=== PATIENT | male | born 1955 | race African-American/Black ===

== ENCOUNTER 2018-07-26 10:58 | Inpatient (IN) | payer OTHER ==
--- NOTE | 2018-07-26 11:06 | PDOC ---
Attending Attestation - Resident Resident Name: Ramila Arevalo - HPI HPI: 07/26/18 11:31 The patient is a 63 year old male, with unknown significant past medical history , poor medicine follow-up, who presents to the emergency department [facility] for inability to get out of bed and stand as per family at 7:30AM this morning. As per EMS, the patient has left sided extremity weakness, left facial droop, and slurred speech. The patient states he woke up with his symptoms and onset time is not exactly known. The patient's family reports seeing him well before bed last night. The patient denies chest pain, shortness of breath, headache and dizziness. The patient denies fever, chills, nausea, vomit, diarrhea and constipation. The patient denies dysuria, frequency, urgency and hematuria. Allergies: NKDA - Physicial Exam PE: 07/26/18 12:10 GENERAL: Awake, alert, and fully oriented, in no acute distress HEAD: No signs of trauma EYES: PERRLA, EOMI, sclera anicteric, conjunctiva clear ENT: Auricles normal inspection, hearing grossly normal, nares patent, oropharynx clear without exudates. Moist mucosa NECK: Normal ROM, supple, no lymphadenopathy, JVD, or masses LUNGS: Breath sounds equal, clear to auscultation bilaterally. No wheezes, and no crackles HEART: Regular rate and rhythm, normal S1 and S2, no murmurs, rubs or gallops ABDOMEN: Soft, nontender, normoactive bowel sounds. No guarding, no rebound. No masses EXTREMITIES: Normal range of motion, no edema. No clubbing or cyanosis. No cords, erythema, or tenderness NEUROLOGICAL: (+) 3/5 MS in left hand. Able to raise left LE against gravity with drift. oriented x 3. Cranial nerves II through XII grossly intact. Normal speech, gait unassessed. SKIN: Warm, Dry, normal turgor, no rashes or lesions noted. - Medical Decision Making 07/26/18 11:33 Documentation prepared by Carol Cuevas, acting as medical anthropologist for Betty Maharaj MD 07/26/18 11:30 Dr. Ignacio, neurology, was paged at this time requesting a call back for doctor to doctor. 07/26/18 13:31 EXAM#: TYPE/EXAM: RESULT: [id number] CT/HEAD CT (STROKE) Rule out stroke CT scan of the brain without intravenous contrast. No prior is available for comparison. There is mild volume loss. The ventricles and basal cisterns appear unremarkable. Mild periventricular chronic microvascular ischemic disease changes are present. There is a lacunar infarct in the medial aspect of the right basal ganglia, of indeterminate age, possibly chronic. Otherwise, no mass lesion, gross acute infarct or intracranial hemorrhage are identified. There is no shift of the midline structures. Visualized paranasal sinuses and mastoid air cells are well aerated. The calvarium is intact IMPRESSION: Mild volume loss and chronic microvascular ischemic disease changes. Right basal ganglia lacunar infarct, of indeterminate age, possibly chronic. Otherwise , no gross acute infarct or intracranial hemorrhage are identified. Correlate clinically for further evaluation and follow-up. Reported By: Daylin Flores MD 07/26/18 1120 EXAM#: TYPE/EXAM: RESULT: [id number] RAD/CHEST X-RAY PORTABLE* Stroke. Single portable chest x-ray. Uncoiled thoracic aorta. Cardiomegaly. The lungs are well aerated. There is no evidence of pneumonia, CHF, pleural effusion, or pneumothorax. The visualized osseous structures appear intact. Impression. No evidence of active pulmonary disease. Cardiomegaly. Reported By: Jesus Tello MD 07/26/18 1140 EXAM#: TYPE/EXAM: RESULT: CT/BRAIN CTA (STROKE) [id number] CT/NECK CTA Left side weakness. Rule out stroke CT angiogram of the head and neck. IMPRESSION: There is no evidence of hemodynamically significant stenosis at the common carotid bifurcation, bilaterally. Slightly dominant left vertebral artery relative to the right without gross evidence of focal stenosis. Small calcified plaque in the left cavernous carotid artery. There is suggestion of moderate focal stenosis at the bifurcation of the right M1 segment on the MIP axial and images which is not definitely appreciated on the axial images. Clinical correlation is recommended to determine further evaluation and follow-up. Case discussed with Dr. Ramila Arevalo, caring health professional at approximately 12:45 pm. Reported By: Daylin Flores MD 07/26/18 1308 EXAM#: TYPE/EXAM: RESULT: [id number] CT/BRAIN CTA (STROKE) [id number] CT/NECK CTA Left side weakness. Rule out stroke CT angiogram of the head and neck. IMPRESSION: There is no evidence of hemodynamically significant stenosis at the common carotid bifurcation, bilaterally. Slightly dominant left vertebral artery relative to the right without gross evidence of focal stenosis. Small calcified plaque in the left cavernous carotid artery. There is suggestion of moderate focal stenosis at the bifurcation of the right M1 segment on the MIP axial and images which is not definitely appreciated on the axial images. Clinical correlation is recommended to determine further evaluation and follow-up. Case discussed with Dr. Ramila Arevalo, caring health professional at approximately 12:45 pm. Reported By: Daylin Flores MD 07/26/18 1304 NIH Stroke Scale - Last Known Well Date/Time & Onset Date Last Known Well: 07/25/18 (unknown time, before bed last night.)
[2018-07-26] MEDS ORDERED: SODIUM CHLORIDE 1,000 ML IV SCH (11:15)
[2018-07-26] MEDS ORDERED: LABETALOL HCL 5 MG/1 ML (100MG/20 ML VIAL) IVPUSH ONE (11:26)
[2018-07-26] MEDS ORDERED: hydrALAZINE HCL 20 MG/ML VIAL ONE ×3 (11:28→19:51)
[2018-07-26] MEDS ORDERED: hydrALAZINE HCL 20 MG/ML VIAL IVPUSH ONE ×3 (11:28→19:49)
--- NOTE | 2018-07-26 11:39 | PDOC ---
History of Present Illness - General Chief Complaint: CVA/TIA Stated Complaint: STROKE Time Seen by Provider: 07/26/18 11:05 History Source: Patient, EMS, Family Exam Limitations: No Limitations - History of Present Illness Initial Comments: 07/26/18 11:41 [id number] with unknown PMH as he has been estranged from the medical system for many years, who p/w left arm and leg weakness and right facial droop and numbness. The patient's last known well time was last night before he went to bed (patient states was feeling well at that time). He awakened this morning, attempted to stand from his bed, and fell. His son picked him up and put him back on the bed. The patient subsequently fell again upon trying to stand. The patient and family note that he now has LUE and LLE weakness, unable to walk, and he has right facial droop and is slurring speech slightly. Never happened to him before. He denies taking any medications today, denies any pain, symptoms persist. Past History - Past Medical History Allergies/Adverse Reactions: Allergies Allergy/AdvReac Type Severity Reaction Status Date / Time No Known Allergies Allergy Verified 07/26/18 11:07 COPD: No CHF: No HTN: Yes (untreated, does not see a doctor.) - Suicide/Smoking/Psychosocial Hx Smoking History: Unknown if ever smoked Have you smoked in the past 12 months: No Hx Alcohol Use: No Drug/Substance Use Hx: No *Physical Exam - Vital Signs Last Vital Signs Temp Pulse Resp BP Pulse Ox 97 F L 74 16 227/125 H 100 07/26/18 10:58 07/26/18 10:58 07/26/18 10:58 07/26/18 10:58 07/26/18 10:58 NIH Stroke Scale - Last Known Well Date/Time & Onset Date Last Known Well: 07/26/18 Time Last Known Well: 07:30 - Initial Evaluation Level of consciousness: Alert Ask patient the month and their age: Answers both correctly Ask patient to open & close eyes; make fist and let go: Obeys both correctly Best gaze (horizontal eye movement): Normal Visual field testing: No visual field loss Facial paresis (Show teeth/raise eyebrows/close eyes tight): Minor paralysis ( flattened nasolabial fold, asymmetry on smiling) Motor Function: Left Arm: Some effort against gravity Motor Function: Right Arm: Normal (extends arm 90 (or 45) degrees for 10 seconds without drift Motor Function: Left Leg: Drift Motor Function: Right Leg: Normal (extends leg 30 degrees for 5 seconds without drift) Limb Ataxia: No ataxia Sensory(Use pinprick test arms,legs,trunk,face/side to side): Mild to moderate decrease in sensation Best language (Describe picture, name items, read sentences): No Aphasia Dysarthria (read several words): Mild to moderate slurring of words Extinction and Inattention: No abnormality - Total Score NIH Stroke Scale Score: 6 tPA Exclusion checklist 3-4.5h - Time Elapsed Date last known well: 07/25/18 Time last known well: 23:00 Elaspsed time: 1 Day(s) and 10 Hour(s) and 33 Minutes - Thrombolytic Therapy Candidate Is patient eligible for thrombolytic therapy: No - Exclusion Criteria 3-4.5 hr SBP greater than 185 or DBP greater than 110mmHg despite tx: Yes Recent IC/spinal surgery,head trauma or stroke<3mos.: No Hx IC hemorrhage, IC neoplasm, AV malformation or aneurysm: No Active internal bleeding: No Blding diathesis(low plt ct, inc PTT,INR>1.7 or use of NOAC): No Symptoms suggest subarachnoid hemorrhage: No CT demonstrates multilobar infarct(>1/3 cerebral hemiphere): No Arterial puncture at noncompressible site in previous 7 days: No Blood glucose concentration less than 50mg/dL (2.7mmol/L): No - Relative Exclusion Criteria 3-4.5 hr Life expectancy <1 yr or severe co-morbid illness: No : No Patient/family refused: No Rapid improvement: No Stroke severity too mild: No Recent acute KS (w/in previous 3 months): No Seizure at onset with postictal residual neuro impairments: No Major surgery or serious trauma w/in previous 14 days: No Recent GI or hemorrhage (w/in previous 21 days): No - Add'l Relative Exclusion 3-4.5 hr Age > 80: No Hx of both diabetes AND prior ischemic stroke: No Taking an oral anticoagulant regardless of INR: No NIHSS >25: No - Ineligibility reason(s) Reasons No tPA given: Outside of window - delayed arrival Moderate Sedation - Procedure Monitoring Vital Signs: Procedure Monitoring Vital Signs Temperature 97 F L 07/26/18 10:58 Pulse Rate 74 07/26/18 10:58 Respiratory Rate 16 07/26/18 10:58 Blood Pressure 227/125 H 07/26/18 10:58 O2 Sat by Pulse Oximetry (%) 100 07/26/18 10:58 Heart Score/ECG Review #1 07/26/18 11:17 NSR, rate 80, normal axis and intervals, meets LVH criteria, TWI in I, aVL, and lateral chest leads, no prior EKG available for comparison Critical Care Time/MDM Note Total Critical Care Time: 45 Critical Care Statement: The care of this patient involved high complexity decision making to prevent further life threatening deterioration of the patient 's condition and/or to evaluate & treat vital organ system(s) failure or risk of failure. - Medical Decision Making Note: Patient presents with LUE and LLE weakness, right facial droop and numbness, slurred speech. Last known well time was last night. However Cash Cohn was initially called because patient/family reported feeling well/normal at 8 am initially. Initial Vital Signs Temp Pulse Resp BP Pulse Ox 97 F L 74 16 227/125 H 100 07/26/18 10:58 07/26/18 10:58 07/26/18 10:58 07/26/18 10:58 07/26/18 10:58 Exam: As noted in Physical Exam section. DDX IBNLT: CVA/TIA, hypertensive emergency, carotid dissection or other dissection, hypoglycemia, limb ischemia (e.g. thromboembolism or dissection), etc. W/U ordered: Stroke w/u including labs below, head CT, head/neck CTA, EKG, CXR, auto [employer] manager [place] ordered: IV, O2, Monitor, IVF, hydralazine (we have been informed that there is no labetolol or esmolol available IV) NIH is 6 and patient is not a tPA candidate d/t delayed arrival. EKG: Reviewed; results as noted in ECG Review section. CT/HEAD CT (STROKE) Rule out stroke CT scan of the brain without intravenous contrast. No prior is available for comparison. There is mild volume loss. The ventricles and basal cisterns appear unremarkable. Mild periventricular chronic microvascular ischemic disease changes are present. There is a lacunar infarct in the medial aspect of the right basal ganglia, of indeterminate age, possibly chronic. Otherwise, no mass lesion, gross acute infarct or intracranial hemorrhage are identified. There is no shift of the midline structures. Visualized paranasal sinuses and mastoid air cells are well aerated. The calvarium is intact IMPRESSION: Mild volume loss and chronic microvascular ischemic disease changes. Right basal ganglia lacunar infarct, of indeterminate age, possibly chronic. Otherwise, no gross acute infarct or intracranial hemorrhage are identified. Correlate clinically for further evaluation and follow-up. RAD/CHEST X-RAY PORTABLE* Stroke. Single portable chest x-ray. Uncoiled thoracic aorta. Cardiomegaly. The lungs are well aerated. There is no evidence of pneumonia, CHF, pleural effusion, or pneumothorax. The visualized osseous structures appear intact. Impression. No evidence of active pulmonary disease. Cardiomegaly. Laboratory Tests 07/26/18 07/26/18 07/26/18 11:39 11:39 11:39 WBC 6.7 RBC 4.67 Hgb 13.6 Hct 40.0 MCV 85.6 MCH 29.1 MCHC 34.0 RDW 14.3 Plt Count 224 MPV 7.8 Absolute Neuts (auto) 5.0 Neutrophils % 75.1 Lymphocytes % 19.2 Monocytes % 4.5 Eosinophils % 0.9 Basophils % 0.3 Nucleated RBC % 0 PT with INR 12.20 INR 1.03 PTT (Actin FS) Sodium 143 Potassium 3.2 L Chloride 109 H Carbon Dioxide 27 Anion Gap 6 L BUN 23 H Creatinine 2.2 H Creat Clearance w eGFR 30.48 Random Glucose 148 H Calcium 8.4 L Total Bilirubin 0.3 AST 18 ALT 18 Alkaline Phosphatase 68 Creatine Kinase 265 Creatine Kinase Index 1.2 CK-MB (CK-2) 3.3 Troponin I 0.11 H Total Protein 7.0 Albumin 3.7 Triglycerides 139 Cholesterol 250 H Total LDL Cholesterol 171 H HDL Cholesterol 40 Urine Color Urine Appearance Urine pH Ur Specific [place] Urine Protein Urine Glucose (UA) Urine Ketones Urine Blood Urine Nitrite Urine Bilirubin Urine Urobilinogen Ur Leukocyte Esterase 07/26/18 07/26/18 07/26/18 11:39 11:39 12:33 WBC RBC Hgb Hct MCV MCH MCHC RDW Plt Count MPV Absolute Neuts (auto) Neutrophils % Lymphocytes % Monocytes % Eosinophils % Basophils % Nucleated RBC % PT with INR INR PTT (Actin FS) 29.3 Sodium Potassium Chloride Carbon Dioxide Anion Gap BUN Creatinine Creat Clearance w eGFR Random Glucose Calcium Total Bilirubin AST ALT Alkaline Phosphatase Creatine Kinase 264 Creatine Kinase Index 1.4 CK-MB (CK-2) 3.8 H Troponin I Total Protein Albumin Triglycerides Cholesterol Total LDL Cholesterol HDL Cholesterol Urine Color Straw Urine Appearance Clear Urine pH 7.0 Ur Specific [place] 1.018 Urine Protein Negative Urine Glucose (UA) 1+ H Urine Ketones Negative Urine Blood Negative Urine Nitrite Negative Urine Bilirubin Negative Urine Urobilinogen Negative Ur Leukocyte Esterase Negative Vital Signs Temperature 98 F 07/26/18 12:13 Pulse Rate 88 07/26/18 12:13 Respiratory Rate 22 H 07/26/18 12:13 Blood Pressure 216/116 H 07/26/18 12:13 O2 Sat by Pulse Oximetry (%) 99 07/26/18 12:13 CT/BRAIN CTA (STROKE) [id number] CT/NECK CTA Left side weakness. Rule out stroke CT angiogram of the head and neck. A post intravenous contrast CT angiogram of the head and neck was performed. MIP, MPR and 3 D volume rendering reconstruction images were obtained. [address] axis scan of the brain was performed. 100 cc of Omnipaque 350 was intravenously injected Cervical course of both common carotid arteries appear unremarkable. The common carotid bifurcation appears unremarkable, bilaterally. Left vertebral artery is slightly dominant relative to the right. There is no gross focal stenosis in both vertebral arteries. Intracranially, the vertebrobasilar junction, basilar artery and tip appear unremarkable. A right and left posterior communicating artery is present with suggestion of origin of both posterior cerebral arteries. Both superior cerebellar arteries appear grossly unremarkable. There are small calcified plaques in the left cavernous carotid artery. Intracranial bifurcation of the left internal carotid artery as well as the anterior and middle cerebral artery appear unremarkable. Intracranially bifurcation of the right internal carotid artery and the right anterior cerebral artery appear unremarkable. There is suggestion of focal moderate stenosis at the junction of the right M1 and M2 segment on the MIP axial and coronal images that is not definitely appreciated on the source axial images. No gross aneurysm, major artery cutoff or vascular malformation is seen within the intracranial arterial circulation. There is normal enhancement of the intracranial venous sinuses. Evaluation of the neck soft tissue appears unremarkable without gross evidence of abnormal enhancement, discrete mass or enlarged lymph nodes. Both orbits appear unremarkable. Intracranially, no gross abnormal intraparenchymal enhancement is identified. In included portion of the thoracic inlet, there is mild pleural thickening in the right lung apex , posteriorly. Normal enhancement of the aortic arch and included portion of the main pulmonary artery. IMPRESSION: There is no evidence of hemodynamically significant stenosis at the common carotid bifurcation, bilaterally. Slightly dominant left vertebral artery relative to the right without gross evidence of focal stenosis. Small calcified plaque in the left cavernous carotid artery. There is suggestion of moderate focal stenosis at the bifurcation of the right M1 segment on the MIP axial and images which is not definitely appreciated on the axial images. Clinical correlation is recommended to determine further evaluation and follow-up. Case discussed with Dr. Ramila Dangelo, caring health professional at approximately 12:45 pm. 07/26/18 12:17 I placed order for NTG drip as patient's BP remains 216 systolic. 07/26/18 12:26 Goal is to decrease MAP by 32 from arrival vitals (190s/100s). 07/26/18 13:00 Pt's BP is 180/114, symptoms unchanged, repeat NIHSS is 6. 07/26/18 13:24 Patient's BP at this time is 167/94; decreasing from 10 to 5 mcg/min NTG drip. The Pt is unsafe for discharge at this time. They require further hospital observation, workup, and treatment. I spoke with Dr. Newell; patient going to ICU, ICU resident team to evaluate in ED. Microblog sent to [facility] for admission. Blank Decision to Admit order is placed per ED protocol. I have spoken with the admitting team, in agreement Pt to be admitted. Decision to Admit order corrected with admitting team covering attendings name. *DC/Admit/Observation/Transfer Diagnosis at time of Disposition: Troponin I above reference range, FERNANDO (acute kidney injury), Hypokalemia Cerebrovascular accident (CVA) Qualifiers: CVA mechanism: unspecified Qualified Code(s): I63.9 - Cerebral infarction, unspecified - Discharge Dispostion Condition at time of disposition: Guarded Decision to Admit order: Yes - Referrals - Patient Instructions - Post Discharge Activity
[2018-07-26 11:58] LABS: BASO % 0.3 % (0-2.0); EOS % 0.9 % (0-4.5); HEMOGLOBIN 13.6 GM/dL (11.7-16.9); LYMPH % 19.2 % (8-40); MCH 29.1 pg (25.7-33.7); MEAN CELL VOLUME 85.6 fl (80-96); MEAN PLT VOLUME 7.8 fl (7.5-11.1); MONO % 4.5 % (3.8-10.2); NEUT % 75.1 % (42.8-82.8); PLATELET COUNT 224 K/MM3 (134-434); RBC 4.67 M/mm3 (4.00-5.60); RDW 14.3 % (11.9-15.9); WHITE BLOOD COUNT 6.7 K/mm3 (4.0-10.0)
[2018-07-26] MEDS ORDERED: NITROGLYCERIN 25MG/D5W 250ML 25 MG/250 ML ML IVPB SCH (12:15)
[2018-07-26] MEDS ORDERED: NITROGLYCERIN 25MG/D5W 250ML 25 MG/250 ML ML IVPB ONE (12:17)
[2018-07-26 12:26] LABS: ALBUMIN 3.7 g/dl (3.4-5.0); ALK PHOS 68 U/L (45-117); ANION GAP 6 MMOL/L (8-16); BILIRUBIN,TOTAL 0.3 mg/dL (0.2-1); BLOOD UREA NITROGEN 23 mg/dL (7-18); CALCIUM 8.4 mg/dL (8.5-10.1); CHLORIDE 109 mmol/L (98-107); CHOLESTEROL 250 mg/dL (50-200); CO2 27 mmol/L (21-32); CREATININE 2.2 mg/dL (0.55-1.3); GLUCOSE,RANDOM 148 mg/dL (74-106); HDL CHOLESTEROL 40 mg/dL (40-60); POTASSIUM 3.2 mmol/L (3.5-5.1); SGOT/AST 18 U/L (15-37); SGPT/ALT 18 U/L (13-61); SODIUM 143 mmol/L (136-145); TRIGLYCERIDES 139 mg/dL (0-150)
[2018-07-26 12:57] LABS: INR 1.03 (0.83-1.09); PROTHROMBIN TIME (PATIENT) 12.2 SEC (9.7-13.0)
[2018-07-26 13:14] LABS: URINE APPEARANCE CLEAR; URINE BILIRUBIN NEGATIVE (<2.0 mg/dL); URINE COLOR STRAW; URINE GLUCOSE (UA) 1+ (NEGATIVE); URINE KETONE NEGATIVE (NEGATIVE); URINE LEUK ESTERASE NEGATIVE (NEGATIVE); URINE NITRITE NEGATIVE (NEGATIVE); URINE PROTEIN NEGATIVE (NEGATIVE); URINE UROBILINOGEN NEGATIVE mg/dL (0.2-1.0)
--- NOTE | 2018-07-26 14:38 | EKG ---
Test Reason : Blood Pressure : / mmHG Vent. Rate : 080 BPM Atrial Rate : 080 BPM P-R Int : 186 ms QRS Dur : 094 ms QT Int : 390 ms P-R-T Axes : 050 -01 140 degrees QTc Int : 449 ms NORMAL SINUS RHYTHM VOLTAGE CRITERIA FOR LEFT VENTRICULAR HYPERTROPHY T WAVE ABNORMALITY, CONSIDER LATERAL ISCHEMIA ABNORMAL ECG NO PREVIOUS ECGS AVAILABLE Confirmed by WALLY BUSH MD ([id number]) on 07/26/2018 2:38:08 PM Referred By: Confirmed By:WALLY BUSH MD
--- NOTE | 2018-07-26 15:03 | PN ---
Teaching Attending Note Name of Resident: Carrington Leal ATTENDING PHYSICIAN STATEMENT I saw and evaluated the patient. I reviewed the resident's note and discussed the case with the resident. I agree with the resident's findings and plan as documented. SUBJECTIVE: 63 M, unknown PMH. Last seen normal last night (about 14 hours prior to initial assessment). Woke up this AM and was unable to stand on his own. Presents to the ER with left arm and leg weakness and facial droop and numbness. Initial BP: 230/130 CTA: There is no evidence of hemodynamically significant stenosis at the common carotid bifurcation,bilaterally. Slightly dominant left vertebral artery relative to the right without gross evidence of focal stenosis. Small calcified plaque in the left cavernous carotid artery. There is suggestion of moderate focal stenosis at the bifurcation of the right M1 segment on the MIP axial and images which is not definitely appreciated on the axial images. Intake & Output 07/23/18 07/24/18 07/25/18 07/26/18 23:59 23:59 23:59 23:59 Weight 250 lb Last Vital Signs Temp Pulse Resp BP Pulse Ox 98 F 88 22 H 216/116 H 99 07/26/18 12:13 07/26/18 12:13 07/26/18 12:13 07/26/18 12:13 07/26/18 12:13 Active Medications Sodium Chloride (Normal Saline -) 1,000 mls @ 42 mls/hr IV ASDIR YOLANDE Last Admin: 07/26/18 12:12 Dose: 42 mls/hr Nitroglycerin/Dextrose (Nitroglycerin 25mg/D5w 250ml) 25 mg in 250 mls @ 6 mls/ hr IVPB TITR YOLANDE Last Titration: 07/26/18 14:04 Dose: 0 mcg/min, 0 mls/hr Constitutional: Yes: Dense hemiparesis on the left, NAD Eyes: Yes: Conjunctiva Clear, EOM Intact HENT: Yes:(+) facial droop Neck: Yes: Supple, Trachea Midline Cardiovascular: Yes: Regular Rate and Rhythm Respiratory: Yes: Cough, Diminished, Rhonchi. No: Accessory Muscle Use, Rales, SOB, SOB on Exertion, Stridor, Tachypnea, Wheezes ...Inspection: Yes: WNL ...Clubbing: No Gastrointestinal: Yes: Normal Bowel Sounds, Soft Renal/: Yes: WNL Musculoskeletal: Yes: WNL Extremities: Yes: WNL Edema: No Peripheral Pulses WNL: Yes Integumentary: Yes: WNL Neurological: Yes: Confusion, dense left hemiparesis Laboratory Tests 07/26/18 07/26/18 07/26/18 11:39 11:39 11:39 WBC 6.7 RBC 4.67 Hgb 13.6 Hct 40.0 MCV 85.6 MCH 29.1 MCHC 34.0 RDW 14.3 Plt Count 224 MPV 7.8 Absolute Neuts (auto) 5.0 Neutrophils % 75.1 Lymphocytes % 19.2 Monocytes % 4.5 Eosinophils % 0.9 Basophils % 0.3 Nucleated RBC % 0 PT with INR 12.20 INR 1.03 PTT (Actin FS) Sodium 143 Potassium 3.2 L Chloride 109 H Carbon Dioxide 27 Anion Gap 6 L BUN 23 H Creatinine 2.2 H Creat Clearance w eGFR 30.48 Random Glucose 148 H Calcium 8.4 L Total Bilirubin 0.3 AST 18 ALT 18 Alkaline Phosphatase 68 Creatine Kinase 265 Creatine Kinase Index 1.2 CK-MB (CK-2) 3.3 Troponin I 0.11 H Total Protein 7.0 Albumin 3.7 Triglycerides 139 Cholesterol 250 H Total LDL Cholesterol 171 H HDL Cholesterol 40 Urine Color Urine Appearance Urine pH Ur Specific [place] Urine Protein Urine Glucose (UA) Urine Ketones Urine Blood Urine Nitrite Urine Bilirubin Urine Urobilinogen Ur Leukocyte Esterase 07/26/18 07/26/18 07/26/18 11:39 11:39 12:33 WBC RBC Hgb Hct MCV MCH MCHC RDW Plt Count MPV Absolute Neuts (auto) Neutrophils % Lymphocytes % Monocytes % Eosinophils % Basophils % Nucleated RBC % PT with INR INR PTT (Actin FS) 29.3 Sodium Potassium Chloride Carbon Dioxide Anion Gap BUN Creatinine Creat Clearance w eGFR Random Glucose Calcium Total Bilirubin AST ALT Alkaline Phosphatase Creatine Kinase 264 Creatine Kinase Index 1.4 CK-MB (CK-2) 3.8 H Troponin I Total Protein Albumin Triglycerides Cholesterol Total LDL Cholesterol HDL Cholesterol Urine Color Straw Urine Appearance Clear Urine pH 7.0 Ur Specific [place] 1.018 Urine Protein Negative Urine Glucose (UA) 1+ H Urine Ketones Negative Urine Blood Negative Urine Nitrite Negative Urine Bilirubin Negative Urine Urobilinogen Negative Ur Leukocyte Esterase Negative Vital Signs Temperature 98 F 07/26/18 12:13 Pulse Rate 88 01/17/19 12:13 Respiratory Rate 22 H 07/26/18 12:13 Blood Pressure 216/116 H 07/26/18 12:13 O2 Sat by Pulse Oximetry (%) 99 07/26/18 12:13 IMP: Acute CVA with last known well last night, well beyond the time frame for lytic therapy No obvious pathology reported that would be amenable to interventional therapies PLAN: Allow for permissive HTN: Maintain Bp <220/120 for first 24 hours. At present no clear indication for acute lowering Follow Neuro exam Strict I & O Maintain Normothermia Glycemic control (140 to 180) DC NTG drip as last BP 168/92 ECHO Statin Neuro evaluation ICU monitoring Dr Newell Critical care time spent in reviewing chart, evaluating patient and formulating plan - 36 minutes.
--- NOTE | 2018-07-26 15:26 | CONSULT ---
Consultation: REQUESTING PROVIDER: CONSULT REQUEST: We have been asked to medically evaluate this patient for ICU. HISTORY OF PRESENT ILLNESS: 63 yo M with unknown pmhx (has not seen MD in 15+yrs) presents s/p fall x2 this morning. He states that he was getting up to use the bathroom and legs gave out and fell to floor. He denies any head trauma or LOC. EMS was called and was subsequently brought in to ER. In ER he was found to have left sided weakness and left sided facial droop. He is accompanied by his daughter. He or his family unsure when his last well was. His daughter says he did not have symptoms last night prior to going to bed. He has not had similar episodes in past. He is not on any medication at home. Upon arrival patient was found to have BP was 227/125 and he was started on Nitro drip. The patient denies chest pain, shortness of breath, headache and dizziness. The patient denies fever, chills, nausea, vomit, diarrhea and constipation. The patient denies dysuria, frequency, urgency and hematuria. ER COURSE: * CT of head showed mild volume loss and chronic microvascular ischemic disease changes. Right basal ganglia lacunar infarct, of indeterminate age, possibly chronic. * EKG shows NSR with voltage criteria for LVH and T wave abnormalities in lateral leads. * CT angiogram of the head and neck shows no evidence of hemodynamically significant stenosis at the common carotid bifurcation,bilaterally.Slightly dominant left vertebral artery relative to the right without gross evidence of focal stenosis.Small calcified plaque in the left cavernous carotid artery. PMHx: Unkown PSHx: none Social: Denies smoking, no etoh, no illicit drug use. 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 REVIEW OF SYSTEMS: CONSTITUTIONAL: Absent: fever, chills, diaphoresis, generalized weakness, malaise, loss of appetite, weight change HEENT: Absent: rhinorrhea, nasal congestion, throat pain, throat swelling, difficulty swallowing, mouth swelling, ear pain, eye pain, visual changes CARDIOVASCULAR: Absent: chest pain, syncope, palpitations, irregular heart rate, lightheadedness , peripheral edema RESPIRATORY: Absent: cough, shortness of breath, dyspnea with exertion, orthopnea, wheezing, stridor, hemoptysis GASTROINTESTINAL: Absent: abdominal pain, abdominal distension, nausea, vomiting, diarrhea, constipation, melena, hematochezia GENITOURINARY: Absent: dysuria, frequency, urgency, hesitancy, hematuria, flank pain, genital pain MUSCULOSKELETAL: Absent: myalgia, arthralgia, joint swelling, back pain, neck pain SKIN: Absent: rash, itching, pallor HEMATOLOGIC/IMMUNOLOGIC: Absent: easy bleeding, easy bruising, lymphadenopathy, frequent infections ENDOCRINE: Absent: unexplained weight gain, unexplained weight loss, heat intolerance, cold intolerance NEUROLOGIC: focal weakness or paresthesias,unsteady gait, Absent: headache, , dizziness, seizure, mental status changes, bladder or bowel incontinence PSYCHIATRIC: Absent: anxiety, depression, suicidal or homicidal ideation, hallucinations. PHYSICAL EXAMINATION Vital Signs - 24 hr 07/26/18 07/26/18 10:58 12:13 Temperature 97 F L 98 F Pulse Rate 74 Pulse Rate [ 88 Left] Respiratory 16 22 H Rate Blood Pressure 227/125 H Blood Pressure 216/116 H [Right Arm] O2 Sat by Pulse 100 99 Oximetry (%) GENERAL: awake and lethargic but arousable. HEAD:NCAT EYES: PERRLA, EOMI, sclera anicteric, conjunctiva clear. No lid lag. EARS, NOSE, THROAT:Dry mucous membranes. NECK:Supple without lymphadenopathy, JVD, or masses. LUNGS:CTAB. No wheezes, and no crackles. No accessory muscle use. HEART: RRR, normal S1 and S2 without murmur, rub or gallop. ABDOMEN: Soft, NTND, NABS, no guarding, no rebound, no masses. UPPER EXTREMITIES: 2+ pulses, warm, well-perfused. No cyanosis. No clubbing. Cap refill <2 seconds. No peripheral edema. LOWER EXTREMITIES: 2+ pulses, warm, well-perfused. No calf tenderness. No peripheral edema. NEUROLOGICAL: left sided facial droop. Tongue deviation to left. Left UE and LE 0/5 strength. Decreased sensation on left side. RUE and RLE 5/5 strength. Slightly slurred speech. PSYCHIATRIC: lethargic. SKIN: 5x5cm ulceration of left leg with purulent drainage. Laboratory Results - last 24 hr 07/26/18 07/26/18 07/26/18 11:39 11:39 11:39 WBC 6.7 RBC 4.67 Hgb 13.6 Hct 40.0 MCV 85.6 MCH 29.1 MCHC 34.0 RDW 14.3 Plt Count 224 MPV 7.8 Absolute Neuts (auto) 5.0 Neutrophils % 75.1 Lymphocytes % 19.2 Monocytes % 4.5 Eosinophils % 0.9 Basophils % 0.3 Nucleated RBC % 0 PT with INR 12.20 INR 1.03 PTT (Actin FS) Sodium 143 Potassium 3.2 L Chloride 109 H Carbon Dioxide 27 Anion Gap 6 L BUN 23 H Creatinine 2.2 H Creat Clearance w eGFR 30.48 Random Glucose 148 H Calcium 8.4 L Total Bilirubin 0.3 AST 18 ALT 18 Alkaline Phosphatase 68 Creatine Kinase 265 Creatine Kinase Index 1.2 CK-MB (CK-2) 3.3 Troponin I 0.11 H Total Protein 7.0 Albumin 3.7 Triglycerides 139 Cholesterol 250 H Total LDL Cholesterol 171 H HDL Cholesterol 40 Urine Color Urine Appearance Urine pH Ur Specific [place] Urine Protein Urine Glucose (UA) Urine Ketones Urine Blood Urine Nitrite Urine Bilirubin Urine Urobilinogen Ur Leukocyte Esterase 07/26/18 07/26/18 07/26/18 11:39 11:39 12:33 WBC RBC Hgb Hct MCV MCH MCHC RDW Plt Count MPV Absolute Neuts (auto) Neutrophils % Lymphocytes % Monocytes % Eosinophils % Basophils % Nucleated RBC % PT with INR INR PTT (Actin FS) 29.3 Sodium Potassium Chloride Carbon Dioxide Anion Gap BUN Creatinine Creat Clearance w eGFR Random Glucose Calcium Total Bilirubin AST ALT Alkaline Phosphatase Creatine Kinase 264 Creatine Kinase Index 1.4 CK-MB (CK-2) 3.8 H Troponin I Total Protein Albumin Triglycerides Cholesterol Total LDL Cholesterol HDL Cholesterol Urine Color Straw Urine Appearance Clear Urine pH 7.0 Ur Specific [place] 1.018 Urine Protein Negative Urine Glucose (UA) 1+ H Urine Ketones Negative Urine Blood Negative Urine Nitrite Negative Urine Bilirubin Negative Urine Urobilinogen Negative Ur Leukocyte Esterase Negative Active Medications Generic Name Dose Route Start Last Admin Trade Name Freq PRN Reason Stop Dose Admin Sodium Chloride 1,000 mls @ 42 mls/hr 07/26/18 11:15 07/26/18 12:12 Normal Saline - IV 42 mls/hr ASDIR YOLANDE Administration Nitroglycerin/Dextrose 25 mg in 250 mls @ 6 mls/hr 07/26/18 12:15 07/26/18 13 :38 Nitroglycerin 25mg/D5w 250ml IVPB 5 mcg/min TITR YOLANDE 3 mls/hr Titration 10 MCG/MIN ASSESSMENT/PLAN: 63 yo M with unknown pmhx (has not seen MD in 15+yrs) presents s/p fall x2 admitted to ICU for possible CVA. #NEURO: * Possible CVA * Avoid hydralazine as this will increase IC pressure. * Neuro checks Q1H * repeat CT in AM * Neuro consult pending. #CV: * Permissive HTN for 24hrs. 220/120 * Will consider reducing BP after 24hr period. * Consider Labetolol * trend trops * ECHO pending. * Strict I/O's * will need Statin once cleared by speech and swallow. #PULM * No active issues * SUpplemental O2 PRN * maintain SpO2 >90% #RENAL: * FERNANDO * Will obtain FeNa and Kidney US(r/o obstruction) * Unsure of baseline Cr. * Will continue to monitor. * repeat BMP in AM #FEN: * No fluid for now * No abnormalities. will monitor and replete PRN. * NPO for now. Dispo: We will continue to follow the patient in ICU. Thank you for this consultative opportunity. Visit type - Emergency Visit Emergency Visit: Yes ED Registration Date: 07/26/18 Care time: The patient presented to the Emergency Department on the above date and was hospitalized for further evaluation of their emergent condition. - New Patient This patient is new to me today: Yes Date on this admission: 07/27/18 - Critical Care Critical Care patient: Yes Total Critical Care Time (in minutes): 42 Critical Care Statement: The care of this patient involved high complexity decision making to prevent further life threatening deterioration of the patient 's condition and/or to evaluate & treat vital organ system(s) failure or risk of failure.
--- NOTE | 2018-07-26 16:48 | HP ---
CHIEF COMPLAINT: Fall, facial droop, weakness HISTORY OF PRESENT ILLNESS: 63yo M with nondiagnosed PmHx (not seen PCP in 15+ yrs due to insurance) presents to the ED s/p fall while getting out of bed this morning. Pt's last known normal was when he went to bed last night. He denies any head trauma or LOC and describes that his leg gave out and he fell to the floor. Pt was brought to the ER by his son and daughter. Pt found to have L-sided flaccidity and L sided facial droop at rest. Pt denies any similar symptoms prior to this time. Pt denies any fever/chills, n/v/d/c, SOB, CP/discomfort, palpitations, dysuria, polyuria, and hematuria. In ED pt's BP initially 227/125, Code Cohn was initiated, and pt had CT noncontrast performed. Recent Travel: Denies PAST MEDICAL HISTORY: Unavailable PAST SURGICAL HISTORY: None Social History: Smoking: None Alcohol: None Drugs: None Family History: Noncontributory Allergies No Known Allergies Allergy (Verified 07/26/18 11:07) HOME MEDICATIONS: REVIEW OF SYSTEMS As per HPI PHYSICAL EXAMINATION Vital Signs - 24 hr 07/26/18 07/26/18 07/26/18 10:58 12:13 15:34 Temperature 97 F L 98 F Pulse Rate 74 Pulse Rate [ 88 82 Left] Respiratory 16 22 H 20 Rate Blood Pressure 227/125 H Blood Pressure 216/116 H 178/91 H [Right Arm] O2 Sat by Pulse 100 99 100 Oximetry (%) GENERAL: Awake, alert, and fully oriented, in no acute distress. HEENT: NC/AT, EOMI, no nystagmus, XENA, sclera anicteric, L-sided deviation of tongue, fasiculations noted on tongue, no posterior oropharynx exudates or erythema NECK: No JVD, no carotid bruits, no C-spine TTP LUNGS: CTA bilaterally. No wheezes, and no crackles. No accessory muscle use. HEART: RRR, normal S1 and S2 without murmur ABDOMEN: Soft, NT/ND, normoactive bowel sounds, no guarding. EXTREMITIES: 2+ distal pulses, No peripheral edema. See SKIN exam NEUROLOGICAL: L sided facial droop and softening of nasolabial fold, sparing of upper facial region, EOMI, XENA, no nystagmus L-sided tongue and uvula deviation Dysarthric Word-finding abilities, command following, and language skills intact Strength 0/5 in L arm and L leg; Strength 5/5 in R arm and R leg Sensation of light touch diminished in L arm and leg (Arm > leg ) Inability to test cerebellar signs in L extremities, however intact in R (no dysmetria or dysdiadocokinesia PSYCHIATRIC: Cooperative. Good eye contact. Appropriate mood and affect. SKIN: Warm, dry, muscle atrophy R compared to L, chronic skin breakdown/lesion seen on RLL with area of ~4x4cm ulceration R knee without any serous/sanguinous/ purulent drainage, slight maceration noted. Laboratory Results - last 24 hr 07/26/18 07/26/18 07/26/18 11:39 11:39 11:39 WBC 6.7 RBC 4.67 Hgb 13.6 Hct 40.0 MCV 85.6 MCH 29.1 MCHC 34.0 RDW 14.3 Plt Count 224 MPV 7.8 Absolute Neuts (auto) 5.0 Neutrophils % 75.1 Lymphocytes % 19.2 Monocytes % 4.5 Eosinophils % 0.9 Basophils % 0.3 Nucleated RBC % 0 PT with INR 12.20 INR 1.03 PTT (Actin FS) Sodium 143 Potassium 3.2 L Chloride 109 H Carbon Dioxide 27 Anion Gap 6 L BUN 23 H Creatinine 2.2 H Creat Clearance w eGFR 30.48 Random Glucose 148 H Calcium 8.4 L Total Bilirubin 0.3 AST 18 ALT 18 Alkaline Phosphatase 68 Creatine Kinase 265 Creatine Kinase Index 1.2 CK-MB (CK-2) 3.3 Troponin I 0.11 H Total Protein 7.0 Albumin 3.7 Triglycerides 139 Cholesterol 250 H Total LDL Cholesterol 171 H HDL Cholesterol 40 Urine Color Urine Appearance Urine pH Ur Specific [place] Urine Protein Urine Glucose (UA) Urine Ketones Urine Blood Urine Nitrite Urine Bilirubin Urine Urobilinogen Ur Leukocyte Esterase Blood Type Antibody Screen 07/26/18 07/26/18 07/26/18 11:39 11:39 11:39 WBC RBC Hgb Hct MCV MCH MCHC RDW Plt Count MPV Absolute Neuts (auto) Neutrophils % Lymphocytes % Monocytes % Eosinophils % Basophils % Nucleated RBC % PT with INR INR PTT (Actin FS) 29.3 Sodium Potassium Chloride Carbon Dioxide Anion Gap BUN Creatinine Creat Clearance w eGFR Random Glucose Calcium Total Bilirubin AST ALT Alkaline Phosphatase Creatine Kinase 264 Creatine Kinase Index 1.4 CK-MB (CK-2) 3.8 H Troponin I Total Protein Albumin Triglycerides Cholesterol Total LDL Cholesterol HDL Cholesterol Urine Color Urine Appearance Urine pH Ur Specific [place] Urine Protein Urine Glucose (UA) Urine Ketones Urine Blood Urine Nitrite Urine Bilirubin Urine Urobilinogen Ur Leukocyte Esterase Blood Type O POSITIVE Antibody Screen Negative 07/26/18 12:33 WBC RBC Hgb Hct MCV MCH MCHC RDW Plt Count MPV Absolute Neuts (auto) Neutrophils % Lymphocytes % Monocytes % Eosinophils % Basophils % Nucleated RBC % PT with INR INR PTT (Actin FS) Sodium Potassium Chloride Carbon Dioxide Anion Gap BUN Creatinine Creat Clearance w eGFR Random Glucose Calcium Total Bilirubin AST ALT Alkaline Phosphatase Creatine Kinase Creatine Kinase Index CK-MB (CK-2) Troponin I Total Protein Albumin Triglycerides Cholesterol Total LDL Cholesterol HDL Cholesterol Urine Color Straw Urine Appearance Clear Urine pH 7.0 Ur Specific [place] 1.018 Urine Protein Negative Urine Glucose (UA) 1+ H Urine Ketones Negative Urine Blood Negative Urine Nitrite Negative Urine Bilirubin Negative Urine Urobilinogen Negative Ur Leukocyte Esterase Negative Blood Type Antibody Screen ASSESSMENT/PLAN: Acute CVA vs. HTN emergency ? FERNANDO vs. CKD Skin ulceration HLD Elevated troponin Proteinuria --NIHSS 12 at this time --Pt originally outside of thrombolytic window. No notable thrombus and still outside of thrombectomy window --Discontinue nitro gtt; allow for permissive HTN in 24hrs (cutoff 220/110) --If need to decrease BP to goal can use Hydralazine 10mg IVP q4h PRN ( labetalol on backorder at this time) --Albia decrease around 15% from BP goal --Neurology on board --Seizure precautions --Fall precautions --Neurochecks q2h --BGM q4h --Speech and swallow evaluation ordered --Lipid panel already performed; will need statin when cleared by S&S --CTA Head and Neck reviewed --Notable small plaque in L cavernous carotid artery --Notable moderate stenosis @ M1 segment --Tight glycemic control with goal between 140-180 --BGM q4h --Echocardiogram ordered --Continue to trend troponin; likely 2/2 to elevated BP --Renal US --Replete potassium --Junie and UCr evaluated for FeNa --ID consulted; will cover with Vancomycin and Meropenem for ulcerative area due to likely infection --Wound care consult FEN: Fluids: Avoid excessive amount due to vasogenic edema Electrolyte abnormalities: Hypok as above Nutrition: NPO; S&S evaluation PPX: DVT - SCDs Dispo: ICU for higher level of care and neuro checks Case discussed with Dr. Reeves and ICU team Shan Cho, DO - IM PGY-2 Visit type - Emergency Visit Emergency Visit: Yes ED Registration Date: 07/26/18 Care time: The patient presented to the Emergency Department on the above date and was hospitalized for further evaluation of their emergent condition. - New Patient This patient is new to me today: Yes Date on this admission: 07/26/18 - Critical Care Critical Care patient: Yes Total Critical Care Time (in minutes): 40 Critical Care Statement: The care of this patient involved high complexity decision making to prevent further life threatening deterioration of the patient 's condition and/or to evaluate & treat vital organ system(s) failure or risk of failure.
--- NOTE | 2018-07-26 17:48 | HP ---
CHIEF COMPLAINT: PCP: HISTORY OF PRESENT ILLNESS: 63 yo M with unknown pmhx (has not seen MD in 15+yrs) presents s/p fall x2 this morning. He states that he was getting up to use the bathroom and legs gave out and fell to floor. He denies any head trauma or LOC. EMS was called and was subsequently brought in to ER. In ER he was found to have left sided weakness and left sided facial droop. He is accompanied by his daughter. He or his family unsure when his last well was. His daughter says he did not have symptoms last night prior to going to bed. He has not had similar episodes in past. He is not on any medication at home. Upon arrival patient was found to have BP was 227/125 and he was started on Nitro drip. The patient denies chest pain, shortness of breath, headache and dizziness. The patient denies fever, chills, nausea, vomit, diarrhea and constipation. The patient denies dysuria, frequency, urgency and hematuria. ER course was notable for: CT of head showed mild volume loss and chronic microvascular ischemic disease changes. Right basal ganglia lacunar infarct, of indeterminate age, possibly chronic. EKG shows NSR with voltage criteria for LVH and T wave abnormalities in lateral leads. CT angiogram of the head and neck shows no evidence of hemodynamically significant stenosis at the common carotid bifurcation,bilaterally.Slightly dominant left vertebral artery relative to the right without gross evidence of focal stenosis.Small calcified plaque in the left cavernous carotid artery. Recent Travel: PAST MEDICAL HISTORY: Unknown PAST SURGICAL HISTORY: Social History: Smoking: Alcohol: Drugs: Family History: Allergies No Known Allergies Allergy (Verified 07/26/18 11:07) HOME MEDICATIONS: NONE REVIEW OF SYSTEMS All other ROS are negative except in HPI PHYSICAL EXAMINATION Vital Signs - 24 hr 07/26/18 07/26/18 07/26/18 10:58 12:13 15:34 Temperature 97 F L 98 F Pulse Rate 74 Pulse Rate [ 88 82 Left] Respiratory 16 22 H 20 Rate Blood Pressure 227/125 H Blood Pressure 216/116 H 178/91 H [Right Arm] O2 Sat by Pulse 100 99 100 Oximetry (%) GENERAL: Awake, alert, and fully oriented, in no acute distress. HEAD: Normal with no signs of trauma. EYES: Pupils equal, round and reactive to light, extraocular movements intact, sclera anicteric, conjunctiva clear. No lid lag. EARS, NOSE, THROAT: Ears normal, nares patent, oropharynx clear without exudates. Moist mucous membranes. NECK: Normal range of motion, supple without lymphadenopathy, JVD, or masses. LUNGS: Breath sounds equal, clear to auscultation bilaterally. No wheezes, and no crackles. No accessory muscle use. HEART: Regular rate and rhythm, normal S1 and S2 without murmur, rub or gallop. ABDOMEN: Soft, nontender, not distended, normoactive bowel sounds, no guarding, no rebound, no masses. No hepatomegaly or splenomegaly. MUSCULOSKELETAL: Normal range of motion at all joints. No bony deformities or tenderness. No CVA tenderness. UPPER EXTREMITIES: 2+ pulses, warm, well-perfused. No cyanosis. No clubbing. No peripheral edema. LOWER EXTREMITIES: 2+ pulses, warm, well-perfused. No calf tenderness. No peripheral edema. NEUROLOGICAL: AA0X3 , Left hemiparesis with right facial droop. PSYCHIATRIC: Cooperative. Good eye contact. Appropriate mood and affect. SKIN: Warm, dry, normal turgor, no rashes or lesions noted, normal capillary refill. Laboratory Results - last 24 hr 07/26/18 07/26/18 07/26/18 11:39 11:39 11:39 WBC 6.7 RBC 4.67 Hgb 13.6 Hct 40.0 MCV 85.6 MCH 29.1 MCHC 34.0 RDW 14.3 Plt Count 224 MPV 7.8 Absolute Neuts (auto) 5.0 Neutrophils % 75.1 Lymphocytes % 19.2 Monocytes % 4.5 Eosinophils % 0.9 Basophils % 0.3 Nucleated RBC % 0 PT with INR 12.20 INR 1.03 PTT (Actin FS) Sodium 143 Potassium 3.2 L Chloride 109 H Carbon Dioxide 27 Anion Gap 6 L BUN 23 H Creatinine 2.2 H Creat Clearance w eGFR 30.48 Random Glucose 148 H Calcium 8.4 L Total Bilirubin 0.3 AST 18 ALT 18 Alkaline Phosphatase 68 Creatine Kinase 265 Creatine Kinase Index 1.2 CK-MB (CK-2) 3.3 Troponin I 0.11 H Total Protein 7.0 Albumin 3.7 Triglycerides 139 Cholesterol 250 H Total LDL Cholesterol 171 H HDL Cholesterol 40 Urine Color Urine Appearance Urine pH Ur Specific [place] Urine Protein Urine Glucose (UA) Urine Ketones Urine Blood Urine Nitrite Urine Bilirubin Urine Urobilinogen Ur Leukocyte Esterase Blood Type Antibody Screen 07/26/18 07/26/18 07/26/18 11:39 11:39 11:39 WBC RBC Hgb Hct MCV MCH MCHC RDW Plt Count MPV Absolute Neuts (auto) Neutrophils % Lymphocytes % Monocytes % Eosinophils % Basophils % Nucleated RBC % PT with INR INR PTT (Actin FS) 29.3 Sodium Potassium Chloride Carbon Dioxide Anion Gap BUN Creatinine Creat Clearance w eGFR Random Glucose Calcium Total Bilirubin AST ALT Alkaline Phosphatase Creatine Kinase 264 Creatine Kinase Index 1.4 CK-MB (CK-2) 3.8 H Troponin I Total Protein Albumin Triglycerides Cholesterol Total LDL Cholesterol HDL Cholesterol Urine Color Urine Appearance Urine pH Ur Specific [place] Urine Protein Urine Glucose (UA) Urine Ketones Urine Blood Urine Nitrite Urine Bilirubin Urine Urobilinogen Ur Leukocyte Esterase Blood Type O POSITIVE Antibody Screen Negative 07/26/18 07/26/18 07/26/18 12:33 16:35 16:35 WBC RBC Hgb Hct MCV MCH MCHC RDW Plt Count MPV Absolute Neuts (auto) Neutrophils % Lymphocytes % Monocytes % Eosinophils % Basophils % Nucleated RBC % PT with INR INR PTT (Actin FS) Sodium Potassium Chloride Carbon Dioxide Anion Gap BUN Creatinine Creat Clearance w eGFR Random Glucose Calcium Total Bilirubin AST ALT Alkaline Phosphatase Creatine Kinase Creatine Kinase Index CK-MB (CK-2) Troponin I TNP 0.12 H Total Protein Albumin Triglycerides Cholesterol Total LDL Cholesterol HDL Cholesterol Urine Color Straw Urine Appearance Clear Urine pH 7.0 Ur Specific [place] 1.018 Urine Protein Negative Urine Glucose (UA) 1+ H Urine Ketones Negative Urine Blood Negative Urine Nitrite Negative Urine Bilirubin Negative Urine Urobilinogen Negative Ur Leukocyte Esterase Negative Blood Type Antibody Screen ASSESSMENT/PLAN: # Acute CVA with last known well last night, well beyond the time frame for lytic therapy # HTN Emergency with Multi- organ failure ( CVA, FERNANDO, Troponinemia) s/p Nitro drip >> improved BP > So, discontinued. Allow for permissive HTN: Maintain Bp <220/120 for first 24 hours. At present no clear indication for acute lowering Follow Neuro exam Strict I & O Maintain Normothermia Glycemic control (140 to 180) ECHO Statin , ASA after repeat CT head in 24-48 hrs. Neuro evaluation ICU monitoring Plan d/w the patient and the resident . Visit type - Emergency Visit Emergency Visit: Yes ED Registration Date: 07/26/18 Care time: The patient presented to the Emergency Department on the above date and was hospitalized for further evaluation of their emergent condition. - New Patient This patient is new to me today: Yes Date on this admission: 07/26/18 - Critical Care Critical Care patient: Yes Total Critical Care Time (in minutes): 35 Critical Care Statement: The care of this patient involved high complexity decision making to prevent further life threatening deterioration of the patient 's condition and/or to evaluate & treat vital organ system(s) failure or risk of failure.
[2018-07-26] MEDS ORDERED: KCL 10 MEQ IVPB 10 MEQ/100 ML INFUS.BAG IVPB ONE (18:31)
[2018-07-26] MEDS: KCL 10 MEQ IVPB 10 MEQ/100 ML INFUS.BAG IVPB SCH ×3 (18:44→22:32)
[2018-07-26] MEDS ORDERED: KCL 10 MEQ IVPB 20 MEQ/200 ML INFUS.BAG IVPB ONE (19:23)
[2018-07-26] MEDS ORDERED: LABETALOL HCL 5 MG/1 ML (100MG/20 ML VIAL) IVPUSH PRN (19:52)
[2018-07-26] MEDS ORDERED: hydrALAZINE HCL 20 MG/ML VIAL IVPUSH PRN (20:15)
[2018-07-26] MEDS ORDERED: VANCOMYCIN 1 GM in D5W (PRE-DOCKED) 1,000 MG/250 ML IVPB ONE (20:33)
[2018-07-26] MEDS ORDERED: MEROPENEM 1 GM in DEXTROSE 5%-WATER 100 ML IVPB ONE (20:33)
[2018-07-26] MEDS: MUPIROCIN 2% TOPICAL OINTMENT FOR DECOLONIZATION NS SCH (21:57)
[2018-07-26] MEDS ORDERED: CHLORHEXIDINE GLUCONATE 4% CLEANSER FOR DECOLONIZATION TP SCH (22:00)
[2018-07-26] MEDS ORDERED: DEXTROSE 5%-NORMAL SALINE 1,000 ML IV SCH (22:15)
[2018-07-26] MEDS ORDERED: guaiFENesin 200 MG/10 ML 10 ML UNIT-DOSE CUPS ONE (22:51)
[2018-07-27] MEDS ORDERED: ACETAMINOPHEN 1000 MG/100 ML VIAL (NON FORMULARY) IVPB ONE (03:25)
[2018-07-27 06:00] LABS: HEMATOCRIT 38.3 % (35.4-49); HEMOGLOBIN 13.2 GM/dL (11.7-16.9); MCH 29.4 pg (25.7-33.7); MCHC 34.6 g/dl (32.0-35.9); MEAN CELL VOLUME 85.1 fl (80-96); MEAN PLT VOLUME 8.1 fl (7.5-11.1); PLATELET COUNT 220 K/MM3 (134-434); RDW 14.6 % (11.9-15.9); WHITE BLOOD COUNT 8.8 K/mm3 (4.0-10.0)
[2018-07-27 06:27] LABS: ALBUMIN 3.5 g/dl (3.4-5.0); ALK PHOS 63 U/L (45-117); ANION GAP 8 MMOL/L (8-16); BILIRUBIN,TOTAL 0.4 mg/dL (0.2-1); BLOOD UREA NITROGEN 17 mg/dL (7-18); CALCIUM 8.3 mg/dL (8.5-10.1); CHLORIDE 113 mmol/L (98-107); CO2 24 mmol/L (21-32); CREATININE 1.5 mg/dL (0.55-1.3); GLUCOSE,RANDOM 103 mg/dL (74-106); MAGNESIUM 1.9 mg/dL (1.8-2.4); PHOSPHOROUS 2.8 mg/dL (2.5-4.9); POTASSIUM 3.1 mmol/L (3.5-5.1); SGOT/AST 23 U/L (15-37); SGPT/ALT 19 U/L (13-61); SODIUM 144 mmol/L (136-145); TOT PROT 6.6 g/dl (6.4-8.2)
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
[2018-07-27] MEDS: KCL 10 MEQ IVPB 10 MEQ/100 ML INFUS.BAG IVPB SCH ×3 (09:37→11:54)
--- NOTE | 2018-07-27 09:43 | CON.NEURO ---
Consult - History of Present Illness History of Present Illness: 63 yo M with unknown pmhx (has not seen MD in 15+yrs) presents s/p fall x2 on . He states that he was getting up to use the bathroom and legs gave out and fell. Noted ot haveleft hemiparesis in ER--called for stroke code over phone, no TPA given outside window and uncontrolled hypertension. He has not had similar episodes in past. He is not on any medication at home. Upon arrival patient was found to have BP was 227/125 and he was started on Nitro drip. The patient denies chest pain, shortness of breath, headache and dizziness. The patient denies fever, chills, nausea, vomit, diarrhea and constipation. The patient denies dysuria, frequency, urgency and hematuria. THIs AM, left sided weakness face and arm >>leg. NIH 9/ labs : LDL 171, FERNANDO, UA (-) CT of head showed mild volume loss and chronic microvascular ischemic disease changes. Right basal ganglia lacunar infarct, of indeterminate age, possibly chronic. EKG shows NSR with voltage criteria for LVH and T wave abnormalities in lateral leads. CT angiogram of the head and neck shows no evidence of hemodynamically significant stenosis at the common carotid bifurcation,bilaterally.Slightly dominant left vertebral artery relative to the right without gross evidence of focal stenosis. Small calcified plaque in the left cavernous carotid artery. ? R HI /M2 focal stenosis. - Past Medical History Cardio/Vascular: Yes: HTN - Alcohol/Substance Use Hx Alcohol Use: No - Smoking History Smoking history: Unknown if ever smoked Have you smoked in the past 12 months: No Home Medications - Allergies Allergies/Adverse Reactions: Allergies Allergy/AdvReac Type Severity Reaction Status Date / Time No Known Allergies Allergy Verified 07/26/18 11:07 Physical Exam-Neuro Vital Signs: Vital Signs Temperature 98.5 F 07/27/18 06:00 Pulse Rate 130 H 07/27/18 08:00 Respiratory Rate 20 07/27/18 08:00 Blood Pressure 182/109 H 07/27/18 08:00 O2 Sat by Pulse Oximetry (%) 99 07/26/18 21:22 Labs: CBC, BMP 07/27/18 05:30 07/27/18 05:30 INR, PTT INR 1.03 (0.83-1.09) 07/26/18 11:39 NIH Stroke Scale - Last Known Well Date/Time & Onset Date Last Known Well: 07/26/18 Time Last Known Well: 07:30 - Initial Evaluation Level of consciousness: Alert Ask patient the month and their age: Answers both correctly Ask patient to open & close eyes; make fist and let go: Obeys both correctly Best gaze (horizontal eye movement): Normal Visual field testing: No visual field loss Facial paresis (Show teeth/raise eyebrows/close eyes tight): Partial paralysis ( total or near paralysis of lower face) Motor Function: Left Arm: No movement Motor Function: Right Arm: Normal (extends arm 90 (or 45) degrees for 10 seconds without drift Motor Function: Left Leg: Some effort against gravity Motor Function: Right Leg: Normal (extends leg 30 degrees for 5 seconds without drift) Limb Ataxia: No ataxia Sensory(Use pinprick test arms,legs,trunk,face/side to side): Normal Best language (Describe picture, name items, read sentences): No Aphasia Dysarthria (read several words): Mild to moderate slurring of words Extinction and Inattention: No abnormality - Total Score NIH Stroke Scale Score: 9 Imaging - Results Cat Scan: Report Reviewed, Image Reviewed MRI: Report Reviewed Problem List - Problems (1) Hypertensive encephalopathy Code(s): I67.4 - HYPERTENSIVE ENCEPHALOPATHY (2) FERNANDO (acute kidney injury) Code(s): N17.9 - ACUTE KIDNEY FAILURE, UNSPECIFIED (3) Cerebrovascular accident (CVA) Code(s): I63.9 - CEREBRAL INFARCTION, UNSPECIFIED Qualifiers: CVA mechanism: unspecified Qualified Code(s): I63.9 - Cerebral infarction, unspecified Assessment/Plan 63 yo M with unknown pmhx (has not seen MD in 15+yrs) presents s/p fall x2 on . He states that he was getting up to use the bathroom and legs gave out and fell. Noted ot haveleft hemiparesis in ER--called for stroke code over phone, no TPA given outside window and uncontrolled hypertension. He has not had similar episodes in past. He is not on any medication at home. Upon arrival patient was found to have BP was 227/125 and he was started on Nitro drip. The patient denies chest pain, shortness of breath, headache and dizziness. The patient denies fever, chills, nausea, vomit, diarrhea and constipation. The patient denies dysuria, frequency, urgency and hematuria. labs : LDL 171, FERNANDO, UA (-) CT of head showed mild volume loss and chronic microvascular ischemic disease changes. Right basal ganglia lacunar infarct, of indeterminate age, possibly chronic. EKG shows NSR with voltage criteria for LVH and T wave abnormalities in lateral leads. CT angiogram of the head and neck shows no evidence of hemodynamically significant stenosis at the common carotid bifurcation,bilaterally.Slightly dominant left vertebral artery relative to the right without gross evidence of focal stenosis.Small calcified plaque in the left cavernous carotid artery. ? R HI /M2 focal stenosis. AP : left hemiparesis from presumptive R MCA stroke in setting of uncontrolled hypertension /hyperlipidemia 1) MRI MRA, DOPPLER, ECHO, HOLTER 2) ASA, STATIN , reduction in BP 25% of baseline within 24 hours (SPB 160-200) may be ok in this scenario, IV BP RX drip 3) REHAB DR AZEVEDO
[2018-07-27] MEDS ORDERED: ASPIRIN 325 MG TABLET PO SCH (10:00)
[2018-07-27] MEDS ORDERED: PT OWN MED DRAWER 7, Y5N ONE (10:32)
[2018-07-27] MEDS: MUPIROCIN 2% TOPICAL OINTMENT FOR DECOLONIZATION NS SCH (10:36)
[2018-07-27] MEDS ORDERED: ATORVASTATIN CA 80 MG TABLET (FP) PO ONE (11:18)
[2018-07-27] MEDS ORDERED: LOSARTAN POTASSIUM 50 MG TABLET (FP) PO SCH (11:30)
--- NOTE | 2018-07-27 12:12 | CONSULT ---
Admitting History and Physical - Primary Care Physician PCP: Kedar Andrew - Admission History of Present Illness: Per EMR: 63 yo M with unknown pmhx (has not seen MD in 15+yrs) presents s/p fall x2 this morning. He states that he was getting up to use the bathroom and legs gave out and fell to floor. He denies any head trauma or LOC. EMS was called and was subsequently brought in to ER. In ER he was found to have left sided weakness and left sided facial droop. He is accompanied by his daughter. He or his family unsure when his last well was. His daughter says he did not have symptoms last night prior to going to bed. He has not had similar episodes in past. He is not on any medication at home. Upon arrival patient was found to have BP was 227/125 and he was started on Nitro drip. The patient denies chest pain, shortness of breath, headache and dizziness. The patient denies fever, chills, nausea, vomit, diarrhea and constipation. The patient denies dysuria, frequency, urgency and hematuria. ER course was notable for: CT of head showed mild volume loss and chronic microvascular ischemic disease changes. Right basal ganglia lacunar infarct, of indeterminate age, possibly chronic. EKG shows NSR with voltage criteria for LVH and T wave abnormalities in lateral leads. CT angiogram of the head and neck shows no evidence of hemodynamically significant stenosis at the common carotid bifurcation,bilaterally.Slightly dominant left vertebral artery relative to the right without gross evidence of focal stenosis.Small calcified plaque in the left cavernous carotid artery. Pending MRI. . History Source: Patient, Family Member, Medical Record Limitations to Obtaining History: No Limitations - Past Medical History Cardiovascular: Yes: HTN - Smoking History Smoking history: Unknown if ever smoked Have you smoked in the past 12 months: No - Alcohol/Substance Use Hx Alcohol Use: No History - Admission Reason For Visit: ACUTE KIDNEY INJURY,HYPERTENSIVE,CVA,HYPOKALEMIA - Diagnostics X-ray: Report Reviewed CT Scan: Report Reviewed MRI: Pending - General Mental Status: Alert and Oriented, Awake and Alert, Able to Follow Commands, Flat Affect Attention: Intact Ability to Follow Directions: Excellent Head/Neck Control: WFL - Hearing Hearing: Normal Speech Evaluation - Communication Primary Language: GIBRALTAR[place] Communication: Yes: Within Normal Limits Oral Expression Ability: Yes: No Impairment - Speech Production Able to Make Needs Known: Yes: WNL Intelligibility: Yes: WNL - Speech Characteristics Voice Loudness: Normal Voice Pitch: Yes: Normal Voice Phonatory-based Quality: Yes: Normal Speech Pattern: Normal Speech Clarity: < 100% Nasal Resonance: Normal Articulation: Yes: Precise Rate of Speech: Intact - Language/Auditory Comprehension Follows: Yes: 2 Stage Simple Commands - Language/Verbal Expression Aphasia: Yes: Anomia (rare) Able to Respond to Simple Queries: Yes: WNL Able to Communicate Wants and Needs: Yes: WNL Functional Communication Status: Yes: WNL - Swallow Evaluation/Bedside Assessment Current Nutritional Intake: NPO Oral Secretions: Yes: WFL Dentition: Yes: Adequate Facial Symmetry at Rest: Symmetrical Facial Symmetry on Retraction: Facial Droop Left Facial Movement: Controlled Against Resistance Opening: Normal Against Resistance Closing: Normal Pucker Lips: Normal Smile: Normal Lingual Movement: Deviates Left Lingual Speed of Movement: Normal Lingual Movement Characteristics: Normal Velopharyngeal Movement: Normal Laryngeal Elevation: Impaired Laryngeal Movement: Reduced Excursion, Labored,delay initiation Bolus Size: WFL Labial Seal: WFL Chewing: WFL Oral Prep Time: WFL A-P Transit: WFL Pocketing: None Timing of Swallow: Delayed Coughing/Throat Clear: Yes Change in Voice: No Other Findings/Remarks: Forceful responsive cough/choking after continuous drinking of thin water from a straw following masticating/swallowing small piece of a cracker. Recommendations - Speech Evaluation, Impression/Plan Impression: 63 yo admitted with left sided weakness, wound, elevated BP. Pt is left hand dominant. Initially 3 oz water (-). However,. afterwards there was forceful responsive cough/choking after continuous drinking of thin water from a straw following masticating/swallowing small piece of a cracker. \o x 3. Good attention to the left. Occasional dysfluent/stuttering speech which pt reports as baseline. Rare anomia. - Disposition Discharge to: Rehabilitation Center, To be Determined - Dysphagia Impressions/Plan Dysphagia Impressions: Mild Impairment, Risk of Aspiration *Silent aspiration: cannot be R/O at bedside Dysphagia Treatment Plan: Small Bites, Trial Feedings, Safe Rate, 1/2 tsp. at a time, Elevate HOB during feed, Other (supervision meal time.) Recommendations: Modified Barium Swallow (if cough, congestion, fever) - Recommendations Diet Consistency: Regular (Soft, cohesive easy to chew. No rice, peas,corn, crunchy foods) Medication Administration: Whole with water (whole in applesauce following by sips of water) Liquids: Thin Liquids (single careful sips, no straws)
--- NOTE | 2018-07-27 12:54 | PN ---
Teaching Attending Note Name of Resident: Carrie Beal ATTENDING PHYSICIAN STATEMENT I saw and evaluated the patient. I reviewed the resident's note and discussed the case with the resident. I agree with the resident's findings and plan as documented. SUBJECTIVE: Patient seen and examined in the ICU. Awake and alert. Reports some improvement in strength of LLE but no change in LUE. Motor on the right intact. No CP or SOB. Mild BONNER. No BOV or dizziness. Intake & Output 07/24/18 07/25/18 07/26/18 07/27/18 23:59 23:59 23:59 23:59 Intake Total 1000 686 Output Total 675 400 Balance 325 286 Weight 224 lb 13.944 oz Last Vital Signs Temp Pulse Resp BP Pulse Ox 98.4 F 128 H 24 H 193/110 H 99 07/27/18 10:00 07/27/18 12:00 07/27/18 12:00 07/27/18 12:00 07/27/18 09:00 Active Medications Aspirin (Asa -) 325 mg PO DAILY [facility] Last Admin: 07/27/18 10:35 Dose: 325 mg Chlorhexidine Gluconate (Hibiclens For Decolonization -) 1 applic TP HS [facility] Last Admin: 07/26/18 21:57 Dose: 1 applic Dextrose/Sodium Chloride (D5-Ns -) 1,000 mls @ 42 mls/hr IV ASDIR [facility] Last Admin: 07/26/18 22:24 Dose: 42 mls/hr Losartan Potassium (Cozaar -) 50 mg PO DAILY [facility] Last Admin: 07/27/18 12:09 Dose: 50 mg Mupirocin (Bactroban Ointment (For Decolonization) -) 1 applic NS BID [facility] Stop: 07/31/18 21:59 Last Admin: 07/27/18 10:36 Dose: 1 applic Potassium Chloride (K-Dur -) 40 meq PO BID [facility] Constitutional: Yes: Awake and alert, NAD Eyes: Yes: Conjunctiva Clear, EOM Intact HENT: Yes:(+) facial droop Neck: Yes: Supple, Trachea Midline Cardiovascular: Yes: Regular Rate and Rhythm Respiratory: Yes: Cough, Diminished, Rhonchi. No: Accessory Muscle Use, Rales, SOB, SOB on Exertion, Stridor, Tachypnea, Wheezes ...Inspection: Yes: WNL ...Clubbing: No Gastrointestinal: Yes: Normal Bowel Sounds, Soft Renal/: Yes: WNL Musculoskeletal: Yes: WNL Extremities: Yes: WNL Edema: No Peripheral Pulses WNL: Yes Integumentary: Yes: WNL Neurological: Yes: Awake and alert, 0/5 LUE, 1/5 LLE Laboratory Results - last 24 hr 07/26/18 07/26/18 07/26/18 11:39 12:33 16:35 WBC RBC Hgb Hct MCV MCH MCHC RDW Plt Count MPV Sodium Potassium Chloride Carbon Dioxide Anion Gap BUN Creatinine Creat Clearance w eGFR Random Glucose Hemoglobin A1c % Calcium Phosphorus Magnesium Total Bilirubin AST ALT Alkaline Phosphatase Troponin I TNP Total Protein Albumin Urine Color Straw Urine Appearance Clear Urine pH 7.0 Ur Specific [place] 1.018 Urine Protein Negative Urine Glucose (UA) 1+ H Urine Ketones Negative Urine Blood Negative Urine Nitrite Negative Urine Bilirubin Negative Urine Urobilinogen Negative Ur Leukocyte Esterase Negative Ur Random Sodium Urine Creatinine Blood Type O POSITIVE Antibody Screen Negative 07/26/18 07/27/18 07/27/18 16:35 02:40 02:40 WBC RBC Hgb Hct MCV MCH MCHC RDW Plt Count MPV Sodium Potassium Chloride Carbon Dioxide Anion Gap BUN Creatinine Creat Clearance w eGFR Random Glucose Hemoglobin A1c % Calcium Phosphorus Magnesium Total Bilirubin AST ALT Alkaline Phosphatase Troponin I 0.12 H Total Protein Albumin Urine Color Urine Appearance Urine pH Ur Specific [place] Urine Protein Urine Glucose (UA) Urine Ketones Urine Blood Urine Nitrite Urine Bilirubin Urine Urobilinogen Ur Leukocyte Esterase Ur Random Sodium 69 Urine Creatinine 70.4 H Blood Type Antibody Screen 07/27/18 07/27/18 07/27/18 05:30 05:30 05:30 WBC 8.8 RBC 4.50 Hgb 13.2 Hct 38.3 MCV 85.1 MCH 29.4 MCHC 34.6 RDW 14.6 Plt Count 220 MPV 8.1 Sodium 144 Potassium 3.1 L Chloride 113 H Carbon Dioxide 24 Anion Gap 8 BUN 17 Creatinine 1.5 H Creat Clearance w eGFR 47.42 Random Glucose 103 Hemoglobin A1c % 6.1 Calcium 8.3 L Phosphorus 2.8 Magnesium 1.9 Total Bilirubin 0.4 AST 23 ALT 19 Alkaline Phosphatase 63 Troponin I Total Protein 6.6 Albumin 3.5 Urine Color Urine Appearance Urine pH Ur Specific [place] Urine Protein Urine Glucose (UA) Urine Ketones Urine Blood Urine Nitrite Urine Bilirubin Urine Urobilinogen Ur Leukocyte Esterase Ur Random Sodium Urine Creatinine Blood Type Antibody Screen IMP: Acute CVA with last known well last night, well beyond the time frame for lytic therapy No obvious pathology reported that would be amenable to interventional therapies PLAN: BP Goal: over the next several days: reasonable to do a 10% reduction per day to goal 130-140/90 Follow Neuro exam Strict I & O Maintain Normothermia Glycemic control (140 to 180) Follow ECHO High dose Statin ASA Neuro evaluation Stroke unit monitoring PT Dr Newell Critical care time spent in reviewing chart, evaluating patient and formulating plan - 36 minutes.
[2018-07-27] MEDS ORDERED: POTASSIUM CHLORIDE TABS 10 MEQ TABLET.ER (FP) PO SCH (13:00)
--- NOTE | 2018-07-27 15:08 | ECHO ---
Version: 1 Name: ANALILIA MONAE Exam: Adult Echocardiogram Study Date: 07/27/2018, 1:58 PM Age: 63 Years MMode/2D Measurements & Calculations IVSd: 1.75 cm LVIDs: 3.2 cm LVIDd: 4.9 cm LVPWd: 2.08 cm LVOT diam: 2.04 cm Ao root diam: 3.3 cm LA dimension: 2.9 cm Doppler Measurements & Calculations MV E max jacoby: 80.5 cm/sec Med E/e': 17.6 MV A max jacoby: 111.1 cm/sec Med Peak E' Jacoby: 4.6 cm/sec MV E/A: 0.72 Ao max P.0 mmHg Ao V2 max: 187.1 cm/sec Procedure The study was technically difficult with many images being suboptimal in quality. Left Ventricle There is severe concentric left ventricular hypertrophy. Ejection Fraction = 50-55%. The transmitral spectral Doppler flow pattern is suggestive of impaired LV relaxation. Right Ventricle The right ventricle is normal in size and function. Atria The left atrium is borderline dilated. Mitral Valve The mitral valve leaflets appear normal. There is no evidence of stenosis, fluttering, or prolapse. There is no mitral valve stenosis. There is trace mitral regurgitation. Tricuspid Valve The tricuspid valve is not well visualized, but is grossly normal. There is mild tricuspid regurgita tion. Aortic Valve The aortic valve opens well. No hemodynamically significant valvular aortic stenosis. Pulmonic Valve The pulmonic valve is not well seen, but is grossly normal. There is no pulmonic valvular stenosis. Great Vessels The aortic root is normal size. Pericardium/Pleura Trivial pericardial effusion not hemodynamically significant. Summary Statements The study was technically difficult with many images being suboptimal in quality. There is severe concentric left ventricular hypertrophy. Ejection Fraction = 50-55%. The transmitral spectral Doppler flow pattern is suggestive of impaired LV relaxation. There is mild tricuspid regurgitation. MD Sharif *Erum 07/27/2018, 3:08 PM Ordering Physician: AUDRA FERNANDEZ Performed By: Dayanara William
--- NOTE | 2018-07-27 15:10 | CON.ID ---
Consult Consult Specialty:: infectious diseases Referred by:: Reason for Consultation:: non healing wound of the rt leg - History of Present Illness Chief Complaint: weakness lethargy History of Present Illness: 63yo M with nondiagnosed PmHx (not seen PCP in 15+ yrs due to insurance) presents to the ED s/p fall while getting out of bed this morning. Pt's last known normal was when he went to bed last night. He denies any head trauma or LOC and describes that his leg gave out and he fell to the floor. Pt was found to have L-sided flaccidity and L sided facial droop at rest. Pt denies any similar symptoms prior to this time. patient txed to icu for observation i was called to evaluate the chronic wound the patient has on his rt leg patient currently feels better - History Source History Provided By: Patient, Medical Record Limitations to Obtaining History: Poor Historian - Past Medical History Cardio/Vascular: Yes: HTN - Alcohol/Substance Use Hx Alcohol Use: No - Smoking History Smoking history: Unknown if ever smoked Have you smoked in the past 12 months: No Home Medications - Allergies Allergies/Adverse Reactions: Allergies Allergy/AdvReac Type Severity Reaction Status Date / Time No Known Allergies Allergy Verified 07/26/18 11:07 - Home Medications Home Medications: Ambulatory Orders NK [No Known Home Medication] 07/27/18 Review of Systems - Review of Systems Constitutional: reports: No Symptoms Eyes: reports: No Symptoms HENT: reports: No Symptoms Neck: reports: No Symptoms Cardiovascular: reports: No Symptoms Respiratory: reports: No Symptoms Gastrointestinal: reports: No Symptoms Genitourinary: reports: No Symptoms Musculoskeletal: reports: No Symptoms Integumentary: reports: Wound, Other Neurological: reports: Dizziness, Other (left dsided weakness) Endocrine: reports: No Symptoms Hematology/Lymphatic: reports: No Symptoms Psychiatric: reports: No Symptoms Physical Exam Vital Signs: Vital Signs Temperature 98.4 F 07/27/18 10:00 Pulse Rate 128 H 07/27/18 12:00 Respiratory Rate 24 H 07/27/18 12:00 Blood Pressure 193/110 H 07/27/18 12:00 O2 Sat by Pulse Oximetry (%) 99 07/27/18 09:00 Constitutional: Yes: Well Nourished, No Distress, Calm Cardiovascular: Yes: Regular Rate and Rhythm Respiratory: Yes: Regular, CTA Bilaterally Gastrointestinal: Yes: Normal Bowel Sounds, Soft Musculoskeletal: Yes: WNL, Other Extremities: Yes: Other Wound/Incision: Yes: Other (foul smelling open wound on the rt knee which he says is chronic) Neurological: Yes: Alert, Oriented Psychiatric: Yes: Alert, Oriented Labs: CBC, BMP 07/27/18 05:30 07/27/18 05:30 Imaging - Results Chest X-ray: Report Reviewed, Image Reviewed X-ray: Report Reviewed, Image Reviewed Cat Scan: Report Reviewed, Image Reviewed MRI: Report Reviewed, Image Reviewed Assessment/Plan Acute CVA infected wound dishevelled plan will start abx wound care await for cx reports rest as per icu close monitoring cc 40 min
--- NOTE | 2018-07-27 15:43 | PN ---
Progress Note (short form) - Note Progress Note: SUBJECTIVE Patient seen and examined at the bedside. Patient coming from ED with left- sided weakness and slurred speech. Patient with no acute complaints but is unhappy to be in the hospital. HOD#1. OBJECTIVE Vital Signs Temperature 98.4 F 07/27/18 10:00 Pulse Rate 128 H 07/27/18 12:00 Respiratory Rate 24 H 07/27/18 12:00 Blood Pressure 193/110 H 07/27/18 12:00 O2 Sat by Pulse Oximetry (%) 99 07/27/18 09:00 General: Awake, alert, no acute distress Head: No signs of trauma Eyes: EOMI, sclera anicteric ENT: Moist mucus membranes Neck: Normal ROM; supple Lungs: Lungs clear, Normal breath sounds Cardio: Regular rhythm, S1 and S2 present Abdomen: Soft, nondistended, nontender Extremities: Distal pulses present SKIN: 10cm marjolin ulcer present in RLE inferolateral to knee, foul-smelling Neurologic: normal RLE and RUE, weakness on LLE but patient is able to resist gravity, not able to move LUE, slurred speech, tongue deviates to the left ASSESSMENT 63yo M with unknown PMH (has not seen a primary care physician in 15+ years due to insurance reasons) presenting with left sided-weakness and facial weakness and slurred speech. Last known normal was 07/25 at around 2300 per ED documentation. Not a tpa candidate due to presenting outside of the therapeutic window and hypertension (227/125). PLAN Patient able to be transferred to stroke monitoring unit. NEURO CVA -NIHSS 12 -Permissive HTN <220/120 for first 24 hours -Losartan 50mg for Hypertension -Glycemic control (140-180) -Repeat Head CT -Neuro following -Neuro checks CARDIO Hypertension -Losartan 50mg for Hypertension Presumed HLD -Atorvastatin 80mg ECHO ID RLE wound -ID following -Currently on Vanomycin and Meropenem -Antibiotics per ID -Wound care -Follow wound culture RENAL Acute kidney injury (no prior value) BUN/Cr today is 17/1.5 FEN Monitor electrolytes -Replete as needed -K=3.1, repleted with 40meq KCl PPX DVT: SCDs GI: Famotidine 20mg IV
[2018-07-27] MEDS ORDERED: amLODIPine BESYLATE 5 MG TABLET (FP) PO ONE (15:50)
--- NOTE | 2018-07-27 16:05 | PN ---
Physical Exam: SUBJECTIVE: Patient seen and examined OBJECTIVE: Vital Signs Period Temp Pulse Resp BP Sys/Hayes Pulse Ox Last 24 Hr 98 F-99.6 F 80-130 18-24 157-211/91-110 98-99 GENERAL: The patient is awake, alert, and fully oriented, in no acute distress. HEAD: Normal with no signs of trauma. EYES: PERRL, extraocular movements intact, sclera anicteric, conjunctiva clear. No ptosis. ENT: Ears normal NECK: Trachea midline, full range of motion, supple. LUNGS: Breath sounds equal, clear to auscultation bilaterally, no wheezes, no crackles, no accessory muscle use. HEART: Regular rate and rhythm, S1, S2 ABDOMEN: Soft, nontender, nondistended, normoactive bowel sounds, no guarding, no rebound, no hepatosplenomegaly, no masses. EXTREMITIES: 2+ pulses, warm, well-perfused, no edema. NEUROLOGICAL: he can move the l leg against gravity, L upper not much move PSYCH: Normal mood, normal affect. SKIN: Warm, dry, normal turgor, no rashes or lesions noted Laboratory Results - last 24 hr 07/26/18 07/26/18 07/27/18 16:35 16:35 02:40 WBC RBC Hgb Hct MCV MCH MCHC RDW Plt Count MPV Sodium Potassium Chloride Carbon Dioxide Anion Gap BUN Creatinine Creat Clearance w eGFR Random Glucose Hemoglobin A1c % Calcium Phosphorus Magnesium Total Bilirubin AST ALT Alkaline Phosphatase Troponin I TNP 0.12 H Total Protein Albumin Ur Random Sodium 69 Urine Creatinine 07/27/18 07/27/18 07/27/18 02:40 05:30 05:30 WBC 8.8 RBC 4.50 Hgb 13.2 Hct 38.3 MCV 85.1 MCH 29.4 MCHC 34.6 RDW 14.6 Plt Count 220 MPV 8.1 Sodium 144 Potassium 3.1 L Chloride 113 H Carbon Dioxide 24 Anion Gap 8 BUN 17 Creatinine 1.5 H Creat Clearance w eGFR 47.42 Random Glucose 103 Hemoglobin A1c % Calcium 8.3 L Phosphorus 2.8 Magnesium 1.9 Total Bilirubin 0.4 AST 23 ALT 19 Alkaline Phosphatase 63 Troponin I Total Protein 6.6 Albumin 3.5 Ur Random Sodium Urine Creatinine 70.4 H 07/27/18 05:30 WBC RBC Hgb Hct MCV MCH MCHC RDW Plt Count MPV Sodium Potassium Chloride Carbon Dioxide Anion Gap BUN Creatinine Creat Clearance w eGFR Random Glucose Hemoglobin A1c % 6.1 Calcium Phosphorus Magnesium Total Bilirubin AST ALT Alkaline Phosphatase Troponin I Total Protein Albumin Ur Random Sodium Urine Creatinine Active Medications Generic Name Dose Route Start Last Admin Trade Name Jorge PRN Reason Stop Dose Admin Aspirin 325 mg 07/27/18 10:00 07/27/18 10:35 Asa - PO 325 mg DAILY YOLANDE Administration Chlorhexidine Gluconate 1 applic 07/26/18 22:00 07/26/18 21:57 Hibiclens For Decolonization - TP 1 applic HS YOLANDE Administration Dextrose/Sodium Chloride 1,000 mls @ 42 mls/hr 07/26/18 22:15 07/26/18 22:24 D5-Ns - IV 42 mls/hr ASDIR YOLANDE Administration Losartan Potassium 50 mg 07/27/18 11:30 07/27/18 12:09 Cozaar - PO 50 mg DAILY YOLANDE Administration Mupirocin 1 applic 07/26/18 22:00 07/27/18 10:36 Bactroban Ointment (For Decolonization) - NS 07/31/18 21:59 1 applic BID YOLANDE Administration Pantoprazole Sodium 20 mg 07/28/18 10:00 Protonix - PO DAILY YOLANDE Potassium Chloride 40 meq 07/27/18 13:00 07/27/18 14:20 K-Dur - PO 40 meq BID YOLANDE Administration ASSESSMENT/PLAN: 63yo M with n o medical evaluation in the past 15 years P/W falls in the morning of admission was found to have L sided weakness was found to have Acute ischemic stroke on the MRI. on admission the bp was 227/125 which was treated initially with IV medication which has been held at this time for permissive HTN after the stroke NEURO CVA: HAD BEEN out of the TPA window on admission -NIHSS 12 -Permissive HTN <220/120 for first 24 hours -Losartan 50mg for Hypertension, will hold at this time will permissive HTN -Glycemic control (140-180) -Neuro is following -Neuro checks CARDIO Hypertension: will hold off antihypertensive medication at this time. HLD:Atorvastatin 80mg ECHO was done and has severe concentric left ventricular hyperthrophy mild TR. No afib on monitor ID RLE wound -ID following -Currently on Vanomycin and Meropenem -Antibiotics per ID -Wound care -Follow wound culture RENAL renal fialure: renal US with no significant abnormality at thsi time BUN/Cr today is 17/1.5 FEN Monitor electrolytes -Replete as needed -K=3.1, repleted with 40meq KCl PPX DVT: SCDs GI: Famotidine 20mg IV Visit type - Emergency Visit Emergency Visit: No - New Patient This patient is new to me today: No - Critical Care Critical Care patient: No - Discharge Referral Referred to [facility] No
[2018-07-27] MEDS ORDERED: LABETALOL HCL 5 MG/1 ML (100MG/20 ML VIAL) IVPUSH ONE ×2 (17:34→20:47)
[2018-07-27] MEDS ORDERED: NIFEdipine E.R. 30 MG TABLET (FP) PO SCH (17:43)
[2018-07-27] MEDS: POTASSIUM CHLORIDE TABS 20 MEQ TABLET.ER (FP) PO SCH (21:51)
[2018-07-27] MEDS: DEXTROSE 5%-NORMAL SALINE 1,000 ML IV SCH (21:51)
[2018-07-27] MEDS: AMPICILLIN NA/SULBACTAM NA 3 GM in SODIUM CHLORIDE 100 ML IVPB SCH (21:51)
[2018-07-27] MEDS ORDERED: CHLORHEXIDINE GLUCONATE 4% CLEANSER FOR DECOLONIZATION TP SCH (22:00)
[2018-07-27] MEDS ORDERED: MUPIROCIN 2% TOPICAL OINTMENT FOR DECOLONIZATION NS SCH (22:00)
[2018-07-28] MEDS: AMPICILLIN NA/SULBACTAM NA 3 GM in SODIUM CHLORIDE 100 ML IVPB SCH ×3 (02:17→18:36)
[2018-07-28 08:05] LABS: BASO % 0.5 % (0-2.0); EOS % 1.9 % (0-4.5); HEMATOCRIT 38.7 % (35.4-49); LYMPH % 29.3 % (8-40); MCH 29.3 pg (25.7-33.7); MCHC 33.7 g/dl (32.0-35.9); MEAN CELL VOLUME 86.9 fl (80-96); MEAN PLT VOLUME 8.8 fl (7.5-11.1); MONO % 6.8 % (3.8-10.2); NEUT % 61.5 % (42.8-82.8); PLATELET COUNT 177 K/MM3 (134-434); RBC 4.45 M/mm3 (4.00-5.60); WHITE BLOOD COUNT 7.6 K/mm3 (4.0-10.0)
[2018-07-28 08:32] LABS: ALBUMIN 3.3 g/dl (3.4-5.0); ALK PHOS 58 U/L (45-117); ANION GAP 9 MMOL/L (8-16); BILIRUBIN,TOTAL 0.8 mg/dL (0.2-1); BLOOD UREA NITROGEN 13 mg/dL (7-18); CALCIUM 8.4 mg/dL (8.5-10.1); CHLORIDE 113 mmol/L (98-107); CO2 23 mmol/L (21-32); CREATININE 1.5 mg/dL (0.55-1.3); GLUCOSE,RANDOM 98 mg/dL (74-106); MAGNESIUM 2.2 mg/dL (1.8-2.4); PHOSPHOROUS 2.8 mg/dL (2.5-4.9); POTASSIUM 3.5 mmol/L (3.5-5.1); SGOT/AST 32 U/L (15-37); SGPT/ALT 18 U/L (13-61); SODIUM 144 mmol/L (136-145); TOT PROT 6.4 g/dl (6.4-8.2)
--- NOTE | 2018-07-28 09:52 | HOSP ---
Subjective - Review of Symptoms Events since last encounter: pt has no fever and has no new c/o no distress no fever or chills General: No: Chills, Night Sweats, Fatigue, Malaise, Appetite, Other HEENT: No: Head Aches, Visual Changes, Eye Pain, Ear Pain, Dysphasia, Sinus Congestion, Post Nasal Drip, Sore Throat, Other Pulmonary: No: Dyspnea, Cough, Pleuritic Chest Pain, Other Cardiovascular: No: Chest Pain, Palpitations, Orthopnea, Paroxysmal Noc. Dyspnea , Edema, Light Headedness, Other Gastrointestinal: No: Nausea, NOSYM, Vomiting, Abdominal Pain, Diarrhea, Constipation, Melena, Hematochezia, Other Musculoskeletal: No: No Symptoms, Back Pain, Crepitus, Decreased ROM, Extremity Pain, Joint Pain, Joint Swelling, Muscle Pain, Muscle Cramps, Muscle Weakness, Other Neurological: Yes: Other (left sided weakness ) Other Systems: has ulcer in left leg below knee Physical Examination Vital Signs: Vital Signs Temperature 98.2 F 07/28/18 06:00 Pulse Rate 89 07/28/18 06:00 Respiratory Rate 18 07/28/18 06:00 Blood Pressure 176/97 H 07/28/18 06:00 O2 Sat by Pulse Oximetry (%) 97 07/27/18 21:00 Constitutional: Yes: Well Nourished Eyes: Yes: WNL HENT: Yes: Other (left sided facial weakness) Neck: Yes: WNL Cardiovascular: Yes: WNL Respiratory: Yes: WNL Gastrointestinal: Yes: WNL, Normal Bowel Sounds Musculoskeletal: Yes: WNL Edema: No Neurological: Yes: Alert, Oriented (He has left sided hemipresis) Labs: CBC, BMP 07/28/18 06:00 07/28/18 06:00 Hospitalist Encounter Assessment: Acute cvs with left sided weakness control bp aspiring rehab swallow eval Htn higher inc losartan to 100 and nefidipine to 60 leg wound and ulcer seen by id and continue abx and wound care Current Medications Aspirin (Asa -) 325 mg PO DAILY [facility] Dextrose/Sodium Chloride (D5-Ns -) 1,000 mls @ 42 mls/hr IV ASDIR YOLANDE Last Admin: 07/27/18 21:51 Dose: 42 mls/hr Ampicillin Sodium/Sulbactam (Sodium 3 gm/ Sodium Chloride) 100 mls @ 200 mls/ hr IVPB Q8H-IV YOLANDE Last Admin: 07/28/18 02:17 Dose: 200 mls/hr Losartan Potassium (Cozaar -) 50 mg PO DAILY [facility] Nifedipine (Procardia Xl -) 30 mg PO DAILY [facility] Last Admin: 07/27/18 18:35 Dose: 30 mg Pantoprazole Sodium (Protonix -) 20 mg PO DAILY [facility] Potassium Chloride (K-Dur -) 40 meq PO BID [facility] Last Admin: 07/27/18 21:51 Dose: 40 meq
[2018-07-28] MEDS ORDERED: NIFEdipine E.R. 30 MG TABLET (FP) PO SCH ×2 (09:53→10:00)
[2018-07-28] MEDS ORDERED: PANTOPRAZOLE 20 MG TABLET (FP) PO SCH (10:00)
[2018-07-28] MEDS ORDERED: LOSARTAN POTASSIUM 50 MG TABLET (FP) PO SCH (10:00)
[2018-07-28] MEDS: ASPIRIN 325 MG TABLET PO SCH (10:32)
[2018-07-28] MEDS: POTASSIUM CHLORIDE TABS 20 MEQ TABLET.ER (FP) PO SCH ×2 (10:32→21:53)
[2018-07-28] MEDS: LOSARTAN POTASSIUM 50 MG TABLET (FP) PO SCH (10:32)
[2018-07-28] MEDS: PANTOPRAZOLE 20 MG TABLET (FP) PO SCH (10:32)
--- NOTE | 2018-07-28 11:56 | PN ---
Progress Note, Physician History of Present Illness: Pt seen and examined, events noted. Pt states he feels well. Denies fever/chills , SOB, CP. Has Lt sided weakness. - Current Medication List Current Medications: Active Medications Aspirin (Asa -) 325 mg PO DAILY [facility] Last Admin: 07/28/18 10:32 Dose: 325 mg Dextrose/Sodium Chloride (D5-Ns -) 1,000 mls @ 42 mls/hr IV ASDIR [facility] Last Admin: 07/27/18 21:51 Dose: 42 mls/hr Ampicillin Sodium/Sulbactam (Sodium 3 gm/ Sodium Chloride) 100 mls @ 200 mls/ hr IVPB Q8H-IV [facility] Last Admin: 07/28/18 10:35 Dose: 200 mls/hr Losartan Potassium (Cozaar -) 100 mg PO DAILY [facility] Last Admin: 07/28/18 10:32 Dose: 100 mg Nifedipine (Procardia Xl -) 60 mg PO DAILY [facility] Last Admin: 07/28/18 10:31 Dose: 60 mg Pantoprazole Sodium (Protonix -) 20 mg PO DAILY [facility] Last Admin: 07/28/18 10:32 Dose: 20 mg Potassium Chloride (K-Dur -) 40 meq PO BID [facility] Last Admin: 07/28/18 10:32 Dose: 40 meq - Objective Vital Signs: Vital Signs Temperature 98.2 F 07/28/18 10:39 Pulse Rate 92 H 07/28/18 10:39 Respiratory Rate 20 07/28/18 10:39 Blood Pressure 162/107 H 07/28/18 10:39 O2 Sat by Pulse Oximetry (%) 97 07/28/18 10:00 Constitutional: Yes: No Distress, Calm Cardiovascular: Yes: Regular Rate and Rhythm Respiratory: Yes: Regular Gastrointestinal: Yes: Normal Bowel Sounds, Soft Genitourinary: Yes: WNL Wound/Incision: Yes: Other (RLE ulcer with mild purulent discharge, no malodor) Neurological: Yes: Alert, Weakness (Lt hemiparesis) Labs: CBC, BMP 07/28/18 06:00 07/28/18 06:00 INR, PTT INR 1.03 (0.83-1.09) 07/26/18 11:39 Microbiology 07/26/18 20:38 Leg - Right Lower Gram Stain - Final - ....Imaging Chest X-ray: Report Reviewed X-ray: Report Reviewed Problem List - Problems (1) FERNANDO (acute kidney injury) Code(s): N17.9 - ACUTE KIDNEY FAILURE, UNSPECIFIED (2) Cerebrovascular accident (CVA) Code(s): I63.9 - CEREBRAL INFARCTION, UNSPECIFIED Qualifiers: CVA mechanism: unspecified Qualified Code(s): I63.9 - Cerebral infarction, unspecified (3) Hypertensive encephalopathy Code(s): I67.4 - HYPERTENSIVE ENCEPHALOPATHY Assessment/Plan RLE infected ulcer Acute CVA HTN -- continue Unasyn for now -- follow up wound culture results -- continue wound care Pt currently afebrile, without leukocytosis
--- NOTE | 2018-07-28 14:28 | PN ---
Progress Note, Physician Chief Complaint: left hemiparesis History of Present Illness: 63 year old who hadn't been to a doctor in many years and without prior history of neurologic complaints came in with acute left hemiparesis. He is now awake, alert and with complete plegia on the left arm. I discussed with him and his family the results of his MRI/MRA and impact of his uncontrolled HTN on his vascular system. - Current Medication List Current Medications: Active Medications Aspirin (Asa -) 325 mg PO DAILY [facility] Last Admin: 07/28/18 10:32 Dose: 325 mg Dextrose/Sodium Chloride (D5-Ns -) 1,000 mls @ 42 mls/hr IV ASDIR [facility] Last Admin: 07/27/18 21:51 Dose: 42 mls/hr Ampicillin Sodium/Sulbactam (Sodium 3 gm/ Sodium Chloride) 100 mls @ 200 mls/ hr IVPB Q8H-IV [facility] Last Admin: 07/28/18 10:35 Dose: 200 mls/hr Losartan Potassium (Cozaar -) 100 mg PO DAILY [facility] Last Admin: 07/28/18 10:32 Dose: 100 mg Nifedipine (Procardia Xl -) 60 mg PO DAILY [facility] Last Admin: 07/28/18 10:31 Dose: 60 mg Pantoprazole Sodium (Protonix -) 20 mg PO DAILY [facility] Last Admin: 07/28/18 10:32 Dose: 20 mg Potassium Chloride (K-Dur -) 40 meq PO BID [facility] Last Admin: 07/28/18 10:32 Dose: 40 meq - Objective Vital Signs: Vital Signs Temperature 98.2 F 07/28/18 10:39 Pulse Rate 92 H 07/28/18 10:39 Respiratory Rate 20 07/28/18 10:39 Blood Pressure 162/107 H 07/28/18 10:39 O2 Sat by Pulse Oximetry (%) 97 07/28/18 10:00 Neurological: Yes: Alert, Oriented, Cran Nerves II-XII Intact (except VII (L) central), Facial Droop (Left), Weakness ...Motor Strength: LUE, LLE (he is plegic on left arm, some effort anti gravity left leg) Labs: CBC, BMP 07/28/18 06:00 07/28/18 06:00 INR, PTT INR 1.03 (0.83-1.09) 07/26/18 11:39 - ....Imaging MRI: Report Reviewed, Image Reviewed (discussed with family. He has old lacune in the right BG and acute subcortical infarction in the right. MRA shows 50% stenosis R M1 segment.) Problem List - Problems (1) FERNANDO (acute kidney injury) Code(s): N17.9 - ACUTE KIDNEY FAILURE, UNSPECIFIED (2) Cerebrovascular accident (CVA) Code(s): I63.9 - CEREBRAL INFARCTION, UNSPECIFIED Qualifiers: CVA mechanism: unspecified Qualified Code(s): I63.9 - Cerebral infarction, unspecified (3) Hypertensive encephalopathy Code(s): I67.4 - HYPERTENSIVE ENCEPHALOPATHY (4) Hypokalemia Code(s): E87.6 - HYPOKALEMIA (5) Troponin I above reference range Code(s): R74.8 - ABNORMAL LEVELS OF OTHER SERUM ENZYMES Assessment/Plan R MCA branch infarction, with evidence of atherosclerotic disease R M1 segment. Continue acute stroke workup. Aspirin/Statin. Permissive HTN, though will over the next few months will eventually need to get the BP under better control , and address his numerous medical problems. Cardiac evaluation. We will f/u with him as outpatient, though will need rehab first. Will f/u while in house.
[2018-07-28] MEDS ORDERED: PT OWN MED DRAWER 7, Y5N ONE (16:24)
[2018-07-28] MEDS: DEXTROSE 5%-NORMAL SALINE 1,000 ML IV SCH (21:51)
[2018-07-29] MEDS ORDERED: PT OWN MED DRAWER 7, Y5N ONE ×2 (01:41→09:22)
[2018-07-29] MEDS: DEXTROSE 5%-NORMAL SALINE 1,000 ML IV SCH ×2 (01:42→22:06)
[2018-07-29] MEDS: AMPICILLIN NA/SULBACTAM NA 3 GM in SODIUM CHLORIDE 100 ML IVPB SCH ×3 (01:42→18:00)
[2018-07-29] MEDS: LOSARTAN POTASSIUM 50 MG TABLET (FP) PO SCH (09:30)
[2018-07-29] MEDS: ASPIRIN 325 MG TABLET PO SCH (09:30)
[2018-07-29] MEDS: PANTOPRAZOLE 20 MG TABLET (FP) PO SCH (09:30)
[2018-07-29] MEDS: POTASSIUM CHLORIDE TABS 20 MEQ TABLET.ER (FP) PO SCH ×2 (09:31→22:24)
[2018-07-29] MEDS ORDERED: NIFEdipine E.R. 30 MG TABLET (FP) PO SCH (10:00)
--- NOTE | 2018-07-29 11:26 | PN ---
Physical Exam: SUBJECTIVE: Patient seen and examined He has no change in his mental status no distress no fever or chills seen by vascular pa OBJECTIVE: Vital Signs Period Temp Pulse Resp BP Sys/Hayes Pulse Ox Last 24 Hr 97.7 F-98.6 F 78-90 18-22 159-180/98-112 98-98 GENERAL: The patient is awake, alert, and fully oriented, in no acute distress. HEAD: Normal with no signs of trauma. EYES: PERRL, extraocular movements intact, sclera anicteric, conjunctiva clear. No ptosis. ENT: Ears normal, nares patent, oropharynx clear without exudates, moist mucous membranes. NECK: Trachea midline, full range of motion, supple. LUNGS: Breath sounds equal, clear to auscultation bilaterally, no wheezes, no crackles, no accessory muscle use. HEART: Regular rate and rhythm, S1, S2 without murmur, rub or gallop. ABDOMEN: Soft, nontender, nondistended, normoactive bowel sounds, no guarding, no rebound, no hepatosplenomegaly, no masses. EXTREMITIES: 2+ pulses, warm, well-perfused, no edema. wound on his left leg NEUROLOGICAL:left sided dense paralysis PSYCH: Normal mood, normal affect. SKIN: Warm, dry, normal turgor, no rashes or lesions noted Laboratory Results - last 24 hr 07/28/18 06:00 Plt Count 177 MPV 8.8 Active Medications Generic Name Dose Route Start Last Admin Trade Name Freq PRN Reason Stop Dose Admin Aspirin 325 mg 07/28/18 10:00 07/29/18 09:30 Asa - PO 325 mg DAILY YOLANDE Administration Atorvastatin Calcium 80 mg 07/29/18 22:00 Lipitor - PO HS YOLANDE Dextrose/Sodium Chloride 1,000 mls @ 42 mls/hr 07/27/18 19:51 07/29/18 01:42 D5-Ns - IV 42 mls/hr ASDIR YOLANDE Administration Ampicillin Sodium/Sulbactam 100 mls @ 200 mls/hr 07/27/18 21:00 07/29/18 09: 31 Sodium 3 gm/ Sodium Chloride IVPB 200 mls/hr Q8H-IV YOLANDE Administration Losartan Potassium 100 mg 07/28/18 10:00 07/29/18 09:30 Cozaar - PO 100 mg DAILY YOLANDE Administration Nifedipine 90 mg 07/29/18 10:00 07/29/18 09:30 Procardia Xl - PO 90 mg DAILY YOLANDE Administration Pantoprazole Sodium 20 mg 07/28/18 10:00 07/29/18 09:30 Protonix - PO 20 mg DAILY YOLANDE Administration Potassium Chloride 40 meq 07/27/18 22:00 07/29/18 09:31 K-Dur - PO 40 meq BID YOLANDE Administration ASSESSMENT/PLAN: Acute cvs with left sided weakness control bp add lipitor 80 daily aspiring rehab swallow eval Htn higher inc losartan to 100 and chagne nefidipine to 90 today and his pressure is coming down slowly leg wound and ulcer seen by id and continue abx and wound care High creatinine it is down to 1.5 from 2.2 he is on iv fluids d5 and will continue for now repeat labs am
--- NOTE | 2018-07-29 11:55 | PN ---
Progress Note, Physician History of Present Illness: Pt states he feels well. Denies RLE pain, remains afebrile. Tolerating antibiotics. - Current Medication List Current Medications: Active Medications Aspirin (Asa -) 325 mg PO DAILY [facility] Last Admin: 07/29/18 09:30 Dose: 325 mg Atorvastatin Calcium (Lipitor -) 80 mg PO HS [facility] Dextrose/Sodium Chloride (D5-Ns -) 1,000 mls @ 42 mls/hr IV ASDIR [facility] Last Admin: 07/29/18 01:42 Dose: 42 mls/hr Ampicillin Sodium/Sulbactam (Sodium 3 gm/ Sodium Chloride) 100 mls @ 200 mls/ hr IVPB Q8H-IV [facility] Last Admin: 07/29/18 09:31 Dose: 200 mls/hr Losartan Potassium (Cozaar -) 100 mg PO DAILY [facility] Last Admin: 07/29/18 09:30 Dose: 100 mg Nifedipine (Procardia Xl -) 90 mg PO DAILY [facility] Last Admin: 07/29/18 09:30 Dose: 90 mg Pantoprazole Sodium (Protonix -) 20 mg PO DAILY [facility] Last Admin: 07/29/18 09:30 Dose: 20 mg Potassium Chloride (K-Dur -) 40 meq PO BID [facility] Last Admin: 07/29/18 09:31 Dose: 40 meq - Objective Vital Signs: Vital Signs Temperature 97.8 F 07/29/18 10:50 Pulse Rate 90 07/29/18 10:50 Respiratory Rate 18 07/29/18 10:52 Blood Pressure 159/98 07/29/18 10:50 O2 Sat by Pulse Oximetry (%) 98 07/29/18 10:52 Constitutional: Yes: No Distress, Calm Cardiovascular: Yes: Regular Rate and Rhythm Respiratory: Yes: Regular Gastrointestinal: Yes: Normal Bowel Sounds, Soft Wound/Incision: Yes: Other (mild semipurulent drainage, chronic RLE ulcer) Neurological: Yes: Weakness (Lt side) Labs: CBC, BMP 07/28/18 06:00 07/28/18 06:00 INR, PTT INR 1.03 (0.83-1.09) 07/26/18 11:39 Microbiology 07/26/18 20:38 Leg - Right Lower Gram Stain - Final 07/26/18 20:38 Leg - Right Lower Wound Culture - Preliminary Non Lactose Fermenting Gnb Beta Hem Streptococcus Group C Non Lactose Fermenting Gnb#2 Problem List - Problems (1) FERNANDO (acute kidney injury) Code(s): N17.9 - ACUTE KIDNEY FAILURE, UNSPECIFIED (2) Cerebrovascular accident (CVA) Code(s): I63.9 - CEREBRAL INFARCTION, UNSPECIFIED Qualifiers: CVA mechanism: unspecified Qualified Code(s): I63.9 - Cerebral infarction, unspecified (3) Hypertensive encephalopathy Code(s): I67.4 - HYPERTENSIVE ENCEPHALOPATHY Assessment/Plan RLE infected ulcer Acute CVA HTN -- continue Unasyn for now -- awaiting final wound culture results -- continue wound care
--- NOTE | 2018-07-29 14:49 | PN ---
Progress Note, Physician Chief Complaint: left hemiparesis History of Present Illness: 63 year old who hadn't been to a doctor in many years and without prior history of neurologic complaints came in with acute left hemiparesis. He is now awake, alert and with complete plegia on the left arm. I discussed with him and his family the results of his MRI/MRA and impact of his uncontrolled HTN on his vascular system. - Current Medication List Current Medications: Active Medications Aspirin (Asa -) 325 mg PO DAILY [facility] Last Admin: 07/29/18 09:30 Dose: 325 mg Atorvastatin Calcium (Lipitor -) 80 mg PO HS [facility] Dextrose/Sodium Chloride (D5-Ns -) 1,000 mls @ 42 mls/hr IV ASDIR [facility] Last Admin: 07/29/18 01:42 Dose: 42 mls/hr Ampicillin Sodium/Sulbactam (Sodium 3 gm/ Sodium Chloride) 100 mls @ 200 mls/ hr IVPB Q8H-IV [facility] Last Admin: 07/29/18 09:31 Dose: 200 mls/hr Losartan Potassium (Cozaar -) 100 mg PO DAILY [facility] Last Admin: 07/29/18 09:30 Dose: 100 mg Nifedipine (Procardia Xl -) 90 mg PO DAILY [facility] Last Admin: 07/29/18 09:30 Dose: 90 mg Pantoprazole Sodium (Protonix -) 20 mg PO DAILY [facility] Last Admin: 07/29/18 09:30 Dose: 20 mg Potassium Chloride (K-Dur -) 40 meq PO BID [facility] Last Admin: 07/29/18 09:31 Dose: 40 meq - Objective Vital Signs: Vital Signs Temperature 97.8 F 07/29/18 10:50 Pulse Rate 90 07/29/18 10:50 Respiratory Rate 18 07/29/18 10:52 Blood Pressure 159/98 07/29/18 10:50 O2 Sat by Pulse Oximetry (%) 98 07/29/18 10:52 Neurological: Yes: Alert, Oriented, Cran Nerves II-XII Intact (except for left facial droop), Facial Droop (left), Weakness (left) ...Motor Strength: LUE (plegia, 0/5), LLE (4/5) Labs: CBC, BMP 07/28/18 06:00 07/28/18 06:00 INR, PTT INR 1.03 (0.83-1.09) 07/26/18 11:39 Problem List - Problems (1) FERNANDO (acute kidney injury) Code(s): N17.9 - ACUTE KIDNEY FAILURE, UNSPECIFIED (2) Cerebrovascular accident (CVA) Code(s): I63.9 - CEREBRAL INFARCTION, UNSPECIFIED Qualifiers: CVA mechanism: unspecified Qualified Code(s): I63.9 - Cerebral infarction, unspecified (3) Hypertensive encephalopathy Code(s): I67.4 - HYPERTENSIVE ENCEPHALOPATHY (4) Hypokalemia Code(s): E87.6 - HYPOKALEMIA (5) Troponin I above reference range Code(s): R74.8 - ABNORMAL LEVELS OF OTHER SERUM ENZYMES Assessment/Plan R MCA branch infarction, with evidence of atherosclerotic disease R M1 segment. Continue acute stroke workup. Aspirin/Statin. Permissive HTN, though will over the next few months will eventually need to get the BP under better control , and address his numerous medical problems. Cardiac evaluation. We will f/u with him as outpatient, though will need rehab first. Will f/u while in house.
[2018-07-29] MEDS: ATORVASTATIN CA 80 MG TABLET (FP) PO SCH (22:24)
[2018-07-30] MEDS ORDERED: PT OWN MED DRAWER 7, Y5N ONE ×3 (00:58→09:51)
[2018-07-30] MEDS: AMPICILLIN NA/SULBACTAM NA 3 GM in SODIUM CHLORIDE 100 ML IVPB SCH ×2 (01:26→10:02)
[2018-07-30] MEDS ORDERED: LABETALOL HCL 5 MG/1 ML (100MG/20 ML VIAL) IVPUSH ONE (04:01)
--- NOTE | 2018-07-30 07:33 | PN ---
Progress Note, Physician History of Present Illness: 24H events: -pt remains stable and without acute events/changes -wound culture finalized this morning: + pseudomonas, + citrobacter and + strep C. - Current Medication List Current Medications: Active Medications Aspirin (Asa -) 325 mg PO DAILY [facility] Last Admin: 07/29/18 09:30 Dose: 325 mg Atorvastatin Calcium (Lipitor -) 80 mg PO HS [facility] Last Admin: 07/29/18 22:24 Dose: 80 mg Ampicillin Sodium/Sulbactam (Sodium 3 gm/ Sodium Chloride) 100 mls @ 200 mls/ hr IVPB Q8H-IV [facility] Last Admin: 07/30/18 01:26 Dose: 200 mls/hr Losartan Potassium (Cozaar -) 100 mg PO DAILY [facility] Last Admin: 07/29/18 09:30 Dose: 100 mg Nifedipine (Procardia Xl -) 90 mg PO DAILY [facility] Pantoprazole Sodium (Protonix -) 20 mg PO DAILY [facility] Last Admin: 07/29/18 09:30 Dose: 20 mg Potassium Chloride (K-Dur -) 40 meq PO BID [facility] Last Admin: 07/29/18 22:24 Dose: 40 meq - Objective Vital Signs: Vital Signs Temperature 97.9 F 07/30/18 05:00 Pulse Rate 83 07/30/18 05:00 Respiratory Rate 20 07/30/18 05:00 Blood Pressure 160/113 H 07/30/18 05:00 O2 Sat by Pulse Oximetry (%) 97 07/29/18 20:59 Constitutional: Yes: Well Nourished, No Distress, Calm Eyes: Yes: Conjunctiva Clear HENT: Yes: Atraumatic, Normocephalic Neck: Yes: Supple Cardiovascular: Yes: Regular Rate and Rhythm Respiratory: Yes: Regular, CTA Bilaterally Gastrointestinal: Yes: Normal Bowel Sounds, Soft ...Rectal Exam: Yes: Deferred Genitourinary: Yes: WNL Musculoskeletal: Yes: Muscle Weakness Extremities: Yes: Other (LUE hemiplegia) Edema: Yes Edema: RLE: 1+ Peripheral Pulses WNL: No Peripheral Pulses: Left Radial: 2+, Right Radial: 2+ Integumentary: Yes: Venous Stasis Changes (RLE wound) Wound/Incision: Yes: Dressing Dry and Intact Neurological: Yes: Alert, Oriented, Unsteady Gait, Weakness, Other (LUE weakness ) ...Motor Strength: LUE (hemiplegia) Psychiatric: Yes: Alert, Oriented Labs: CBC, BMP 07/28/18 06:00 INR, PTT INR 1.03 (0.83-1.09) 07/26/18 11:39 Problem List - Problems (1) HTN (hypertension) Assessment/Plan: cardiac diet procardia XL 90mg daily losartan 100mg daily permissive HTN as per neuro SBP ranges from 160-190s, start low dose metoprolol 25mg BID echocardiogram ordered repeat cardiac enzymes in AM Code(s): I10 - ESSENTIAL (PRIMARY) HYPERTENSION (2) FERNANDO (acute kidney injury) Assessment/Plan: renal function improving (? baseline) replete electrolytes as needed. Code(s): N17.9 - ACUTE KIDNEY FAILURE, UNSPECIFIED (3) Cerebrovascular accident (CVA) Assessment/Plan: neuro recommendations appreciated Code(s): I63.9 - CEREBRAL INFARCTION, UNSPECIFIED Qualifiers: CVA mechanism: unspecified Qualified Code(s): I63.9 - Cerebral infarction, unspecified (4) Hyperlipidemia Assessment/Plan: TCHOL 250mg/dl, LDL 171mg/dl ASA 81mg daily lipitor 80mg qhs pt with trop leak--cardiology consulted Code(s): E78.5 - HYPERLIPIDEMIA, UNSPECIFIED (5) Elevated hemoglobin A1c Assessment/Plan: A1c 6.1%. dietary counselling done. pt may need oral anti-glycemic med upon discharge, due to significant risk factors Code(s): R73.09 - OTHER ABNORMAL GLUCOSE (6) Wound of right lower extremity Assessment/Plan: Wound cx: + citrobacter/Strep c and Pseudomonas As per ID change unasyn to Zosyn trend fever and WBC curve as per surgery, pt will have debridement on monday afternoon. Code(s): S81.801A - UNSPECIFIED OPEN WOUND, RIGHT LOWER LEG, INITIAL ENCOUNTER Impression/Plan Impression/Plan: PPX: GI: PPI, bowel regimen DVT: SCDs while in bed DISPO: Full code. discharge to rehab when medically cleared Visit type - Emergency Visit Emergency Visit: Yes ED Registration Date: 07/26/18 Care time: The patient presented to the Emergency Department on the above date and was hospitalized for further evaluation of their emergent condition. - New Patient This patient is new to me today: Yes Date on this admission: 07/30/18 - Critical Care Critical Care patient: No - Discharge Referral Referred to [facility] No
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
[2018-07-30] MEDS ORDERED: DOCUSATE SODIUM 100 MG CAPSULE (FP) PO PRN (07:38)
[2018-07-30] MEDS ORDERED: SENNOSIDES 8.6MG TABLET (FP) PO PRN (07:38)
[2018-07-30 07:45] LABS: ANION GAP 7 MMOL/L (8-16); BLOOD UREA NITROGEN 24 mg/dL (7-18); CALCIUM 8.5 mg/dL (8.5-10.1); CHLORIDE 114 mmol/L (98-107); CO2 25 mmol/L (21-32); CREATININE 1.6 mg/dL (0.55-1.3); GLUCOSE,RANDOM 95 mg/dL (74-106); SODIUM 146 mmol/L (136-145)
[2018-07-30] MEDS: LOSARTAN POTASSIUM 50 MG TABLET (FP) PO SCH (10:02)
[2018-07-30] MEDS: POTASSIUM CHLORIDE TABS 20 MEQ TABLET.ER (FP) PO SCH ×2 (10:02→21:10)
[2018-07-30] MEDS: ASPIRIN 325 MG TABLET PO SCH (10:02)
[2018-07-30] MEDS: NIFEdipine E.R. 90 MG TABLET (FP) PO SCH (10:02)
[2018-07-30] MEDS: PANTOPRAZOLE 20 MG TABLET (FP) PO SCH (10:02)
[2018-07-30] MEDS: METOPROLOL TARTRATE 25 MG TABLET (FP) PO SCH ×2 (11:40→21:10)
--- NOTE | 2018-07-30 12:00 | PN ---
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 CXR (-) Doing well with regular soft solid food. Pt being fed by daughter as left dominant UE is paralyzed, with no movement. Counseled pt and family to encourage pt to improve use of right UE to increase independence, feeding himself, more [place] in ADL. Family and pt encouraged advice and agreed. Suggest Her rehab.
--- NOTE | 2018-07-30 13:35 | PN ---
Progress Note, Physician Chief Complaint: left hemiparesis History of Present Illness: 63 year old who hadn't been to a doctor in many years and without prior history of neurologic complaints came in with acute left hemiparesis. He is now awake, alert and with complete plegia on the left arm. He reports that he started PT this morning and was instructed on working his arm and leg independently as well. I have discussed with him and his family the results of his MRI/MRA and impact of his uncontrolled HTN on his vascular system. - Current Medication List Current Medications: Active Medications Aspirin (Asa -) 325 mg PO DAILY [facility] Last Admin: 07/30/18 10:02 Dose: 325 mg Atorvastatin Calcium (Lipitor -) 80 mg PO HS [facility] Last Admin: 07/29/18 22:24 Dose: 80 mg Docusate Sodium (Colace -) 100 mg PO BID PRN PRN Reason: CONSTIPATION Ampicillin Sodium/Sulbactam (Sodium 3 gm/ Sodium Chloride) 100 mls @ 200 mls/ hr IVPB Q8H-IV [facility] Last Admin: 07/30/18 10:02 Dose: 200 mls/hr Losartan Potassium (Cozaar -) 100 mg PO DAILY [facility] Last Admin: 07/30/18 10:02 Dose: 100 mg Metoprolol Tartrate (Lopressor -) 25 mg PO BID [facility] Last Admin: 07/30/18 11:40 Dose: 25 mg Nifedipine (Procardia Xl -) 90 mg PO DAILY [facility] Last Admin: 07/30/18 10:02 Dose: 90 mg Pantoprazole Sodium (Protonix -) 20 mg PO DAILY [facility] Last Admin: 07/30/18 10:02 Dose: 20 mg Potassium Chloride (K-Dur -) 40 meq PO BID [facility] Last Admin: 07/30/18 10:02 Dose: 40 meq Senna (Senna -) 2 tab PO HS PRN PRN Reason: CONSTIPATION - Objective Vital Signs: Vital Signs Temperature 97.8 F 07/30/18 09:00 Pulse Rate 82 07/30/18 09:00 Respiratory Rate 18 07/30/18 10:00 Blood Pressure 166/106 H 07/30/18 11:20 O2 Sat by Pulse Oximetry (%) 97 07/30/18 10:00 Labs: CBC, BMP 07/28/18 06:00 07/30/18 06:30 INR, PTT INR 1.03 (0.83-1.09) 07/26/18 11:39 Problem List - Problems (1) FERNANDO (acute kidney injury) Code(s): N17.9 - ACUTE KIDNEY FAILURE, UNSPECIFIED (2) Cerebrovascular accident (CVA) Code(s): I63.9 - CEREBRAL INFARCTION, UNSPECIFIED Qualifiers: CVA mechanism: unspecified Qualified Code(s): I63.9 - Cerebral infarction, unspecified (3) Hypertensive encephalopathy Code(s): I67.4 - HYPERTENSIVE ENCEPHALOPATHY (4) Hypokalemia Code(s): E87.6 - HYPOKALEMIA (5) Troponin I above reference range Code(s): R74.8 - ABNORMAL LEVELS OF OTHER SERUM ENZYMES Assessment/Plan R MCA branch infarction, with evidence of atherosclerotic disease R M1 segment. Continue acute stroke workup. Aspirin/Statin. Permissive HTN, though will over the next few months will eventually need to get the BP under better control , and address his numerous medical problems. Cardiac evaluation. We will f/u with him as outpatient, though will need rehab first. Will f/u while in house.
--- NOTE | 2018-07-30 14:40 | PN ---
Progress Note, Physician History of Present Illness: stable no complaints all cx reports noted - Current Medication List Current Medications: Active Medications Aspirin (Asa -) 325 mg PO DAILY [facility] Last Admin: 07/30/18 10:02 Dose: 325 mg Atorvastatin Calcium (Lipitor -) 80 mg PO HS [facility] Last Admin: 07/29/18 22:24 Dose: 80 mg Docusate Sodium (Colace -) 100 mg PO BID PRN PRN Reason: CONSTIPATION Ampicillin Sodium/Sulbactam (Sodium 3 gm/ Sodium Chloride) 100 mls @ 200 mls/ hr IVPB Q8H-IV [facility] Last Admin: 07/30/18 10:02 Dose: 200 mls/hr Losartan Potassium (Cozaar -) 100 mg PO DAILY [facility] Last Admin: 07/30/18 10:02 Dose: 100 mg Metoprolol Tartrate (Lopressor -) 25 mg PO BID [facility] Last Admin: 07/30/18 11:40 Dose: 25 mg Nifedipine (Procardia Xl -) 90 mg PO DAILY [facility] Last Admin: 07/30/18 10:02 Dose: 90 mg Pantoprazole Sodium (Protonix -) 20 mg PO DAILY [facility] Last Admin: 07/30/18 10:02 Dose: 20 mg Potassium Chloride (K-Dur -) 40 meq PO BID [facility] Last Admin: 07/30/18 10:02 Dose: 40 meq Senna (Senna -) 2 tab PO HS PRN PRN Reason: CONSTIPATION - Objective Vital Signs: Vital Signs Temperature 97.3 F L 07/30/18 13:48 Pulse Rate 78 07/30/18 13:48 Respiratory Rate 18 07/30/18 13:48 Blood Pressure 163/98 07/30/18 13:48 O2 Sat by Pulse Oximetry (%) 97 07/30/18 10:00 Constitutional: Yes: No Distress, Calm Cardiovascular: Yes: S1, S2 Respiratory: Yes: Regular, CTA Bilaterally Gastrointestinal: Yes: Normal Bowel Sounds, Soft Musculoskeletal: Yes: Other Extremities: Yes: Other Wound/Incision: Yes: Other (Other (mild semipurulent drainage, chronic RLE ulcer )) Neurological: Yes: Alert, Oriented Psychiatric: Yes: Alert, Oriented Labs: CBC, BMP 07/28/18 06:00 07/30/18 06:30 INR, PTT INR 1.03 (0.83-1.09) 07/26/18 11:39 Assessment/Plan Problem List - Problems (1) FERNANDO (acute kidney injury) Code(s): N17.9 - ACUTE KIDNEY FAILURE, UNSPECIFIED (2) Cerebrovascular accident (CVA) Code(s): I63.9 - CEREBRAL INFARCTION, UNSPECIFIED Qualifiers: CVA mechanism: unspecified Qualified Code(s): I63.9 - Cerebral infarction, unspecified (3) Hypertensive encephalopathy Code(s): I67.4 - HYPERTENSIVE ENCEPHALOPATHY Assessment/Plan RLE infected ulcer Acute CVA HTN plan will change abx to zosyn cx report noted final plan awaited rest as per the team
[2018-07-30] MEDS ORDERED: PIPERACILLIN/TAZOBACTAM 3.375 GM VIAL IVPB ONE (15:53)
[2018-07-30] MEDS ORDERED: DEXTROSE 5%-WATER - 50 ML IVPB ONE (15:54)
[2018-07-30] MEDS: PIPERACILLIN/TAZOB 3.375 GM 3.375 GM in DEXTROSE 5%-WATER - 50 ML IVPB SCH ×2 (16:53→17:04)
--- NOTE | 2018-07-30 18:21 | CON.CARD ---
Consult Consult Specialty:: Cardiology Referred by:: Hospitalist Reason for Consultation:: Cardiac evaluation - History of Present Illness Chief Complaint: Stroke History of Present Illness: Patient is a 63 year old male with underlying history of HTN, hypercholesterolemia who presented with left sided weakness and fell because his legs gave out. TPA was not given as it was outside the window period. He was found to have severe elevation of BP with 227/125. Currently, his BP is still elevated at 160's systolic. He denies chest pain, SOB or palpitations. He denies paroxysmal nocturnal dyspnea or orthopnea. He denies fever or chills. He denies nausea, vomiting, diarrhea or abdominal pain. He denies headache or lightheadedness. He is able to move the left lower extremity, but not able to move left upper extremity. Brain MRI and MRA was noted with acute/subacute right periventricular white matter and posterior aspect of basal ganglia infarct. Echocardiography revealed low normal LVEF of 50-55%. 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 Cardio/Vascular: Yes: HTN, Hyperlipdemia - Past Surgical History Past Surgical History: Yes: None - Alcohol/Substance Use Hx Alcohol Use: No - Smoking History Smoking history: Unknown if ever smoked Have you smoked in the past 12 months: No If you are a former smoker, when did you quit?: Denies smoking Home Medications - Allergies Allergies/Adverse Reactions: Allergies Allergy/AdvReac Type Severity Reaction Status Date / Time No Known Allergies Allergy Verified 07/26/18 11:07 - Home Medications Home Medications: Ambulatory Orders NK [No Known Home Medication] 07/27/18 Review of Systems - Review of Systems Constitutional: denies: Chills, Fever Cardiovascular: denies: Chest Pain, Palpitations, Shortness of Breath Respiratory: denies: Cough, Hemoptysis, Orthopnea, PND, SOB, SOB on Exertion Gastrointestinal: denies: Abdominal Pain, Constipation, Diarrhea, Melena, Nausea , Rectal Bleeding, Vomiting Musculoskeletal: denies: Back Pain, Joint Pain Neurological: reports: Weakness. denies: Dizziness, Headache, Seizure, Syncope Vital Signs: Vital Signs Temperature 98.2 F 07/30/18 17:00 Pulse Rate 74 07/30/18 17:00 Respiratory Rate 18 07/30/18 17:00 Blood Pressure 168/104 H 07/30/18 17:00 O2 Sat by Pulse Oximetry (%) 97 07/30/18 10:00 HENT: Yes: Atraumatic Neck: Yes: Supple Respiratory: Yes: CTA Bilaterally Gastrointestinal: Yes: Normal Bowel Sounds, Soft. No: Tenderness Cardiovascular: Yes: Regular Rate and Rhythm JVD: No PMI: Non-Displaced Heart Sounds: Yes: S1, S2. No: Gallop Murmur: Yes: Systolic Murmur, Grade 1 Edema: No - Other Data Labs, Other Data: CBC, BMP 07/28/18 06:00 07/30/18 06:30 INR, PTT INR 1.03 (0.83-1.09) 07/26/18 11:39 Laboratory Results - last 24 hr CBCD WBC 7.6 K/mm3 (4.0-10.0) 07/28/18 06:00 RBC 4.45 M/mm3 (4.00-5.60) 07/28/18 06:00 Hgb 13.0 GM/dL (11.7-16.9) 07/28/18 06:00 Hct 38.7 % (35.4-49) 07/28/18 06:00 MCV 86.9 fl (80-96) 07/28/18 06:00 MCHC 33.7 g/dl (32.0-35.9) 07/28/18 06:00 RDW 15.0 % (11.9-15.9) 07/28/18 06:00 Plt Count 177 K/MM3 (134-434) 07/28/18 06:00 MPV 8.8 fl (7.5-11.1) 07/28/18 06:00 CMP Sodium 146 mmol/L (136-145) H 07/30/18 06:30 Potassium 4.0 mmol/L (3.5-5.1) 07/30/18 06:30 Chloride 114 mmol/L (98-107) H 07/30/18 06:30 Carbon Dioxide 25 mmol/L (21-32) 07/30/18 06:30 Anion Gap 7 MMOL/L (8-16) L 07/30/18 06:30 BUN 24 mg/dL (7-18) H 07/30/18 06:30 Creatinine 1.6 mg/dL (0.55-1.3) H 07/30/18 06:30 Creat Clearance w eGFR 44.02 (>60) 07/30/18 06:30 Random Glucose 95 mg/dL (74-106) 07/30/18 06:30 Calcium 8.5 mg/dL (8.5-10.1) 07/30/18 06:30 Total Bilirubin 0.8 mg/dL (0.2-1) 07/28/18 06:00 AST 32 U/L (15-37) 07/28/18 06:00 ALT 18 U/L (13-61) 07/28/18 06:00 Alkaline Phosphatase 58 U/L (45-117) 07/28/18 06:00 Total Protein 6.4 g/dl (6.4-8.2) 07/28/18 06:00 Albumin 3.3 g/dl (3.4-5.0) L 07/28/18 06:00 CARDIAC ENZYMES Creatine Kinase 265 IU/L (26-308) 07/26/18 11:39 Troponin I 0.12 ng/ml (0.00-0.05) H 07/26/18 16:35 NSR with T abnormality in lateral leads, consider lateral ischemia Echo: Report Reviewed Imaging - Results Chest X-ray: Report Reviewed Cat Scan: Report Reviewed MRI: Report Reviewed EKG: Report Reviewed Problem List - Problems (1) Demand ischemia Code(s): I24.8 - OTHER FORMS OF ACUTE ISCHEMIC HEART DISEASE (2) FERNANDO (acute kidney injury) Code(s): N17.9 - ACUTE KIDNEY FAILURE, UNSPECIFIED (3) Cerebrovascular accident (CVA) Code(s): I63.9 - CEREBRAL INFARCTION, UNSPECIFIED Qualifiers: CVA mechanism: unspecified Qualified Code(s): I63.9 - Cerebral infarction, unspecified (4) Elevated hemoglobin A1c Code(s): R73.09 - OTHER ABNORMAL GLUCOSE (5) HTN (hypertension) Code(s): I10 - ESSENTIAL (PRIMARY) HYPERTENSION (6) Hyperlipidemia Code(s): E78.5 - HYPERLIPIDEMIA, UNSPECIFIED (7) Hypertensive encephalopathy Code(s): I67.4 - HYPERTENSIVE ENCEPHALOPATHY (8) Troponin I above reference range Code(s): R74.8 - ABNORMAL LEVELS OF OTHER SERUM ENZYMES Assessment/Plan 1. CVA with left sided residual deficit 2. HTN - labile 3. Hypercholesterolemia 4. CKD 5. Elevated troponin - likely demand ischemia 6. RLE ulcer wound PLAN: 1. Continue Procardia XL and Losartan 2. Increase Lopressor to 50 mg BID 3. Continue Lipitor 4. ASA 5. Neuro follow up 6. PT and eventual rehab 7. Antibiotic as per ID service for RLE ulcer 8. Wound care. Await possible debridement Further plans are to follow Shawn Kelly MD
[2018-07-30] MEDS: ATORVASTATIN CA 80 MG TABLET (FP) PO SCH (21:09)
[2018-07-31] MEDS ORDERED: PIPERACILLIN/TAZOBACTAM 3.375 GM VIAL IVPB ONE ×3 (01:06→19:05)
[2018-07-31] MEDS ORDERED: DEXTROSE 5%-WATER - 50 ML IVPB ONE ×3 (01:06→19:05)
[2018-07-31] MEDS: PIPERACILLIN/TAZOB 3.375 GM 3.375 GM in DEXTROSE 5%-WATER - 50 ML IVPB SCH ×3 (01:15→19:20)
[2018-07-31 07:15] LABS: HEMATOCRIT 39.6 % (35.4-49); HEMOGLOBIN 13.2 GM/dL (11.7-16.9); MCH 29.1 pg (25.7-33.7); MCHC 33.3 g/dl (32.0-35.9); MEAN CELL VOLUME 87.2 fl (80-96); MEAN PLT VOLUME 8.4 fl (7.5-11.1); PLATELET COUNT 206 K/MM3 (134-434); RBC 4.54 M/mm3 (4.00-5.60); RDW 14.7 % (11.9-15.9); WHITE BLOOD COUNT 5.8 K/mm3 (4.0-10.0)
[2018-07-31 07:35] LABS: BLOOD UREA NITROGEN 27 mg/dL (7-18); GLUCOSE,RANDOM 84 mg/dL (74-106)
[2018-07-31 07:36] LABS: ALBUMIN 3.1 g/dl (3.4-5.0); ALK PHOS 59 U/L (45-117); ANION GAP 9 MMOL/L (8-16); BILIRUBIN,TOTAL 0.4 mg/dL (0.2-1); CALCIUM 8.2 mg/dL (8.5-10.1); CHLORIDE 112 mmol/L (98-107); CO2 24 mmol/L (21-32); CREATININE 1.7 mg/dL (0.55-1.3); POTASSIUM 4.2 mmol/L (3.5-5.1); SGOT/AST 22 U/L (15-37); SGPT/ALT 19 U/L (13-61); SODIUM 144 mmol/L (136-145); TOT PROT 6.2 g/dl (6.4-8.2)
[2018-07-31] MEDS: POTASSIUM CHLORIDE TABS 20 MEQ TABLET.ER (FP) PO SCH ×2 (10:35→21:53)
[2018-07-31] MEDS: ASPIRIN 325 MG TABLET PO SCH (10:35)
[2018-07-31] MEDS: PANTOPRAZOLE 20 MG TABLET (FP) PO SCH (10:35)
--- NOTE | 2018-07-31 10:35 | PN ---
Progress Note, Physician Chief Complaint: Events noted No significant changes Still hypertensive History of Present Illness: Patient was seen and examined. Awake and alert. Chart was reviewed. Denies chest pain, SOB or palpitations BP 160/105 Still cannot move left upper extremity - Current Medication List Current Medications: Active Medications Aspirin (Asa -) 325 mg PO DAILY [facility] Last Admin: 07/30/18 10:02 Dose: 325 mg Atorvastatin Calcium (Lipitor -) 80 mg PO HS [facility] Last Admin: 07/30/18 21:09 Dose: 80 mg Docusate Sodium (Colace -) 100 mg PO BID PRN PRN Reason: CONSTIPATION Piperacillin Sod/Tazobactam (Sod 3.375 gm/ Dextrose) 50 mls @ 100 mls/hr IVPB Q8H-IV [facility]; Protocol Last Admin: 07/31/18 01:15 Dose: 100 mls/hr Losartan Potassium (Cozaar -) 100 mg PO DAILY [facility] Last Admin: 07/30/18 10:02 Dose: 100 mg Metoprolol Tartrate (Lopressor -) 25 mg PO BID [facility] Last Admin: 07/30/18 21:10 Dose: 25 mg Nifedipine (Procardia Xl -) 90 mg PO DAILY [facility] Last Admin: 07/30/18 10:02 Dose: 90 mg Pantoprazole Sodium (Protonix -) 20 mg PO DAILY [facility] Last Admin: 07/30/18 10:02 Dose: 20 mg Potassium Chloride (K-Dur -) 40 meq PO BID [facility] Last Admin: 07/30/18 21:10 Dose: 40 meq Senna (Senna -) 2 tab PO HS PRN PRN Reason: CONSTIPATION - Objective Vital Signs: Vital Signs Temperature 97.9 F 07/31/18 06:03 Pulse Rate 70 07/31/18 06:03 Respiratory Rate 16 07/31/18 06:03 Blood Pressure 157/96 07/31/18 06:03 O2 Sat by Pulse Oximetry (%) 97 07/30/18 10:00 Eyes: Yes: PERRL HENT: Yes: Atraumatic Neck: Yes: Supple Cardiovascular: Yes: Regular Rate and Rhythm, S1, S2 Respiratory: Yes: CTA Bilaterally Gastrointestinal: Yes: Normal Bowel Sounds, Soft. No: Tenderness Edema: No Additional Findings/Remarks: - Review of Systems Constitutional: denies: Chills, Fever Cardiovascular: denies: Chest Pain, Palpitations, Shortness of Breath Respiratory: denies: Cough, Hemoptysis, Orthopnea, PND, SOB, SOB on Exertion Gastrointestinal: denies: Abdominal Pain, Constipation, Diarrhea, Melena, Nausea , Rectal Bleeding, Vomiting Musculoskeletal: denies: Back Pain, Joint Pain Neurological: reports: Weakness. denies: Dizziness, Headache, Seizure, Syncope Labs: CBC, BMP 07/31/18 05:30 07/31/18 05:30 Problem List - Problems (1) Demand ischemia Code(s): I24.8 - OTHER FORMS OF ACUTE ISCHEMIC HEART DISEASE (2) FERNANDO (acute kidney injury) Code(s): N17.9 - ACUTE KIDNEY FAILURE, UNSPECIFIED (3) Cerebrovascular accident (CVA) Code(s): I63.9 - CEREBRAL INFARCTION, UNSPECIFIED Qualifiers: CVA mechanism: unspecified Qualified Code(s): I63.9 - Cerebral infarction, unspecified (4) Elevated hemoglobin A1c Code(s): R73.09 - OTHER ABNORMAL GLUCOSE (5) HTN (hypertension) Code(s): I10 - ESSENTIAL (PRIMARY) HYPERTENSION (6) Hyperlipidemia Code(s): E78.5 - HYPERLIPIDEMIA, UNSPECIFIED (7) Hypertensive encephalopathy Code(s): I67.4 - HYPERTENSIVE ENCEPHALOPATHY (8) Troponin I above reference range Code(s): R74.8 - ABNORMAL LEVELS OF OTHER SERUM ENZYMES Assessment/Plan 1. CVA with left sided residual deficit 2. HTN - labile 3. Hypercholesterolemia 4. CKD 5. Elevated troponin - likely demand ischemia 6. RLE ulcer wound PLAN: 1. Continue Procardia XL and Losartan 2. Continue Lopressor 50 mg BID but may uptitrate as needed 3. Continue Lipitor 4. ASA 5. Neuro follow up 6. PT and eventual rehab 7. Antibiotic as per ID service for RLE ulcer 8. Wound care. Await possible debridement Further plans are to follow Shawn Kelly MD
[2018-07-31] MEDS: LOSARTAN POTASSIUM 50 MG TABLET (FP) PO SCH (10:37)
[2018-07-31] MEDS: METOPROLOL TARTRATE 25 MG TABLET (FP) PO SCH ×2 (10:37→21:53)
[2018-07-31] MEDS: NIFEdipine E.R. 90 MG TABLET (FP) PO SCH (10:37)
--- NOTE | 2018-07-31 10:40 | SPA.PREOP ---
- PRE-OP NOTE Dx: Right LE ulcer Planned Procedure: Debridement of right LE ulcer Surgeon: Avery Last Vital Signs Temp Pulse Resp BP Pulse Ox 97.9 F 70 16 157/96 97 07/31/18 06:03 07/31/18 06:03 07/31/18 06:03 07/31/18 06:03 07/30/18 10:00 Lab Results WBC 5.8 K/mm3 (4.0-10.0) 07/31/18 05:30 RBC 4.54 M/mm3 (4.00-5.60) 07/31/18 05:30 Hgb 13.2 GM/dL (11.7-16.9) 07/31/18 05:30 Hct 39.6 % (35.4-49) 07/31/18 05:30 MCV 87.2 fl (80-96) 07/31/18 05:30 MCHC 33.3 g/dl (32.0-35.9) 07/31/18 05:30 RDW 14.7 % (11.9-15.9) 07/31/18 05:30 Plt Count 206 K/MM3 (134-434) 07/31/18 05:30 Sodium 144 mmol/L (136-145) 07/31/18 05:30 Potassium 4.2 mmol/L (3.5-5.1) 07/31/18 05:30 Chloride 112 mmol/L (98-107) H 07/31/18 05:30 Carbon Dioxide 24 mmol/L (21-32) 07/31/18 05:30 Anion Gap 9 MMOL/L (8-16) 07/31/18 05:30 BUN 27 mg/dL (7-18) H 07/31/18 05:30 Creatinine 1.7 mg/dL (0.55-1.3) H 07/31/18 05:30 Random Glucose 84 mg/dL (74-106) 07/31/18 05:30 Calcium 8.2 mg/dL (8.5-10.1) L 07/31/18 05:30 Blood Type O POSITIVE 07/26/18 11:39 Antibody Screen Negative 07/26/18 11:39 INR 1.03 (0.83-1.09) 07/26/18 11:39 - IMAGING X-ray: Image Reviewed Problem List - Problems (1) Wound of right lower extremity Assessment/Plan: 63 yo male with acute on chronic right LE ulcer/wound. 1. Make NPO after midnight except po meds 2. GI/DVT PPX 3. Medical optimization / clearance 4. Consent to be obtained by surgeon after risks, benefits and alternatives discussed with patient and or Health Care Proxy. Evaluation and plan discussed wtih Dr Varela Code(s): S81.801A - UNSPECIFIED OPEN WOUND, RIGHT LOWER LEG, INITIAL ENCOUNTER
--- NOTE | 2018-07-31 11:49 | PN ---
Progress Note, Physician Chief Complaint: left hemiparesis History of Present Illness: 63 year old who hadn't been to a doctor in many years and without prior history of neurologic complaints came in with acute left hemiparesis. He is now awake, alert and with complete plegia on the left arm. He reports that he started PT and was instructed on working his arm and leg independently as well. I have discussed with him and his family the results of his MRI/MRA and impact of his uncontrolled HTN on his vascular system. This AM, 07/31, he noted that he has some sensory changes in his left lip, like he went to the dentist and received novocaine. He thinks that it started this AM, but exact time of onset is unclear. Otherwise he is unchanged with total plegia in his left arm and some improvement in his left leg from presentation. I see that he is scheduled for debridement of his foot ulcer tomorrow. - Current Medication List Current Medications: Active Medications Aspirin (Asa -) 325 mg PO DAILY [facility] Last Admin: 07/31/18 10:35 Dose: 325 mg Atorvastatin Calcium (Lipitor -) 80 mg PO HS [facility] Last Admin: 07/30/18 21:09 Dose: 80 mg Docusate Sodium (Colace -) 100 mg PO BID PRN PRN Reason: CONSTIPATION Piperacillin Sod/Tazobactam (Sod 3.375 gm/ Dextrose) 50 mls @ 100 mls/hr IVPB Q8H-IV [facility]; Protocol Last Admin: 07/31/18 10:30 Dose: 100 mls/hr Losartan Potassium (Cozaar -) 100 mg PO DAILY [facility] Last Admin: 07/31/18 10:37 Dose: 100 mg Metoprolol Tartrate (Lopressor -) 25 mg PO BID [facility] Last Admin: 07/31/18 10:37 Dose: 25 mg Nifedipine (Procardia Xl -) 90 mg PO DAILY [facility] Last Admin: 07/31/18 10:37 Dose: 90 mg Pantoprazole Sodium (Protonix -) 20 mg PO DAILY [facility] Last Admin: 07/31/18 10:35 Dose: 20 mg Potassium Chloride (K-Dur -) 40 meq PO BID [facility] Last Admin: 07/31/18 10:35 Dose: 40 meq Senna (Senna -) 2 tab PO HS PRN PRN Reason: CONSTIPATION - Objective Vital Signs: Vital Signs Temperature 97.9 F 07/31/18 06:03 Pulse Rate 70 07/31/18 06:03 Respiratory Rate 16 07/31/18 06:03 Blood Pressure 157/96 07/31/18 06:03 O2 Sat by Pulse Oximetry (%) 97 07/30/18 10:00 Neurological: Yes: Other (on exam he has slightly reduced sensation in his left V1 and V2 facial distribution. If right is 100 than left is 85 subjectively. Left arm is totally plegic. Left leg 4/5.) Labs: CBC, BMP 07/31/18 05:30 07/31/18 05:30 INR, PTT INR 1.03 (0.83-1.09) 07/26/18 11:39 Problem List - Problems (1) FERNANDO (acute kidney injury) Code(s): N17.9 - ACUTE KIDNEY FAILURE, UNSPECIFIED (2) Cerebrovascular accident (CVA) Code(s): I63.9 - CEREBRAL INFARCTION, UNSPECIFIED Qualifiers: CVA mechanism: unspecified Qualified Code(s): I63.9 - Cerebral infarction, unspecified (3) Hypertensive encephalopathy Code(s): I67.4 - HYPERTENSIVE ENCEPHALOPATHY (4) Hypokalemia Code(s): E87.6 - HYPOKALEMIA (5) Troponin I above reference range Code(s): R74.8 - ABNORMAL LEVELS OF OTHER SERUM ENZYMES Assessment/Plan R MCA branch infarction, with evidence of atherosclerotic disease R M1 segment. New symptoms reported this AM, which while subtle, may be significant. I'll order stat MRI brain to r/o acute stroke, particularly in light of his scheduled debridement in the AM. Continue acute stroke workup. Aspirin/Statin. Permissive HTN, though will over the next few months will eventually need to get the BP under better control , and address his numerous medical problems. Cardiac evaluation. We will f/u with him as outpatient, though will need rehab first. Will f/u while in house.
--- NOTE | 2018-07-31 13:10 | PN ---
Progress Note, Physician History of Present Illness: stable no complaints plan is for surgery - Current Medication List Current Medications: Active Medications Aspirin (Asa -) 325 mg PO DAILY [facility] Last Admin: 07/31/18 10:35 Dose: 325 mg Atorvastatin Calcium (Lipitor -) 80 mg PO HS [facility] Last Admin: 07/30/18 21:09 Dose: 80 mg Docusate Sodium (Colace -) 100 mg PO BID PRN PRN Reason: CONSTIPATION Piperacillin Sod/Tazobactam (Sod 3.375 gm/ Dextrose) 50 mls @ 100 mls/hr IVPB Q8H-IV [facility]; Protocol Last Admin: 07/31/18 10:30 Dose: 100 mls/hr Losartan Potassium (Cozaar -) 100 mg PO DAILY [facility] Last Admin: 07/31/18 10:37 Dose: 100 mg Metoprolol Tartrate (Lopressor -) 25 mg PO BID [facility] Last Admin: 07/31/18 10:37 Dose: 25 mg Nifedipine (Procardia Xl -) 90 mg PO DAILY [facility] Last Admin: 07/31/18 10:37 Dose: 90 mg Pantoprazole Sodium (Protonix -) 20 mg PO DAILY [facility] Last Admin: 07/31/18 10:35 Dose: 20 mg Potassium Chloride (K-Dur -) 40 meq PO BID [facility] Last Admin: 07/31/18 10:35 Dose: 40 meq Senna (Senna -) 2 tab PO HS PRN PRN Reason: CONSTIPATION - Objective Vital Signs: Vital Signs Temperature 98 F 07/31/18 10:00 Pulse Rate 80 07/31/18 10:00 Respiratory Rate 18 07/31/18 10:00 Blood Pressure 163/105 H 07/31/18 10:00 O2 Sat by Pulse Oximetry (%) 97 07/31/18 09:00 Constitutional: Yes: No Distress, Calm Cardiovascular: Yes: Regular Rate and Rhythm Respiratory: Yes: Regular, CTA Bilaterally Musculoskeletal: Yes: Other Extremities: Yes: Other Neurological: Yes: Alert, Oriented Psychiatric: Yes: Alert, Oriented Labs: CBC, BMP 07/31/18 05:30 07/31/18 05:30 INR, PTT INR 1.03 (0.83-1.09) 07/26/18 11:39 Assessment/Plan Problem List - Problems (1) FERNANDO (acute kidney injury) Code(s): N17.9 - ACUTE KIDNEY FAILURE, UNSPECIFIED (2) Cerebrovascular accident (CVA) Code(s): I63.9 - CEREBRAL INFARCTION, UNSPECIFIED Qualifiers: CVA mechanism: unspecified Qualified Code(s): I63.9 - Cerebral infarction, unspecified (3) Hypertensive encephalopathy Code(s): I67.4 - HYPERTENSIVE ENCEPHALOPATHY Assessment/Plan RLE infected ulcer Acute CVA HTN plan ct abx cx report noted final plan awaited for or probably tomorrow rest as per the team
--- NOTE | 2018-07-31 15:09 | ECHO ---
Name: ANALILIA MONAE Exam:Adult Echocardiogram Study Date: 07/31/2018 09:41 AM Age: 63 yrs Reason For Study: HTN UNCONTROLLED Height: 68 in Weight: 224 lb BSA: 2.1 m2 MMode/2D Measurements & Calculations IVSd: 1.4 cm Ao root diam: 3.6 cm LVIDd: 4.7 cm LA dimension: 3.3 cm LVIDs: 3.5 cm LVPWd: 1.4 cm EDV(Teich): 100.7 ml ESV(Teich): 49.5 ml Doppler Measurements & Calculations MV E max jacoby: 46.9 cm/sec Ao V2 max: 168.7 cm/sec MV A max jacoby: 72.1 cm/sec Ao max P.4 mmHg MV E/A: 0.65 MV dec time: 0.18 sec LV V1 max P.7 mmHg TR max jacoby: 103.4 cm/sec LV V1 max: 108.6 cm/sec TR max P.3 mmHg Med Peak E' Jacoby: 1.5 cm/sec Med E/e': 30.5 Procedure The study was technically difficult with many images being suboptimal in quality. Left Ventricle There is moderate concentric left ventricular hypertrophy. Left ventricular systolic function is norm al. Ejection Fraction = 60. Right Ventricle The right ventricle is normal in size and function. Atria Normal left and right atrial size and function. Mitral Valve There is mild mitral annular calcification. There is mild mitral regurgitation. Tricuspid Valve The tricuspid valve is normal. There is mild tricuspid regurgitation. Aortic Valve The aortic valve is normal in structure and function. Pulmonic Valve The pulmonic valve is not well visualized. Great Vessels The aortic root is normal size. Normal aortic arch, descending and ascending aorta. Pericardium/Pleura There is no pericardial effusion. Interpretation Summary The study was technically difficult with many images being suboptimal in quality. Left ventricular systolic function is normal. Ejection Fraction = 60. There is moderate concentric left ventricular hypertrophy. The right ventricle is normal in size and function. Normal left and right atrial size and function. There is mild mitral annular calcification. There is mild mitral regurgitation. The tricuspid valve is normal. There is mild tricuspid regurgitation. The aortic valve is normal in structure and function. The pulmonic valve is not well visualized. The aortic root is normal size. There is no pericardial effusion. Peng Archuleta 07/31/2018 03:08 PM
--- NOTE | 2018-07-31 18:15 | PN ---
Physical Exam: SUBJECTIVE: Patient seen and examined at the bedside. In no acute distress. left arm flaccid. for brain mri per neuro. OBJECTIVE: Vital Signs Period Temp Pulse Resp BP Sys/Hayes Pulse Ox Last 24 Hr 97.7 F-98.0 F 70-80 16-18 142-163/73-105 97 GENERAL: The patient is awake, alert, and fully oriented, in no acute distress. HEAD: Normal with no signs of trauma. EYES: PERRL, extraocular movements intact, sclera anicteric, conjunctiva clear. No ptosis. ENT: Ears normal, nares patent, oropharynx clear without exudates, moist mucous membranes. NECK: Trachea midline, full range of motion, supple. LUNGS: Breath sounds equal, clear to auscultation bilaterally, no wheezes HEART: Regular rate and rhythm ABDOMEN: Soft, nontender, nondistended, normoactive bowel sounds EXTREMITIES: RLE ulcer NEUROLOGICAL: Normal speech, gait not observed. PSYCH: Normal mood, normal affect. Laboratory Results - last 24 hr 07/31/18 07/31/18 05:30 05:30 WBC 5.8 RBC 4.54 Hgb 13.2 Hct 39.6 MCV 87.2 MCH 29.1 MCHC 33.3 RDW 14.7 Plt Count 206 MPV 8.4 Sodium 144 Potassium 4.2 Chloride 112 H Carbon Dioxide 24 Anion Gap 9 BUN 27 H Creatinine 1.7 H Creat Clearance w eGFR 41.04 Random Glucose 84 Calcium 8.2 L Total Bilirubin 0.4 AST 22 ALT 19 Alkaline Phosphatase 59 Troponin I 0.46 H Total Protein 6.2 L Albumin 3.1 L Active Medications Generic Name Dose Route Start Last Admin Trade Name Freq PRN Reason Stop Dose Admin Aspirin 325 mg 07/28/18 10:00 07/31/18 10:35 Asa - PO 325 mg DAILY [facility] Administration Atorvastatin Calcium 80 mg 07/29/18 22:00 07/30/18 21:09 Lipitor - PO 80 mg HS [facility] Administration Docusate Sodium 100 mg 07/30/18 07:38 Colace - PO BID PRN CONSTIPATION Piperacillin Sod/Tazobactam 50 mls @ 100 mls/hr 07/30/18 15:15 07/31/18 10:30 Sod 3.375 gm/ Dextrose IVPB 100 mls/hr Q8H-IV [facility] Administration Protocol Losartan Potassium 100 mg 07/28/18 10:00 07/31/18 10:37 Cozaar - PO 100 mg DAILY [facility] Administration Metoprolol Tartrate 25 mg 07/30/18 11:45 07/31/18 10:37 Lopressor - PO 25 mg BID [facility] Administration Nifedipine 90 mg 07/30/18 10:00 07/31/18 10:37 Procardia Xl - PO 90 mg DAILY [facility] Administration Pantoprazole Sodium 20 mg 07/28/18 10:00 07/31/18 10:35 Protonix - PO 20 mg DAILY [facility] Administration Potassium Chloride 40 meq 07/27/18 22:00 07/31/18 10:35 K-Dur - PO 40 meq BID [facility] Administration Senna 2 tab 07/30/18 07:38 Senna - PO HS PRN CONSTIPATION ASSESSMENT/PLAN: Patient is a 63 year old male with no reported past medical history. Patient presents to the ED s/p fall while getting out of bed. Pt was brought to the ER and found to have L-sided flaccidity and L sided facial droop. Neuro: CVA. left sided weakness neuro following For brain MRI today On Lipitor 80mg for elevated lipid panel asa 81mg daily Hypertension. controlled On Procardia xl 90mg, losartan 100mg, metoprol 25mg bid echo ordered and completed cardiac enzymes peaked at 0.45. cardiology following Renal FERNANDO Renal function still compromised. Now 1.7, unknown baseline hydrate and if worsening, consider renal consult. Endocrine Hmga1c 6.1. borderline Monitor bgms. Vascular Right lower ext wound Wound cx: + citrobacter/Strep c and Pseudomonas On Zosyn trend fever and WBC curve as per surgery, pt will have debridement on monday afternoon. fen tolerating po monitor electrolytes scds full code. will need rehab Visit type - Emergency Visit Emergency Visit: Yes ED Registration Date: 07/26/18 Care time: The patient presented to the Emergency Department on the above date and was hospitalized for further evaluation of their emergent condition. - New Patient This patient is new to me today: Yes Date on this admission: 07/31/18 - Critical Care Critical Care patient: No - Discharge Referral Referred to [facility] Med P.C.: No
--- NOTE | 2018-07-31 19:30 | PN ---
Progress Note (short form) - Note Progress Note: I looked at brain MRI images and don't see substantial differences in acute infarction. Will need to check radiology reading, but should be OK for surgery in Am if no acute stroke. Problem List - Problems (1) FERNANDO (acute kidney injury) Code(s): N17.9 - ACUTE KIDNEY FAILURE, UNSPECIFIED (2) Cerebrovascular accident (CVA) Code(s): I63.9 - CEREBRAL INFARCTION, UNSPECIFIED Qualifiers: CVA mechanism: unspecified Qualified Code(s): I63.9 - Cerebral infarction, unspecified (3) Hypertensive encephalopathy Code(s): I67.4 - HYPERTENSIVE ENCEPHALOPATHY (4) Hypokalemia Code(s): E87.6 - HYPOKALEMIA (5) Troponin I above reference range Code(s): R74.8 - ABNORMAL LEVELS OF OTHER SERUM ENZYMES
[2018-07-31] MEDS: ATORVASTATIN CA 80 MG TABLET (FP) PO SCH (21:53)
[2018-08-01] MEDS ORDERED: DEXTROSE 5%-WATER - 50 ML IVPB ONE ×3 (01:39→17:00)
[2018-08-01] MEDS ORDERED: PIPERACILLIN/TAZOBACTAM 3.375 GM VIAL IVPB ONE ×3 (01:39→17:00)
[2018-08-01] MEDS: SODIUM CHLORIDE 1,000 ML IV SCH ×3 (01:50→16:53)
[2018-08-01] MEDS: PIPERACILLIN/TAZOB 3.375 GM 3.375 GM in DEXTROSE 5%-WATER - 50 ML IVPB SCH ×3 (01:51→17:09)
[2018-08-01 07:24] LABS: BASO % 0.6 % (0-2.0); EOS % 4.2 % (0-4.5); HEMATOCRIT 39.8 % (35.4-49); HEMOGLOBIN 13.3 GM/dL (11.7-16.9); LYMPH % 23.2 % (8-40); MCH 29.1 pg (25.7-33.7); MCHC 33.3 g/dl (32.0-35.9); MEAN CELL VOLUME 87.3 fl (80-96); MEAN PLT VOLUME 8.3 fl (7.5-11.1); MONO % 6.4 % (3.8-10.2); NEUT % 65.6 % (42.8-82.8); PLATELET COUNT 206 K/MM3 (134-434); RBC 4.57 M/mm3 (4.00-5.60); RDW 14.7 % (11.9-15.9); WHITE BLOOD COUNT 5.9 K/mm3 (4.0-10.0)
[2018-08-01 07:36] LABS: INR 1.05 (0.83-1.09); PROTHROMBIN TIME (PATIENT) 12.4 SEC (9.7-13.0)
--- NOTE | 2018-08-01 08:09 | PN ---
Progress Note, Physician - Current Medication List Current Medications: Active Medications Aspirin (Asa -) 325 mg PO DAILY [facility] Last Admin: 07/31/18 10:35 Dose: 325 mg Atorvastatin Calcium (Lipitor -) 80 mg PO HS [facility] Last Admin: 07/31/18 21:53 Dose: 80 mg Docusate Sodium (Colace -) 100 mg PO BID PRN PRN Reason: CONSTIPATION Piperacillin Sod/Tazobactam (Sod 3.375 gm/ Dextrose) 50 mls @ 100 mls/hr IVPB Q8H-IV [facility]; Protocol Last Admin: 08/01/18 01:51 Dose: 100 mls/hr Sodium Chloride (Normal Saline -) 1,000 mls @ 100 mls/hr IV [facility] Last Admin: 08/01/18 01:50 Dose: 100 mls/hr Losartan Potassium (Cozaar -) 100 mg PO DAILY [facility] Last Admin: 07/31/18 10:37 Dose: 100 mg Metoprolol Tartrate (Lopressor -) 25 mg PO BID [facility] Last Admin: 07/31/18 21:53 Dose: 25 mg Nifedipine (Procardia Xl -) 90 mg PO DAILY [facility] Last Admin: 07/31/18 10:37 Dose: 90 mg Pantoprazole Sodium (Protonix -) 20 mg PO DAILY [facility] Last Admin: 07/31/18 10:35 Dose: 20 mg Potassium Chloride (K-Dur -) 40 meq PO BID [facility] Last Admin: 07/31/18 21:53 Dose: 40 meq Senna (Senna -) 2 tab PO HS PRN PRN Reason: CONSTIPATION Pt. without further deterioration in neurologic status- remains with sensory deficit to touch , left cent facial deficit, LUE-1/5 LLE 2/5, left upgoing toe. MRI last night-slight interval increase in acute /subacute infarct in RT PV area and post aspect of RT BG. -There appears to be no new ischemic event- he has consolidation of right lenticulostriate region territory infarct. Cont. ASA/current management. - Objective Vital Signs: Vital Signs Temperature 97.9 F 08/01/18 06:27 Pulse Rate 79 08/01/18 06:27 Respiratory Rate 18 08/01/18 06:27 Blood Pressure 147/100 08/01/18 06:27 O2 Sat by Pulse Oximetry (%) 96 07/31/18 21:00 Labs: CBC, BMP 08/01/18 07:00 07/31/18 05:30 INR, PTT INR 1.05 (0.83-1.09) 08/01/18 07:00
[2018-08-01] MEDS: POTASSIUM CHLORIDE TABS 20 MEQ TABLET.ER (FP) PO SCH ×2 (09:02→21:10)
[2018-08-01] MEDS: LOSARTAN POTASSIUM 50 MG TABLET (FP) PO SCH (09:02)
[2018-08-01] MEDS: PANTOPRAZOLE 20 MG TABLET (FP) PO SCH (09:02)
[2018-08-01] MEDS: METOPROLOL TARTRATE 25 MG TABLET (FP) PO SCH (09:02)
[2018-08-01] MEDS: NIFEdipine E.R. 90 MG TABLET (FP) PO SCH (09:02)
[2018-08-01] MEDS: ASPIRIN 325 MG TABLET PO SCH (09:02)
--- NOTE | 2018-08-01 11:19 | PN ---
Progress Note, Physician History of Present Illness: stable no issues patient going for or today - Current Medication List Current Medications: Active Medications Aspirin (Asa -) 325 mg PO DAILY [facility] Last Admin: 08/01/18 09:02 Dose: 325 mg Atorvastatin Calcium (Lipitor -) 80 mg PO HS [facility] Last Admin: 07/31/18 21:53 Dose: 80 mg Docusate Sodium (Colace -) 100 mg PO BID PRN PRN Reason: CONSTIPATION Piperacillin Sod/Tazobactam (Sod 3.375 gm/ Dextrose) 50 mls @ 100 mls/hr IVPB Q8H-IV [facility]; Protocol Last Admin: 08/01/18 09:03 Dose: 100 mls/hr Sodium Chloride (Normal Saline -) 1,000 mls @ 100 mls/hr IV ASDIR [facility] Last Admin: 08/01/18 01:50 Dose: 100 mls/hr Losartan Potassium (Cozaar -) 100 mg PO DAILY [facility] Last Admin: 08/01/18 09:02 Dose: 100 mg Metoprolol Tartrate (Lopressor -) 25 mg PO BID [facility] Last Admin: 08/01/18 09:02 Dose: 25 mg Nifedipine (Procardia Xl -) 90 mg PO DAILY [facility] Last Admin: 08/01/18 09:02 Dose: 90 mg Pantoprazole Sodium (Protonix -) 20 mg PO DAILY [facility] Last Admin: 08/01/18 09:02 Dose: 20 mg Potassium Chloride (K-Dur -) 40 meq PO BID [facility] Last Admin: 08/01/18 09:02 Dose: 40 meq Senna (Senna -) 2 tab PO HS PRN PRN Reason: CONSTIPATION - Objective Vital Signs: Vital Signs Temperature 97.8 F 08/01/18 10:00 Pulse Rate 75 08/01/18 10:00 Respiratory Rate 18 08/01/18 10:00 Blood Pressure 163/98 08/01/18 10:00 O2 Sat by Pulse Oximetry (%) 96 08/01/18 09:00 Constitutional: Yes: No Distress, Calm Cardiovascular: Yes: Regular Rate and Rhythm Respiratory: Yes: Regular, CTA Bilaterally Gastrointestinal: Yes: Normal Bowel Sounds, Soft Musculoskeletal: Yes: WNL Extremities: Yes: Other Neurological: Yes: Alert, Oriented Psychiatric: Yes: Alert, Oriented Labs: CBC, BMP 08/01/18 07:00 07/31/18 05:30 INR, PTT INR 1.05 (0.83-1.09) 08/01/18 07:00 Assessment/Plan Problem List - Problems (1) FERNANDO (acute kidney injury) Code(s): N17.9 - ACUTE KIDNEY FAILURE, UNSPECIFIED (2) Cerebrovascular accident (CVA) Code(s): I63.9 - CEREBRAL INFARCTION, UNSPECIFIED Qualifiers: CVA mechanism: unspecified Qualified Code(s): I63.9 - Cerebral infarction, unspecified (3) Hypertensive encephalopathy Code(s): I67.4 - HYPERTENSIVE ENCEPHALOPATHY Assessment/Plan RLE infected ulcer Acute CVA HTN plan ct abx cx report noted repeat cx with bone biopsy rest as per the team
--- NOTE | 2018-08-01 12:45 | PN ---
Progress Note, Physician History of Present Illness: Continued LUE hemiplegia, no PAF on monitor. - Current Medication List Current Medications: Active Medications Aspirin (Asa -) 325 mg PO DAILY [facility] Last Admin: 08/01/18 09:02 Dose: 325 mg Atorvastatin Calcium (Lipitor -) 80 mg PO HS [facility] Last Admin: 07/31/18 21:53 Dose: 80 mg Docusate Sodium (Colace -) 100 mg PO BID PRN PRN Reason: CONSTIPATION Piperacillin Sod/Tazobactam (Sod 3.375 gm/ Dextrose) 50 mls @ 100 mls/hr IVPB Q8H-IV YOLANDE; Protocol Last Admin: 08/01/18 09:03 Dose: 100 mls/hr Sodium Chloride (Normal Saline -) 1,000 mls @ 100 mls/hr IV ASDIR [facility] Last Admin: 08/01/18 01:50 Dose: 100 mls/hr Losartan Potassium (Cozaar -) 100 mg PO DAILY [facility] Last Admin: 08/01/18 09:02 Dose: 100 mg Metoprolol Tartrate (Lopressor -) 25 mg PO BID [facility] Last Admin: 08/01/18 09:02 Dose: 25 mg Nifedipine (Procardia Xl -) 90 mg PO DAILY [facility] Last Admin: 08/01/18 09:02 Dose: 90 mg Pantoprazole Sodium (Protonix -) 20 mg PO DAILY [facility] Last Admin: 08/01/18 09:02 Dose: 20 mg Potassium Chloride (K-Dur -) 40 meq PO BID [facility] Last Admin: 08/01/18 09:02 Dose: 40 meq Senna (Senna -) 2 tab PO HS PRN PRN Reason: CONSTIPATION - Objective Vital Signs: Vital Signs Temperature 97.8 F 08/01/18 10:00 Pulse Rate 75 08/01/18 10:00 Respiratory Rate 18 08/01/18 10:00 Blood Pressure 163/98 08/01/18 10:00 O2 Sat by Pulse Oximetry (%) 96 08/01/18 09:00 Constitutional: Yes: No Distress, Calm Neck: Yes: Supple Cardiovascular: Yes: Regular Rate and Rhythm Respiratory: Yes: Regular, CTA Bilaterally Gastrointestinal: Yes: Normal Bowel Sounds, Soft Edema: No Neurological: Yes: Weakness ...Motor Strength: LUE Labs: CBC, BMP 08/01/18 07:00 07/31/18 05:30 INR, PTT INR 1.05 (0.83-1.09) 08/01/18 07:00 Problem List - Problems (1) Cerebrovascular accident (CVA) Code(s): I63.9 - CEREBRAL INFARCTION, UNSPECIFIED Qualifiers: CVA mechanism: unspecified Qualified Code(s): I63.9 - Cerebral infarction, unspecified (2) Demand ischemia Code(s): I24.8 - OTHER FORMS OF ACUTE ISCHEMIC HEART DISEASE (3) HTN (hypertension) Code(s): I10 - ESSENTIAL (PRIMARY) HYPERTENSION Qualifiers: Hypertension type: essential hypertension Qualified Code(s): I10 - Essential (primary) hypertension (4) Hyperlipidemia Code(s): E78.5 - HYPERLIPIDEMIA, UNSPECIFIED Qualifiers: Hyperlipidemia type: pure hypercholesterolemia Qualified Code(s): E78.00 - Pure hypercholesterolemia, unspecified; E78.0 - Pure hypercholesterolemia (5) Hypertensive encephalopathy Code(s): I67.4 - HYPERTENSIVE ENCEPHALOPATHY (6) Wound of right lower extremity Code(s): S81.801A - UNSPECIFIED OPEN WOUND, RIGHT LOWER LEG, INITIAL ENCOUNTER Qualifiers: Encounter type: subsequent encounter Qualified Code(s): S81.801D - Unspecified open wound, right lower leg, subsequent encounter (7) CKD (chronic kidney disease) Code(s): N18.9 - CHRONIC KIDNEY DISEASE, UNSPECIFIED Qualifiers: Chronic kidney disease stage: stage 2 (mild) Qualified Code(s): N18.2 - Chronic kidney disease, stage 2 (mild) Assessment/Plan 1. CVA with left sided residual deficit. R MCA branch infarction, with evidence of atherosclerotic disease R M1 segment 2. HTN - labile 3. Hypercholesterolemia 4. CKD 5. Elevated troponin - likely demand ischemia 6. RLE ulcer wound PLAN: 1. Continue Procardia XL 90 qd and Losartan 100 qd 2. Increase Lopressor 50 mg BID 3. Continue Lipitor 80 qhs, ASA 325 qd 5. Neuro input appreciated, trops plateaued 6. PT and eventual rehab 7. Antibiotic as per ID service for RLE ulcer 8. Wound care. Await possible debridement
[2018-08-01] MEDS ORDERED: MIDAZOLAM HCL 2 MG/2 ML SINGLE DOSE VIAL ONE (14:25)
[2018-08-01] MEDS ORDERED: LIDOCAINE HCL/PF 2% SDV 5ML VIAL ONE (14:28)
[2018-08-01] MEDS ORDERED: DEXAMETHASONE SOD PHOSPHATE 4 MG/1 ML VIAL ONE (14:28)
[2018-08-01] MEDS ORDERED: SUCCINYLCHOLINE CHLORIDE 200 MG/10 ML VIAL ONE (14:28)
[2018-08-01] MEDS ORDERED: PROPOFOL 20 ML ONE (14:28)
[2018-08-01] MEDS ORDERED: KETOROLAC TROMETHAMINE 30 MG/1 ML VIAL ONE (14:28)
[2018-08-01] MEDS ORDERED: LIDOCAINE HCL 1%, 10 MG/ML (20ML VIAL) ONE (15:22)
[2018-08-01] MEDS ORDERED: LIDOCAINE HCL 1%, 10 MG/ML (50 mL VIAL) IJ ONE (15:41)
--- NOTE | 2018-08-01 16:16 | OP ---
Operative Note - Note: Operative Date: 08/01/18 Pre-Operative Diagnosis: Right leg necrotic wound Operation: Right leg excisional debridement - skin, subcutaneous tissue, -- with bone biopsy. Findings: ONce wound was debrided the base went down to bone. Bone biopsy performed - bone sent for culture and path Post-Operative Diagnosis: Same as Pre-op Surgeon: Derek Varela Anesthesia: Fractional Estimated Blood Loss (mls): 50 Operative Report Dictated: Yes
[2018-08-01] MEDS ORDERED: SENNOSIDES 8.6MG TABLET (FP) PO PRN (16:37)
[2018-08-01] MEDS ORDERED: DOCUSATE SODIUM 100 MG CAPSULE (FP) PO PRN (16:37)
--- NOTE | 2018-08-01 21:04 | PN ---
Physical Exam: SUBJECTIVE: Patient seen and examined at the bedside. denies pain or shortness of breath. night uneventful OBJECTIVE: brain mri reviewed with patient Vital Signs Period Temp Pulse Resp BP Sys/Hayes Pulse Ox Last 24 Hr 97.4 F-98.3 F 68-83 14-18 131-168/87-109 96-99 GENERAL: The patient is awake, alert, and fully oriented, in no acute distress. HEAD: Normal with no signs of trauma. EYES: PERRL, extraocular movements intact, sclera anicteric, conjunctiva clear. No ptosis. ENT: Ears normal, nares patent, oropharynx clear without exudates, moist mucous membranes. NECK: Trachea midline, full range of motion, supple. LUNGS: Breath sounds equal, clear to auscultation bilaterally, no wheezes HEART: Regular rate and rhythm ABDOMEN: Soft, nontender, nondistended, normoactive bowel sounds EXTREMITIES: RLE ulcer, left upper arm 1/5, left leg 2/5 NEUROLOGICAL: Normal speech, gait not observed. PSYCH: Normal mood, normal affect. Laboratory Results - last 24 hr 07/31/18 07/31/18 08/01/18 20:35 20:47 01:05 WBC RBC Hgb Hct MCV MCH MCHC RDW Plt Count MPV Absolute Neuts (auto) Neutrophils % Lymphocytes % Monocytes % Eosinophils % Basophils % Nucleated RBC % PT with INR INR POC Glucometer 100 Troponin I 0.27 H 0.29 H 08/01/18 08/01/18 08/01/18 05:32 07:00 07:00 WBC 5.9 RBC 4.57 Hgb 13.3 Hct 39.8 MCV 87.3 MCH 29.1 MCHC 33.3 RDW 14.7 Plt Count 206 MPV 8.3 Absolute Neuts (auto) 3.9 Neutrophils % 65.6 Lymphocytes % 23.2 D Monocytes % 6.4 Eosinophils % 4.2 D Basophils % 0.6 Nucleated RBC % 0 PT with INR 12.40 INR 1.05 POC Glucometer 92 Troponin I 08/01/18 08/01/18 11:47 17:16 WBC RBC Hgb Hct MCV MCH MCHC RDW Plt Count MPV Absolute Neuts (auto) Neutrophils % Lymphocytes % Monocytes % Eosinophils % Basophils % Nucleated RBC % PT with INR INR POC Glucometer 96 85 Troponin I Active Medications Generic Name Dose Route Start Last Admin Trade Name Freq PRN Reason Stop Dose Admin Aspirin 325 mg 08/02/18 10:00 Asa - PO DAILY YOLAN[facility] Atorvastatin Calcium 80 mg 08/01/18 22:00 Lipitor - PO HS YOLANDE Docusate Sodium 100 mg 08/01/18 16:37 Colace - PO Q12H PRN CONSTIPATION Fentanyl 50 mcg 08/01/18 16:37 Sublimaze Injection - IVPUSH 08/02/18 03:00 [id number] PRN PAIN-PACU ORDER X 4 DOSES ONLY Sodium Chloride 1,000 mls @ 100 mls/hr 08/01/18 16:37 08/01/18 16:53 Normal Saline - IV 100 mls/hr ASDIR [facility]AN[facility] Administration Piperacillin Sod/Tazobactam 50 mls @ 100 mls/hr 08/01/18 18:00 08/01/18 17:09 Sod 3.375 gm/ Dextrose IVPB 100 mls/hr Q8H-IV YOLANDE Administration Protocol Losartan Potassium 100 mg 08/02/18 10:00 Cozaar - PO DAILY [facility] Metoprolol Tartrate 50 mg 08/01/18 22:00 Lopressor - PO BID YOLANDE Nifedipine 90 mg 08/02/18 10:00 Procardia Xl - PO DAILY [facility]AN[facility] Pantoprazole Sodium 20 mg 08/02/18 10:00 Protonix - PO DAILY [facility] Potassium Chloride 40 meq 08/01/18 22:00 K-Dur - PO BID YOLANDE Senna 2 tab 08/01/18 16:37 Senna - PO HS PRN CONSTIPATION ASSESSMENT/PLAN: Patient is a 63 year old male with no reported past medical history. Patient presents to the ED s/p fall while getting out of bed. Pt was brought to the ER and found to have L-sided flaccidity and L sided facial droop. Neuro: CVA. left sided weakness, predominantly his left arm which remains flaccid. Brain MRI shows slight interval increase in acute/subacute infarct, no new infarct seen. neuro following On Lipitor 80mg for elevated lipid panel asa 81mg daily Physical therapy Patient seen by speech and swallow and tolerating regular Hypertension. controlled On Procardia xl 90mg, losartan 100mg, metoprol 25mg bid echo ordered and completed cardiac enzymes peaked at 0.45. cardiology following Renal FERNANDO Renal function still compromised. Now 1.7, unknown baseline hydrate and if worsening, consider renal consult. repeat bmp in a.m. Endocrine Hmga1c 6.1. borderline Monitor bgms. Vascular Right lower ext wound Wound cx: + citrobacter/Strep c and Pseudomonas On Zosyn trend fever and WBC curve s/p debridement today. fen tolerating po monitor electrolytes scds full code. will need rehab Visit type - Emergency Visit Emergency Visit: Yes ED Registration Date: 07/26/18 Care time: The patient presented to the Emergency Department on the above date and was hospitalized for further evaluation of their emergent condition. - New Patient This patient is new to me today: No - Critical Care Critical Care patient: No - Discharge Referral Referred to [facility] Med P.C.: No
[2018-08-01] MEDS: METOPROLOL TARTRATE 50 MG TABLET (FP) PO SCH (21:09)
[2018-08-01] MEDS: ATORVASTATIN CA 80 MG TABLET (FP) PO SCH (21:10)
[2018-08-01] MEDS ORDERED: METOPROLOL TARTRATE 50 MG TABLET (FP) PO SCH (22:00)
[2018-08-02] MEDS ORDERED: DEXTROSE 5%-WATER - 50 ML IVPB ONE ×3 (01:01→15:57)
[2018-08-02] MEDS ORDERED: PIPERACILLIN/TAZOBACTAM 3.375 GM VIAL IVPB ONE ×3 (01:01→15:57)
[2018-08-02] MEDS: PIPERACILLIN/TAZOB 3.375 GM 3.375 GM in DEXTROSE 5%-WATER - 50 ML IVPB SCH ×3 (01:05→17:58)
--- NOTE | 2018-08-02 06:17 | OP ---
DATE OF OPERATION: 08/01/2018 PREOPERATIVE DIAGNOSIS: Right leg necrotic wound. POSTOPERATIVE DIAGNOSIS: Right leg necrotic wound. PROCEDURE: Excisional debridement, right leg skin and subcutaneous tissue with bone biopsy. SURGEON: Derek Del Cid MD ANESTHESIA: Fractional. BLOOD LOSS: 50 mL. INDICATIONS: The patient is a 63-year-old male who comes in with this right lower extremity wound, and he does not see any doctor for this wound, he does not change the dressing at home, he does not place anything on the wound, he has not seen anybody for months, and now comes in with this wound. Vascular surgery was consulted to evaluate wound and for debridement. Patient was consented for the procedure understanding all risks, benefits, and alternatives, and then, taken to the operating room. PROCEDURE IN DETAIL: Once in the operating room, he was laid on the operating table in the supine manner. The area of the right leg was prepped and draped in the sterile surgical manner. Then, 15 mL of lidocaine 1% was injected over the wound below the knee. We then went ahead and took a No. 15 blade and sharply debrided away the skin and subcutaneous tissue and sending all of the necrotic tissue to Pathology. Once we were able to get down to a clean base, we realized that the tibia hence the bone was right there. We then took a bone biopsy kit and went ahead and biopsied the bone. The bone was sent for both culture and pathology. The wound was well irrigated. Bovie electrocautery was used to control all hemostasis. Xeroform, 4x4s, Kerlix were placed. Patient tolerated the procedure with no complications. Patient transferred to PACU in stable condition. DEREK DEL CID DO [id number]
[2018-08-02 06:35] LABS: BASO % 0.6 % (0-2.0); EOS % 2.7 % (0-4.5); HEMATOCRIT 37.2 % (35.4-49); HEMOGLOBIN 12.4 GM/dL (11.7-16.9); LYMPH % 13.9 % (8-40); MCH 29.1 pg (25.7-33.7); MCHC 33.5 g/dl (32.0-35.9); MEAN CELL VOLUME 86.9 fl (80-96); MEAN PLT VOLUME 8.1 fl (7.5-11.1); MONO % 8.9 % (3.8-10.2); NEUT % 73.9 % (42.8-82.8); PLATELET COUNT 188 K/MM3 (134-434); RBC 4.28 M/mm3 (4.00-5.60); RDW 14.6 % (11.9-15.9); WHITE BLOOD COUNT 8.4 K/mm3 (4.0-10.0)
[2018-08-02 07:05] LABS: ALK PHOS 66 U/L (45-117); ANION GAP 7 MMOL/L (8-16); BILIRUBIN,TOTAL 0.6 mg/dL (0.2-1); BLOOD UREA NITROGEN 23 mg/dL (7-18); CALCIUM 7.6 mg/dL (8.5-10.1); CHLORIDE 113 mmol/L (98-107); CO2 25 mmol/L (21-32); CREATININE 1.5 mg/dL (0.55-1.3); GLUCOSE,RANDOM 88 mg/dL (74-106); POTASSIUM 3.8 mmol/L (3.5-5.1); SGOT/AST 42 U/L (15-37); SGPT/ALT 36 U/L (13-61); SODIUM 146 mmol/L (136-145); TOT PROT 6.1 g/dl (6.4-8.2)
--- NOTE | 2018-08-02 08:52 | PN ---
Progress Note (short form) - Note Progress Note: POD 1, s/p Right leg excisional debridement with bone biopsy Pt seen and examined this morning. States he is feeling well after surgery yesterday. Tolerating PO. +Voiding. Denies cp/sob, n/v/d. Vital Signs Temp 98.1 F 08/02/18 05:00 Pulse 79 08/02/18 05:00 Resp 18 08/02/18 05:00 BP 151/86 08/02/18 05:00 Pulse Ox 97 08/01/18 20:40 Intake & Output 08/01/18 08/01/18 08/02/18 11:59 23:59 11:59 Intake Total 890 3100 820 Output Total 1100 950 Balance 890 2000 -130 Intake: IV 600 2000 650 Normal Saline - 1,000 ml 600 1400 650 @ 100 mls/hr IV ASDIR YOLANDE Rx#:[id number] IVPB 50 100 50 Oral 240 1000 120 Output: Urine 1050 950 Void 1050 950 Estimated Blood Loss 50 Other: Voiding Method Urinal Urinal Bowel Movement No No # Bowel Movements 1 CBC, BMP 08/02/18 05:30 08/02/18 05:30 Gen: awake, alert, nad Resp: unlabored on RA RLE: Dressing removed, wound bed clean based with scant bleeding, no purulent drainage, no erythema, no ttp. No foul odor. A/P: 63 y/o M w/ unknown PMHx (has not seen a doctor in >10 years), admitted with left sided weakness concerning for TIA/CVA. Vascular consulted for RLE ulcer, now POD 1, s/p Right leg excisional debridement with bone biopsy. -Daily wound care with Santyl, cover with damp to dry dressings, 4x4 and kerlix -F/U bone cultures -Continue IV abx per ID -Remainder of care per primary team d/w attending Dr Varela
--- NOTE | 2018-08-02 09:40 | PN ---
Physical Exam: SUBJECTIVE: Patient seen and examined at the bedside. feels ok, no pain. frustrated over not being able to use his dominant left arm. OBJECTIVE: Vital Signs Period Temp Pulse Resp BP Sys/Hayes Pulse Ox Last 24 Hr 97.6 F-98.3 F 68-79 14-18 151-168/86-109 96-99 GENERAL: The patient is awake, alert, and fully oriented, in no acute distress. HEAD: Normal with no signs of trauma. EYES: PERRL, extraocular movements intact, sclera anicteric, conjunctiva clear. No ptosis. ENT: Ears normal, nares patent, oropharynx clear without exudates, moist mucous membranes. NECK: Trachea midline, full range of motion, supple. HEART: Regular rate and rhythm ABDOMEN: Soft, nontender, nondistended, normoactive bowel sounds EXTREMITIES: RLE ulcer, left upper arm 1/5, left leg 2/5 - s/p debridement of rle NEUROLOGICAL: Normal speech, gait not observed. PSYCH: Normal mood, normal affect. Laboratory Results - last 24 hr 08/01/18 08/01/18 08/01/18 11:47 17:16 21:09 WBC RBC Hgb Hct MCV MCH MCHC RDW Plt Count MPV Absolute Neuts (auto) Neutrophils % Lymphocytes % Monocytes % Eosinophils % Basophils % Nucleated RBC % Sodium Potassium Chloride Carbon Dioxide Anion Gap BUN Creatinine Creat Clearance w eGFR POC Glucometer 96 85 92 Random Glucose Calcium Total Bilirubin AST ALT Alkaline Phosphatase Total Protein Albumin 08/02/18 08/02/18 08/02/18 05:11 05:30 05:30 WBC 8.4 RBC 4.28 Hgb 12.4 Hct 37.2 MCV 86.9 MCH 29.1 MCHC 33.5 RDW 14.6 Plt Count 188 MPV 8.1 Absolute Neuts (auto) 6.2 Neutrophils % 73.9 Lymphocytes % 13.9 D Monocytes % 8.9 Eosinophils % 2.7 Basophils % 0.6 Nucleated RBC % 0 Sodium 146 H Potassium 3.8 Chloride 113 H Carbon Dioxide 25 Anion Gap 7 L BUN 23 H Creatinine 1.5 H Creat Clearance w eGFR 47.42 POC Glucometer 85 Random Glucose 88 Calcium 7.6 L Total Bilirubin 0.6 AST 42 H ALT 36 Alkaline Phosphatase 66 Total Protein 6.1 L Albumin 3.0 L Active Medications Generic Name Dose Route Start Last Admin Trade Name Freq PRN Reason Stop Dose Admin Aspirin 325 mg 08/02/18 10:00 Asa - PO DAILY [facility] Atorvastatin Calcium 80 mg 08/01/18 22:00 08/01/18 21:10 Lipitor - PO 80 mg HS YOLANDE Administration Collagenase 1 applic 08/02/18 10:00 Santyl - TP DAILY [facility] Protocol Docusate Sodium 100 mg 08/01/18 16:37 Colace - PO Q12H PRN CONSTIPATION Sodium Chloride 1,000 mls @ 100 mls/hr 08/01/18 16:37 08/01/18 16:53 Normal Saline - IV 100 mls/hr ASDIR [facility] Administration Piperacillin Sod/Tazobactam 50 mls @ 100 mls/hr 08/01/18 18:00 08/02/18 01:05 Sod 3.375 gm/ Dextrose IVPB 100 mls/hr Q8H-IV Y[facility]ANDE Administration Protocol Losartan Potassium 100 mg 08/02/18 10:00 Cozaar - PO DAILY Y[facility] Metoprolol Tartrate 50 mg 08/01/18 22:00 08/01/18 21:09 Lopressor - PO 50 mg BID YOLANDE Administration Nifedipine 90 mg 08/02/18 10:00 Procardia Xl - PO DAILY [facility] Pantoprazole Sodium 20 mg 08/02/18 10:00 Protonix - PO DAILY [facility] Potassium Chloride 40 meq 08/01/18 22:00 08/01/18 21:10 K-Dur - PO 40 meq BID Y[facility]ANDE Administration Senna 2 tab 08/01/18 16:37 Senna - PO HS PRN CONSTIPATION ASSESSMENT/PLAN: Patient is a 63 year old male with no reported past medical history. Patient presents to the ED s/p fall while getting out of bed. Pt was brought to the ER and found to have L-sided flaccidity and L sided facial droop. Neuro: CVA. left sided weakness, predominantly his left arm which remains flaccid. Brain MRI shows slight interval increase in acute/subacute infarct, no new infarct seen. neuro following On Lipitor 80mg for elevated lipid panel asa 81mg daily Physical therapy Patient seen by speech and swallow and tolerating regular Hypertension. elevated today On Procardia xl 90mg, losartan 100mg, metoprol 25mg bid echo ordered and completed monitor bp and uptitrate cardiac meds as needed cardiac enzymes peaked at 0.45. cardiology following Renal FERNANDO Renal function still compromised. Now 1.5, unknown baseline hydrate and if worsening, consider renal consult. repeat bmp in a.m. Endocrine Hmga1c 6.1. borderline Monitor bgms. Vascular Right lower ext wound, s/p debridement today pod 1 On Zosyn trend fever and WBC curve fen tolerating po monitor electrolytes scds full code. will need rehab Visit type - Emergency Visit Emergency Visit: Yes ED Registration Date: 07/26/18 Care time: The patient presented to the Emergency Department on the above date and was hospitalized for further evaluation of their emergent condition. - New Patient This patient is new to me today: No - Critical Care Critical Care patient: No - Discharge Referral Referred to [facility] Med P.C.: No
[2018-08-02] MEDS: POTASSIUM CHLORIDE TABS 20 MEQ TABLET.ER (FP) PO SCH ×2 (10:08→21:19)
[2018-08-02] MEDS: ASPIRIN 325 MG TABLET PO SCH (10:08)
[2018-08-02] MEDS: COLLAGENASE CLOSTRIDIUM HIST. 30 GRAMS TUBE TP SCH (10:09)
[2018-08-02] MEDS: METOPROLOL TARTRATE 50 MG TABLET (FP) PO SCH ×2 (10:09→21:20)
[2018-08-02] MEDS: PANTOPRAZOLE 20 MG TABLET (FP) PO SCH (10:09)
[2018-08-02] MEDS: NIFEdipine E.R. 90 MG TABLET (FP) PO SCH (10:09)
[2018-08-02] MEDS: LOSARTAN POTASSIUM 50 MG TABLET (FP) PO SCH (10:09)
--- NOTE | 2018-08-02 10:11 | PN ---
Progress Note, Physician Chief Complaint: Events noted No significant changes LUE hemiparesis History of Present Illness: Patient was seen and examined. Awake and alert. Chart was reviewed. Denies chest pain, SOB or palpitations Still cannot move left upper extremity - Current Medication List Current Medications: Active Medications Aspirin (Asa -) 325 mg PO DAILY [facility] Last Admin: 08/02/18 10:08 Dose: 325 mg Atorvastatin Calcium (Lipitor -) 80 mg PO HS [facility] Last Admin: 08/01/18 21:10 Dose: 80 mg Collagenase (Santyl -) 1 applic TP DAILY [facility]; Protocol Last Admin: 08/02/18 10:09 Dose: 1 applic Docusate Sodium (Colace -) 100 mg PO Q12H PRN PRN Reason: CONSTIPATION Sodium Chloride (Normal Saline -) 1,000 mls @ 100 mls/hr IV ASDIR [facility] Last Admin: 08/01/18 16:53 Dose: 100 mls/hr Piperacillin Sod/Tazobactam (Sod 3.375 gm/ Dextrose) 50 mls @ 100 mls/hr IVPB Q8H-IV [facility]; Protocol Last Admin: 08/02/18 10:07 Dose: 100 mls/hr Losartan Potassium (Cozaar -) 100 mg PO DAILY [facility] Last Admin: 08/02/18 10:09 Dose: 100 mg Metoprolol Tartrate (Lopressor -) 50 mg PO BID [facility] Last Admin: 08/02/18 10:09 Dose: 50 mg Nifedipine (Procardia Xl -) 90 mg PO DAILY [facility] Last Admin: 08/02/18 10:09 Dose: 90 mg Pantoprazole Sodium (Protonix -) 20 mg PO DAILY [facility] Last Admin: 08/02/18 10:09 Dose: 20 mg Potassium Chloride (K-Dur -) 40 meq PO BID [facility] Last Admin: 08/02/18 10:08 Dose: 40 meq Senna (Senna -) 2 tab PO HS PRN PRN Reason: CONSTIPATION - Objective Vital Signs: Vital Signs Temperature 98.1 F 08/02/18 05:00 Pulse Rate 79 08/02/18 05:00 Respiratory Rate 18 08/02/18 05:00 Blood Pressure 151/86 08/02/18 05:00 O2 Sat by Pulse Oximetry (%) 97 08/01/18 20:40 HENT: Yes: Atraumatic Neck: Yes: Supple Cardiovascular: Yes: Regular Rate and Rhythm, S1, S2 Respiratory: Yes: CTA Bilaterally Gastrointestinal: Yes: Normal Bowel Sounds, Soft. No: Tenderness Edema: No ...Motor Strength: LUE Additional Findings/Remarks: - Review of Systems Constitutional: denies: Chills, Fever Cardiovascular: denies: Chest Pain, Palpitations, Shortness of Breath Respiratory: denies: Cough, Hemoptysis, Orthopnea, PND, SOB, SOB on Exertion Gastrointestinal: denies: Abdominal Pain, Constipation, Diarrhea, Melena, Nausea , Rectal Bleeding, Vomiting Musculoskeletal: denies: Back Pain, Joint Pain Neurological: reports: Weakness. denies: Dizziness, Headache, Seizure, Syncope Labs: CBC, BMP 08/02/18 05:30 08/02/18 05:30 INR, PTT INR 1.05 (0.83-1.09) 08/01/18 07:00 Problem List - Problems (1) Demand ischemia Code(s): I24.8 - OTHER FORMS OF ACUTE ISCHEMIC HEART DISEASE (2) FERNANDO (acute kidney injury) Code(s): N17.9 - ACUTE KIDNEY FAILURE, UNSPECIFIED (3) Cerebrovascular accident (CVA) Code(s): I63.9 - CEREBRAL INFARCTION, UNSPECIFIED Qualifiers: CVA mechanism: unspecified Qualified Code(s): I63.9 - Cerebral infarction, unspecified (4) Elevated hemoglobin A1c Code(s): R73.09 - OTHER ABNORMAL GLUCOSE (5) HTN (hypertension) Code(s): I10 - ESSENTIAL (PRIMARY) HYPERTENSION Qualifiers: Hypertension type: essential hypertension Qualified Code(s): I10 - Essential (primary) hypertension (6) Hyperlipidemia Code(s): E78.5 - HYPERLIPIDEMIA, UNSPECIFIED Qualifiers: Hyperlipidemia type: pure hypercholesterolemia Qualified Code(s): E78.00 - Pure hypercholesterolemia, unspecified; E78.0 - Pure hypercholesterolemia (7) Hypertensive encephalopathy Code(s): I67.4 - HYPERTENSIVE ENCEPHALOPATHY (8) Troponin I above reference range Code(s): R74.8 - ABNORMAL LEVELS OF OTHER SERUM ENZYMES Assessment/Plan 1. CVA with left sided residual deficit 2. HTN - labile 3. Hypercholesterolemia 4. CKD 5. Elevated troponin - likely demand ischemia - plateaued 6. RLE ulcer wound s/p debridement PLAN: 1. Continue Procardia XL and Losartan 2. Continue Lopressor 50 mg BID but may uptitrate as needed 3. Continue Lipitor 4. ASA 5. Neuro follow up 6. PT and eventual rehab 7. Antibiotic as per ID service for RLE ulcer 8. Wound care. Further plans are to follow Shawn Kelly MD
--- NOTE | 2018-08-02 10:18 | PN ---
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 LUE flaccid with ,unfortunately, no return of function appreciated. Flat affect, speech/sw/cognition intact. No further f/u indicated.
--- NOTE | 2018-08-02 10:28 | PN ---
Progress Note (short form) - Note Progress Note: POD #1 - s/p debridement of right lower leg with bone biopsy under MAC. VSS. Pt. doing well, resting comfortably in bed. No complaints. No apparent anesthetic complications noted. Continue current care.
--- NOTE | 2018-08-02 10:51 | PN ---
Progress Note, Physician Chief Complaint: left hemiparesis History of Present Illness: 63 year old who hadn't been to a doctor in many years and without prior history of neurologic complaints came in with acute left hemiparesis. He is now awake, alert and with complete plegia on the left arm. He reports that he started PT and was instructed on working his arm and leg independently as well. I have discussed with him and his family the results of his MRI/MRA and impact of his uncontrolled HTN on his vascular system. His lip is feeling better, MRI.however showed slight increase in size of the acute infarction. Whether this corresponded to his symptoms however is impossible to say. He did undergo successful debridement of his foot and had no further aggravation of his neuro symptoms or signs. - Current Medication List Current Medications: Active Medications Aspirin (Asa -) 325 mg PO DAILY [facility] Last Admin: 08/02/18 10:08 Dose: 325 mg Atorvastatin Calcium (Lipitor -) 80 mg PO HS [facility] Last Admin: 08/01/18 21:10 Dose: 80 mg Collagenase (Santyl -) 1 applic TP DAILY [facility]; Protocol Last Admin: 08/02/18 10:09 Dose: 1 applic Docusate Sodium (Colace -) 100 mg PO Q12H PRN PRN Reason: CONSTIPATION Sodium Chloride (Normal Saline -) 1,000 mls @ 100 mls/hr IV ASDIR [facility] Last Admin: 08/01/18 16:53 Dose: 100 mls/hr Piperacillin Sod/Tazobactam (Sod 3.375 gm/ Dextrose) 50 mls @ 100 mls/hr IVPB Q8H-IV [facility]; Protocol Last Admin: 08/02/18 10:07 Dose: 100 mls/hr Losartan Potassium (Cozaar -) 100 mg PO DAILY [facility] Last Admin: 08/02/18 10:09 Dose: 100 mg Metoprolol Tartrate (Lopressor -) 50 mg PO BID [facility] Last Admin: 08/02/18 10:09 Dose: 50 mg Nifedipine (Procardia Xl -) 90 mg PO DAILY [facility] Last Admin: 08/02/18 10:09 Dose: 90 mg Pantoprazole Sodium (Protonix -) 20 mg PO DAILY [facility] Last Admin: 08/02/18 10:09 Dose: 20 mg Potassium Chloride (K-Dur -) 40 meq PO BID [facility] Last Admin: 08/02/18 10:08 Dose: 40 meq Senna (Senna -) 2 tab PO HS PRN PRN Reason: CONSTIPATION - Objective Vital Signs: Vital Signs Temperature 98.6 F 08/02/18 09:00 Pulse Rate 87 08/02/18 09:00 Respiratory Rate 08/02/18 09:00 Blood Pressure 145/94 08/02/18 09:00 O2 Sat by Pulse Oximetry (%) 97 08/01/18 20:40 Neurological: Yes: Alert, Oriented, Facial Droop ...Motor Strength: LUE (plegic), LLE (4/5) Labs: CBC, BMP 08/02/18 05:30 08/02/18 05:30 INR, PTT INR 1.05 (0.83-1.09) 08/01/18 07:00 Problem List - Problems (1) FERNANDO (acute kidney injury) Code(s): N17.9 - ACUTE KIDNEY FAILURE, UNSPECIFIED (2) Cerebrovascular accident (CVA) Code(s): I63.9 - CEREBRAL INFARCTION, UNSPECIFIED Qualifiers: CVA mechanism: unspecified Qualified Code(s): I63.9 - Cerebral infarction, unspecified (3) Hypertensive encephalopathy Code(s): I67.4 - HYPERTENSIVE ENCEPHALOPATHY (4) Hypokalemia Code(s): E87.6 - HYPOKALEMIA (5) Troponin I above reference range Code(s): R74.8 - ABNORMAL LEVELS OF OTHER SERUM ENZYMES Assessment/Plan R MCA branch infarction, with evidence of atherosclerotic disease R M1 segment. for rehab
[2018-08-02] MEDS: SODIUM CHLORIDE 1,000 ML IV SCH (16:58)
[2018-08-02 17:01] VITALS: BMI 34.0
--- NOTE | 2018-08-02 18:05 | PN ---
Progress Note, Physician History of Present Illness: post op patient doing well no complaints - Current Medication List Current Medications: Active Medications Aspirin (Asa -) 325 mg PO DAILY [facility] Last Admin: 08/02/18 10:08 Dose: 325 mg Atorvastatin Calcium (Lipitor -) 80 mg PO HS [facility] Last Admin: 08/01/18 21:10 Dose: 80 mg Collagenase (Santyl -) 1 applic TP DAILY [facility]; Protocol Last Admin: 08/02/18 10:09 Dose: 1 applic Docusate Sodium (Colace -) 100 mg PO Q12H PRN PRN Reason: CONSTIPATION Sodium Chloride (Normal Saline -) 1,000 mls @ 100 mls/hr IV ASDIR [facility] Last Admin: 08/02/18 16:58 Dose: 100 mls/hr Piperacillin Sod/Tazobactam (Sod 3.375 gm/ Dextrose) 50 mls @ 100 mls/hr IVPB Q8H-IV [facility]; Protocol Last Admin: 08/02/18 17:58 Dose: 100 mls/hr Losartan Potassium (Cozaar -) 100 mg PO DAILY [facility] Last Admin: 08/02/18 10:09 Dose: 100 mg Metoprolol Tartrate (Lopressor -) 50 mg PO BID [facility] Last Admin: 08/02/18 10:09 Dose: 50 mg Nifedipine (Procardia Xl -) 90 mg PO DAILY [facility] Last Admin: 08/02/18 10:09 Dose: 90 mg Pantoprazole Sodium (Protonix -) 20 mg PO DAILY [facility] Last Admin: 08/02/18 10:09 Dose: 20 mg Potassium Chloride (K-Dur -) 40 meq PO BID [facility] Last Admin: 08/02/18 10:08 Dose: 40 meq Senna (Senna -) 2 tab PO HS PRN PRN Reason: CONSTIPATION - Objective Vital Signs: Vital Signs Temperature 98.1 F 08/02/18 15:28 Pulse Rate 83 08/02/18 15:28 Respiratory Rate 18 08/02/18 15:28 Blood Pressure 140/85 08/02/18 15:28 O2 Sat by Pulse Oximetry (%) 97 08/02/18 09:00 Constitutional: Yes: No Distress, Calm Cardiovascular: Yes: Regular Rate and Rhythm Respiratory: Yes: Regular, CTA Bilaterally Gastrointestinal: Yes: Normal Bowel Sounds, Soft Musculoskeletal: Yes: WNL Extremities: Yes: Other Wound/Incision: Yes: Dressing Dry and Intact Neurological: Yes: Alert, Oriented Psychiatric: Yes: Alert, Oriented Labs: CBC, BMP 08/02/18 05:30 08/02/18 05:30 INR, PTT INR 1.05 (0.83-1.09) 08/01/18 07:00 Assessment/Plan Problem List - Problems (1) FERNANDO (acute kidney injury) Code(s): N17.9 - ACUTE KIDNEY FAILURE, UNSPECIFIED (2) Cerebrovascular accident (CVA) Code(s): I63.9 - CEREBRAL INFARCTION, UNSPECIFIED Qualifiers: CVA mechanism: unspecified Qualified Code(s): I63.9 - Cerebral infarction, unspecified (3) Hypertensive encephalopathy Code(s): I67.4 - HYPERTENSIVE ENCEPHALOPATHY Assessment/Plan RLE infected ulcer Acute CVA HTN plan ct abx await for bone biopsy cx wound care rest as per the team
[2018-08-02 18:18] LABS: CK-MM 100 % (97-100)
[2018-08-02] MEDS: ATORVASTATIN CA 80 MG TABLET (FP) PO SCH (21:19)
[2018-08-03] MEDS ORDERED: PIPERACILLIN/TAZOBACTAM 3.375 GM VIAL IVPB ONE ×4 (01:27→17:04)
[2018-08-03] MEDS ORDERED: DEXTROSE 5%-WATER - 50 ML IVPB ONE ×4 (01:27→17:04)
[2018-08-03] MEDS: PIPERACILLIN/TAZOB 3.375 GM 3.375 GM in DEXTROSE 5%-WATER - 50 ML IVPB SCH ×4 (01:30→18:06)
[2018-08-03 09:44] LABS: BASO % 0.5 % (0-2.0); EOS % 3.1 % (0-4.5); HEMATOCRIT 37.3 % (35.4-49); HEMOGLOBIN 12.9 GM/dL (11.7-16.9); LYMPH % 23.8 % (8-40); MCH 29.7 pg (25.7-33.7); MCHC 34.7 g/dl (32.0-35.9); MEAN CELL VOLUME 85.6 fl (80-96); MEAN PLT VOLUME 8.2 fl (7.5-11.1); MONO % 6.2 % (3.8-10.2); NEUT % 66.4 % (42.8-82.8); PLATELET COUNT 192 K/MM3 (134-434); RBC 4.36 M/mm3 (4.00-5.60); WHITE BLOOD COUNT 6.5 K/mm3 (4.0-10.0)
[2018-08-03] MEDS ORDERED: PT OWN MED DRAWER 7, Y5N ONE (10:02)
[2018-08-03 10:07] LABS: ALBUMIN 3.1 g/dl (3.4-5.0); ALK PHOS 74 U/L (45-117); ANION GAP 6 MMOL/L (8-16); BILIRUBIN,TOTAL 0.4 mg/dL (0.2-1); BLOOD UREA NITROGEN 19 mg/dL (7-18); CALCIUM 7.8 mg/dL (8.5-10.1); CHLORIDE 112 mmol/L (98-107); CO2 27 mmol/L (21-32); CREATININE 1.5 mg/dL (0.55-1.3); GLUCOSE,RANDOM 105 mg/dL (74-106); SGOT/AST 45 U/L (15-37); SGPT/ALT 49 U/L (13-61); SODIUM 145 mmol/L (136-145); TOT PROT 6.2 g/dl (6.4-8.2)
[2018-08-03] MEDS: POTASSIUM CHLORIDE TABS 20 MEQ TABLET.ER (FP) PO SCH ×2 (10:15→21:21)
[2018-08-03] MEDS: ASPIRIN 325 MG TABLET PO SCH (10:16)
[2018-08-03] MEDS: PANTOPRAZOLE 20 MG TABLET (FP) PO SCH (10:16)
[2018-08-03] MEDS: LOSARTAN POTASSIUM 50 MG TABLET (FP) PO SCH (10:16)
[2018-08-03] MEDS: COLLAGENASE CLOSTRIDIUM HIST. 30 GRAMS TUBE TP SCH (10:16)
[2018-08-03] MEDS: METOPROLOL TARTRATE 50 MG TABLET (FP) PO SCH ×2 (10:16→21:21)
[2018-08-03] MEDS: NIFEdipine E.R. 90 MG TABLET (FP) PO SCH (10:16)
--- NOTE | 2018-08-03 10:24 | PN ---
Physical Exam: SUBJECTIVE: Patient seen and examined at the bedside. feels well, denies pain. OBJECTIVE: Vital Signs Period Temp Pulse Resp BP Sys/Hayes Pulse Ox Last 24 Hr 97.9 F-98.5 F 70-83 18-20 135-168/82-100 97 GENERAL: The patient is awake, alert, and fully oriented, in no acute distress. HEAD: Normal with no signs of trauma. EYES: PERRL, extraocular movements intact, sclera anicteric, conjunctiva clear. No ptosis. ENT: Ears normal, nares patent, oropharynx clear without exudates, moist mucous membranes. NECK: Trachea midline, full range of motion, supple. HEART: Regular rate and rhythm ABDOMEN: Soft, nontender, nondistended, normoactive bowel sounds, no guarding, no rebound, no hepatosplenomegaly, no masses. EXTREMITIES:mild edema left hand. flaccid left arm RLE ulcer s/p debridement NEUROLOGICAL: Normal speech, gait not observed. PSYCH: Normal mood, normal affect. Laboratory Results - last 24 hr 07/26/18 07/26/18 07/31/18 22:11 23:55 05:30 WBC RBC Hgb Hct MCV MCH MCHC RDW Plt Count MPV Absolute Neuts (auto) Neutrophils % Lymphocytes % Monocytes % Eosinophils % Basophils % Nucleated RBC % Sodium Potassium Chloride Carbon Dioxide Anion Gap BUN Creatinine Creat Clearance w eGFR POC Glucometer 92.69900 102.35135 Random Glucose Calcium Magnesium Total Bilirubin AST ALT Alkaline Phosphatase CK-BB (CK-1) 0 CK/CKMB % Calc 0 Total Protein Albumin 08/02/18 08/03/18 08/03/18 21:24 09:15 09:15 WBC 6.5 RBC 4.36 Hgb 12.9 Hct 37.3 MCV 85.6 MCH 29.7 MCHC 34.7 RDW 14.0 Plt Count 192 MPV 8.2 Absolute Neuts (auto) 4.3 Neutrophils % 66.4 Lymphocytes % 23.8 D Monocytes % 6.2 Eosinophils % 3.1 Basophils % 0.5 Nucleated RBC % 0 Sodium 145 Potassium 4.0 Chloride 112 H Carbon Dioxide 27 Anion Gap 6 L BUN 19 H Creatinine 1.5 H Creat Clearance w eGFR 47.42 POC Glucometer 99 Random Glucose 105 Calcium 7.8 L Magnesium 2.0 Total Bilirubin 0.4 AST 45 H ALT 49 Alkaline Phosphatase 74 CK-BB (CK-1) CK/CKMB % Calc Total Protein 6.2 L Albumin 3.1 L Active Medications Generic Name Dose Route Start Last Admin Trade Name Cuateq PRN Reason Stop Dose Admin Aspirin 325 mg 08/02/18 10:00 08/03/18 10:16 Asa - PO 325 mg DAILY [facility] Administration Atorvastatin Calcium 80 mg 08/01/18 22:00 08/02/18 21:19 Lipitor - PO 80 mg HS [facility] Administration Collagenase 1 applic 08/02/18 10:00 08/03/18 10:16 Santyl - TP 1 applic DAILY [facility] Administration Protocol Docusate Sodium 100 mg 08/01/18 16:37 Colace - PO Q12H PRN CONSTIPATION Sodium Chloride 1,000 mls @ 100 mls/hr 08/01/18 16:37 08/02/18 16:58 Normal Saline - IV 100 mls/hr ASDIR [facility] Administration Piperacillin Sod/Tazobactam 50 mls @ 100 mls/hr 08/01/18 18:00 08/03/18 10:16 Sod 3.375 gm/ Dextrose IVPB 100 mls/hr Q8H-IV [facility] Administration Protocol Losartan Potassium 100 mg 08/02/18 10:00 08/03/18 10:16 Cozaar - PO 100 mg DAILY [facility] Administration Metoprolol Tartrate 50 mg 08/01/18 22:00 08/03/18 10:16 Lopressor - PO 50 mg BID [facility] Administration Nifedipine 90 mg 08/02/18 10:00 08/03/18 10:16 Procardia Xl - PO 90 mg DAILY [facility] Administration Pantoprazole Sodium 20 mg 08/02/18 10:00 08/03/18 10:16 Protonix - PO 20 mg DAILY [facility] Administration Potassium Chloride 40 meq 08/01/18 22:00 08/03/18 10:15 K-Dur - PO 40 meq BID [facility] Administration Senna 2 tab 08/01/18 16:37 Senna - PO HS PRN CONSTIPATION ASSESSMENT/PLAN: Patient is a 63 year old male with no reported past medical history. Patient presents to the ED s/p fall while getting out of bed. Pt was brought to the ER and found to have L-sided flaccidity and L sided facial droop. Neuro: CVA. left sided weakness, predominantly his left arm which remains flaccid. Brain MRI shows slight interval increase in acute/subacute infarct, no new infarct seen. neuro following On Lipitor 80mg for elevated lipid panel asa 81mg daily Physical therapy and OT therapy. will need rehab. SW following Hypertension. controlled On Procardia xl 90mg, losartan 100mg, metoprol 25mg bid echo ordered and completed cardiac enzymes peaked at 0.45. cardiology following Renal FERNANDO Renal function still compromised. Creatinine 1.5, unknown baseline Renal consulted. renal dose medications Endocrine Hmga1c 6.1. borderline Monitor bgms. Vascular Right lower ext wound Wound cx: + citrobacter/Strep c and Pseudomonas On Zosyn trend fever and WBC curve s/p debridement 08/01/2018. fen tolerating po monitor electrolytes scds full code. will need rehab Visit type - Emergency Visit Emergency Visit: Yes ED Registration Date: 07/26/18 Care time: The patient presented to the Emergency Department on the above date and was hospitalized for further evaluation of their emergent condition. - New Patient This patient is new to me today: No - Critical Care Critical Care patient: No - Discharge Referral Referred to [facility] Med P.C.: No
--- NOTE | 2018-08-03 10:50 | PN ---
Progress Note, Physician History of Present Illness: Continued LUE hemiplegia, no PAF on monitor. - Current Medication List Current Medications: Active Medications Aspirin (Asa -) 325 mg PO DAILY [facility] Last Admin: 08/03/18 10:16 Dose: 325 mg Atorvastatin Calcium (Lipitor -) 80 mg PO HS [facility] Last Admin: 08/02/18 21:19 Dose: 80 mg Collagenase (Santyl -) 1 applic TP DAILY [facility]; Protocol Last Admin: 08/03/18 10:16 Dose: 1 applic Docusate Sodium (Colace -) 100 mg PO Q12H PRN PRN Reason: CONSTIPATION Sodium Chloride (Normal Saline -) 1,000 mls @ 100 mls/hr IV ASDIR [facility] Last Admin: 08/02/18 16:58 Dose: 100 mls/hr Losartan Potassium (Cozaar -) 100 mg PO DAILY [facility] Last Admin: 08/03/18 10:16 Dose: 100 mg Metoprolol Tartrate (Lopressor -) 50 mg PO BID [facility] Last Admin: 08/03/18 10:16 Dose: 50 mg Nifedipine (Procardia Xl -) 90 mg PO DAILY [facility] Last Admin: 08/03/18 10:16 Dose: 90 mg Pantoprazole Sodium (Protonix -) 20 mg PO DAILY [facility] Last Admin: 08/03/18 10:16 Dose: 20 mg Potassium Chloride (K-Dur -) 40 meq PO BID [facility] Last Admin: 08/03/18 10:15 Dose: 40 meq Senna (Senna -) 2 tab PO HS PRN PRN Reason: CONSTIPATION - Objective Vital Signs: Vital Signs Temperature 97.9 F 08/03/18 10:00 Pulse Rate 70 08/03/18 10:00 Respiratory Rate 18 08/03/18 10:00 Blood Pressure 149/92 08/03/18 10:00 O2 Sat by Pulse Oximetry (%) 97 08/02/18 21:00 Constitutional: Yes: No Distress, Calm Neck: Yes: Supple Cardiovascular: Yes: Regular Rate and Rhythm Respiratory: Yes: Regular, CTA Bilaterally Gastrointestinal: Yes: Normal Bowel Sounds, Soft Edema: No Labs: CBC, BMP 08/03/18 09:15 08/03/18 09:15 INR, PTT INR 1.05 (0.83-1.09) 08/01/18 07:00 - ....Imaging EKG: Report Reviewed (Tele: NSR no PAF) Problem List - Problems (1) Cerebrovascular accident (CVA) Code(s): I63.9 - CEREBRAL INFARCTION, UNSPECIFIED Qualifiers: CVA mechanism: unspecified Qualified Code(s): I63.9 - Cerebral infarction, unspecified (2) Demand ischemia Code(s): I24.8 - OTHER FORMS OF ACUTE ISCHEMIC HEART DISEASE (3) HTN (hypertension) Code(s): I10 - ESSENTIAL (PRIMARY) HYPERTENSION Qualifiers: Hypertension type: essential hypertension Qualified Code(s): I10 - Essential (primary) hypertension (4) Hyperlipidemia Code(s): E78.5 - HYPERLIPIDEMIA, UNSPECIFIED Qualifiers: Hyperlipidemia type: pure hypercholesterolemia Qualified Code(s): E78.00 - Pure hypercholesterolemia, unspecified; E78.0 - Pure hypercholesterolemia (5) Hypertensive encephalopathy Code(s): I67.4 - HYPERTENSIVE ENCEPHALOPATHY (6) Wound of right lower extremity Code(s): S81.801A - UNSPECIFIED OPEN WOUND, RIGHT LOWER LEG, INITIAL ENCOUNTER Qualifiers: Encounter type: subsequent encounter Qualified Code(s): S81.801D - Unspecified open wound, right lower leg, subsequent encounter (7) CKD (chronic kidney disease) Code(s): N18.9 - CHRONIC KIDNEY DISEASE, UNSPECIFIED Qualifiers: Chronic kidney disease stage: stage 2 (mild) Qualified Code(s): N18.2 - Chronic kidney disease, stage 2 (mild) Assessment/Plan 1. CVA with left sided residual deficit -> R MCA branch infarction, with evidence of atherosclerotic disease R M1 segment 2. HTN - labile 3. Hypercholesterolemia 4. CKD 5. Elevated troponin - likely demand ischemia - plateaued 6. RLE infected ulcer wound s/p debridement PLAN: 1. Continue Procardia XL 90 and Losartan 100 qd 2. Continue Lopressor 50 mg BID 3. Continue Lipitor 80 qhs, ASA 325 qd 5. Neuro follow up noted, may benefit from extended arrhythmia monitoring 6. PT and eventual rehab 7. Antibiotic as per ID service for RLE ulcer, f/u bone biopsy cultures 8. Wound care.
--- NOTE | 2018-08-03 12:11 | PN ---
Progress Note, Physician History of Present Illness: doing well no issues awaiting bone biopsy result - Current Medication List Current Medications: Active Medications Aspirin (Asa -) 325 mg PO DAILY [facility] Last Admin: 08/03/18 10:16 Dose: 325 mg Atorvastatin Calcium (Lipitor -) 80 mg PO HS [facility] Last Admin: 08/02/18 21:19 Dose: 80 mg Collagenase (Santyl -) 1 applic TP DAILY [facility]; Protocol Last Admin: 08/03/18 10:16 Dose: 1 applic Docusate Sodium (Colace -) 100 mg PO Q12H PRN PRN Reason: CONSTIPATION Sodium Chloride (Normal Saline -) 1,000 mls @ 100 mls/hr IV ASDIR [facility] Last Admin: 08/02/18 16:58 Dose: 100 mls/hr Losartan Potassium (Cozaar -) 100 mg PO DAILY [facility] Last Admin: 08/03/18 10:16 Dose: 100 mg Metoprolol Tartrate (Lopressor -) 50 mg PO BID [facility] Last Admin: 08/03/18 10:16 Dose: 50 mg Nifedipine (Procardia Xl -) 90 mg PO DAILY [facility] Last Admin: 08/03/18 10:16 Dose: 90 mg Pantoprazole Sodium (Protonix -) 20 mg PO DAILY [facility] Last Admin: 08/03/18 10:16 Dose: 20 mg Potassium Chloride (K-Dur -) 40 meq PO BID [facility] Last Admin: 08/03/18 10:15 Dose: 40 meq Senna (Senna -) 2 tab PO HS PRN PRN Reason: CONSTIPATION - Objective Vital Signs: Vital Signs Temperature 97.9 F 08/03/18 10:00 Pulse Rate 70 08/03/18 10:00 Respiratory Rate 18 08/03/18 10:00 Blood Pressure 149/92 08/03/18 10:00 O2 Sat by Pulse Oximetry (%) 97 08/02/18 21:00 Constitutional: Yes: No Distress, Calm Cardiovascular: Yes: S1, S2 Respiratory: Yes: Regular, CTA Bilaterally Gastrointestinal: Yes: Normal Bowel Sounds, Soft Musculoskeletal: Yes: WNL Extremities: Yes: Other Wound/Incision: Yes: Dressing Dry and Intact Neurological: Yes: Alert, Oriented Psychiatric: Yes: Alert, Oriented Labs: CBC, BMP 08/03/18 09:15 08/03/18 09:15 INR, PTT INR 1.05 (0.83-1.09) 08/01/18 07:00 Assessment/Plan Problem List - Problems (1) FERNANDO (acute kidney injury) Code(s): N17.9 - ACUTE KIDNEY FAILURE, UNSPECIFIED (2) Cerebrovascular accident (CVA) Code(s): I63.9 - CEREBRAL INFARCTION, UNSPECIFIED Qualifiers: CVA mechanism: unspecified Qualified Code(s): I63.9 - Cerebral infarction, unspecified (3) Hypertensive encephalopathy Code(s): I67.4 - HYPERTENSIVE ENCEPHALOPATHY Assessment/Plan RLE infected ulcer Acute CVA HTN plan ct abx await for bone biopsy cx wound care rest as per the team
--- NOTE | 2018-08-03 14:38 | CONSULT ---
Consult - text type - Consultation Consultation Note: Renal Consult for FERNANDO vs CKD This is a 63 year old gentleman with no significant medical history who presented from home with fall and found to have a CVA with Cr of 2.2 to 1.5. Pt denies any hx of CKD. No Hx of DM. Denies ever having a kidney stone or frequent urinary tract infections. No NSAID use. Urinating w/o difficultly. No symptoms of retention. Denies hx of enlarged prostate. No skin rash or legs swelling. No SOB, CP, Abd pain, N/V/D. Has been on IVF. PMHx: as above Allergies: NKDA Family Hx: NC Social hx: No T/A/D ROS: as per HPI, all other pertinent ros negative Home Medications Medication Instructions Recorded NK [No Known Home Medication] 07/27/18 Vital Signs Temperature 97.9 F 08/03/18 10:00 Pulse Rate 70 08/03/18 10:00 Respiratory Rate 18 08/03/18 10:00 Blood Pressure 149/92 08/03/18 10:00 O2 Sat by Pulse Oximetry (%) 97 08/02/18 21:00 Intake & Output 07/31/18 08/01/18 08/02/18 08/03/18 23:59 23:59 23:59 23:59 Intake Total 1000 3990 3250 700 Output Total 500 1100 2625 800 Balance 500 2890 625 -100 Weight 101.605 kg NAD awake and alert neck supple, no JVD RRR, No M/R CTA soft NT/ND no LE edema, right hearn in dressing no cyanosis no bladder distension CBC, BMP 08/03/18 09:15 08/03/18 09:15 Current Medications Aspirin (Asa -) 325 mg PO DAILY [facility] Last Admin: 08/03/18 10:16 Dose: 325 mg Atorvastatin Calcium (Lipitor -) 80 mg PO HS [facility] Last Admin: 08/02/18 21:19 Dose: 80 mg Collagenase (Santyl -) 1 applic TP DAILY [facility]; Protocol Last Admin: 08/03/18 10:16 Dose: 1 applic Docusate Sodium (Colace -) 100 mg PO Q12H PRN PRN Reason: CONSTIPATION Sodium Chloride (Normal Saline -) 1,000 mls @ 100 mls/hr IV [facility]IR [facility] Last Admin: 01/24/19 16:58 Dose: 100 mls/hr Piperacillin Sod/Tazobactam (Sod 3.375 gm/ Dextrose) 50 mls @ 100 mls/hr IVPB Q8H-IV [facility]; Protocol Last Admin: 08/03/18 13:54 Dose: 100 mls/hr Losartan Potassium (Cozaar -) 100 mg PO DAILY [facility] Last Admin: 08/03/18 10:16 Dose: 100 mg Metoprolol Tartrate (Lopressor -) 50 mg PO BID [facility] Last Admin: 08/03/18 10:16 Dose: 50 mg Nifedipine (Procardia Xl -) 90 mg PO DAILY [facility] Last Admin: 08/03/18 10:16 Dose: 90 mg Pantoprazole Sodium (Protonix -) 20 mg PO DAILY [facility] Last Admin: 08/03/18 10:16 Dose: 20 mg Potassium Chloride (K-Dur -) 40 meq PO BID [facility] Last Admin: 08/03/18 10:15 Dose: 40 meq Senna (Senna -) 2 tab PO HS PRN PRN Reason: CONSTIPATION 63 year old gentleman with no significant medical history who presented from home with fall and found to have a CVA with Cr of 2.2 to 1.5. #FERNANDO on CKD #CKD w/o proteinuria likely due to hypertensive nephrosclerosis #New CVA #Leg wound #Hypertension Renal function appears to have plateued now likely indicating baseline eGFR is 56 after adjusting for race can discontinue IVF as pt appears evolemic and is tolerating an oral diet UA w/o hematuria or proteinuria check UPCR BP goal is ~130/80 given CKD Continue Losartan, Nifedpine ER, Metoprolol and titrate to goal BP Continue ASA and statin as per neurology Rehab Low salt diet Thank you Mannie Nolan DO
--- NOTE | 2018-08-03 17:09 | PN ---
Progress Note, Physician Chief Complaint: left hemiparesis History of Present Illness: 63 year old who hadn't been to a doctor in many years and without prior history of neurologic complaints came in with acute left hemiparesis. He is now awake, alert and with complete plegia on the left arm. He reports that he started PT and was instructed on working his arm and leg independently as well. I have discussed with him and his family the results of his MRI/MRA and impact of his uncontrolled HTN on his vascular system. His lip is feeling better, MRI.however showed slight increase in size of the acute infarction. Whether this corresponded to his symptoms however is impossible to say. He did undergo successful debridement of his foot and had no further aggravation of his neuro symptoms or signs. He remains unchanged today. - Current Medication List Current Medications: Active Medications Aspirin (Asa -) 325 mg PO DAILY [facility] Last Admin: 08/03/18 10:16 Dose: 325 mg Atorvastatin Calcium (Lipitor -) 80 mg PO HS [facility] Last Admin: 08/02/18 21:19 Dose: 80 mg Collagenase (Santyl -) 1 applic TP DAILY [facility]; Protocol Last Admin: 08/03/18 10:16 Dose: 1 applic Docusate Sodium (Colace -) 100 mg PO Q12H PRN PRN Reason: CONSTIPATION Piperacillin Sod/Tazobactam (Sod 3.375 gm/ Dextrose) 50 mls @ 100 mls/hr IVPB Q8H-IV [facility]; Protocol Last Admin: 08/03/18 13:54 Dose: 100 mls/hr Losartan Potassium (Cozaar -) 100 mg PO DAILY [facility] Last Admin: 08/03/18 10:16 Dose: 100 mg Metoprolol Tartrate (Lopressor -) 50 mg PO BID [facility] Last Admin: 08/03/18 10:16 Dose: 50 mg Nifedipine (Procardia Xl -) 90 mg PO DAILY [facility] Last Admin: 08/03/18 10:16 Dose: 90 mg Pantoprazole Sodium (Protonix -) 20 mg PO DAILY [facility] Last Admin: 08/03/18 10:16 Dose: 20 mg Potassium Chloride (K-Dur -) 40 meq PO BID [facility] Last Admin: 08/03/18 10:15 Dose: 40 meq Senna (Senna -) 2 tab PO HS PRN PRN Reason: CONSTIPATION - Objective Vital Signs: Vital Signs Temperature 97 F L 08/03/18 14:49 Pulse Rate 68 08/03/18 14:49 Respiratory Rate 20 08/03/18 14:49 Blood Pressure 155/93 08/03/18 14:49 O2 Sat by Pulse Oximetry (%) 97 08/02/18 21:00 Neurological: Yes: Other (left arm 0/5, left leg 4/5) Labs: CBC, BMP 08/03/18 09:15 08/03/18 09:15 INR, PTT INR 1.05 (0.83-1.09) 08/01/18 07:00 Problem List - Problems (1) FERNANDO (acute kidney injury) Code(s): N17.9 - ACUTE KIDNEY FAILURE, UNSPECIFIED (2) Cerebrovascular accident (CVA) Code(s): I63.9 - CEREBRAL INFARCTION, UNSPECIFIED Qualifiers: CVA mechanism: unspecified Qualified Code(s): I63.9 - Cerebral infarction, unspecified (3) Hypertensive encephalopathy Code(s): I67.4 - HYPERTENSIVE ENCEPHALOPATHY (4) Hypokalemia Code(s): E87.6 - HYPOKALEMIA (5) Troponin I above reference range Code(s): R74.8 - ABNORMAL LEVELS OF OTHER SERUM ENZYMES Assessment/Plan R MCA branch infarction, with evidence of atherosclerotic disease R M1 segment. for rehab. Dr. Newman covering this weekend.
[2018-08-03] MEDS: ATORVASTATIN CA 80 MG TABLET (FP) PO SCH (21:21)
[2018-08-04] MEDS ORDERED: DEXTROSE 5%-WATER - 50 ML IVPB ONE ×3 (02:06→17:12)
[2018-08-04] MEDS ORDERED: PIPERACILLIN/TAZOBACTAM 3.375 GM VIAL IVPB ONE ×3 (02:06→17:11)
[2018-08-04] MEDS: PIPERACILLIN/TAZOB 3.375 GM 3.375 GM in DEXTROSE 5%-WATER - 50 ML IVPB SCH ×3 (02:17→17:15)
[2018-08-04 07:18] LABS: BASO % 0.5 % (0-2.0); EOS % 3.4 % (0-4.5); HEMATOCRIT 36.9 % (35.4-49); HEMOGLOBIN 12.8 GM/dL (11.7-16.9); LYMPH % 17.4 % (8-40); MCH 29.6 pg (25.7-33.7); MCHC 34.7 g/dl (32.0-35.9); MEAN CELL VOLUME 85.2 fl (80-96); MEAN PLT VOLUME 8.3 fl (7.5-11.1); MONO % 7.8 % (3.8-10.2); NEUT % 70.9 % (42.8-82.8); PLATELET COUNT 191 K/MM3 (134-434); RBC 4.33 M/mm3 (4.00-5.60); WHITE BLOOD COUNT 6.5 K/mm3 (4.0-10.0)
[2018-08-04 07:23] LABS: ALK PHOS 75 U/L (45-117); ANION GAP 8 MMOL/L (8-16); BILIRUBIN,TOTAL 0.4 mg/dL (0.2-1); BLOOD UREA NITROGEN 19 mg/dL (7-18); CHLORIDE 113 mmol/L (98-107); CO2 24 mmol/L (21-32); CREATININE 1.7 mg/dL (0.55-1.3); GLUCOSE,RANDOM 92 mg/dL (74-106); MAGNESIUM 2.3 mg/dL (1.8-2.4); PHOSPHOROUS 3.1 mg/dL (2.5-4.9); SGOT/AST 39 U/L (15-37); SGPT/ALT 46 U/L (13-61); SODIUM 145 mmol/L (136-145); TOT PROT 6.3 g/dl (6.4-8.2)
--- NOTE | 2018-08-04 08:39 | PN ---
Progress Note (short form) - Note Progress Note: Chief Complaint: Events noted, notes reviewed, denies any chest pain or dyspnea History of Present Illness: Seen and examined on telemetry. Events noted, notes reviewed, denies any chest pain or dyspnea Current Medications: Current Medications Aspirin (Asa -) 325 mg PO DAILY [facility] Last Admin: 08/04/18 09:12 Dose: 325 mg Atorvastatin Calcium (Lipitor -) 80 mg PO HS [facility] Last Admin: 08/03/18 21:21 Dose: 80 mg Collagenase (Santyl -) 1 applic TP DAILY [facility]; Protocol Last Admin: 08/04/18 09:14 Dose: 1 applic Docusate Sodium (Colace -) 100 mg PO Q12H PRN PRN Reason: CONSTIPATION Piperacillin Sod/Tazobactam (Sod 3.375 gm/ Dextrose) 50 mls @ 100 mls/hr IVPB Q8H-IV [facility]; Protocol Last Admin: 08/04/18 09:12 Dose: 100 mls/hr Losartan Potassium (Cozaar -) 100 mg PO DAILY [facility] Last Admin: 08/04/18 09:13 Dose: 100 mg Metoprolol Tartrate (Lopressor -) 50 mg PO BID [facility] Last Admin: 08/04/18 09:13 Dose: 50 mg Nifedipine (Procardia Xl -) 90 mg PO DAILY [facility] Last Admin: 08/04/18 09:12 Dose: 90 mg Pantoprazole Sodium (Protonix -) 20 mg PO DAILY [facility] Last Admin: 08/04/18 09:13 Dose: 20 mg Potassium Chloride (K-Dur -) 40 meq PO BID [facility] Last Admin: 08/04/18 09:13 Dose: 40 meq Senna (Senna -) 2 tab PO HS PRN PRN Reason: CONSTIPATION Review of Systems Constitutional: denies Chills or Fever Respiratory: denies Cough or Sputum Production Cardiovascular: As noted above Gastrointestinal: denies Nausea, Vomiting, Diarrhea, Constipation or Abdominal Pain Genitourinary: denies Frequency or Urgency Musculoskeletal: No symptoms reported - Objective Vital Signs: Last Vital Signs Temp Pulse Resp BP Pulse Ox 98.0 F 66 20 141/91 97 08/04/18 06:00 08/04/18 06:00 08/04/18 06:00 08/04/18 06:00 08/03/18 20:11 Intake & Output 01/23/08/02/18 08/03/18 08/04/18 23:59 23:59 23:59 23:59 Intake Total 3990 3250 700 50 Output Total 1100 2625 2150 Balance 2890 625 -1450 50 Weight 224 lb Neck: Supple Negative JVD No bruit Respiratory: clear to A&P Cardiovascular: S1, S2 Regular Rate Rhythm Gastrointestinal: Soft Benign Normal Bowel Sounds Ext: Edema Labs: CBC, BMP 08/04/18 06:30 08/04/18 06:30 Hepatic Panel Total Bilirubin 0.4 mg/dL (0.2-1) 08/04/18 06:30 AST 39 U/L (15-37) H 08/04/18 06:30 ALT 46 U/L (13-61) 08/04/18 06:30 Alkaline Phosphatase 75 U/L (45-117) 08/04/18 06:30 Albumin 3.0 g/dl (3.4-5.0) L 08/04/18 06:30 Assessment/Plan ASSESSMENT: 1. CVA with left sided residual deficit, R-MCA branch infarction, with evidence of atherosclerotic disease R-M1 segment 2. CAD with evidence of demand ischemia 3. HTN, labile blood pressure 4. Hypercholesterolemia 5. CKD 6. Right lower extremity infected ulcer wound post debridement PLAN: 1. Continue Procardia XL 2. Continue Losartan 3. Continue Lopressor and titrate dosage 4. Continue Lipitor 5. Continue ASA 6. Consider extended arrhythmia monitoring as outpatient to exclude atrial fibrillation and RAFAEL if indicated/source of embolism 7. Antibiotic as per primary team Yanet Luz MD
[2018-08-04] MEDS ORDERED: PT OWN MED DRAWER 7, Y5N ONE (09:05)
[2018-08-04] MEDS: ASPIRIN 325 MG TABLET PO SCH (09:12)
[2018-08-04] MEDS: NIFEdipine E.R. 90 MG TABLET (FP) PO SCH (09:12)
[2018-08-04] MEDS: LOSARTAN POTASSIUM 50 MG TABLET (FP) PO SCH (09:13)
[2018-08-04] MEDS: POTASSIUM CHLORIDE TABS 20 MEQ TABLET.ER (FP) PO SCH ×2 (09:13→21:10)
[2018-08-04] MEDS: PANTOPRAZOLE 20 MG TABLET (FP) PO SCH (09:13)
[2018-08-04] MEDS: METOPROLOL TARTRATE 50 MG TABLET (FP) PO SCH ×2 (09:13→21:10)
[2018-08-04] MEDS: COLLAGENASE CLOSTRIDIUM HIST. 30 GRAMS TUBE TP SCH (09:14)
--- NOTE | 2018-08-04 11:38 | PN ---
Progress Note (short form) - Note Progress Note: Renal follow up for CKD Pt seen and examined at the bedside awake and alert continues to have left upper extremity weakness no sob, cp, abd pain making urine Vital Signs Temperature 98.0 F 08/04/18 06:00 Pulse Rate 66 08/04/18 06:00 Respiratory Rate 18 08/04/18 09:00 Blood Pressure 141/91 08/04/18 06:00 O2 Sat by Pulse Oximetry (%) 98 08/04/18 09:00 Intake & Output 08/01/18 08/02/18 08/03/18 08/04/18 23:59 23:59 23:59 23:59 Intake Total 3990 3250 700 50 Output Total 1100 2625 2150 Balance 2890 625 -1450 50 Weight 101.605 kg NAD no LE edema CBC, BMP 08/04/18 06:30 08/04/18 06:30 Current Medications Aspirin (Asa -) 325 mg PO DAILY [facility] Last Admin: 08/04/18 09:12 Dose: 325 mg Atorvastatin Calcium (Lipitor -) 80 mg PO HS [facility] Last Admin: 08/03/18 21:21 Dose: 80 mg Collagenase (Santyl -) 1 applic TP DAILY [facility]; Protocol Last Admin: 08/04/18 09:14 Dose: 1 applic Docusate Sodium (Colace -) 100 mg PO Q12H PRN PRN Reason: CONSTIPATION Piperacillin Sod/Tazobactam (Sod 3.375 gm/ Dextrose) 50 mls @ 100 mls/hr IVPB Q8H-IV [facility]; Protocol Last Admin: 08/04/18 09:12 Dose: 100 mls/hr Losartan Potassium (Cozaar -) 100 mg PO DAILY [facility] Last Admin: 08/04/18 09:13 Dose: 100 mg Metoprolol Tartrate (Lopressor -) 50 mg PO BID [facility] Last Admin: 08/04/18 09:13 Dose: 50 mg Nifedipine (Procardia Xl -) 90 mg PO DAILY [facility] Last Admin: 08/04/18 09:12 Dose: 90 mg Pantoprazole Sodium (Protonix -) 20 mg PO DAILY [facility] Last Admin: 08/04/18 09:13 Dose: 20 mg Potassium Chloride (K-Dur -) 40 meq PO BID [facility] Last Admin: 08/04/18 09:13 Dose: 40 meq Senna (Senna -) 2 tab PO HS PRN PRN Reason: CONSTIPATION NAD awake and alert neck supple, no JVD RRR, No M/R CTA soft NT/ND no LE edema, right hearn in dressing no cyanosis no bladder distension CBC, BMP 08/03/18 09:15 08/03/18 09:15 Current Medications Aspirin (Asa -) 325 mg PO DAILY [facility] Last Admin: 08/03/18 10:16 Dose: 325 mg Atorvastatin Calcium (Lipitor -) 80 mg PO HS [facility] Last Admin: 08/02/18 21:19 Dose: 80 mg Collagenase (Santyl -) 1 applic TP DAILY [facility]; Protocol Last Admin: 08/03/18 10:16 Dose: 1 applic Docusate Sodium (Colace -) 100 mg PO Q12H PRN PRN Reason: CONSTIPATION Sodium Chloride (Normal Saline -) 1,000 mls @ 100 mls/hr IV ASDIR [facility] Last Admin: 08/02/18 16:58 Dose: 100 mls/hr Piperacillin Sod/Tazobactam (Sod 3.375 gm/ Dextrose) 50 mls @ 100 mls/hr IVPB Q8H-IV [facility]; Protocol Last Admin: 08/03/18 13:54 Dose: 100 mls/hr Losartan Potassium (Cozaar -) 100 mg PO DAILY [facility] Last Admin: 08/03/18 10:16 Dose: 100 mg Metoprolol Tartrate (Lopressor -) 50 mg PO BID [facility] Last Admin: 08/03/18 10:16 Dose: 50 mg Nifedipine (Procardia Xl -) 90 mg PO DAILY [facility] Last Admin: 08/03/18 10:16 Dose: 90 mg Pantoprazole Sodium (Protonix -) 20 mg PO DAILY [facility] Last Admin: 08/03/18 10:16 Dose: 20 mg Potassium Chloride (K-Dur -) 40 meq PO BID [facility] Last Admin: 08/03/18 10:15 Dose: 40 meq Senna (Senna -) 2 tab PO HS PRN PRN Reason: CONSTIPATION 63 year old gentleman with no significant medical history who presented from home with fall and found to have a CVA with Cr of 2.2 to 1.5. #FERNANDO now resolved #CKD w/o proteinuria likely due to hypertensive nephrosclerosis #New CVA #Leg wound #Hypertension Renal function stable at this time eGFR is 56 after adjusting for race UA w/o hematuria or proteinuria No significant proteinuria seen on UPCR BP goal is ~130/80 given CKD Continue Losartan, Nifedpine ER, Metoprolol and titrate to goal BP Continue ASA and statin as per neurology Thank you Mannie Nolan DO
--- NOTE | 2018-08-04 12:22 | PN ---
Physical Exam: SUBJECTIVE: Patient seen and examined at the bedside. in no acute distress. awaiting rehab placement. no pain. OBJECTIVE: Vital Signs Period Temp Pulse Resp BP Sys/Hayes Pulse Ox Last 24 Hr 97 F-99.1 F 66-77 18-20 117-164/79-96 97-98 GENERAL: The patient is awake, alert, and fully oriented, in no acute distress. HEAD: Normal with no signs of trauma. EYES: PERRL, extraocular movements intact, sclera anicteric, conjunctiva clear. No ptosis. ENT: Ears normal, nares patent, oropharynx clear without exudates, moist mucous membranes. NECK: Trachea midline, full range of motion, supple. HEART: Regular rate and rhythm ABDOMEN: Soft, nontender, nondistended, normoactive bowel sounds, no guarding, no rebound, no hepatosplenomegaly, no masses. EXTREMITIES:mild edema left hand. flaccid left arm RLE ulcer s/p debridement NEUROLOGICAL: Normal speech, gait not observed. PSYCH: Normal mood, normal affect. Laboratory Results - last 24 hr 08/03/18 08/03/18 08/03/18 18:20 18:20 20:25 WBC RBC Hgb Hct MCV MCH MCHC RDW Plt Count MPV Absolute Neuts (auto) Neutrophils % Lymphocytes % Monocytes % Eosinophils % Basophils % Nucleated RBC % Sodium Potassium Chloride Carbon Dioxide Anion Gap BUN Creatinine Creat Clearance w eGFR POC Glucometer 87 Random Glucose Calcium Phosphorus Magnesium Total Bilirubin AST ALT Alkaline Phosphatase Total Protein Albumin U Random Total Protein 9.3 Urine Creatinine 36.0 08/04/18 08/04/18 08/04/18 05:54 06:30 06:30 WBC 6.5 RBC 4.33 Hgb 12.8 Hct 36.9 MCV 85.2 MCH 29.6 MCHC 34.7 RDW 14.0 Plt Count 191 MPV 8.3 Absolute Neuts (auto) 4.6 Neutrophils % 70.9 Lymphocytes % 17.4 D Monocytes % 7.8 Eosinophils % 3.4 Basophils % 0.5 Nucleated RBC % 0 Sodium 145 Potassium 4.0 Chloride 113 H Carbon Dioxide 24 Anion Gap 8 BUN 19 H Creatinine 1.7 H Creat Clearance w eGFR 41.04 POC Glucometer 89 Random Glucose 92 Calcium 8.0 L Phosphorus 3.1 Magnesium 2.3 Total Bilirubin 0.4 AST 39 H ALT 46 Alkaline Phosphatase 75 Total Protein 6.3 L Albumin 3.0 L U Random Total Protein Urine Creatinine Active Medications Generic Name Dose Route Start Last Admin Trade Name Freq PRN Reason Stop Dose Admin Aspirin 325 mg 08/02/18 10:00 08/04/18 09:12 Asa - PO 325 mg DAILY [facility] Administration Atorvastatin Calcium 80 mg 08/01/18 22:00 08/03/18 21:21 Lipitor - PO 80 mg HS [facility] Administration Collagenase 1 applic 08/02/18 10:00 08/04/18 09:14 Santyl - TP 1 applic DAILY [facility] Administration Protocol Docusate Sodium 100 mg 08/01/18 16:37 Colace - PO Q12H PRN CONSTIPATION Piperacillin Sod/Tazobactam 50 mls @ 100 mls/hr 08/03/18 12:15 08/04/18 09:12 Sod 3.375 gm/ Dextrose IVPB 100 mls/hr Q8H-IV [facility] Administration Protocol Losartan Potassium 100 mg 08/02/18 10:00 08/04/18 09:13 Cozaar - PO 100 mg DAILY [facility] Administration Metoprolol Tartrate 50 mg 08/01/18 22:00 08/04/18 09:13 Lopressor - PO 50 mg BID [facility] Administration Nifedipine 90 mg 08/02/18 10:00 08/04/18 09:12 Procardia Xl - PO 90 mg DAILY [facility] Administration Pantoprazole Sodium 20 mg 08/02/18 10:00 08/04/18 09:13 Protonix - PO 20 mg DAILY [facility] Administration Potassium Chloride 40 meq 08/01/18 22:00 08/04/18 09:13 K-Dur - PO 40 meq BID [facility] Administration Senna 2 tab 08/01/18 16:37 Senna - PO HS PRN CONSTIPATION ASSESSMENT/PLAN: Patient is a 63 year old male with no reported past medical history. Patient presents to the ED s/p fall while getting out of bed. Pt was brought to the ER and found to have L-sided flaccidity and L sided facial droop. Neuro: CVA. left sided weakness, predominantly his left arm which remains flaccid. left facial droop resolved. Brain MRI shows slight interval increase in acute/subacute infarct, no new infarct seen. On Lipitor 80mg for elevated lipid panel asa 81mg daily Physical therapy and OT therapy. will need rehab. SW following Hypertension. controlled On Procardia xl 90mg, losartan 100mg, metoprol 25mg bid echo ordered and reviewed cardiology following Renal FERNANDO Creatinine 1.7, unknown baseline renal dose medications Endocrine Hmga1c 6.1. borderline follow up outpatient. Vascular Right lower ext wound Wound cx: + citrobacter/Strep c and Pseudomonas On Zosyn trend fever and WBC curve s/p debridement 08/01/2018. fen tolerating po monitor electrolytes scds full code. will need rehab. SW working on placement to rehab facility. Visit type - Emergency Visit Emergency Visit: Yes ED Registration Date: 07/26/18 Care time: The patient presented to the Emergency Department on the above date and was hospitalized for further evaluation of their emergent condition. - New Patient This patient is new to me today: No - Critical Care Critical Care patient: No - Discharge Referral Referred to [facility] Med P.C.: No
--- NOTE | 2018-08-04 13:52 | PN ---
Progress Note, Physician History of Present Illness: patient doing well no issues - Current Medication List Current Medications: Active Medications Aspirin (Asa -) 325 mg PO DAILY [facility] Last Admin: 08/04/18 09:12 Dose: 325 mg Atorvastatin Calcium (Lipitor -) 80 mg PO HS [facility] Last Admin: 08/03/18 21:21 Dose: 80 mg Collagenase (Santyl -) 1 applic TP DAILY [facility]; Protocol Last Admin: 08/04/18 09:14 Dose: 1 applic Docusate Sodium (Colace -) 100 mg PO Q12H PRN PRN Reason: CONSTIPATION Piperacillin Sod/Tazobactam (Sod 3.375 gm/ Dextrose) 50 mls @ 100 mls/hr IVPB Q8H-IV [facility]; Protocol Last Admin: 08/04/18 09:12 Dose: 100 mls/hr Losartan Potassium (Cozaar -) 100 mg PO DAILY [facility] Last Admin: 08/04/18 09:13 Dose: 100 mg Metoprolol Tartrate (Lopressor -) 50 mg PO BID [facility] Last Admin: 08/04/18 09:13 Dose: 50 mg Nifedipine (Procardia Xl -) 90 mg PO DAILY [facility] Last Admin: 08/04/18 09:12 Dose: 90 mg Pantoprazole Sodium (Protonix -) 20 mg PO DAILY [facility] Last Admin: 08/04/18 09:13 Dose: 20 mg Potassium Chloride (K-Dur -) 40 meq PO BID [facility] Last Admin: 08/04/18 09:13 Dose: 40 meq Senna (Senna -) 2 tab PO HS PRN PRN Reason: CONSTIPATION - Objective Vital Signs: Vital Signs Temperature 99.1 F 08/04/18 10:00 Pulse Rate 71 08/04/18 10:00 Respiratory Rate 18 08/04/18 10:00 Blood Pressure 145/85 08/04/18 10:00 O2 Sat by Pulse Oximetry (%) 98 08/04/18 09:00 Constitutional: Yes: No Distress, Calm Cardiovascular: Yes: S1, S2 Respiratory: Yes: Regular, CTA Bilaterally Gastrointestinal: Yes: Normal Bowel Sounds, Soft Musculoskeletal: Yes: Other Extremities: Yes: Other Wound/Incision: Yes: Dressing Dry and Intact Neurological: Yes: Alert, Oriented Psychiatric: Yes: Alert, Oriented Labs: CBC, BMP 08/04/18 06:30 08/04/18 06:30 INR, PTT INR 1.05 (0.83-1.09) 08/01/18 07:00 Assessment/Plan Problem List - Problems (1) FERNANDO (acute kidney injury) Code(s): N17.9 - ACUTE KIDNEY FAILURE, UNSPECIFIED (2) Cerebrovascular accident (CVA) Code(s): I63.9 - CEREBRAL INFARCTION, UNSPECIFIED Qualifiers: CVA mechanism: unspecified Qualified Code(s): I63.9 - Cerebral infarction, unspecified (3) Hypertensive encephalopathy Code(s): I67.4 - HYPERTENSIVE ENCEPHALOPATHY Assessment/Plan RLE infected ulcer Acute CVA HTN plan continue wound care continue abx await for cx report rest as per the team
[2018-08-04] MEDS: ATORVASTATIN CA 80 MG TABLET (FP) PO SCH (21:10)
[2018-08-05] MEDS ORDERED: PIPERACILLIN/TAZOBACTAM 3.375 GM VIAL IVPB ONE ×3 (01:30→17:07)
[2018-08-05] MEDS ORDERED: DEXTROSE 5%-WATER - 50 ML IVPB ONE ×3 (01:30→17:07)
[2018-08-05] MEDS: PIPERACILLIN/TAZOB 3.375 GM 3.375 GM in DEXTROSE 5%-WATER - 50 ML IVPB SCH ×3 (02:25→17:26)
--- NOTE | 2018-08-05 07:41 | PN ---
Progress Note (short form) - Note Progress Note: Chief Complaint: Events noted, notes reviewed, denies any chest pain or dyspnea , left upper extremity flaccid weakness is persistent History of Present Illness: Seen and examined on telemetry. Events noted, notes reviewed, denies any chest pain or dyspnea, left upper extremity flaccid weakness is persistent Monitor on 07/28/2018 4:53:56 revealed wide complex non sustained rhythm cannot rule out paroxysmal atrial fibrillation with aberrancy Current Medications: Current Medications Aspirin (Asa -) 325 mg PO DAILY [facility] Last Admin: 08/04/18 09:12 Dose: 325 mg Atorvastatin Calcium (Lipitor -) 80 mg PO HS [facility] Last Admin: 08/04/18 21:10 Dose: 80 mg Collagenase (Santyl -) 1 applic TP DAILY [facility]; Protocol Last Admin: 08/04/18 09:14 Dose: 1 applic Docusate Sodium (Colace -) 100 mg PO Q12H PRN PRN Reason: CONSTIPATION Piperacillin Sod/Tazobactam (Sod 3.375 gm/ Dextrose) 50 mls @ 100 mls/hr IVPB Q8H-IV [facility]; Protocol Last Admin: 08/05/18 02:25 Dose: 100 mls/hr Losartan Potassium (Cozaar -) 100 mg PO DAILY [facility] Last Admin: 08/04/18 09:13 Dose: 100 mg Metoprolol Tartrate (Lopressor -) 50 mg PO BID [facility] Last Admin: 08/04/18 21:10 Dose: 50 mg Nifedipine (Procardia Xl -) 90 mg PO DAILY [facility] Last Admin: 08/04/18 09:12 Dose: 90 mg Pantoprazole Sodium (Protonix -) 20 mg PO DAILY [facility] Last Admin: 08/04/18 09:13 Dose: 20 mg Potassium Chloride (K-Dur -) 40 meq PO BID [facility] Last Admin: 08/04/18 21:10 Dose: 40 meq Senna (Senna -) 2 tab PO HS PRN PRN Reason: CONSTIPATION Review of Systems Constitutional: denies Chills or Fever Respiratory: denies Cough or Sputum Production Cardiovascular: As noted above Gastrointestinal: denies Nausea, Vomiting, Diarrhea, Constipation or Abdominal Pain Genitourinary: denies Frequency or Urgency Musculoskeletal: No symptoms reported other than the above noted neurological deficit - Objective Vital Signs: Last Vital Signs Temp Pulse Resp BP Pulse Ox 98.0 F 70 18 147/87 96 08/05/18 06:58 08/05/18 06:58 08/05/18 06:58 08/05/18 06:58 08/04/18 21:00 Intake & Output 08/02/18 08/03/18 08/04/18 08/05/18 23:59 23:59 23:59 23:59 Intake Total 3250 700 50 340 Output Total 2625 2150 750 Balance 625 -1450 -700 340 Weight 224 lb Neck: Supple Negative JVD No bruit Respiratory: clear to A&P Cardiovascular: S1, S2 Regular Rate Rhythm Gastrointestinal: Soft Benign Normal Bowel Sounds Ext: Edema Labs: CBC, BMP 08/04/18 06:30 08/04/18 06:30 Hepatic Panel Total Bilirubin 0.4 mg/dL (0.2-1) 08/04/18 06:30 AST 39 U/L (15-37) H 08/04/18 06:30 ALT 46 U/L (13-61) 08/04/18 06:30 Alkaline Phosphatase 75 U/L (45-117) 08/04/18 06:30 Albumin 3.0 g/dl (3.4-5.0) L 08/04/18 06:30 Assessment/Plan ASSESSMENT: 1. CVA with left sided residual deficit, R-MCA branch infarction, with evidence of atherosclerotic disease R-M1 segment 2. CAD with evidence of demand ischemic injury 3. HTN, labile blood pressure not at goal 4. Hypercholesterolemia 5. CKD 6. Right lower extremity infected ulcer wound post debridement PLAN: 1. Continue Procardia XL 2. Continue Losartan 3. Continue Lopressor and titrate dosage as needed and as tolerated 4. Continue Lipitor 5. Continue ASA 6. As outlined in prior note consider extended arrhythmia monitoring as outpatient to exclude atrial fibrillation and RAFAEL if indicated/source of embolism, to be discussed with the neurology team 7. Antibiotic as per primary team Above was reviewed in detail with the patient Yanet Luz MD
[2018-08-05] MEDS ORDERED: PT OWN MED DRAWER 7, Y5N ONE (08:59)
[2018-08-05] MEDS: POTASSIUM CHLORIDE TABS 20 MEQ TABLET.ER (FP) PO SCH ×2 (09:30→21:05)
[2018-08-05] MEDS: NIFEdipine E.R. 90 MG TABLET (FP) PO SCH (09:31)
[2018-08-05] MEDS: PANTOPRAZOLE 20 MG TABLET (FP) PO SCH (09:31)
[2018-08-05] MEDS: METOPROLOL TARTRATE 50 MG TABLET (FP) PO SCH ×2 (09:31→21:05)
[2018-08-05] MEDS: ASPIRIN 325 MG TABLET PO SCH (09:31)
[2018-08-05] MEDS: LOSARTAN POTASSIUM 50 MG TABLET (FP) PO SCH (09:31)
[2018-08-05] MEDS: COLLAGENASE CLOSTRIDIUM HIST. 30 GRAMS TUBE TP SCH (09:43)
--- NOTE | 2018-08-05 09:53 | PN ---
Physical Exam: SUBJECTIVE: Patient seen and examined. offers no complaints. OBJECTIVE: Vital Signs Period Temp Pulse Resp BP Sys/Hayes Pulse Ox Last 24 Hr 97.9 F-99.1 F 70-76 18-20 145-151/85-92 96 GENERAL: The patient is awake, alert, and fully oriented, in no acute distress. HEAD: Normal with no signs of trauma. EYES: PERRL, extraocular movements intact, sclera anicteric, conjunctiva clear. No ptosis. ENT: Ears normal, nares patent, oropharynx clear without exudates, moist mucous membranes. NECK: Trachea midline, full range of motion, supple. HEART: Regular rate and rhythm ABDOMEN: Soft, nontender, nondistended, normoactive bowel sounds, no guarding, no rebound, no hepatosplenomegaly, no masses. EXTREMITIES:mild edema left hand. flaccid left arm RLE ulcer s/p debridement NEUROLOGICAL: Normal speech, gait not observed. PSYCH: Normal mood, normal affect. Active Medications Generic Name Dose Route Start Last Admin Trade Name Jorge PRN Reason Stop Dose Admin Aspirin 325 mg 08/02/18 10:00 08/05/18 09:31 Asa - PO 325 mg DAILY [facility] Administration Atorvastatin Calcium 80 mg 08/01/18 22:00 08/04/18 21:10 Lipitor - PO 80 mg HS [facility] Administration Collagenase 1 applic 08/02/18 10:00 08/05/18 09:43 Santyl - TP 1 applic DAILY [facility] Administration Protocol Docusate Sodium 100 mg 08/01/18 16:37 Colace - PO Q12H PRN CONSTIPATION Piperacillin Sod/Tazobactam 50 mls @ 100 mls/hr 08/03/18 12:15 08/05/18 09:31 Sod 3.375 gm/ Dextrose IVPB 100 mls/hr Q8H-IV [facility] Administration Protocol Losartan Potassium 100 mg 08/02/18 10:00 08/05/18 09:31 Cozaar - PO 100 mg DAILY [facility] Administration Metoprolol Tartrate 50 mg 08/01/18 22:00 08/05/18 09:31 Lopressor - PO 50 mg BID [facility] Administration Nifedipine 90 mg 08/02/18 10:00 08/05/18 09:31 Procardia Xl - PO 90 mg DAILY [facility] Administration Pantoprazole Sodium 20 mg 08/02/18 10:00 08/05/18 09:31 Protonix - PO 20 mg DAILY [facility] Administration Potassium Chloride 40 meq 08/01/18 22:00 08/05/18 09:30 K-Dur - PO 40 meq BID [facility] Administration Senna 2 tab 08/01/18 16:37 Senna - PO HS PRN CONSTIPATION ASSESSMENT/PLAN: Patient is a 63 year old male with no reported past medical history. Patient presents to the ED s/p fall while getting out of bed. Pt was brought to the ER and found to have L-sided flaccidity and L sided facial droop. Neuro: CVA. left sided weakness, predominantly his left arm which remains flaccid. left facial droop resolved. Brain MRI shows slight interval increase in acute/subacute infarct, no new infarct seen. On Lipitor 80mg for elevated lipid panel asa 81mg daily Physical therapy and OT therapy. will need rehab. SW following Hypertension. controlled On Procardia xl 90mg, losartan 100mg, metoprol 25mg bid echo ordered and reviewed cardiology following, notes reviewed patient will need outpatient athletic monitor to rule out PAF. Possible RAFAEL per cardiology. Renal FERNANDO Creatinine 1.7, unknown baseline renal dose medications Endocrine Hmga1c 6.1. borderline follow up outpatient. no further bgms. Vascular Right lower ext wound Wound cx: + citrobacter/Strep c and Pseudomonas On Zosyn trend fever and WBC curve s/p debridement 08/01/2018. fen tolerating po monitor electrolytes scds full code. will need rehab. SW working on placement to rehab facility. Visit type - Emergency Visit Emergency Visit: Yes ED Registration Date: 07/26/18 Care time: The patient presented to the Emergency Department on the above date and was hospitalized for further evaluation of their emergent condition. - New Patient This patient is new to me today: No - Critical Care Critical Care patient: No - Discharge Referral Referred to [facility] Med P.C.: No
--- NOTE | 2018-08-05 12:55 | PN ---
Progress Note, Physician - Current Medication List Current Medications: Active Medications Aspirin (Asa -) 325 mg PO DAILY [facility] Last Admin: 08/05/18 09:31 Dose: 325 mg Atorvastatin Calcium (Lipitor -) 80 mg PO HS [facility] Last Admin: 08/04/18 21:10 Dose: 80 mg Collagenase (Santyl -) 1 applic TP DAILY [facility]; Protocol Last Admin: 08/05/18 09:43 Dose: 1 applic Docusate Sodium (Colace -) 100 mg PO Q12H PRN PRN Reason: CONSTIPATION Piperacillin Sod/Tazobactam (Sod 3.375 gm/ Dextrose) 50 mls @ 100 mls/hr IVPB Q8H-IV [facility]; Protocol Last Admin: 08/05/18 09:31 Dose: 100 mls/hr Losartan Potassium (Cozaar -) 100 mg PO DAILY [facility] Last Admin: 08/05/18 09:31 Dose: 100 mg Metoprolol Tartrate (Lopressor -) 50 mg PO BID [facility] Last Admin: 08/05/18 09:31 Dose: 50 mg Nifedipine (Procardia Xl -) 90 mg PO DAILY [facility] Last Admin: 08/05/18 09:31 Dose: 90 mg Pantoprazole Sodium (Protonix -) 20 mg PO DAILY [facility] Last Admin: 08/05/18 09:31 Dose: 20 mg Potassium Chloride (K-Dur -) 40 meq PO BID [facility] Last Admin: 08/05/18 09:30 Dose: 40 meq Senna (Senna -) 2 tab PO HS PRN PRN Reason: CONSTIPATION - Objective Vital Signs: Vital Signs Temperature 98.9 F 08/05/18 10:00 Pulse Rate 75 08/05/18 10:00 Respiratory Rate 18 08/05/18 10:00 Blood Pressure 142/94 08/05/18 10:00 O2 Sat by Pulse Oximetry (%) 97 08/05/18 09:00 Labs: CBC, BMP 08/04/18 06:30 08/04/18 06:30 INR, PTT INR 1.05 (0.83-1.09) 08/01/18 07:00
--- NOTE | 2018-08-05 12:58 | PN ---
Progress Note, Physician History of Present Illness: patient doing well no issues - Current Medication List Current Medications: Active Medications Aspirin (Asa -) 325 mg PO DAILY [facility] Last Admin: 08/05/18 09:31 Dose: 325 mg Atorvastatin Calcium (Lipitor -) 80 mg PO HS [facility] Last Admin: 08/04/18 21:10 Dose: 80 mg Collagenase (Santyl -) 1 applic TP DAILY [facility]; Protocol Last Admin: 08/05/18 09:43 Dose: 1 applic Docusate Sodium (Colace -) 100 mg PO Q12H PRN PRN Reason: CONSTIPATION Piperacillin Sod/Tazobactam (Sod 3.375 gm/ Dextrose) 50 mls @ 100 mls/hr IVPB Q8H-IV [facility]; Protocol Last Admin: 08/05/18 09:31 Dose: 100 mls/hr Losartan Potassium (Cozaar -) 100 mg PO DAILY [facility] Last Admin: 08/05/18 09:31 Dose: 100 mg Metoprolol Tartrate (Lopressor -) 50 mg PO BID [facility] Last Admin: 08/05/18 09:31 Dose: 50 mg Nifedipine (Procardia Xl -) 90 mg PO DAILY [facility] Last Admin: 08/05/18 09:31 Dose: 90 mg Pantoprazole Sodium (Protonix -) 20 mg PO DAILY [facility] Last Admin: 08/05/18 09:31 Dose: 20 mg Potassium Chloride (K-Dur -) 40 meq PO BID [facility] Last Admin: 08/05/18 09:30 Dose: 40 meq Senna (Senna -) 2 tab PO HS PRN PRN Reason: CONSTIPATION - Objective Vital Signs: Vital Signs Temperature 98.9 F 08/05/18 10:00 Pulse Rate 75 08/05/18 10:00 Respiratory Rate 18 08/05/18 10:00 Blood Pressure 142/94 08/05/18 10:00 O2 Sat by Pulse Oximetry (%) 97 08/05/18 09:00 Constitutional: Yes: No Distress, Calm Cardiovascular: Yes: Regular Rate and Rhythm Gastrointestinal: Yes: Normal Bowel Sounds, Soft Musculoskeletal: Yes: Other Extremities: Yes: Other Wound/Incision: Yes: Dressing Dry and Intact Neurological: Yes: Alert, Oriented Psychiatric: Yes: Alert, Oriented Labs: CBC, BMP 08/04/18 06:30 08/04/18 06:30 INR, PTT INR 1.05 (0.83-1.09) 08/01/18 07:00 Assessment/Plan Problem List - Problems (1) FERNANDO (acute kidney injury) Code(s): N17.9 - ACUTE KIDNEY FAILURE, UNSPECIFIED (2) Cerebrovascular accident (CVA) Code(s): I63.9 - CEREBRAL INFARCTION, UNSPECIFIED Qualifiers: CVA mechanism: unspecified Qualified Code(s): I63.9 - Cerebral infarction, unspecified (3) Hypertensive encephalopathy Code(s): I67.4 - HYPERTENSIVE ENCEPHALOPATHY Assessment/Plan RLE infected ulcer Acute CVA HTN plan bone biopsy result awaited once we have that then will decide further plan
[2018-08-05] MEDS: ATORVASTATIN CA 80 MG TABLET (FP) PO SCH (21:05)
[2018-08-06] MEDS ORDERED: DEXTROSE 5%-WATER - 50 ML IVPB ONE ×3 (01:19→16:50)
[2018-08-06] MEDS ORDERED: PIPERACILLIN/TAZOBACTAM 3.375 GM VIAL IVPB ONE ×3 (01:19→16:49)
[2018-08-06] MEDS: PIPERACILLIN/TAZOB 3.375 GM 3.375 GM in DEXTROSE 5%-WATER - 50 ML IVPB SCH ×3 (01:34→17:06)
[2018-08-06 07:57] LABS: BASO % 0.6 % (0-2.0); EOS % 3.2 % (0-4.5); HEMATOCRIT 36.1 % (35.4-49); HEMOGLOBIN 12.9 GM/dL (11.7-16.9); LYMPH % 23.8 % (8-40); MCH 30.2 pg (25.7-33.7); MCHC 35.8 g/dl (32.0-35.9); MEAN CELL VOLUME 84.4 fl (80-96); MEAN PLT VOLUME 8.3 fl (7.5-11.1); MONO % 7.6 % (3.8-10.2); NEUT % 64.8 % (42.8-82.8); PLATELET COUNT 220 K/MM3 (134-434); RBC 4.28 M/mm3 (4.00-5.60); RDW 14.1 % (11.9-15.9); WHITE BLOOD COUNT 6.9 K/mm3 (4.0-10.0)
[2018-08-06 08:14] LABS: ALBUMIN 3.1 g/dl (3.4-5.0); ALK PHOS 78 U/L (45-117); ANION GAP 7 MMOL/L (8-16); BILIRUBIN,TOTAL 0.3 mg/dL (0.2-1); BLOOD UREA NITROGEN 20 mg/dL (7-18); CALCIUM 7.9 mg/dL (8.5-10.1); CHLORIDE 111 mmol/L (98-107); CO2 24 mmol/L (21-32); CREATININE 1.6 mg/dL (0.55-1.3); GLUCOSE,RANDOM 93 mg/dL (74-106); SGOT/AST 37 U/L (15-37); SGPT/ALT 48 U/L (13-61); SODIUM 142 mmol/L (136-145); TOT PROT 6.4 g/dl (6.4-8.2)
--- NOTE | 2018-08-06 08:55 | PN ---
Physical Exam: SUBJECTIVE: Patient seen and examined at the bedside. denies any distress, or pain. asking about rehab and when his left arm will regain strength OBJECTIVE: bp elevated overnight, increased metoprolol to 75mg bid Vital Signs Period Temp Pulse Resp BP Sys/Hayes Pulse Ox Last 24 Hr 97.7 F-98.9 F 66-79 18-20 133-172/76-99 97-97 GENERAL: The patient is awake, alert, and fully oriented, in no acute distress. HEAD: Normal with no signs of trauma. EYES: PERRL, extraocular movements intact, sclera anicteric, conjunctiva clear. No ptosis. ENT: Ears normal, nares patent, oropharynx clear without exudates, moist mucous membranes. NECK: Trachea midline, full range of motion, supple. HEART: Regular rate and rhythm ABDOMEN: Soft, nontender, nondistended, normoactive bowel sounds, no guarding, no rebound, no hepatosplenomegaly, no masses. EXTREMITIES:mild edema left hand. flaccid left arm RLE ulcer s/p debridement - dressing c/d/i NEUROLOGICAL: Normal speech, gait not observed. PSYCH: Normal mood, normal affect. Laboratory Results - last 24 hr 08/06/18 08/06/18 06:17 06:17 WBC 6.9 RBC 4.28 Hgb 12.9 Hct 36.1 MCV 84.4 MCH 30.2 MCHC 35.8 RDW 14.1 Plt Count 220 MPV 8.3 Absolute Neuts (auto) 4.4 Neutrophils % 64.8 Lymphocytes % 23.8 D Monocytes % 7.6 Eosinophils % 3.2 Basophils % 0.6 Nucleated RBC % 0 Sodium 142 Potassium 4.0 Chloride 111 H Carbon Dioxide 24 Anion Gap 7 L BUN 20 H Creatinine 1.6 H Creat Clearance w eGFR 44.02 Random Glucose 93 Calcium 7.9 L Magnesium 2.0 Total Bilirubin 0.3 AST 37 ALT 48 Alkaline Phosphatase 78 Total Protein 6.4 Albumin 3.1 L Active Medications Generic Name Dose Route Start Last Admin Trade Name Freq PRN Reason Stop Dose Admin Aspirin 325 mg 08/02/18 10:00 08/05/18 09:31 Asa - PO 325 mg DAILY [facility] Administration Atorvastatin Calcium 80 mg 08/01/18 22:00 08/05/18 21:05 Lipitor - PO 80 mg HS [facility] Administration Collagenase 1 applic 08/02/18 10:00 08/05/18 09:43 Santyl - TP 1 applic DAILY [facility] Administration Protocol Docusate Sodium 100 mg 08/01/18 16:37 08/05/18 17:41 Colace - PO 100 mg Q12H PRN Administration CONSTIPATION Piperacillin Sod/Tazobactam 50 mls @ 100 mls/hr 08/03/18 12:15 08/06/18 01:34 Sod 3.375 gm/ Dextrose IVPB 100 mls/hr Q8H-IV [facility] Administration Protocol Losartan Potassium 100 mg 08/02/18 10:00 08/05/18 09:31 Cozaar - PO 100 mg DAILY [facility] Administration Metoprolol Tartrate 50 mg 08/01/18 22:00 08/05/18 21:05 Lopressor - PO 50 mg BID [facility] Administration Nifedipine 90 mg 08/02/18 10:00 08/05/18 09:31 Procardia Xl - PO 90 mg DAILY [facility] Administration Pantoprazole Sodium 20 mg 08/02/18 10:00 08/05/18 09:31 Protonix - PO 20 mg DAILY [facility] Administration Potassium Chloride 40 meq 08/01/18 22:00 08/05/18 21:05 K-Dur - PO 40 meq BID [facility] Administration Senna 2 tab 08/01/18 16:37 Senna - PO HS PRN CONSTIPATION ASSESSMENT/PLAN: Patient is a 63 year old male with no reported past medical history. Patient presents to the ED s/p fall while getting out of bed. Pt was brought to the ER and found to have L-sided flaccidity and L sided facial droop. Neuro: CVA. left sided weakness, predominantly his left arm which remains flaccid. left facial droop resolved. Brain MRI shows slight interval increase in acute/subacute infarct, no new infarct seen. On Lipitor 80mg for elevated lipid panel. asa 81mg daily Physical therapy and OT therapy. will need rehab. SW following, pending insurance auth. Hypertension. controlled On Procardia xl 90mg, losartan 100mg, metoprol 75mg bid cardiology following, notes reviewed patient will need outpatient satellite project site monitor to rule out PAF. Renal FERNANDO. Creatinine 1.6, unknown baseline renal dose medications Endocrine Hmga1c 6.1. borderline follow up outpatient. no further bgms. Vascular Right lower ext wound Wound cx: + citrobacter/Strep c and Pseudomonas On Zosyn per id trend fever and WBC curve s/p debridement 08/01/2018. fen tolerating po monitor electrolytes scds full code. will need rehab. SW working on placement to rehab facility. Visit type - Emergency Visit Emergency Visit: Yes ED Registration Date: 07/26/18 Care time: The patient presented to the Emergency Department on the above date and was hospitalized for further evaluation of their emergent condition. - New Patient This patient is new to me today: No - Critical Care Critical Care patient: No - Discharge Referral Referred to [facility] Med P.C.: No
[2018-08-06] MEDS: NIFEdipine E.R. 90 MG TABLET (FP) PO SCH (09:37)
[2018-08-06] MEDS: POTASSIUM CHLORIDE TABS 20 MEQ TABLET.ER (FP) PO SCH ×2 (09:37→21:00)
[2018-08-06] MEDS: ASPIRIN 325 MG TABLET PO SCH (09:37)
[2018-08-06] MEDS: PANTOPRAZOLE 20 MG TABLET (FP) PO SCH (09:37)
[2018-08-06] MEDS: LOSARTAN POTASSIUM 50 MG TABLET (FP) PO SCH (09:37)
[2018-08-06] MEDS: COLLAGENASE CLOSTRIDIUM HIST. 30 GRAMS TUBE TP SCH (09:40)
[2018-08-06] MEDS: METOPROLOL TARTRATE 25 MG TABLET (FP) PO SCH ×2 (09:40→21:00)
--- NOTE | 2018-08-06 14:32 | PN ---
Progress Note (short form) - Note Progress Note: Renal follow up for CKD Pt seen and examined at the bedside no acute complaints denies any sob, cp, abd pain making urine tolerating oral diet Vital Signs Temperature 97.9 F 08/06/18 09:44 Pulse Rate 71 08/06/18 09:44 Respiratory Rate 16 08/06/18 09:44 Blood Pressure 135/72 08/06/18 09:44 O2 Sat by Pulse Oximetry (%) 97 08/06/18 10:00 Intake & Output 08/03/18 08/04/18 08/05/18 08/06/18 23:59 23:59 23:59 23:59 Intake Total 700 50 740 410 Output Total 2150 750 800 480 Balance -1450 -700 -60 -70 NAD no LE edema CBC, BMP 08/06/18 06:17 08/06/18 06:17 Current Medications Aspirin (Asa -) 325 mg PO DAILY [facility] Last Admin: 08/06/18 09:37 Dose: 325 mg Atorvastatin Calcium (Lipitor -) 80 mg PO HS [facility] Last Admin: 08/05/18 21:05 Dose: 80 mg Collagenase (Santyl -) 1 applic TP DAILY [facility]; Protocol Last Admin: 08/06/18 09:40 Dose: 1 applic Docusate Sodium (Colace -) 100 mg PO Q12H PRN PRN Reason: CONSTIPATION Last Admin: 08/05/18 17:41 Dose: 100 mg Piperacillin Sod/Tazobactam (Sod 3.375 gm/ Dextrose) 50 mls @ 100 mls/hr IVPB Q8H-IV [facility]; Protocol Last Admin: 08/06/18 09:37 Dose: 100 mls/hr Losartan Potassium (Cozaar -) 100 mg PO DAILY [facility] Last Admin: 08/06/18 09:37 Dose: 100 mg Metoprolol Tartrate (Lopressor -) 75 mg PO BID [facility] Last Admin: 08/06/18 09:40 Dose: 75 mg Nifedipine (Procardia Xl -) 90 mg PO DAILY [facility] Last Admin: 08/06/18 09:37 Dose: 90 mg Pantoprazole Sodium (Protonix -) 20 mg PO DAILY [facility] Last Admin: 08/06/18 09:37 Dose: 20 mg Potassium Chloride (K-Dur -) 40 meq PO BID [facility] Last Admin: 08/06/18 09:37 Dose: 40 meq Senna (Senna -) 2 tab PO HS PRN PRN Reason: CONSTIPATION 63 year old gentleman with no significant medical history who presented from home with fall and found to have a CVA with Cr of 2.2 to 1.5. #FERNANDO now resolved #CKD w/o proteinuria likely due to hypertensive nephrosclerosis #New CVA #Leg wound #Hypertension Renal function stable at this time UA w/o hematuria or proteinuria No significant proteinuria seen on UPCR BP goal is ~130/80 given CKD Continue Losartan, Nifedpine ER, Metoprolol Continue abx as per primary rehab on discharge Thank you Mannie Nolan DO
--- NOTE | 2018-08-06 15:07 | PN ---
Progress Note, Physician History of Present Illness: patient doing well no issues - Current Medication List Current Medications: Active Medications Aspirin (Asa -) 325 mg PO DAILY [facility] Last Admin: 08/06/18 09:37 Dose: 325 mg Atorvastatin Calcium (Lipitor -) 80 mg PO HS [facility] Last Admin: 08/05/18 21:05 Dose: 80 mg Collagenase (Santyl -) 1 applic TP DAILY [facility]; Protocol Last Admin: 08/06/18 09:40 Dose: 1 applic Docusate Sodium (Colace -) 100 mg PO Q12H PRN PRN Reason: CONSTIPATION Last Admin: 08/05/18 17:41 Dose: 100 mg Piperacillin Sod/Tazobactam (Sod 3.375 gm/ Dextrose) 50 mls @ 100 mls/hr IVPB Q8H-IV [facility]; Protocol Last Admin: 08/06/18 09:37 Dose: 100 mls/hr Losartan Potassium (Cozaar -) 100 mg PO DAILY [facility] Last Admin: 08/06/18 09:37 Dose: 100 mg Metoprolol Tartrate (Lopressor -) 75 mg PO BID [facility] Last Admin: 08/06/18 09:40 Dose: 75 mg Nifedipine (Procardia Xl -) 90 mg PO DAILY [facility] Last Admin: 08/06/18 09:37 Dose: 90 mg Pantoprazole Sodium (Protonix -) 20 mg PO DAILY [facility] Last Admin: 08/06/18 09:37 Dose: 20 mg Potassium Chloride (K-Dur -) 40 meq PO BID [facility] Last Admin: 08/06/18 09:37 Dose: 40 meq Senna (Senna -) 2 tab PO HS PRN PRN Reason: CONSTIPATION - Objective Vital Signs: Vital Signs Temperature 97.8 F 08/06/18 13:58 Pulse Rate 66 08/06/18 13:58 Respiratory Rate 16 08/06/18 13:58 Blood Pressure 141/80 08/06/18 13:58 O2 Sat by Pulse Oximetry (%) 97 08/06/18 10:00 Constitutional: Yes: No Distress, Calm, Obese Cardiovascular: Yes: Regular Rate and Rhythm Respiratory: Yes: Regular, CTA Bilaterally Gastrointestinal: Yes: Normal Bowel Sounds, Soft Musculoskeletal: Yes: WNL Extremities: Yes: Other Wound/Incision: Yes: Dressing Dry and Intact Neurological: Yes: Alert, Oriented Psychiatric: Yes: Other Labs: CBC, BMP 08/06/18 06:17 08/06/18 06:17 INR, PTT INR 1.05 (0.83-1.09) 08/01/18 07:00 Assessment/Plan Problem List - Problems (1) FERNANDO (acute kidney injury) Code(s): N17.9 - ACUTE KIDNEY FAILURE, UNSPECIFIED (2) Cerebrovascular accident (CVA) Code(s): I63.9 - CEREBRAL INFARCTION, UNSPECIFIED Qualifiers: CVA mechanism: unspecified Qualified Code(s): I63.9 - Cerebral infarction, unspecified (3) Hypertensive encephalopathy Code(s): I67.4 - HYPERTENSIVE ENCEPHALOPATHY Assessment/Plan RLE infected ulcer Acute CVA HTN plan bone biopsy result noted patient will need another 3 weeks of iv abx zosyn wound care rest as per the team
--- NOTE | 2018-08-06 15:14 | PN ---
Progress Note, Physician Chief Complaint: Events noted No significant changes LUE hemiparesis History of Present Illness: Patient was seen and examined. Awake and alert. Chart was reviewed. Denies chest pain, SOB or palpitations - Current Medication List Current Medications: Active Medications Aspirin (Asa -) 325 mg PO DAILY [facility] Last Admin: 08/06/18 09:37 Dose: 325 mg Atorvastatin Calcium (Lipitor -) 80 mg PO HS [facility] Last Admin: 08/05/18 21:05 Dose: 80 mg Collagenase (Santyl -) 1 applic TP DAILY [facility]; Protocol Last Admin: 08/06/18 09:40 Dose: 1 applic Docusate Sodium (Colace -) 100 mg PO Q12H PRN PRN Reason: CONSTIPATION Last Admin: 08/05/18 17:41 Dose: 100 mg Piperacillin Sod/Tazobactam (Sod 3.375 gm/ Dextrose) 50 mls @ 100 mls/hr IVPB Q8H-IV [facility]; Protocol Last Admin: 08/06/18 09:37 Dose: 100 mls/hr Losartan Potassium (Cozaar -) 100 mg PO DAILY [facility] Last Admin: 08/06/18 09:37 Dose: 100 mg Metoprolol Tartrate (Lopressor -) 75 mg PO BID [facility] Last Admin: 08/06/18 09:40 Dose: 75 mg Nifedipine (Procardia Xl -) 90 mg PO DAILY [facility] Last Admin: 08/06/18 09:37 Dose: 90 mg Pantoprazole Sodium (Protonix -) 20 mg PO DAILY [facility] Last Admin: 08/06/18 09:37 Dose: 20 mg Potassium Chloride (K-Dur -) 40 meq PO BID [facility] Last Admin: 08/06/18 09:37 Dose: 40 meq Senna (Senna -) 2 tab PO HS PRN PRN Reason: CONSTIPATION - Objective Vital Signs: Vital Signs Temperature 97.8 F 08/06/18 13:58 Pulse Rate 66 08/06/18 13:58 Respiratory Rate 16 08/06/18 13:58 Blood Pressure 141/80 08/06/18 13:58 O2 Sat by Pulse Oximetry (%) 97 08/06/18 10:00 Neck: Yes: Supple Cardiovascular: Yes: Regular Rate and Rhythm, S1, S2 Respiratory: Yes: CTA Bilaterally Gastrointestinal: Yes: Normal Bowel Sounds, Soft. No: Tenderness Edema: No Additional Findings/Remarks: - Review of Systems Constitutional: denies: Chills, Fever Cardiovascular: denies: Chest Pain, Palpitations, Shortness of Breath Respiratory: denies: Cough, Hemoptysis, Orthopnea, PND, SOB, SOB on Exertion Gastrointestinal: denies: Abdominal Pain, Constipation, Diarrhea, Melena, Nausea , Rectal Bleeding, Vomiting Musculoskeletal: denies: Back Pain, Joint Pain Neurological: reports: Weakness. denies: Dizziness, Headache, Seizure, Syncope Labs: CBC, BMP 08/06/18 06:17 08/06/18 06:17 Problem List - Problems (1) Demand ischemia Code(s): I24.8 - OTHER FORMS OF ACUTE ISCHEMIC HEART DISEASE (2) FERNANDO (acute kidney injury) Code(s): N17.9 - ACUTE KIDNEY FAILURE, UNSPECIFIED (3) Cerebrovascular accident (CVA) Code(s): I63.9 - CEREBRAL INFARCTION, UNSPECIFIED Qualifiers: CVA mechanism: unspecified Qualified Code(s): I63.9 - Cerebral infarction, unspecified (4) Elevated hemoglobin A1c Code(s): R73.09 - OTHER ABNORMAL GLUCOSE (5) HTN (hypertension) Code(s): I10 - ESSENTIAL (PRIMARY) HYPERTENSION Qualifiers: Hypertension type: essential hypertension Qualified Code(s): I10 - Essential (primary) hypertension (6) Hyperlipidemia Code(s): E78.5 - HYPERLIPIDEMIA, UNSPECIFIED Qualifiers: Hyperlipidemia type: pure hypercholesterolemia Qualified Code(s): E78.00 - Pure hypercholesterolemia, unspecified; E78.0 - Pure hypercholesterolemia (7) Hypertensive encephalopathy Code(s): I67.4 - HYPERTENSIVE ENCEPHALOPATHY (8) Troponin I above reference range Code(s): R74.8 - ABNORMAL LEVELS OF OTHER SERUM ENZYMES Assessment/Plan 1. CVA with left sided residual deficit, R-MCA branch infarction 2. CAD with evidence of demand ischemic injury 3. HTN, labile blood pressure not at goal 4. Hypercholesterolemia 5. CKD 6. Right lower extremity infected ulcer wound post debridement PLAN: 1. Continue Procardia XL 2. Continue Losartan 3. Continue Lopressor and titrate dosage as needed and as tolerated 4. Continue Lipitor 5. Continue ASA 6. As outlined in prior note consider extended arrhythmia monitoring as outpatient to exclude atrial fibrillation 7. Empiric antibiotics Shawn Kelly MD
[2018-08-06] MEDS: ATORVASTATIN CA 80 MG TABLET (FP) PO SCH (21:00)
[2018-08-07] MEDS ORDERED: PIPERACILLIN/TAZOBACTAM 3.375 GM VIAL IVPB ONE ×3 (01:13→16:56)
[2018-08-07] MEDS ORDERED: DEXTROSE 5%-WATER - 50 ML IVPB ONE ×3 (01:13→16:56)
[2018-08-07] MEDS: PIPERACILLIN/TAZOB 3.375 GM 3.375 GM in DEXTROSE 5%-WATER - 50 ML IVPB SCH ×3 (01:47→17:07)
[2018-08-07 10:06] LABS: BASO % 0.7 % (0-2.0); EOS % 1.8 % (0-4.5); HEMATOCRIT 38.1 % (35.4-49); HEMOGLOBIN 12.9 GM/dL (11.7-16.9); MCH 29.2 pg (25.7-33.7); MCHC 33.9 g/dl (32.0-35.9); MEAN PLT VOLUME 8.4 fl (7.5-11.1); NEUT % 67.5 % (42.8-82.8); PLATELET COUNT 236 K/MM3 (134-434); RBC 4.43 M/mm3 (4.00-5.60); RDW 14.2 % (11.9-15.9); WHITE BLOOD COUNT 7.9 K/mm3 (4.0-10.0)
[2018-08-07 10:35] LABS: ALBUMIN 3.1 g/dl (3.4-5.0); ALK PHOS 76 U/L (45-117); ANION GAP 9 MMOL/L (8-16); BILIRUBIN,TOTAL 0.4 mg/dL (0.2-1); BLOOD UREA NITROGEN 20 mg/dL (7-18); CALCIUM 8.6 mg/dL (8.5-10.1); CHLORIDE 111 mmol/L (98-107); CO2 23 mmol/L (21-32); CREATININE 1.5 mg/dL (0.55-1.3); GLUCOSE,RANDOM 120 mg/dL (74-106); MAGNESIUM 2.1 mg/dL (1.8-2.4); POTASSIUM 3.9 mmol/L (3.5-5.1); SGOT/AST 29 U/L (15-37); SGPT/ALT 47 U/L (13-61); SODIUM 142 mmol/L (136-145); TOT PROT 6.3 g/dl (6.4-8.2)
[2018-08-07] MEDS: POTASSIUM CHLORIDE TABS 20 MEQ TABLET.ER (FP) PO SCH ×2 (10:46→22:25)
[2018-08-07] MEDS: NIFEdipine E.R. 90 MG TABLET (FP) PO SCH (10:46)
[2018-08-07] MEDS: LOSARTAN POTASSIUM 50 MG TABLET (FP) PO SCH (10:46)
[2018-08-07] MEDS: ASPIRIN 325 MG TABLET PO SCH (10:46)
[2018-08-07] MEDS: METOPROLOL TARTRATE 25 MG TABLET (FP) PO SCH ×2 (10:46→22:25)
[2018-08-07] MEDS: PANTOPRAZOLE 20 MG TABLET (FP) PO SCH (10:46)
[2018-08-07] MEDS: COLLAGENASE CLOSTRIDIUM HIST. 30 GRAMS TUBE TP SCH (10:47)
--- NOTE | 2018-08-07 11:33 | PN ---
Progress Note (short form) - Note Progress Note: Renal follow up for CKD Pt seen and examined at the bedside no acute complaints no sob, cp, abd pain, N/V/D Vital Signs Temperature 98.5 F 08/07/18 10:00 Pulse Rate 69 08/07/18 10:00 Respiratory Rate 16 08/07/18 10:00 Blood Pressure 150/89 08/07/18 10:00 O2 Sat by Pulse Oximetry (%) 96 08/06/18 21:00 Intake & Output 08/04/18 08/05/18 08/06/18 08/07/18 23:59 23:59 23:59 23:59 Intake Total 50 740 1280 50 Output Total 792 409 8373 900 Balance -700 -60 0 -850 NAD no LE edema CBC, BMP 08/07/18 09:40 08/07/18 09:40 Current Medications Aspirin (Asa -) 325 mg PO DAILY [facility] Last Admin: 08/07/18 10:46 Dose: 325 mg Atorvastatin Calcium (Lipitor -) 80 mg PO HS [facility] Last Admin: 08/06/18 21:00 Dose: 80 mg Collagenase (Santyl -) 1 applic TP DAILY [facility]; Protocol Last Admin: 08/07/18 10:47 Dose: 1 applic Docusate Sodium (Colace -) 100 mg PO Q12H PRN PRN Reason: CONSTIPATION Last Admin: 08/05/18 17:41 Dose: 100 mg Piperacillin Sod/Tazobactam (Sod 3.375 gm/ Dextrose) 50 mls @ 100 mls/hr IVPB Q8H-IV [facility]; Protocol Last Admin: 08/07/18 10:46 Dose: 100 mls/hr Losartan Potassium (Cozaar -) 100 mg PO DAILY [facility] Last Admin: 08/07/18 10:46 Dose: 100 mg Metoprolol Tartrate (Lopressor -) 75 mg PO BID [facility] Last Admin: 08/07/18 10:46 Dose: 75 mg Nifedipine (Procardia Xl -) 90 mg PO DAILY [facility] Last Admin: 08/07/18 10:46 Dose: 90 mg Pantoprazole Sodium (Protonix -) 20 mg PO DAILY [facility] Last Admin: 08/07/18 10:46 Dose: 20 mg Potassium Chloride (K-Dur -) 40 meq PO BID [facility] Last Admin: 08/07/18 10:46 Dose: 40 meq Senna (Senna -) 2 tab PO HS PRN PRN Reason: CONSTIPATION 63 year old gentleman with no significant medical history who presented from home with fall and found to have a CVA with Cr of 2.2 to 1.5. #FERNANDO now resolved #CKD w/o proteinuria likely due to hypertensive nephrosclerosis #New CVA #Leg wound with osteomylitis #Hypertension Renal function stable at this time UA w/o hematuria or proteinuria No significant proteinuria seen on UPCR BP goal is ~130/80 given CKD Continue Losartan, Nifedpine ER, Metoprolol continue Abx as per primary, ok to get picc line as dialysis not antipicated in the near future Thank you Mannie Nolan DO
--- NOTE | 2018-08-07 12:30 | PN ---
Physical Exam: SUBJECTIVE: Patient seen and examined. No complaints. OBJECTIVE: Vital Signs Period Temp Pulse Resp BP Sys/Hayes Pulse Ox Last 24 Hr 97.8 F-98.5 F 66-71 16-20 141-158/80-90 96 PE Neuro: left sided hemiparesis, left facial droop, LUE 5/5 sensory Pulm: CTAB CV: s1 s2 rrr Abd: s nt nd + bs Ext: no le edema, can move lle Skin: RLE ulcer dressing in place Laboratory Results - last 24 hr 08/07/18 08/07/18 09:40 09:40 WBC 7.9 RBC 4.43 Hgb 12.9 Hct 38.1 MCV 86.0 MCH 29.2 MCHC 33.9 RDW 14.2 Plt Count 236 MPV 8.4 Absolute Neuts (auto) 5.3 Neutrophils % 67.5 Lymphocytes % 25.0 Monocytes % 5.0 Eosinophils % 1.8 Basophils % 0.7 Nucleated RBC % 0 Sodium 142 Potassium 3.9 Chloride 111 H Carbon Dioxide 23 Anion Gap 9 BUN 20 H Creatinine 1.5 H Creat Clearance w eGFR 47.42 Random Glucose 120 H Calcium 8.6 Magnesium 2.1 Total Bilirubin 0.4 AST 29 ALT 47 Alkaline Phosphatase 76 Total Protein 6.3 L Albumin 3.1 L Active Medications Generic Name Dose Route Start Last Admin Trade Name Freq PRN Reason Stop Dose Admin Aspirin 325 mg 08/02/18 10:00 08/07/18 10:46 Asa - PO 325 mg DAILY [facility] Administration Atorvastatin Calcium 80 mg 08/01/18 22:00 08/06/18 21:00 Lipitor - PO 80 mg HS [facility] Administration Collagenase 1 applic 08/02/18 10:00 08/07/18 10:47 Santyl - TP 1 applic DAILY [facility] Administration Protocol Docusate Sodium 100 mg 08/01/18 16:37 08/05/18 17:41 Colace - PO 100 mg Q12H PRN Administration CONSTIPATION Piperacillin Sod/Tazobactam 50 mls @ 100 mls/hr 08/03/18 12:15 08/07/18 10:46 Sod 3.375 gm/ Dextrose IVPB 100 mls/hr Q8H-IV [facility] Administration Protocol Losartan Potassium 100 mg 08/02/18 10:00 08/07/18 10:46 Cozaar - PO 100 mg DAILY [facility] Administration Metoprolol Tartrate 75 mg 08/06/18 10:00 08/07/18 10:46 Lopressor - PO 75 mg BID [facility] Administration Nifedipine 90 mg 08/02/18 10:00 08/07/18 10:46 Procardia Xl - PO 90 mg DAILY [facility] Administration Pantoprazole Sodium 20 mg 08/02/18 10:00 08/07/18 10:46 Protonix - PO 20 mg DAILY [facility] Administration Potassium Chloride 40 meq 08/01/18 22:00 08/07/18 10:46 K-Dur - PO 40 meq BID [facility] Administration Senna 2 tab 08/01/18 16:37 Senna - PO HS PRN CONSTIPATION Assessment: 63 year old male with no reported past medical history presents to the ED s/p fall while getting out of bed seen with L-sided flaccidity and L sided facial droop on arrival. Plan: 1. Acute CVA - Due to uncontrolled HTN - Now with residual left sided phani paresis and left facial droop - Continue ASA 325mg daily - Lipitor 80mg hs - PT/OT - Rehab 2. RLE ulcer s/p debridement 08/01 - Bone bx noted - Per ID x3 weeks more of RUFUS blair aware 3. Uncontrolled HTN - Now controlled - Continue Procardia xl 90mg, losartan 100mg, metoprolol 75mg bid - Will need outpt holter r/o PAF 4. FERNANDO on CKD - CKD d/t htn nephrosclerosis - Cont HTN meds as above - Goal BP 130/80 Visit type - Emergency Visit Emergency Visit: Yes ED Registration Date: 07/26/18 Care time: The patient presented to the Emergency Department on the above date and was hospitalized for further evaluation of their emergent condition. - New Patient This patient is new to me today: Yes Date on this admission: 08/07/18 - Critical Care Critical Care patient: No
--- NOTE | 2018-08-07 12:34 | PN ---
Progress Note, Physician Chief Complaint: Events noted No significant changes LUE hemiparesis History of Present Illness: Patient was seen and examined. Awake and alert. Chart was reviewed. Denies chest pain, SOB or palpitations - Current Medication List Current Medications: Active Medications Aspirin (Asa -) 325 mg PO DAILY [facility] Last Admin: 08/07/18 10:46 Dose: 325 mg Atorvastatin Calcium (Lipitor -) 80 mg PO HS [facility] Last Admin: 08/06/18 21:00 Dose: 80 mg Collagenase (Santyl -) 1 applic TP DAILY [facility]; Protocol Last Admin: 08/07/18 10:47 Dose: 1 applic Docusate Sodium (Colace -) 100 mg PO Q12H PRN PRN Reason: CONSTIPATION Last Admin: 08/05/18 17:41 Dose: 100 mg Piperacillin Sod/Tazobactam (Sod 3.375 gm/ Dextrose) 50 mls @ 100 mls/hr IVPB Q8H-IV [facility]; Protocol Last Admin: 08/07/18 10:46 Dose: 100 mls/hr Losartan Potassium (Cozaar -) 100 mg PO DAILY [facility] Last Admin: 08/07/18 10:46 Dose: 100 mg Metoprolol Tartrate (Lopressor -) 75 mg PO BID [facility] Last Admin: 08/07/18 10:46 Dose: 75 mg Nifedipine (Procardia Xl -) 90 mg PO DAILY [facility] Last Admin: 08/07/18 10:46 Dose: 90 mg Pantoprazole Sodium (Protonix -) 20 mg PO DAILY [facility] Last Admin: 08/07/18 10:46 Dose: 20 mg Potassium Chloride (K-Dur -) 40 meq PO BID [facility] Last Admin: 08/07/18 10:46 Dose: 40 meq Senna (Senna -) 2 tab PO HS PRN PRN Reason: CONSTIPATION - Objective Vital Signs: Vital Signs Temperature 98.5 F 08/07/18 10:00 Pulse Rate 69 08/07/18 10:00 Respiratory Rate 16 08/07/18 10:00 Blood Pressure 150/89 08/07/18 10:00 O2 Sat by Pulse Oximetry (%) 96 08/06/18 21:00 Eyes: Yes: PERRL HENT: Yes: Atraumatic Neck: Yes: Supple Cardiovascular: Yes: Regular Rate and Rhythm, S1, S2 Respiratory: Yes: CTA Bilaterally Gastrointestinal: Yes: Normal Bowel Sounds, Soft. No: Tenderness Edema: No Additional Findings/Remarks: - Review of Systems Constitutional: denies: Chills, Fever Cardiovascular: denies: Chest Pain, Palpitations, Shortness of Breath Respiratory: denies: Cough, Hemoptysis, Orthopnea, PND, SOB, SOB on Exertion Gastrointestinal: denies: Abdominal Pain, Constipation, Diarrhea, Melena, Nausea , Rectal Bleeding, Vomiting Musculoskeletal: denies: Back Pain, Joint Pain Neurological: reports: Weakness. denies: Dizziness, Headache, Seizure, Syncope Labs: CBC, BMP 08/07/18 09:40 08/07/18 09:40 Problem List - Problems (1) Demand ischemia Code(s): I24.8 - OTHER FORMS OF ACUTE ISCHEMIC HEART DISEASE (2) FERNANDO (acute kidney injury) Code(s): N17.9 - ACUTE KIDNEY FAILURE, UNSPECIFIED (3) Cerebrovascular accident (CVA) Code(s): I63.9 - CEREBRAL INFARCTION, UNSPECIFIED Qualifiers: Qualified Code(s): I63.9 - Cerebral infarction, unspecified (4) Elevated hemoglobin A1c Code(s): R73.09 - OTHER ABNORMAL GLUCOSE (5) HTN (hypertension) Code(s): I10 - ESSENTIAL (PRIMARY) HYPERTENSION Qualifiers: Qualified Code(s): I10 - Essential (primary) hypertension (6) Hyperlipidemia Code(s): E78.5 - HYPERLIPIDEMIA, UNSPECIFIED Qualifiers: Qualified Code(s): E78.00 - Pure hypercholesterolemia, unspecified; E78.0 - Pure hypercholesterolemia (7) Hypertensive encephalopathy Code(s): I67.4 - HYPERTENSIVE ENCEPHALOPATHY (8) Troponin I above reference range Code(s): R74.8 - ABNORMAL LEVELS OF OTHER SERUM ENZYMES Assessment/Plan 1. CVA with left sided residual deficit, R-MCA branch infarction 2. CAD with evidence of demand ischemic injury 3. HTN, labile blood pressure not at goal 4. Hypercholesterolemia 5. CKD 6. Right lower extremity infected ulcer wound post debridement PLAN: 1. Continue Procardia XL and Losartan 2. Continue Lopressor and titrate dosage as needed and as tolerated 3. Continue Lipitor 4. Continue ASA 5. As outlined in prior note consider extended arrhythmia monitoring as outpatient to exclude atrial fibrillation 6. Empiric antibiotics Shawn Kelly MD
--- NOTE | 2018-08-07 17:37 | PN ---
Progress Note (short form) - Note Progress Note: Vascular Surgery Spoke to pathology today. They said that the debridement sample has atypical cells that could be representing squamous cell components. The sample is being sent out for further testing for diagnosis. Will have to follow sample results to make sure pt gets proper treatment. Derek Varela DO
[2018-08-07] MEDS: ATORVASTATIN CA 80 MG TABLET (FP) PO SCH (22:25)
[2018-08-08] MEDS ORDERED: PIPERACILLIN/TAZOBACTAM 3.375 GM VIAL IVPB ONE ×3 (01:30→17:25)
[2018-08-08] MEDS ORDERED: DEXTROSE 5%-WATER - 50 ML IVPB ONE ×3 (01:31→17:25)
[2018-08-08] MEDS: PIPERACILLIN/TAZOB 3.375 GM 3.375 GM in DEXTROSE 5%-WATER - 50 ML IVPB SCH ×3 (01:52→17:51)
[2018-08-08 07:38] LABS: ANION GAP 8 MMOL/L (8-16); BLOOD UREA NITROGEN 20 mg/dL (7-18); CALCIUM 8.2 mg/dL (8.5-10.1); CHLORIDE 115 mmol/L (98-107); CO2 23 mmol/L (21-32); CREATININE 1.6 mg/dL (0.55-1.3); GLUCOSE,RANDOM 107 mg/dL (74-106); POTASSIUM 4.2 mmol/L (3.5-5.1); SODIUM 145 mmol/L (136-145)
--- NOTE | 2018-08-08 08:41 | PN ---
Progress Note (short form) - Note Progress Note: Subjective: The patient was seen and examined at the bedside, he has no complaints at this time. He reports feeling ok. Still with Left sided weakness, unable to move left upper extremity. Current Medications Generic Name Dose Route Start Last Admin Trade Name Freq PRN Reason Stop Dose Admin Aspirin 325 mg 08/02/18 10:00 08/07/18 10:46 Asa - PO 325 mg DAILY [facility] Administration Atorvastatin Calcium 80 mg 08/01/18 22:00 08/07/18 22:25 Lipitor - PO 80 mg HS [facility] Administration Collagenase 1 applic 08/02/18 10:00 08/07/18 10:47 Santyl - TP 1 applic DAILY [facility] Administration Protocol Docusate Sodium 100 mg 08/01/18 16:37 08/05/18 17:41 Colace - PO 100 mg Q12H PRN Administration CONSTIPATION Piperacillin Sod/Tazobactam 50 mls @ 100 mls/hr 08/03/18 12:15 08/08/18 01:52 Sod 3.375 gm/ Dextrose IVPB 100 mls/hr Q8H-IV [facility] Administration Protocol Losartan Potassium 100 mg 08/02/18 10:00 08/07/18 10:46 Cozaar - PO 100 mg DAILY [facility] Administration Metoprolol Tartrate 75 mg 08/06/18 10:00 08/07/18 22:25 Lopressor - PO 75 mg BID [facility] Administration Nifedipine 90 mg 08/02/18 10:00 08/07/18 10:46 Procardia Xl - PO 90 mg DAILY [facility] Administration Pantoprazole Sodium 20 mg 08/02/18 10:00 08/07/18 10:46 Protonix - PO 20 mg DAILY [facility] Administration Potassium Chloride 40 meq 08/01/18 22:00 08/07/18 22:25 K-Dur - PO 40 meq BID [facility] Administration Senna 2 tab 08/01/18 16:37 Senna - PO HS PRN CONSTIPATION Objective: Vital Signs Period Temp Pulse Resp BP Sys/Hayes Pulse Ox Last 24 Hr 97.8 F-98.5 F 66-74 16-18 124-155/79-103 98-98 Physical Exam: General: NAD, A&Ox3 Lungs: CTA bilaterally Heart: RRR, S1S2 Abd: Soft, non-tender, non-distended. Normoactive bowel sounds Ext: Warm, well-perfused Neuro: Mild left facial droop. LUE with 0/5 muscle strength. LLE with 1/5 muscle strength. RUE/RLE with 5/5 muscle strength CBCD WBC 7.9 K/mm3 (4.0-10.0) 08/07/18 09:40 RBC 4.43 M/mm3 (4.00-5.60) 08/07/18 09:40 Hgb 12.9 GM/dL (11.7-16.9) 08/07/18 09:40 Hct 38.1 % (35.4-49) 08/07/18 09:40 MCV 86.0 fl (80-96) 08/07/18 09:40 MCHC 33.9 g/dl (32.0-35.9) 08/07/18 09:40 RDW 14.2 % (11.9-15.9) 08/07/18 09:40 Plt Count 236 K/MM3 (134-434) 08/07/18 09:40 MPV 8.4 fl (7.5-11.1) 08/07/18 09:40 CMP Sodium 145 mmol/L (136-145) 08/08/18 06:30 Potassium 4.2 mmol/L (3.5-5.1) 08/08/18 06:30 Chloride 115 mmol/L (98-107) H 08/08/18 06:30 Carbon Dioxide 23 mmol/L (21-32) 08/08/18 06:30 Anion Gap 8 MMOL/L (8-16) 08/08/18 06:30 BUN 20 mg/dL (7-18) H 08/08/18 06:30 Creatinine 1.6 mg/dL (0.55-1.3) H 08/08/18 06:30 Creat Clearance w eGFR 44.02 (>60) 08/08/18 06:30 Random Glucose 107 mg/dL (74-106) H 08/08/18 06:30 Calcium 8.2 mg/dL (8.5-10.1) L 08/08/18 06:30 Total Bilirubin 0.4 mg/dL (0.2-1) 08/07/18 09:40 AST 29 U/L (15-37) 08/07/18 09:40 ALT 47 U/L (13-61) 08/07/18 09:40 Alkaline Phosphatase 76 U/L (45-117) 08/07/18 09:40 Total Protein 6.3 g/dl (6.4-8.2) L 08/07/18 09:40 Albumin 3.1 g/dl (3.4-5.0) L 08/07/18 09:40 CARDIAC ENZYMES Creatine Kinase 265 IU/L (26-308) 07/26/18 11:39 Troponin I 0.29 ng/ml (0.00-0.05) H 08/01/18 01:05 Assessment: This is a 63 year old male with no reported past medical history presents to the ED s/p fall while getting out of bed seen with L-sided flaccidity and L sided facial droop on arrival. Plan: 1. Acute CVA - MRI brain with focal acute/subacute infarct involving the right periventricular white matter and posterior aspect of the right basal ganglia. Chronic lacunar infarcts in the right basal ganglia and in the rostrum of the corpus callosum on the right. Chronic left paramedian pontine infarct - Now with residual left sided phani paresis and left facial droop - Continue ASA 325mg daily - Lipitor 80mg hs - PT/OT (walked 3ft with PT) - Will need rehab placement 2. RLE ulcer s/p debridement 08/01 - Bone bx noted - Per ID x3 weeks more of RUFUS blair aware. 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 Uncontrolled HTN - Now controlled - Continue Procardia xl 90mg, losartan 100mg, metoprolol 75mg bid - Will need outpt holter r/o PAF 4. FERNANDO on CKD - CKD d/t htn nephrosclerosis - Cont HTN meds as above - Goal BP 130/80 5. Dispo - Will need SNF placement, however patient without insurance. Case management is aware and is working to find placement CODE STATUS: FULL CODE Visit type - Emergency Visit Emergency Visit: Yes ED Registration Date: 07/26/18 Care time: The patient presented to the Emergency Department on the above date and was hospitalized for further evaluation of their emergent condition. - New Patient This patient is new to me today: Yes Date on this admission: 08/08/18 - Critical Care Critical Care patient: No
[2018-08-08] MEDS: NIFEdipine E.R. 90 MG TABLET (FP) PO SCH (09:01)
[2018-08-08] MEDS: ASPIRIN 325 MG TABLET PO SCH (09:01)
[2018-08-08] MEDS: LOSARTAN POTASSIUM 50 MG TABLET (FP) PO SCH (09:01)
[2018-08-08] MEDS: PANTOPRAZOLE 20 MG TABLET (FP) PO SCH (09:01)
[2018-08-08] MEDS: COLLAGENASE CLOSTRIDIUM HIST. 30 GRAMS TUBE TP SCH (09:02)
[2018-08-08] MEDS: POTASSIUM CHLORIDE TABS 20 MEQ TABLET.ER (FP) PO SCH ×2 (09:02→21:43)
[2018-08-08] MEDS: METOPROLOL TARTRATE 25 MG TABLET (FP) PO SCH ×2 (09:02→21:43)
--- NOTE | 2018-08-08 12:37 | PN ---
Progress Note, Physician History of Present Illness: Continued LUE hemiplegia, no PAF on monitor. - Current Medication List Current Medications: Active Medications Aspirin (Asa -) 325 mg PO DAILY [facility] Last Admin: 08/08/18 09:01 Dose: 325 mg Atorvastatin Calcium (Lipitor -) 80 mg PO HS [facility] Last Admin: 08/07/18 22:25 Dose: 80 mg Collagenase (Santyl -) 1 applic TP DAILY [facility]; Protocol Last Admin: 08/08/18 09:02 Dose: 1 applic Docusate Sodium (Colace -) 100 mg PO Q12H PRN PRN Reason: CONSTIPATION Last Admin: 08/05/18 17:41 Dose: 100 mg Piperacillin Sod/Tazobactam (Sod 3.375 gm/ Dextrose) 50 mls @ 100 mls/hr IVPB Q8H-IV [facility]; Protocol Last Admin: 08/08/18 09:01 Dose: 100 mls/hr Losartan Potassium (Cozaar -) 100 mg PO DAILY [facility] Last Admin: 08/08/18 09:01 Dose: 100 mg Metoprolol Tartrate (Lopressor -) 75 mg PO BID [facility] Last Admin: 08/08/18 09:02 Dose: 75 mg Nifedipine (Procardia Xl -) 90 mg PO DAILY [facility] Last Admin: 08/08/18 09:01 Dose: 90 mg Pantoprazole Sodium (Protonix -) 20 mg PO DAILY [facility] Last Admin: 08/08/18 09:01 Dose: 20 mg Potassium Chloride (K-Dur -) 40 meq PO BID [facility] Last Admin: 08/08/18 09:02 Dose: 40 meq Senna (Senna -) 2 tab PO HS PRN PRN Reason: CONSTIPATION - Objective Vital Signs: Vital Signs Temperature 97.9 F 08/08/18 10:00 Pulse Rate 66 08/08/18 10:00 Respiratory Rate 16 08/08/18 10:00 Blood Pressure 126/74 08/08/18 10:00 O2 Sat by Pulse Oximetry (%) 98 08/08/18 10:00 Constitutional: Yes: No Distress, Calm Neck: Yes: Supple Cardiovascular: Yes: Regular Rate and Rhythm Respiratory: Yes: Regular, CTA Bilaterally Gastrointestinal: Yes: Normal Bowel Sounds, Soft Edema: No Neurological: Yes: Weakness ...Motor Strength: LUE Labs: CBC, BMP 08/07/18 09:40 08/08/18 06:30 INR, PTT INR 1.05 (0.83-1.09) 08/01/18 07:00 Problem List - Problems (1) Cerebrovascular accident (CVA) Code(s): I63.9 - CEREBRAL INFARCTION, UNSPECIFIED Qualifiers: CVA mechanism: unspecified Qualified Code(s): I63.9 - Cerebral infarction, unspecified (2) Demand ischemia Code(s): I24.8 - OTHER FORMS OF ACUTE ISCHEMIC HEART DISEASE (3) HTN (hypertension) Code(s): I10 - ESSENTIAL (PRIMARY) HYPERTENSION Qualifiers: Hypertension type: essential hypertension Qualified Code(s): I10 - Essential (primary) hypertension (4) Hyperlipidemia Code(s): E78.5 - HYPERLIPIDEMIA, UNSPECIFIED Qualifiers: Hyperlipidemia type: pure hypercholesterolemia Qualified Code(s): E78.00 - Pure hypercholesterolemia, unspecified; E78.0 - Pure hypercholesterolemia (5) Hypertensive encephalopathy Code(s): I67.4 - HYPERTENSIVE ENCEPHALOPATHY (6) Wound of right lower extremity Code(s): S81.801A - UNSPECIFIED OPEN WOUND, RIGHT LOWER LEG, INITIAL ENCOUNTER Qualifiers: Encounter type: subsequent encounter Qualified Code(s): S81.801D - Unspecified open wound, right lower leg, subsequent encounter (7) CKD (chronic kidney disease) Code(s): N18.9 - CHRONIC KIDNEY DISEASE, UNSPECIFIED Qualifiers: Chronic kidney disease stage: stage 2 (mild) Qualified Code(s): N18.2 - Chronic kidney disease, stage 2 (mild) Assessment/Plan 1. CVA with left sided residual deficit, R-MCA branch infarction 2. CAD with evidence of demand ischemic injury 3. HTN, labile blood pressure 4. Hypercholesterolemia 5. CKD 6. Right lower extremity infected ulcer wound post debridement PLAN: 1. Continue Procardia XL 90 qd and Losartan 100 qd 2. Continue Lopressor 50 bid as tolerated 3. Continue Lipitor 80 qhs and ASA 325 qd 4. As outlined in prior note consider extended arrhythmia monitoring as outpatient to exclude atrial fibrillation 5. Empiric antibiotics for RLE ulcer, f/u bone biopsy cultures, wound care 6. PT and eventual rehab
[2018-08-08] MEDS: ATORVASTATIN CA 80 MG TABLET (FP) PO SCH (21:43)
[2018-08-09] MEDS ORDERED: PIPERACILLIN/TAZOBACTAM 3.375 GM VIAL IVPB ONE ×3 (02:13→17:17)
[2018-08-09] MEDS ORDERED: DEXTROSE 5%-WATER - 50 ML IVPB ONE ×3 (02:13→17:17)
[2018-08-09] MEDS: PIPERACILLIN/TAZOB 3.375 GM 3.375 GM in DEXTROSE 5%-WATER - 50 ML IVPB SCH ×3 (02:20→17:23)
[2018-08-09 07:29] LABS: ANION GAP 5 MMOL/L (8-16); BLOOD UREA NITROGEN 17 mg/dL (7-18); CALCIUM 8.2 mg/dL (8.5-10.1); CHLORIDE 112 mmol/L (98-107); CO2 25 mmol/L (21-32); CREATININE 1.5 mg/dL (0.55-1.3); GLUCOSE,RANDOM 88 mg/dL (74-106); SODIUM 142 mmol/L (136-145)
[2018-08-09] MEDS: ASPIRIN 325 MG TABLET PO SCH (09:00)
[2018-08-09] MEDS: NIFEdipine E.R. 90 MG TABLET (FP) PO SCH (09:00)
[2018-08-09] MEDS: POTASSIUM CHLORIDE TABS 20 MEQ TABLET.ER (FP) PO SCH ×2 (09:00→21:08)
[2018-08-09] MEDS: LOSARTAN POTASSIUM 50 MG TABLET (FP) PO SCH (09:00)
[2018-08-09] MEDS: PANTOPRAZOLE 20 MG TABLET (FP) PO SCH (09:00)
[2018-08-09] MEDS: COLLAGENASE CLOSTRIDIUM HIST. 30 GRAMS TUBE TP SCH (09:01)
[2018-08-09] MEDS: METOPROLOL TARTRATE 25 MG TABLET (FP) PO SCH ×2 (09:01→21:08)
--- NOTE | 2018-08-09 11:27 | PN ---
Physical Exam: SUBJECTIVE: Patient seen and examined. No acute complaints, walked the length of room yesterday. Still unable to move LUE. OBJECTIVE: Vital Signs Period Temp Pulse Resp BP Sys/Hayes Pulse Ox Last 24 Hr 97.8 F-98.1 F 66-74 16-20 136-151/64-96 96-96 PE Neuro: left sided hemiparesis, left facial droop, LUE 5/5 sensory, LUE 0/5 motor RLE 5/5 motor Pulm: CTAB CV: s1 s2 rrr Abd: s nt nd + bs Ext: no le edema, can move lle Skin: RLE ulcer open, no drainage, tissue exposed Laboratory Results - last 24 hr 08/09/18 06:00 Sodium 142 Potassium 4.0 Chloride 112 H Carbon Dioxide 25 Anion Gap 5 L BUN 17 Creatinine 1.5 H Creat Clearance w eGFR 47.42 Random Glucose 88 Calcium 8.2 L Active Medications Generic Name Dose Route Start Last Admin Trade Name Freq PRN Reason Stop Dose Admin Aspirin 325 mg 08/02/18 10:00 08/09/18 09:00 Asa - PO 325 mg DAILY [facility] Administration Atorvastatin Calcium 80 mg 08/01/18 22:00 08/08/18 21:43 Lipitor - PO 80 mg HS [facility] Administration Collagenase 1 applic 08/02/18 10:00 08/09/18 09:01 Santyl - TP 1 applic DAILY [facility] Administration Protocol Docusate Sodium 100 mg 08/01/18 16:37 08/05/18 17:41 Colace - PO 100 mg Q12H PRN Administration CONSTIPATION Piperacillin Sod/Tazobactam 50 mls @ 100 mls/hr 08/03/18 12:15 08/09/18 09:00 Sod 3.375 gm/ Dextrose IVPB 100 mls/hr Q8H-IV [facility] Administration Protocol Losartan Potassium 100 mg 08/02/18 10:00 08/09/18 09:00 Cozaar - PO 100 mg DAILY [facility] Administration Metoprolol Tartrate 75 mg 08/06/18 10:00 08/09/18 09:01 Lopressor - PO 75 mg BID [facility] Administration Nifedipine 90 mg 08/02/18 10:00 08/09/18 09:00 Procardia Xl - PO 90 mg DAILY [facility] Administration Pantoprazole Sodium 20 mg 08/02/18 10:00 08/09/18 09:00 Protonix - PO 20 mg DAILY [facility] Administration Potassium Chloride 40 meq 08/01/18 22:00 08/09/18 09:00 K-Dur - PO 40 meq BID [facility] Administration Senna 2 tab 08/01/18 16:37 Senna - PO HS PRN CONSTIPATION Imaging: - MRI brain with focal acute/subacute infarct involving the right periventricular white matter and posterior aspect of the right basal ganglia. Chronic lacunar infarcts in the right basal ganglia and in the rostrum of the corpus callosum on the right. Chronic left paramedian pontine infarct Assessment: This is a 63 year old male with no reported past medical history presents to the ED s/p fall while getting out of bed seen with L-sided flaccidity and L sided facial droop on arrival. Plan: 1. Acute CVA - Sustained residual left sided phani paresis and left facial droop - Continue ASA 325mg daily - Lipitor 80mg hs - PT/OT (walked 3ft with PT) - Will need rehab placement 2. RLE ulcer s/p debridement 08/01 - Bone bx sent, atypical cells seen, could be representing squamous cell components, sent out for further testing - Per ID x3 weeks more of RUFUS blair aware. 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 Uncontrolled HTN - Now controlled - Continue Procardia xl 90mg, losartan 100mg, metoprolol 75mg bid - Will need outpt holter r/o PAF 4. FERNANDO on CKD - Cr stable - CKD d/t htn nephrosclerosis - Cont HTN meds as above - Goal BP 130/80 5. Dispo - Will need SNF placement, however patient without insurance. Case management is aware and is working to find placement CODE STATUS: FULL CODE Visit type - Emergency Visit Emergency Visit: Yes ED Registration Date: 07/26/18 Care time: The patient presented to the Emergency Department on the above date and was hospitalized for further evaluation of their emergent condition. - New Patient This patient is new to me today: No - Critical Care Critical Care patient: No
--- NOTE | 2018-08-09 11:47 | PN ---
Progress Note, Physician History of Present Illness: Continued LUE hemiplegia, no PAF on monitor. - Current Medication List Current Medications: Active Medications Aspirin (Asa -) 325 mg PO DAILY [facility] Last Admin: 08/09/18 09:00 Dose: 325 mg Atorvastatin Calcium (Lipitor -) 80 mg PO HS [facility] Last Admin: 08/08/18 21:43 Dose: 80 mg Collagenase (Santyl -) 1 applic TP DAILY [facility]; Protocol Last Admin: 08/09/18 09:01 Dose: 1 applic Docusate Sodium (Colace -) 100 mg PO Q12H PRN PRN Reason: CONSTIPATION Last Admin: 08/05/18 17:41 Dose: 100 mg Piperacillin Sod/Tazobactam (Sod 3.375 gm/ Dextrose) 50 mls @ 100 mls/hr IVPB Q8H-IV [facility]; Protocol Last Admin: 08/09/18 09:00 Dose: 100 mls/hr Losartan Potassium (Cozaar -) 100 mg PO DAILY [facility] Last Admin: 08/09/18 09:00 Dose: 100 mg Metoprolol Tartrate (Lopressor -) 75 mg PO BID [facility] Last Admin: 08/09/18 09:01 Dose: 75 mg Nifedipine (Procardia Xl -) 90 mg PO DAILY [facility] Last Admin: 08/09/18 09:00 Dose: 90 mg Pantoprazole Sodium (Protonix -) 20 mg PO DAILY [facility] Last Admin: 08/09/18 09:00 Dose: 20 mg Potassium Chloride (K-Dur -) 40 meq PO BID [facility] Last Admin: 08/09/18 09:00 Dose: 40 meq Senna (Senna -) 2 tab PO HS PRN PRN Reason: CONSTIPATION - Objective Vital Signs: Vital Signs Temperature 97.8 F 08/09/18 10:00 Pulse Rate 74 08/09/18 10:00 Respiratory Rate 20 08/09/18 10:00 Blood Pressure 136/86 08/09/18 10:00 O2 Sat by Pulse Oximetry (%) 96 08/09/18 10:00 Constitutional: Yes: No Distress, Calm Neck: Yes: Supple Cardiovascular: Yes: Regular Rate and Rhythm Respiratory: Yes: Regular, CTA Bilaterally Gastrointestinal: Yes: Normal Bowel Sounds, Soft Edema: No Neurological: Yes: Weakness ...Motor Strength: LUE Labs: CBC, BMP 08/07/18 09:40 08/09/18 06:00 INR, PTT INR 1.05 (0.83-1.09) 08/01/18 07:00 - ....Imaging EKG: Report Reviewed (Tele: SR no PAF) Problem List - Problems (1) Cerebrovascular accident (CVA) Code(s): I63.9 - CEREBRAL INFARCTION, UNSPECIFIED Qualifiers: CVA mechanism: unspecified Qualified Code(s): I63.9 - Cerebral infarction, unspecified (2) Demand ischemia Code(s): I24.8 - OTHER FORMS OF ACUTE ISCHEMIC HEART DISEASE (3) HTN (hypertension) Code(s): I10 - ESSENTIAL (PRIMARY) HYPERTENSION Qualifiers: Hypertension type: essential hypertension Qualified Code(s): I10 - Essential (primary) hypertension (4) Hyperlipidemia Code(s): E78.5 - HYPERLIPIDEMIA, UNSPECIFIED Qualifiers: Hyperlipidemia type: pure hypercholesterolemia Qualified Code(s): E78.00 - Pure hypercholesterolemia, unspecified; E78.0 - Pure hypercholesterolemia (5) Hypertensive encephalopathy Code(s): I67.4 - HYPERTENSIVE ENCEPHALOPATHY (6) Wound of right lower extremity Code(s): S81.801A - UNSPECIFIED OPEN WOUND, RIGHT LOWER LEG, INITIAL ENCOUNTER Qualifiers: Encounter type: subsequent encounter Qualified Code(s): S81.801D - Unspecified open wound, right lower leg, subsequent encounter (7) CKD (chronic kidney disease) Code(s): N18.9 - CHRONIC KIDNEY DISEASE, UNSPECIFIED Qualifiers: Chronic kidney disease stage: stage 2 (mild) Qualified Code(s): N18.2 - Chronic kidney disease, stage 2 (mild) Assessment/Plan MRI brain with focal acute/subacute infarct involving the right periventricular white matter and posterior aspect of the right basal ganglia. Chronic lacunar infarcts in the right basal ganglia and in the rostrum of the corpus callosum on the right. Chronic left paramedian pontine infarct 1. CVA with left sided residual deficit, R-MCA branch infarction 2. CAD with evidence of demand ischemic injury 3. HTN, labile blood pressure 4. Hypercholesterolemia 5. CKD 6. Right lower extremity infected ulcer wound post debridement PLAN: 1. Continue Procardia XL 90 qd and Losartan 100 qd 2. Continue Lopressor 75 bid as tolerated 3. Continue Lipitor 80 qhs and ASA 325 qd 4. As outlined in prior note consider extended arrhythmia monitoring as outpatient to exclude atrial fibrillation 5. Empiric antibiotics for RLE ulcer via PICC line, f/u bone biopsy cultures, wound care 6. PT and eventual acute rehab
--- NOTE | 2018-08-09 15:01 | PN ---
Progress Note (short form) - Note Progress Note: Renal follow up for CKD Pt seen and examined at the bedside no acute complaints Vital Signs Temperature 98.0 F 08/09/18 14:20 Pulse Rate 67 08/09/18 14:20 Respiratory Rate 16 08/09/18 14:20 Blood Pressure 149/90 08/09/18 14:20 O2 Sat by Pulse Oximetry (%) 96 08/09/18 10:00 Intake & Output 08/06/18 08/07/18 08/08/18 08/09/18 23:59 23:59 23:59 23:59 Intake Total 3260 838 2595 700 Output Total 1280 1800 200 Balance 0 -1050 1150 700 NAD no LE edema CBC, BMP 08/07/18 09:40 08/09/18 06:00 Current Medications Aspirin (Asa -) 325 mg PO DAILY [facility] Last Admin: 08/09/18 09:00 Dose: 325 mg Atorvastatin Calcium (Lipitor -) 80 mg PO HS [facility] Last Admin: 08/08/18 21:43 Dose: 80 mg Collagenase (Santyl -) 1 applic TP DAILY [facility]; Protocol Last Admin: 08/09/18 09:01 Dose: 1 applic Docusate Sodium (Colace -) 100 mg PO Q12H PRN PRN Reason: CONSTIPATION Last Admin: 08/05/18 17:41 Dose: 100 mg Piperacillin Sod/Tazobactam (Sod 3.375 gm/ Dextrose) 50 mls @ 100 mls/hr IVPB Q8H-IV [facility]; Protocol Last Admin: 08/09/18 09:00 Dose: 100 mls/hr Losartan Potassium (Cozaar -) 100 mg PO DAILY [facility] Last Admin: 08/09/18 09:00 Dose: 100 mg Metoprolol Tartrate (Lopressor -) 75 mg PO BID [facility] Last Admin: 08/09/18 09:01 Dose: 75 mg Nifedipine (Procardia Xl -) 90 mg PO DAILY [facility] Last Admin: 08/09/18 09:00 Dose: 90 mg Pantoprazole Sodium (Protonix -) 20 mg PO DAILY [facility] Last Admin: 08/09/18 09:00 Dose: 20 mg Potassium Chloride (K-Dur -) 40 meq PO BID [facility] Last Admin: 08/09/18 09:00 Dose: 40 meq Senna (Senna -) 2 tab PO HS PRN PRN Reason: CONSTIPATION 63 year old gentleman with no significant medical history who presented from home with fall and found to have a CVA with Cr of 2.2 to 1.5. #FERNANDO now resolved #CKD w/o proteinuria likely due to hypertensive nephrosclerosis #New CVA #Leg wound with osteomylitis #Hypertension Renal function stable at this time UA w/o hematuria or proteinuria Continue Losartan, Nifedpine ER, Metoprolol Thank you Mannie Nolan DO
[2018-08-09] MEDS: ATORVASTATIN CA 80 MG TABLET (FP) PO SCH (21:09)
[2018-08-10] MEDS ORDERED: DEXTROSE 5%-WATER - 50 ML IVPB ONE ×3 (02:05→17:07)
[2018-08-10] MEDS ORDERED: PIPERACILLIN/TAZOBACTAM 3.375 GM VIAL IVPB ONE ×3 (02:05→17:07)
[2018-08-10] MEDS: PIPERACILLIN/TAZOB 3.375 GM 3.375 GM in DEXTROSE 5%-WATER - 50 ML IVPB SCH ×3 (02:14→17:24)
--- NOTE | 2018-08-10 07:35 | PN ---
Progress Note, Physician Chief Complaint: No new complaints - Current Medication List Current Medications: Active Medications Aspirin (Asa -) 325 mg PO DAILY [facility] Last Admin: 08/09/18 09:00 Dose: 325 mg Atorvastatin Calcium (Lipitor -) 80 mg PO HS [facility] Last Admin: 08/09/18 21:09 Dose: 80 mg Collagenase (Santyl -) 1 applic TP DAILY [facility]; Protocol Last Admin: 08/09/18 09:01 Dose: 1 applic Docusate Sodium (Colace -) 100 mg PO Q12H PRN PRN Reason: CONSTIPATION Last Admin: 08/05/18 17:41 Dose: 100 mg Piperacillin Sod/Tazobactam (Sod 3.375 gm/ Dextrose) 50 mls @ 100 mls/hr IVPB Q8H-IV [facility]; Protocol Last Admin: 08/10/18 02:14 Dose: 100 mls/hr Losartan Potassium (Cozaar -) 100 mg PO DAILY [facility] Last Admin: 08/09/18 09:00 Dose: 100 mg Metoprolol Tartrate (Lopressor -) 75 mg PO BID [facility] Last Admin: 08/09/18 21:08 Dose: 75 mg Nifedipine (Procardia Xl -) 90 mg PO DAILY [facility] Last Admin: 08/09/18 09:00 Dose: 90 mg Pantoprazole Sodium (Protonix -) 20 mg PO DAILY [facility] Last Admin: 08/09/18 09:00 Dose: 20 mg Potassium Chloride (K-Dur -) 40 meq PO BID [facility] Last Admin: 08/09/18 21:08 Dose: 40 meq Senna (Senna -) 2 tab PO HS PRN PRN Reason: CONSTIPATION - Objective Vital Signs: Vital Signs Temperature 98.1 F 08/10/18 06:00 Pulse Rate 67 08/10/18 06:00 Respiratory Rate 20 08/10/18 06:00 Blood Pressure 146/90 08/10/18 06:00 O2 Sat by Pulse Oximetry (%) 96 08/09/18 20:03 Middle aged man comfortable not in distress HEENT: Mm moist, no anemia, PERRLA EOMI NECK: No JVd No bruit CHEST: CTA B/L CVS; S1S2 R ABD; No distention, non tender Bs + EXT: Rt LE infected wound on wound care, No Edema gfeet, no calf Tenderness, Pulses + [employer]: AOx3, Left UE Monopresis, no interval changes. Labs: CBC, BMP 08/07/18 09:40 08/09/18 06:00 INR, PTT INR 1.05 (0.83-1.09) 08/01/18 07:00 Problem List - Problems (1) Cerebrovascular accident (CVA) Assessment/Plan: Left UE weakness needs Rehab cont current management Code(s): I63.9 - CEREBRAL INFARCTION, UNSPECIFIED Qualifiers: CVA mechanism: unspecified Qualified Code(s): I63.9 - Cerebral infarction, unspecified (2) Hypertensive encephalopathy Assessment/Plan: Improved optimize BP control increase amlodipine to 10 mg daily Code(s): I67.4 - HYPERTENSIVE ENCEPHALOPATHY (3) CKD (chronic kidney disease) Assessment/Plan: Stable no active issue neesd optimization of BP control Code(s): N18.9 - CHRONIC KIDNEY DISEASE, UNSPECIFIED Qualifiers: Chronic kidney disease stage: stage 2 (mild) Qualified Code(s): N18.2 - Chronic kidney disease, stage 2 (mild) (4) Hyperlipidemia Assessment/Plan: Cont Statin Code(s): E78.5 - HYPERLIPIDEMIA, UNSPECIFIED Qualifiers: Hyperlipidemia type: pure hypercholesterolemia Qualified Code(s): E78.00 - Pure hypercholesterolemia, unspecified; E78.0 - Pure hypercholesterolemia (5) Demand ischemia Assessment/Plan: Stable cont Statin BP meds Code(s): I24.8 - OTHER FORMS OF ACUTE ISCHEMIC HEART DISEASE (6) Wound of right lower extremity Assessment/Plan: Poly microbial culture on ZosynCont current abx for Polymicrobial growth. Code(s): S81.801A - UNSPECIFIED OPEN WOUND, RIGHT LOWER LEG, INITIAL ENCOUNTER Qualifiers: Encounter type: subsequent encounter Qualified Code(s): S81.801D - Unspecified open wound, right lower leg, subsequent encounter
[2018-08-10] MEDS: METOPROLOL TARTRATE 25 MG TABLET (FP) PO SCH ×2 (09:55→21:49)
[2018-08-10] MEDS: LOSARTAN POTASSIUM 50 MG TABLET (FP) PO SCH (09:55)
[2018-08-10] MEDS: PANTOPRAZOLE 20 MG TABLET (FP) PO SCH (09:55)
[2018-08-10] MEDS: ASPIRIN 325 MG TABLET PO SCH (09:55)
[2018-08-10] MEDS: POTASSIUM CHLORIDE TABS 20 MEQ TABLET.ER (FP) PO SCH ×2 (09:56→21:49)
[2018-08-10] MEDS: NIFEdipine E.R. 90 MG TABLET (FP) PO SCH (09:56)
--- NOTE | 2018-08-10 13:25 | PN ---
Progress Note, Physician History of Present Illness: Continued LUE hemiplegia, no PAF on monitor. - Current Medication List Current Medications: Active Medications Aspirin (Asa -) 325 mg PO DAILY [facility] Last Admin: 08/10/18 09:55 Dose: 325 mg Atorvastatin Calcium (Lipitor -) 80 mg PO HS [facility] Last Admin: 08/09/18 21:09 Dose: 80 mg Collagenase (Santyl -) 1 applic TP DAILY [facility]; Protocol Last Admin: 08/09/18 09:01 Dose: 1 applic Docusate Sodium (Colace -) 100 mg PO Q12H PRN PRN Reason: CONSTIPATION Last Admin: 08/05/18 17:41 Dose: 100 mg Losartan Potassium (Cozaar -) 100 mg PO DAILY [facility] Last Admin: 08/10/18 09:55 Dose: 100 mg Metoprolol Tartrate (Lopressor -) 75 mg PO BID [facility] Last Admin: 08/10/18 09:55 Dose: 75 mg Nifedipine (Procardia Xl -) 90 mg PO DAILY [facility] Last Admin: 08/10/18 09:56 Dose: 90 mg Pantoprazole Sodium (Protonix -) 20 mg PO DAILY [facility] Last Admin: 08/10/18 09:55 Dose: 20 mg Potassium Chloride (K-Dur -) 40 meq PO BID [facility] Last Admin: 08/10/18 09:56 Dose: 40 meq Senna (Senna -) 2 tab PO HS PRN PRN Reason: CONSTIPATION - Objective Vital Signs: Vital Signs Temperature 97.7 F 08/10/18 10:03 Pulse Rate 71 08/10/18 10:03 Respiratory Rate 18 08/10/18 10:03 Blood Pressure 136/89 08/10/18 10:03 O2 Sat by Pulse Oximetry (%) 98 08/10/18 10:04 Constitutional: Yes: No Distress, Calm Neck: Yes: Supple Cardiovascular: Yes: Regular Rate and Rhythm Respiratory: Yes: Regular, Diminished Gastrointestinal: Yes: Normal Bowel Sounds, Soft Edema: No Labs: CBC, BMP 08/07/18 09:40 08/09/18 06:00 INR, PTT INR 1.05 (0.83-1.09) 08/01/18 07:00 - ....Imaging EKG: Report Reviewed (Tele: Paroxysmal atrial tachycardia -> SR) Problem List - Problems (1) Cerebrovascular accident (CVA) Code(s): I63.9 - CEREBRAL INFARCTION, UNSPECIFIED Qualifiers: CVA mechanism: unspecified Qualified Code(s): I63.9 - Cerebral infarction, unspecified (2) Demand ischemia Code(s): I24.8 - OTHER FORMS OF ACUTE ISCHEMIC HEART DISEASE (3) HTN (hypertension) Code(s): I10 - ESSENTIAL (PRIMARY) HYPERTENSION Qualifiers: Hypertension type: essential hypertension Qualified Code(s): I10 - Essential (primary) hypertension (4) Hyperlipidemia Code(s): E78.5 - HYPERLIPIDEMIA, UNSPECIFIED Qualifiers: Hyperlipidemia type: pure hypercholesterolemia Qualified Code(s): E78.00 - Pure hypercholesterolemia, unspecified; E78.0 - Pure hypercholesterolemia (5) Hypertensive encephalopathy Code(s): I67.4 - HYPERTENSIVE ENCEPHALOPATHY (6) Wound of right lower extremity Code(s): S81.801A - UNSPECIFIED OPEN WOUND, RIGHT LOWER LEG, INITIAL ENCOUNTER Qualifiers: Encounter type: subsequent encounter Qualified Code(s): S81.801D - Unspecified open wound, right lower leg, subsequent encounter (7) CKD (chronic kidney disease) Code(s): N18.9 - CHRONIC KIDNEY DISEASE, UNSPECIFIED Qualifiers: Chronic kidney disease stage: stage 2 (mild) Qualified Code(s): N18.2 - Chronic kidney disease, stage 2 (mild) Assessment/Plan MRI brain with focal acute/subacute infarct involving the right periventricular white matter and posterior aspect of the right basal ganglia. Chronic lacunar infarcts in the right basal ganglia and in the rostrum of the corpus callosum on the right. Chronic left paramedian pontine infarct 1. CVA with left sided residual deficit, R-MCA branch infarction 2. CAD with evidence of demand ischemic injury 3. HTN, labile blood pressure 4. Hypercholesterolemia 5. CKD w/o proteinuria likely due to hypertensive nephrosclerosis 6. Right lower extremity infected ulcer wound and osteomyelitis post debridement 7. Paroxysmal atrial tachycardia PLAN: 1. Continue Procardia XL 90 qd and Losartan 100 qd 2. Continue Lopressor 75 bid as tolerated 3. Continue Lipitor 80 qhs and ASA 325 qd 4. As outlined in prior note consider extended arrhythmia monitoring as outpatient to exclude atrial fibrillation 5. Empiric antibiotics for RLE ulcer via PICC line, f/u bone biopsy cultures, wound care 6. PT and eventual acute rehab
[2018-08-10] MEDS: COLLAGENASE CLOSTRIDIUM HIST. 30 GRAMS TUBE TP SCH (13:59)
--- NOTE | 2018-08-10 14:20 | PN ---
Progress Note, Physician - Current Medication List Current Medications: Active Medications Aspirin (Asa -) 325 mg PO DAILY [facility] Last Admin: 08/10/18 09:55 Dose: 325 mg Atorvastatin Calcium (Lipitor -) 80 mg PO HS [facility] Last Admin: 08/09/18 21:09 Dose: 80 mg Collagenase (Santyl -) 1 applic TP DAILY [facility]; Protocol Last Admin: 08/10/18 13:59 Dose: 1 applic Docusate Sodium (Colace -) 100 mg PO Q12H PRN PRN Reason: CONSTIPATION Last Admin: 08/05/18 17:41 Dose: 100 mg Piperacillin Sod/Tazobactam (Sod 3.375 gm/ Dextrose) 50 mls @ 100 mls/hr IVPB Q8H-IV [facility]; Protocol Losartan Potassium (Cozaar -) 100 mg PO DAILY [facility] Last Admin: 08/10/18 09:55 Dose: 100 mg Metoprolol Tartrate (Lopressor -) 75 mg PO BID [facility] Last Admin: 08/10/18 09:55 Dose: 75 mg Nifedipine (Procardia Xl -) 90 mg PO DAILY [facility] Last Admin: 08/10/18 09:56 Dose: 90 mg Pantoprazole Sodium (Protonix -) 20 mg PO DAILY [facility] Last Admin: 08/10/18 09:55 Dose: 20 mg Potassium Chloride (K-Dur -) 40 meq PO BID [facility] Last Admin: 08/10/18 09:56 Dose: 40 meq Senna (Senna -) 2 tab PO HS PRN PRN Reason: CONSTIPATION - Objective Vital Signs: Vital Signs Temperature 97.7 F 08/10/18 10:03 Pulse Rate 71 08/10/18 10:03 Respiratory Rate 18 08/10/18 10:03 Blood Pressure 136/89 08/10/18 10:03 O2 Sat by Pulse Oximetry (%) 98 08/10/18 10:04 Labs: CBC, BMP 08/07/18 09:40 08/09/18 06:00 INR, PTT INR 1.05 (0.83-1.09) 08/01/18 07:00
[2018-08-10] MEDS: ATORVASTATIN CA 80 MG TABLET (FP) PO SCH (21:49)
[2018-08-11] MEDS ORDERED: PIPERACILLIN/TAZOBACTAM 3.375 GM VIAL IVPB ONE ×3 (00:41→17:08)
[2018-08-11] MEDS ORDERED: DEXTROSE 5%-WATER - 50 ML IVPB ONE ×3 (00:42→17:08)
[2018-08-11] MEDS: PIPERACILLIN/TAZOB 3.375 GM 3.375 GM in DEXTROSE 5%-WATER - 50 ML IVPB SCH ×3 (01:09→17:32)
--- NOTE | 2018-08-11 07:48 | PN ---
Progress Note, Physician Chief Complaint: No new complaints - Current Medication List Current Medications: Active Medications Aspirin (Asa -) 325 mg PO DAILY [facility] Last Admin: 08/10/18 09:55 Dose: 325 mg Atorvastatin Calcium (Lipitor -) 80 mg PO HS [facility] Last Admin: 08/10/18 21:49 Dose: 80 mg Collagenase (Santyl -) 1 applic TP DAILY [facility]; Protocol Last Admin: 08/10/18 13:59 Dose: 1 applic Docusate Sodium (Colace -) 100 mg PO Q12H PRN PRN Reason: CONSTIPATION Last Admin: 08/05/18 17:41 Dose: 100 mg Piperacillin Sod/Tazobactam (Sod 3.375 gm/ Dextrose) 50 mls @ 100 mls/hr IVPB Q8H-IV [facility]; Protocol Last Admin: 08/11/18 01:09 Dose: 100 mls/hr Losartan Potassium (Cozaar -) 100 mg PO DAILY [facility] Last Admin: 08/10/18 09:55 Dose: 100 mg Metoprolol Tartrate (Lopressor -) 75 mg PO BID [facility] Last Admin: 08/10/18 21:49 Dose: 75 mg Nifedipine (Procardia Xl -) 90 mg PO DAILY [facility] Last Admin: 08/10/18 09:56 Dose: 90 mg Pantoprazole Sodium (Protonix -) 20 mg PO DAILY [facility] Last Admin: 08/10/18 09:55 Dose: 20 mg Potassium Chloride (K-Dur -) 40 meq PO BID [facility] Last Admin: 08/10/18 21:49 Dose: 40 meq Senna (Senna -) 2 tab PO HS PRN PRN Reason: CONSTIPATION - Objective Vital Signs: Vital Signs Temperature 97.9 F 08/11/18 06:00 Pulse Rate 64 08/11/18 06:00 Respiratory Rate 16 08/11/18 06:00 Blood Pressure 132/71 08/11/18 06:00 O2 Sat by Pulse Oximetry (%) 98 08/10/18 21:00 Middle aged man comfortable not in distress HEENT: Mm moist, no anemia, PERRLA EOMI NECK: No JVd No bruit CHEST: CTA B/L CVS; S1S2 R ABD; No distention, non tender Bs + EXT: Rt LE infected wound on wound care, No Edema gfeet, no calf Tenderness, Pulses + [employer]: AOx3, Left UE Monopresis, no interval changes. Labs: CBC, BMP 08/07/18 09:40 CBC, BMP 08/07/18 09:40 08/11/18 06:30 Problem List - Problems (1) Cerebrovascular accident (CVA) Assessment/Plan: Left UE weakness needs Rehab cont current management, needs LISET placement, stable will DC Telemonitor Code(s): I63.9 - CEREBRAL INFARCTION, UNSPECIFIED Qualifiers: CVA mechanism: unspecified Qualified Code(s): I63.9 - Cerebral infarction, unspecified (2) Hypertensive encephalopathy Assessment/Plan: Improved optimize BP control increase amlodipine to 10 mg daily Code(s): I67.4 - HYPERTENSIVE ENCEPHALOPATHY (3) CKD (chronic kidney disease) Assessment/Plan: Stable no active issue neesd optimization of BP control Code(s): N18.9 - CHRONIC KIDNEY DISEASE, UNSPECIFIED Qualifiers: Chronic kidney disease stage: stage 2 (mild) Qualified Code(s): N18.2 - Chronic kidney disease, stage 2 (mild) (4) Hyperlipidemia Assessment/Plan: Cont Statin Code(s): E78.5 - HYPERLIPIDEMIA, UNSPECIFIED Qualifiers: Hyperlipidemia type: pure hypercholesterolemia Qualified Code(s): E78.00 - Pure hypercholesterolemia, unspecified; E78.0 - Pure hypercholesterolemia (5) Demand ischemia Assessment/Plan: Stable cont Statin BP meds Code(s): I24.8 - OTHER FORMS OF ACUTE ISCHEMIC HEART DISEASE (6) Wound of right lower extremity Assessment/Plan: Poly microbial culture on ZosynCont current abx for Polymicrobial growth. Code(s): S81.801A - UNSPECIFIED OPEN WOUND, RIGHT LOWER LEG, INITIAL ENCOUNTER Qualifiers: Encounter type: subsequent encounter Qualified Code(s): S81.801D - Unspecified open wound, right lower leg, subsequent encounter
[2018-08-11 08:20] LABS: ALBUMIN 3.1 g/dl (3.4-5.0); ALK PHOS 72 U/L (45-117); ANION GAP 4 MMOL/L (8-16); BILIRUBIN,TOTAL 0.4 mg/dL (0.2-1); BLOOD UREA NITROGEN 17 mg/dL (7-18); CALCIUM 8.2 mg/dL (8.5-10.1); CHLORIDE 110 mmol/L (98-107); CO2 28 mmol/L (21-32); CREATININE 1.6 mg/dL (0.55-1.3); GLUCOSE,RANDOM 93 mg/dL (74-106); POTASSIUM 4.1 mmol/L (3.5-5.1); SGOT/AST 22 U/L (15-37); SGPT/ALT 34 U/L (13-61); SODIUM 142 mmol/L (136-145); TOT PROT 6.5 g/dl (6.4-8.2)
[2018-08-11] MEDS ORDERED: PT OWN MED DRAWER 7, Y5N ONE (10:29)
[2018-08-11] MEDS: METOPROLOL TARTRATE 25 MG TABLET (FP) PO SCH ×2 (10:40→21:35)
[2018-08-11] MEDS: POTASSIUM CHLORIDE TABS 20 MEQ TABLET.ER (FP) PO SCH ×2 (10:40→21:31)
[2018-08-11] MEDS: LOSARTAN POTASSIUM 50 MG TABLET (FP) PO SCH (10:40)
[2018-08-11] MEDS: ASPIRIN 325 MG TABLET PO SCH (10:41)
[2018-08-11] MEDS: NIFEdipine E.R. 90 MG TABLET (FP) PO SCH (10:41)
[2018-08-11] MEDS: PANTOPRAZOLE 20 MG TABLET (FP) PO SCH (10:41)
--- NOTE | 2018-08-11 12:23 | PN ---
Progress Note, Physician History of Present Illness: Pt is alert, afebrile, and without distress. Denies RLE pain. Tolerating antibiotics. He has no specific complaints. - Current Medication List Current Medications: Active Medications Aspirin (Asa -) 325 mg PO DAILY [facility] Last Admin: 08/11/18 10:41 Dose: 325 mg Atorvastatin Calcium (Lipitor -) 80 mg PO HS [facility] Last Admin: 08/10/18 21:49 Dose: 80 mg Collagenase (Santyl -) 1 applic TP DAILY [facility]; Protocol Last Admin: 08/10/18 13:59 Dose: 1 applic Docusate Sodium (Colace -) 100 mg PO Q12H PRN PRN Reason: CONSTIPATION Last Admin: 08/05/18 17:41 Dose: 100 mg Piperacillin Sod/Tazobactam (Sod 3.375 gm/ Dextrose) 50 mls @ 100 mls/hr IVPB Q8H-IV [facility]; Protocol Last Admin: 08/11/18 10:41 Dose: 100 mls/hr Losartan Potassium (Cozaar -) 100 mg PO DAILY [facility] Last Admin: 08/11/18 10:40 Dose: 100 mg Metoprolol Tartrate (Lopressor -) 75 mg PO BID [facility] Last Admin: 08/11/18 10:40 Dose: 75 mg Nifedipine (Procardia Xl -) 90 mg PO DAILY [facility] Last Admin: 08/11/18 10:41 Dose: 90 mg Pantoprazole Sodium (Protonix -) 20 mg PO DAILY [facility] Last Admin: 08/11/18 10:41 Dose: 20 mg Potassium Chloride (K-Dur -) 40 meq PO BID [facility] Last Admin: 08/11/18 10:40 Dose: 40 meq Senna (Senna -) 2 tab PO HS PRN PRN Reason: CONSTIPATION - Objective Vital Signs: Vital Signs Temperature 97.6 F 08/11/18 10:58 Pulse Rate 74 08/11/18 10:58 Respiratory Rate 18 08/11/18 10:58 Blood Pressure 138/82 08/11/18 10:58 O2 Sat by Pulse Oximetry (%) 98 08/11/18 09:00 Constitutional: Yes: No Distress, Calm Neck: Yes: Supple Cardiovascular: Yes: Regular Rate and Rhythm Respiratory: Yes: Regular Gastrointestinal: Yes: Normal Bowel Sounds, Soft Musculoskeletal: Yes: WNL Wound/Incision: Yes: Other (Dressing intact, RLE chronic skin changes) Labs: CBC, BMP 08/07/18 09:40 08/11/18 06:30 INR, PTT INR 1.05 (0.83-1.09) 08/01/18 07:00 Microbiology 08/02/18 15:30 Bone Gram Stain - Final 08/02/18 15:30 Bone Tissue Culture - Final Pseudomonas Aeruginosa 08/02/18 15:30 Bone Anaerobic Culture - Final NO ANAEROBES WERE ISOLATED 07/26/18 20:38 Leg - Right Lower Gram Stain - Final 07/26/18 20:38 Leg - Right Lower Wound Culture - Final Citrobacter Koseri Beta Hem Streptococcus Group C Pseudomonas Aeruginosa Problem List - Problems (1) FERNANDO (acute kidney injury) Code(s): N17.9 - ACUTE KIDNEY FAILURE, UNSPECIFIED (2) Cerebrovascular accident (CVA) Code(s): I63.9 - CEREBRAL INFARCTION, UNSPECIFIED Qualifiers: CVA mechanism: unspecified Qualified Code(s): I63.9 - Cerebral infarction, unspecified (3) Hypertensive encephalopathy Code(s): I67.4 - HYPERTENSIVE ENCEPHALOPATHY Assessment/Plan RLE Infected Ulcer/OM s/p debridement CKD Acute CVA Hypertensive encephalopathy -- labs and imaging results reviewed -- continue Zosyn as planned -- continue wound care
[2018-08-11] MEDS: COLLAGENASE CLOSTRIDIUM HIST. 30 GRAMS TUBE TP SCH (12:42)
--- NOTE | 2018-08-11 15:21 | PN ---
Progress Note, Physician History of Present Illness: Continued LUE hemiplegia, no PAF on monitor. - Current Medication List Current Medications: Active Medications Aspirin (Asa -) 325 mg PO DAILY [facility] Last Admin: 08/11/18 10:41 Dose: 325 mg Atorvastatin Calcium (Lipitor -) 80 mg PO HS [facility] Last Admin: 08/10/18 21:49 Dose: 80 mg Collagenase (Santyl -) 1 applic TP DAILY [facility]; Protocol Last Admin: 08/11/18 12:42 Dose: 1 applic Docusate Sodium (Colace -) 100 mg PO Q12H PRN PRN Reason: CONSTIPATION Last Admin: 08/05/18 17:41 Dose: 100 mg Piperacillin Sod/Tazobactam (Sod 3.375 gm/ Dextrose) 50 mls @ 100 mls/hr IVPB Q8H-IV [facility]; Protocol Last Admin: 08/11/18 10:41 Dose: 100 mls/hr Losartan Potassium (Cozaar -) 100 mg PO DAILY [facility] Last Admin: 08/11/18 10:40 Dose: 100 mg Metoprolol Tartrate (Lopressor -) 75 mg PO BID [facility] Last Admin: 08/11/18 10:40 Dose: 75 mg Nifedipine (Procardia Xl -) 90 mg PO DAILY [facility] Last Admin: 08/11/18 10:41 Dose: 90 mg Pantoprazole Sodium (Protonix -) 20 mg PO DAILY [facility] Last Admin: 08/11/18 10:41 Dose: 20 mg Potassium Chloride (K-Dur -) 40 meq PO BID [facility] Last Admin: 08/11/18 10:40 Dose: 40 meq Senna (Senna -) 2 tab PO HS PRN PRN Reason: CONSTIPATION - Objective Vital Signs: Vital Signs Temperature 97.7 F 08/11/18 14:14 Pulse Rate 68 08/11/18 14:14 Respiratory Rate 16 08/11/18 14:14 Blood Pressure 141/92 08/11/18 14:14 O2 Sat by Pulse Oximetry (%) 98 08/11/18 09:00 Constitutional: Yes: No Distress, Calm Neck: Yes: Supple Cardiovascular: Yes: Regular Rate and Rhythm Respiratory: Yes: Regular, CTA Bilaterally Gastrointestinal: Yes: Normal Bowel Sounds, Soft Edema: No Neurological: Yes: Weakness ...Motor Strength: LUE Labs: CBC, BMP 08/07/18 09:40 08/11/18 06:30 INR, PTT INR 1.05 (0.83-1.09) 08/01/18 07:00 - ....Imaging EKG: Report Reviewed (Tele: SR no PAF) Problem List - Problems (1) Cerebrovascular accident (CVA) Code(s): I63.9 - CEREBRAL INFARCTION, UNSPECIFIED Qualifiers: CVA mechanism: unspecified Qualified Code(s): I63.9 - Cerebral infarction, unspecified (2) Demand ischemia Code(s): I24.8 - OTHER FORMS OF ACUTE ISCHEMIC HEART DISEASE (3) HTN (hypertension) Code(s): I10 - ESSENTIAL (PRIMARY) HYPERTENSION Qualifiers: Hypertension type: essential hypertension Qualified Code(s): I10 - Essential (primary) hypertension (4) Hyperlipidemia Code(s): E78.5 - HYPERLIPIDEMIA, UNSPECIFIED Qualifiers: Hyperlipidemia type: pure hypercholesterolemia Qualified Code(s): E78.00 - Pure hypercholesterolemia, unspecified; E78.0 - Pure hypercholesterolemia (5) Hypertensive encephalopathy Code(s): I67.4 - HYPERTENSIVE ENCEPHALOPATHY (6) Wound of right lower extremity Code(s): S81.801A - UNSPECIFIED OPEN WOUND, RIGHT LOWER LEG, INITIAL ENCOUNTER Qualifiers: Encounter type: subsequent encounter Qualified Code(s): S81.801D - Unspecified open wound, right lower leg, subsequent encounter (7) CKD (chronic kidney disease) Code(s): N18.9 - CHRONIC KIDNEY DISEASE, UNSPECIFIED Qualifiers: Chronic kidney disease stage: stage 2 (mild) Qualified Code(s): N18.2 - Chronic kidney disease, stage 2 (mild) Assessment/Plan MRI brain with focal acute/subacute infarct involving the right periventricular white matter and posterior aspect of the right basal ganglia. Chronic lacunar infarcts in the right basal ganglia and in the rostrum of the corpus callosum on the right. Chronic left paramedian pontine infarct 1. CVA with left sided residual deficit, R-MCA branch infarction 2. CAD with evidence of demand ischemic injury 3. HTN, labile blood pressure 4. Hypercholesterolemia 5. CKD w/o proteinuria likely due to hypertensive nephrosclerosis 6. Right lower extremity infected ulcer wound and osteomyelitis post debridement 7. Paroxysmal atrial tachycardia PLAN: 1. Continue Procardia XL 90 qd and Losartan 100 qd 2. Continue Lopressor 75 bid as tolerated 3. Continue Lipitor 80 qhs and ASA 325 qd 4. As outlined in prior note consider extended arrhythmia monitoring as outpatient to exclude atrial fibrillation 5. Empiric antibiotics for RLE ulcer via PICC line, f/u bone biopsy cultures, wound care 6. PT and eventual acute rehab
--- NOTE | 2018-08-11 15:40 | PN ---
Progress Note, Physician Chief Complaint: The patient seen and examined in his room. Dressings in place over the leg. IV Abx infusing. - Current Medication List Current Medications: Active Medications Aspirin (Asa -) 325 mg PO DAILY [facility] Last Admin: 08/11/18 10:41 Dose: 325 mg Atorvastatin Calcium (Lipitor -) 80 mg PO HS [facility] Last Admin: 08/10/18 21:49 Dose: 80 mg Collagenase (Santyl -) 1 applic TP DAILY [facility]; Protocol Last Admin: 08/11/18 12:42 Dose: 1 applic Docusate Sodium (Colace -) 100 mg PO Q12H PRN PRN Reason: CONSTIPATION Last Admin: 08/05/18 17:41 Dose: 100 mg Piperacillin Sod/Tazobactam (Sod 3.375 gm/ Dextrose) 50 mls @ 100 mls/hr IVPB Q8H-IV [facility]; Protocol Last Admin: 08/11/18 10:41 Dose: 100 mls/hr Losartan Potassium (Cozaar -) 100 mg PO DAILY [facility] Last Admin: 08/11/18 10:40 Dose: 100 mg Metoprolol Tartrate (Lopressor -) 75 mg PO BID [facility] Last Admin: 08/11/18 10:40 Dose: 75 mg Nifedipine (Procardia Xl -) 90 mg PO DAILY [facility] Last Admin: 08/11/18 10:41 Dose: 90 mg Pantoprazole Sodium (Protonix -) 20 mg PO DAILY [facility] Last Admin: 08/11/18 10:41 Dose: 20 mg Potassium Chloride (K-Dur -) 40 meq PO BID [facility] Last Admin: 08/11/18 10:40 Dose: 40 meq Senna (Senna -) 2 tab PO HS PRN PRN Reason: CONSTIPATION - Objective Vital Signs: Vital Signs Temperature 97.7 F 08/11/18 14:14 Pulse Rate 68 08/11/18 14:14 Respiratory Rate 16 08/11/18 14:14 Blood Pressure 141/92 08/11/18 14:14 O2 Sat by Pulse Oximetry (%) 98 08/11/18 09:00 Constitutional: Yes: Well Nourished, Calm Eyes: Yes: Conjunctiva Clear HENT: Yes: Normocephalic Neck: Yes: Trachea Midline Cardiovascular: Yes: S1, S2 Respiratory: Yes: CTA Bilaterally, Diminished Gastrointestinal: Yes: Normal Bowel Sounds, Soft Genitourinary: No: Bladder Distention, CVA Tenderness - Left Neurological: Yes: Alert, Oriented Labs: CBC, BMP 08/07/18 09:40 08/11/18 06:30 INR, PTT INR 1.05 (0.83-1.09) 08/01/18 07:00 Assessment/Plan 63 year old gentleman with no significant medical history who presented from home with fall and found to have a CVA with Cr of 2.2 to 1.5. #FERNANDO now resolved #CKD w/o proteinuria likely due to hypertensive nephrosclerosis #New CVA #Leg wound with osteomylitis #Hypertension Patient to get CVC on Monday for [facility] antibiotics. Thanks again. Will follow with you. Fe Feng MD
[2018-08-11] MEDS: ATORVASTATIN CA 80 MG TABLET (FP) PO SCH (21:31)
[2018-08-12] MEDS ORDERED: DEXTROSE 5%-WATER - 50 ML IVPB ONE ×3 (00:32→16:58)
[2018-08-12] MEDS ORDERED: PIPERACILLIN/TAZOBACTAM 3.375 GM VIAL IVPB ONE ×3 (00:32→16:58)
[2018-08-12] MEDS: PIPERACILLIN/TAZOB 3.375 GM 3.375 GM in DEXTROSE 5%-WATER - 50 ML IVPB SCH ×3 (02:49→17:18)
[2018-08-12 06:53] LABS: BASO % 0.7 % (0-2.0); EOS % 3.3 % (0-4.5); HEMATOCRIT 37.7 % (35.4-49); HEMOGLOBIN 12.8 GM/dL (11.7-16.9); LYMPH % 22.4 % (8-40); MCH 29.3 pg (25.7-33.7); MEAN CELL VOLUME 86.3 fl (80-96); NEUT % 67.6 % (42.8-82.8); PLATELET COUNT 285 K/MM3 (134-434); RBC 4.37 M/mm3 (4.00-5.60); RDW 14.1 % (11.9-15.9); WHITE BLOOD COUNT 5.5 K/mm3 (4.0-10.0)
[2018-08-12 07:17] LABS: ANION GAP 6 MMOL/L (8-16); BLOOD UREA NITROGEN 18 mg/dL (7-18); CALCIUM 8.6 mg/dL (8.5-10.1); CHLORIDE 110 mmol/L (98-107); CO2 28 mmol/L (21-32); CREATININE 1.7 mg/dL (0.55-1.3); GLUCOSE,RANDOM 95 mg/dL (74-106); POTASSIUM 4.4 mmol/L (3.5-5.1); SODIUM 144 mmol/L (136-145)
[2018-08-12] MEDS ORDERED: PT OWN MED DRAWER 7, Y5N ONE (09:01)
--- NOTE | 2018-08-12 09:35 | PN ---
Progress Note, Physician Chief Complaint: No new complaints, remained afebrile - Current Medication List Current Medications: Active Medications Aspirin (Asa -) 325 mg PO DAILY [facility] Last Admin: 08/11/18 10:41 Dose: 325 mg Atorvastatin Calcium (Lipitor -) 80 mg PO HS [facility] Last Admin: 08/11/18 21:31 Dose: 80 mg Collagenase (Santyl -) 1 applic TP DAILY [facility]; Protocol Last Admin: 08/11/18 12:42 Dose: 1 applic Docusate Sodium (Colace -) 100 mg PO Q12H PRN PRN Reason: CONSTIPATION Last Admin: 08/05/18 17:41 Dose: 100 mg Piperacillin Sod/Tazobactam (Sod 3.375 gm/ Dextrose) 50 mls @ 100 mls/hr IVPB Q8H-IV [facility]; Protocol Last Admin: 08/12/18 02:49 Dose: 100 mls/hr Losartan Potassium (Cozaar -) 100 mg PO DAILY [facility] Last Admin: 08/11/18 10:40 Dose: 100 mg Metoprolol Tartrate (Lopressor -) 75 mg PO BID [facility] Last Admin: 08/11/18 21:35 Dose: 75 mg Nifedipine (Procardia Xl -) 90 mg PO DAILY [facility] Last Admin: 08/11/18 10:41 Dose: 90 mg Pantoprazole Sodium (Protonix -) 20 mg PO DAILY [facility] Last Admin: 08/11/18 10:41 Dose: 20 mg Potassium Chloride (K-Dur -) 40 meq PO BID [facility] Last Admin: 08/11/18 21:31 Dose: 40 meq Senna (Senna -) 2 tab PO HS PRN PRN Reason: CONSTIPATION - Objective Vital Signs: Vital Signs Temperature 98.2 F 08/12/18 06:00 Pulse Rate 98 H 08/12/18 06:00 Respiratory Rate 18 08/12/18 06:00 Blood Pressure 140/90 08/12/18 06:00 O2 Sat by Pulse Oximetry (%) 98 08/11/18 21:00 Middle aged man comfortable not in distress HEENT: Mm moist, no anemia, PERRLA EOMI NECK: No JVd No bruit CHEST: CTA B/L CVS; S1S2 R ABD; No distention, non tender Bs + EXT: Rt LE infected wound on wound care, No Edema feet, no calf Tenderness, Pulses + IT INFRASTRUCTURE ARCHITECT: AOx3, Left UE Monopresis, no interval changes. Labs: CBC, BMP 08/12/18 06:20 08/12/18 06:20 INR, PTT INR 1.05 (0.83-1.09) 08/01/18 07:00 Problem List - Problems (1) Cerebrovascular accident (CVA) Assessment/Plan: Left UE weakness needs Rehab cont current management, needs LISET placement, stable will DC Telemonitor Code(s): I63.9 - CEREBRAL INFARCTION, UNSPECIFIED Qualifiers: CVA mechanism: unspecified Qualified Code(s): I63.9 - Cerebral infarction, unspecified (2) Hypertensive encephalopathy Assessment/Plan: well controlled Nifedipine XL 90 mg , Losartan 100 mg daily., metoprolol 75 mg BID Code(s): I67.4 - HYPERTENSIVE ENCEPHALOPATHY (3) CKD (chronic kidney disease) Assessment/Plan: Stable no active issue need optimization of BP control Code(s): N18.9 - CHRONIC KIDNEY DISEASE, UNSPECIFIED Qualifiers: Chronic kidney disease stage: stage 2 (mild) Qualified Code(s): N18.2 - Chronic kidney disease, stage 2 (mild) (4) Hyperlipidemia Assessment/Plan: Cont Lipitor 80 mg Code(s): E78.5 - HYPERLIPIDEMIA, UNSPECIFIED Qualifiers: Hyperlipidemia type: pure hypercholesterolemia Qualified Code(s): E78.00 - Pure hypercholesterolemia, unspecified; E78.0 - Pure hypercholesterolemia (5) Demand ischemia Assessment/Plan: Stable cont Statin BP meds Code(s): I24.8 - OTHER FORMS OF ACUTE ISCHEMIC HEART DISEASE (6) Wound of right lower extremity Assessment/Plan: Poly microbial culture on OM/Cellulitis Zosyn Cont current abx for Polymicrobial growth. 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
[2018-08-12] MEDS: ASPIRIN 325 MG TABLET PO SCH (09:47)
[2018-08-12] MEDS: LOSARTAN POTASSIUM 50 MG TABLET (FP) PO SCH (09:47)
[2018-08-12] MEDS: METOPROLOL TARTRATE 25 MG TABLET (FP) PO SCH ×2 (09:47→21:24)
[2018-08-12] MEDS: POTASSIUM CHLORIDE TABS 20 MEQ TABLET.ER (FP) PO SCH ×2 (09:48→21:24)
[2018-08-12] MEDS: COLLAGENASE CLOSTRIDIUM HIST. 30 GRAMS TUBE TP SCH (09:48)
[2018-08-12] MEDS: PANTOPRAZOLE 20 MG TABLET (FP) PO SCH (09:48)
[2018-08-12] MEDS: NIFEdipine E.R. 90 MG TABLET (FP) PO SCH (09:48)
--- NOTE | 2018-08-12 13:19 | PN ---
Progress Note, Physician Chief Complaint: The patient seen and examined in his room. main complaint is that the left arm is still completely weak. The leg is improving. Dressings in place over the leg. IV Abx infusing. History of Present Illness: This is a 63 y/o male admitted with Acute CVA. Has abnormal kidney functions. - Current Medication List Current Medications: Active Medications Aspirin (Asa -) 325 mg PO DAILY [facility] Last Admin: 08/12/18 09:47 Dose: 325 mg Atorvastatin Calcium (Lipitor -) 80 mg PO HS [facility] Last Admin: 08/11/18 21:31 Dose: 80 mg Collagenase (Santyl -) 1 applic TP DAILY [facility]; Protocol Last Admin: 08/12/18 09:48 Dose: 1 applic Docusate Sodium (Colace -) 100 mg PO Q12H PRN PRN Reason: CONSTIPATION Last Admin: 08/05/18 17:41 Dose: 100 mg Piperacillin Sod/Tazobactam (Sod 3.375 gm/ Dextrose) 50 mls @ 100 mls/hr IVPB Q8H-IV [facility]; Protocol Last Admin: 08/12/18 09:48 Dose: 100 mls/hr Losartan Potassium (Cozaar -) 100 mg PO DAILY [facility] Last Admin: 08/12/18 09:47 Dose: 100 mg Metoprolol Tartrate (Lopressor -) 75 mg PO BID [facility] Last Admin: 08/12/18 09:47 Dose: 75 mg Nifedipine (Procardia Xl -) 90 mg PO DAILY [facility] Last Admin: 08/12/18 09:48 Dose: 90 mg Pantoprazole Sodium (Protonix -) 20 mg PO DAILY [facility] Last Admin: 08/12/18 09:48 Dose: 20 mg Potassium Chloride (K-Dur -) 40 meq PO BID [facility] Last Admin: 08/12/18 09:48 Dose: 40 meq Senna (Senna -) 2 tab PO HS PRN PRN Reason: CONSTIPATION - Objective Vital Signs: Vital Signs Temperature 97.9 F 08/12/18 10:00 Pulse Rate 74 08/12/18 10:00 Respiratory Rate 18 08/12/18 10:00 Blood Pressure 136/72 08/12/18 10:00 O2 Sat by Pulse Oximetry (%) 97 08/12/18 10:00 Constitutional: Yes: Well Nourished, Anxious Eyes: Yes: Conjunctiva Clear HENT: Yes: Normocephalic Neck: Yes: Trachea Midline Cardiovascular: Yes: S1, S2 Respiratory: Yes: CTA Bilaterally, Diminished Gastrointestinal: Yes: Normal Bowel Sounds, Soft Genitourinary: No: CVA Tenderness - Left, CVA Tenderness - Right Extremities: Yes: Other (dressing over the left leg) Edema: No Labs: CBC, BMP 08/12/18 06:20 08/12/18 06:20 INR, PTT INR 1.05 (0.83-1.09) 08/01/18 07:00 Assessment/Plan 63 year old gentleman with no significant medical history who presented from home with fall and found to have a CVA with Cr of 2.2 to 1.5. #FERNANDO ---possibly now resolved #CKD--w/o Proteinuria likely due to Hypertensive Nephrosclerosis. The patient will require outpatient follow up when discharged. #New CVA-- residual weakness of the left arm persists. #Leg wound with osteomylitis #Hypertension Patient to get CVC on Monday for terminal manager antibiotics. Will need continued Physical therapy. Thanks again. Will follow with you. Fe Feng MD
--- NOTE | 2018-08-12 14:32 | PN ---
Progress Note, Physician History of Present Illness: Continued LUE hemiplegia, no PAF on monitor. - Current Medication List Current Medications: Active Medications Aspirin (Asa -) 325 mg PO DAILY [facility] Last Admin: 08/12/18 09:47 Dose: 325 mg Atorvastatin Calcium (Lipitor -) 80 mg PO HS [facility] Last Admin: 08/11/18 21:31 Dose: 80 mg Collagenase (Santyl -) 1 applic TP DAILY [facility]; Protocol Last Admin: 08/12/18 09:48 Dose: 1 applic Docusate Sodium (Colace -) 100 mg PO Q12H PRN PRN Reason: CONSTIPATION Last Admin: 08/05/18 17:41 Dose: 100 mg Piperacillin Sod/Tazobactam (Sod 3.375 gm/ Dextrose) 50 mls @ 100 mls/hr IVPB Q8H-IV [facility]; Protocol Last Admin: 08/12/18 09:48 Dose: 100 mls/hr Losartan Potassium (Cozaar -) 100 mg PO DAILY [facility] Last Admin: 08/12/18 09:47 Dose: 100 mg Metoprolol Tartrate (Lopressor -) 75 mg PO BID [facility] Last Admin: 08/12/18 09:47 Dose: 75 mg Nifedipine (Procardia Xl -) 90 mg PO DAILY [facility] Last Admin: 08/12/18 09:48 Dose: 90 mg Pantoprazole Sodium (Protonix -) 20 mg PO DAILY [facility] Last Admin: 08/12/18 09:48 Dose: 20 mg Potassium Chloride (K-Dur -) 40 meq PO BID [facility] Last Admin: 08/12/18 09:48 Dose: 40 meq Senna (Senna -) 2 tab PO HS PRN PRN Reason: CONSTIPATION - Objective Vital Signs: Vital Signs Temperature 97.9 F 08/12/18 10:00 Pulse Rate 74 08/12/18 10:00 Respiratory Rate 18 08/12/18 10:00 Blood Pressure 136/72 08/12/18 10:00 O2 Sat by Pulse Oximetry (%) 97 08/12/18 10:00 Constitutional: Yes: No Distress, Calm Neck: Yes: Supple Cardiovascular: Yes: Regular Rate and Rhythm Respiratory: Yes: Regular, CTA Bilaterally Gastrointestinal: Yes: Normal Bowel Sounds, Soft Edema: No Neurological: Yes: Weakness ...Motor Strength: LUE Labs: CBC, BMP 08/12/18 06:20 08/12/18 06:20 INR, PTT INR 1.05 (0.83-1.09) 08/01/18 07:00 - ....Imaging EKG: Report Reviewed (Tele: SR no PAF) Problem List - Problems (1) Cerebrovascular accident (CVA) Code(s): I63.9 - CEREBRAL INFARCTION, UNSPECIFIED Qualifiers: CVA mechanism: unspecified Qualified Code(s): I63.9 - Cerebral infarction, unspecified (2) Demand ischemia Code(s): I24.8 - OTHER FORMS OF ACUTE ISCHEMIC HEART DISEASE (3) HTN (hypertension) Code(s): I10 - ESSENTIAL (PRIMARY) HYPERTENSION Qualifiers: Hypertension type: essential hypertension Qualified Code(s): I10 - Essential (primary) hypertension (4) Hyperlipidemia Code(s): E78.5 - HYPERLIPIDEMIA, UNSPECIFIED Qualifiers: Hyperlipidemia type: pure hypercholesterolemia Qualified Code(s): E78.00 - Pure hypercholesterolemia, unspecified; E78.0 - Pure hypercholesterolemia (5) Hypertensive encephalopathy Code(s): I67.4 - HYPERTENSIVE ENCEPHALOPATHY (6) Wound of right lower extremity Code(s): S81.801A - UNSPECIFIED OPEN WOUND, RIGHT LOWER LEG, INITIAL ENCOUNTER Qualifiers: Encounter type: subsequent encounter Qualified Code(s): S81.801D - Unspecified open wound, right lower leg, subsequent encounter (7) CKD (chronic kidney disease) Code(s): N18.9 - CHRONIC KIDNEY DISEASE, UNSPECIFIED Qualifiers: Chronic kidney disease stage: stage 2 (mild) Qualified Code(s): N18.2 - Chronic kidney disease, stage 2 (mild) Assessment/Plan MRI brain with focal acute/subacute infarct involving the right periventricular white matter and posterior aspect of the right basal ganglia. Chronic lacunar infarcts in the right basal ganglia and in the rostrum of the corpus callosum on the right. Chronic left paramedian pontine infarct 1. CVA with left sided residual deficit, R-MCA branch infarction 2. CAD with evidence of demand ischemic injury 3. HTN, labile blood pressure 4. Hypercholesterolemia 5. CKD w/o proteinuria likely due to hypertensive nephrosclerosis 6. Right lower extremity infected ulcer wound and osteomyelitis post debridement 7. Paroxysmal atrial tachycardia PLAN: 1. Continue Procardia XL 90 qd and Losartan 100 qd 2. Continue Lopressor 75 bid as tolerated 3. Continue Lipitor 80 qhs and ASA 325 qd 4. As outlined in prior note consider extended arrhythmia monitoring as outpatient to exclude atrial fibrillation, no PAF on telemetry thus far 5. Empiric antibiotics for RLE ulcer via PICC line Monday, f/u bone biopsy cultures, wound care 6. PT and eventual acute rehab
--- NOTE | 2018-08-12 17:10 | PN ---
Progress Note, Physician History of Present Illness: Pt alert, afebrile. Fully responsive but LUE weakness persists. - Current Medication List Current Medications: Active Medications Aspirin (Asa -) 325 mg PO DAILY [facility] Last Admin: 08/12/18 09:47 Dose: 325 mg Atorvastatin Calcium (Lipitor -) 80 mg PO HS [facility] Last Admin: 08/11/18 21:31 Dose: 80 mg Collagenase (Santyl -) 1 applic TP DAILY [facility]; Protocol Last Admin: 08/12/18 09:48 Dose: 1 applic Docusate Sodium (Colace -) 100 mg PO Q12H PRN PRN Reason: CONSTIPATION Last Admin: 08/05/18 17:41 Dose: 100 mg Piperacillin Sod/Tazobactam (Sod 3.375 gm/ Dextrose) 50 mls @ 100 mls/hr IVPB Q8H-IV [facility]; Protocol Last Admin: 08/12/18 09:48 Dose: 100 mls/hr Losartan Potassium (Cozaar -) 100 mg PO DAILY [facility] Last Admin: 08/12/18 09:47 Dose: 100 mg Metoprolol Tartrate (Lopressor -) 75 mg PO BID [facility] Last Admin: 08/12/18 09:47 Dose: 75 mg Nifedipine (Procardia Xl -) 90 mg PO DAILY [facility] Last Admin: 08/12/18 09:48 Dose: 90 mg Pantoprazole Sodium (Protonix -) 20 mg PO DAILY [facility] Last Admin: 08/12/18 09:48 Dose: 20 mg Potassium Chloride (K-Dur -) 40 meq PO BID [facility] Last Admin: 08/12/18 09:48 Dose: 40 meq Senna (Senna -) 2 tab PO HS PRN PRN Reason: CONSTIPATION - Objective Vital Signs: Vital Signs Temperature 98.1 F 08/12/18 14:00 Pulse Rate 63 08/12/18 14:00 Respiratory Rate 18 08/12/18 14:00 Blood Pressure 135/94 08/12/18 14:00 O2 Sat by Pulse Oximetry (%) 97 08/12/18 10:00 Constitutional: Yes: No Distress, Calm Cardiovascular: Yes: Regular Rate and Rhythm Respiratory: Yes: Regular Gastrointestinal: Yes: Normal Bowel Sounds, Soft Wound/Incision: Yes: Other (RLE ulcer +granulation, no purulence/malodor) Labs: CBC, BMP 08/12/18 06:20 08/12/18 06:20 INR, PTT INR 1.05 (0.83-1.09) 08/01/18 07:00 Problem List - Problems (1) FERNANDO (acute kidney injury) Code(s): N17.9 - ACUTE KIDNEY FAILURE, UNSPECIFIED (2) Cerebrovascular accident (CVA) Code(s): I63.9 - CEREBRAL INFARCTION, UNSPECIFIED Qualifiers: CVA mechanism: unspecified Qualified Code(s): I63.9 - Cerebral infarction, unspecified (3) Hypertensive encephalopathy Code(s): I67.4 - HYPERTENSIVE ENCEPHALOPATHY Assessment/Plan RLE Infected Ulcer/OM s/p debridement CKD Acute CVA Hypertensive encephalopathy -- continue Zosyn IV -- continue wound care, wound currently clean without purulence/malodor
[2018-08-12] MEDS: ATORVASTATIN CA 80 MG TABLET (FP) PO SCH (21:24)
[2018-08-13] MEDS ORDERED: DEXTROSE 5%-WATER - 50 ML IVPB ONE ×3 (01:38→17:21)
[2018-08-13] MEDS ORDERED: PIPERACILLIN/TAZOBACTAM 3.375 GM VIAL IVPB ONE ×3 (01:38→17:21)
[2018-08-13] MEDS: PIPERACILLIN/TAZOB 3.375 GM 3.375 GM in DEXTROSE 5%-WATER - 50 ML IVPB SCH ×3 (02:18→17:49)
[2018-08-13 07:04] LABS: BASO % 0.7 % (0-2.0); EOS % 2.7 % (0-4.5); HEMATOCRIT 37.2 % (35.4-49); HEMOGLOBIN 12.6 GM/dL (11.7-16.9); LYMPH % 27.6 % (8-40); MCH 29.1 pg (25.7-33.7); MCHC 33.8 g/dl (32.0-35.9); MEAN PLT VOLUME 8.3 fl (7.5-11.1); MONO % 5.6 % (3.8-10.2); NEUT % 63.4 % (42.8-82.8); PLATELET COUNT 289 K/MM3 (134-434); RBC 4.32 M/mm3 (4.00-5.60); RDW 14.2 % (11.9-15.9); WHITE BLOOD COUNT 6.4 K/mm3 (4.0-10.0)
[2018-08-13 07:38] LABS: ANION GAP 8 MMOL/L (8-16); BLOOD UREA NITROGEN 18 mg/dL (7-18); CALCIUM 8.6 mg/dL (8.5-10.1); CHLORIDE 111 mmol/L (98-107); CO2 23 mmol/L (21-32); CREATININE 1.6 mg/dL (0.55-1.3); GLUCOSE,RANDOM 93 mg/dL (74-106); POTASSIUM 4.2 mmol/L (3.5-5.1); SODIUM 143 mmol/L (136-145)
[2018-08-13] MEDS: METOPROLOL TARTRATE 25 MG TABLET (FP) PO SCH ×2 (09:21→22:36)
[2018-08-13] MEDS: NIFEdipine E.R. 90 MG TABLET (FP) PO SCH (09:21)
[2018-08-13] MEDS: PANTOPRAZOLE 20 MG TABLET (FP) PO SCH (09:21)
[2018-08-13] MEDS: LOSARTAN POTASSIUM 50 MG TABLET (FP) PO SCH (09:21)
[2018-08-13] MEDS: ASPIRIN 325 MG TABLET PO SCH (09:21)
[2018-08-13] MEDS: COLLAGENASE CLOSTRIDIUM HIST. 30 GRAMS TUBE TP SCH (09:22)
[2018-08-13] MEDS: POTASSIUM CHLORIDE TABS 20 MEQ TABLET.ER (FP) PO SCH ×2 (09:22→22:36)
--- NOTE | 2018-08-13 10:18 | PN ---
Progress Note, Physician Chief Complaint: Events noted No significant changes LUE hemiparesis History of Present Illness: Patient was seen and examined. Awake and alert. Chart was reviewed. Denies chest pain, SOB or palpitations - Current Medication List Current Medications: Active Medications Aspirin (Asa -) 325 mg PO DAILY [facility] Last Admin: 08/13/18 09:21 Dose: 325 mg Atorvastatin Calcium (Lipitor -) 80 mg PO HS [facility] Last Admin: 08/12/18 21:24 Dose: 80 mg Collagenase (Santyl -) 1 applic TP DAILY [facility]; Protocol Last Admin: 08/13/18 09:22 Dose: 1 applic Docusate Sodium (Colace -) 100 mg PO Q12H PRN PRN Reason: CONSTIPATION Last Admin: 08/05/18 17:41 Dose: 100 mg Piperacillin Sod/Tazobactam (Sod 3.375 gm/ Dextrose) 50 mls @ 100 mls/hr IVPB Q8H-IV [facility]; Protocol Last Admin: 08/13/18 09:22 Dose: 100 mls/hr Losartan Potassium (Cozaar -) 100 mg PO DAILY [facility] Last Admin: 08/13/18 09:21 Dose: 100 mg Metoprolol Tartrate (Lopressor -) 75 mg PO BID [facility] Last Admin: 08/13/18 09:21 Dose: 75 mg Nifedipine (Procardia Xl -) 90 mg PO DAILY [facility] Last Admin: 08/13/18 09:21 Dose: 90 mg Pantoprazole Sodium (Protonix -) 20 mg PO DAILY [facility] Last Admin: 08/13/18 09:21 Dose: 20 mg Potassium Chloride (K-Dur -) 40 meq PO BID [facility] Last Admin: 08/13/18 09:22 Dose: 40 meq Senna (Senna -) 2 tab PO HS PRN PRN Reason: CONSTIPATION - Objective Vital Signs: Vital Signs Temperature 98.1 F 08/13/18 06:41 Pulse Rate 68 08/13/18 06:41 Respiratory Rate 20 08/13/18 06:41 Blood Pressure 141/86 08/13/18 06:41 O2 Sat by Pulse Oximetry (%) 98 08/12/18 20:33 HENT: Yes: Atraumatic Neck: Yes: Supple Cardiovascular: Yes: Regular Rate and Rhythm, S1, S2 Respiratory: Yes: CTA Bilaterally Gastrointestinal: Yes: Normal Bowel Sounds, Soft. No: Tenderness Edema: No ...Motor Strength: LUE (hemiparesis) Additional Findings/Remarks: - Review of Systems Constitutional: denies: Chills, Fever Cardiovascular: denies: Chest Pain, Palpitations, Shortness of Breath Respiratory: denies: Cough, Hemoptysis, Orthopnea, PND, SOB, SOB on Exertion Gastrointestinal: denies: Abdominal Pain, Constipation, Diarrhea, Melena, Nausea , Rectal Bleeding, Vomiting Musculoskeletal: denies: Back Pain, Joint Pain Neurological: reports: Weakness. denies: Dizziness, Headache, Seizure, Syncope Labs: CBC, BMP 08/13/18 06:00 08/13/18 06:00 Problem List - Problems (1) Demand ischemia Code(s): I24.8 - OTHER FORMS OF ACUTE ISCHEMIC HEART DISEASE (2) FERNANDO (acute kidney injury) Code(s): N17.9 - ACUTE KIDNEY FAILURE, UNSPECIFIED (3) Cerebrovascular accident (CVA) Code(s): I63.9 - CEREBRAL INFARCTION, UNSPECIFIED Qualifiers: CVA mechanism: unspecified Qualified Code(s): I63.9 - Cerebral infarction, unspecified (4) Elevated hemoglobin A1c Code(s): R73.09 - OTHER ABNORMAL GLUCOSE (5) HTN (hypertension) Code(s): I10 - ESSENTIAL (PRIMARY) HYPERTENSION Qualifiers: Hypertension type: essential hypertension Qualified Code(s): I10 - Essential (primary) hypertension (6) Hyperlipidemia Code(s): E78.5 - HYPERLIPIDEMIA, UNSPECIFIED Qualifiers: Hyperlipidemia type: pure hypercholesterolemia Qualified Code(s): E78.00 - Pure hypercholesterolemia, unspecified; E78.0 - Pure hypercholesterolemia (7) Hypertensive encephalopathy Code(s): I67.4 - HYPERTENSIVE ENCEPHALOPATHY (8) Troponin I above reference range Code(s): R74.8 - ABNORMAL LEVELS OF OTHER SERUM ENZYMES Assessment/Plan 1. CVA with left sided residual deficit, R-MCA branch infarction 2. CAD with evidence of demand ischemic injury 3. HTN, labile blood pressure 4. Hypercholesterolemia 5. CKD w/o proteinuria likely due to hypertensive nephrosclerosis 6. Right lower extremity infected ulcer wound and osteomyelitis post debridement 7. Paroxysmal atrial tachycardia PLAN: 1. Continue Procardia XL 90 mg QD and Losartan 100 mg QD 2. Continue Lopressor 75 mg BID as tolerated 3. Continue Lipitor 80 mg QHS and ASA 325 mg QD 4. As outlined in prior note consider extended arrhythmia monitoring as outpatient to exclude atrial fibrillation 5. Empiric antibiotics for RLE ulcer and PICC line to be inserted 6. PT and eventual rehab Further plans are to follow Shawn Kelly MD
--- NOTE | 2018-08-13 12:26 | PN ---
Physical Exam: SUBJECTIVE: Patient seen and examined. He is comfortable sitting in a chair. He has no complaints. OBJECTIVE: Vital Signs Period Temp Pulse Resp BP Sys/Hayes Pulse Ox Last 24 Hr 97.9 F-98.1 F 63-69 16-20 126-145/66-94 98-98 GENERAL: The patient is awake, alert, and fully oriented, in no acute distress. LUNGS: Breath sounds equal, clear to auscultation bilaterally, no wheezes, no crackles, no accessory muscle use. HEART: Regular rate and rhythm, S1, S2 without murmur, rub or gallop. ABDOMEN: Obese, soft, nontender, nondistended, normoactive bowel sounds, no guarding, no rebound, no hepatosplenomegaly, no masses. EXTREMITIES: 2+ pulses, warm, well-perfused, no edema. LUE in sling. Laboratory Results - last 24 hr 08/13/18 08/13/18 06:00 06:00 WBC 6.4 RBC 4.32 Hgb 12.6 Hct 37.2 MCV 86.0 MCH 29.1 MCHC 33.8 RDW 14.2 Plt Count 289 MPV 8.3 Absolute Neuts (auto) 4.0 Neutrophils % 63.4 Lymphocytes % 27.6 D Monocytes % 5.6 Eosinophils % 2.7 Basophils % 0.7 Nucleated RBC % 0 Sodium 143 Potassium 4.2 Chloride 111 H Carbon Dioxide 23 Anion Gap 8 BUN 18 Creatinine 1.6 H Creat Clearance w eGFR 44.02 Random Glucose 93 Calcium 8.6 Active Medications Generic Name Dose Route Start Last Admin Trade Name Freq PRN Reason Stop Dose Admin Aspirin 325 mg 08/02/18 10:00 08/13/18 09:21 Asa - PO 325 mg DAILY [facility] Administration Atorvastatin Calcium 80 mg 08/01/18 22:00 08/12/18 21:24 Lipitor - PO 80 mg HS [facility] Administration Collagenase 1 applic 08/02/18 10:00 08/13/18 09:22 Santyl - TP 1 applic DAILY [facility] Administration Protocol Docusate Sodium 100 mg 08/01/18 16:37 08/05/18 17:41 Colace - PO 100 mg Q12H PRN Administration CONSTIPATION Piperacillin Sod/Tazobactam 50 mls @ 100 mls/hr 08/10/18 18:00 08/13/18 09:22 Sod 3.375 gm/ Dextrose IVPB 100 mls/hr Q8H-IV [facility] Administration Protocol Losartan Potassium 100 mg 08/02/18 10:00 08/13/18 09:21 Cozaar - PO 100 mg DAILY [facility] Administration Metoprolol Tartrate 75 mg 08/06/18 10:00 08/13/18 09:21 Lopressor - PO 75 mg BID [facility] Administration Nifedipine 90 mg 08/02/18 10:00 08/13/18 09:21 Procardia Xl - PO 90 mg DAILY [facility] Administration Pantoprazole Sodium 20 mg 08/02/18 10:00 08/13/18 09:21 Protonix - PO 20 mg DAILY [facility] Administration Potassium Chloride 40 meq 08/01/18 22:00 08/13/18 09:22 K-Dur - PO 40 meq BID [facility] Administration Senna 2 tab 08/01/18 16:37 Senna - PO HS PRN CONSTIPATION ASSESSMENT/PLAN: This is a 63 year old man with no significant history who presented to the ED after a fall with left sided weakness and left facial droop. 1. Acute right MCA CVA with left hemiparesis - Continue aspirin, Lipitor - Awaiting rehab placement 2. Hypertensive encephalopathy - Resolved 3. HTN, uncontrolled - Continue Procardia XL, Cozaar, Lopressor 4. Hyperlipidemia - Continue Lipitor 5. Stage 3 CKD - Stable 6. Demand ischemia 7. Infected RLE ulcer with osteomyelitis - s/p excisional debridement and bone biopsy 08/01 - Wound culture polymicrobial - Bone culture growing Pseudomonas - Continue Zosyn, wound care with Santyl - Plan for tunneled catheter today for continued IV abx Visit type - Emergency Visit Emergency Visit: Yes ED Registration Date: 07/26/18 Care time: The patient presented to the Emergency Department on the above date and was hospitalized for further evaluation of their emergent condition. - New Patient This patient is new to me today: Yes Date on this admission: 08/13/18 - Critical Care Critical Care patient: No - Discharge Referral Referred to [facility] Med P.C.: No
--- NOTE | 2018-08-13 13:37 | PN ---
Progress Note, Physician - Current Medication List Current Medications: Active Medications Aspirin (Asa -) 325 mg PO DAILY [facility] Last Admin: 08/13/18 09:21 Dose: 325 mg Atorvastatin Calcium (Lipitor -) 80 mg PO HS [facility] Last Admin: 08/12/18 21:24 Dose: 80 mg Collagenase (Santyl -) 1 applic TP DAILY [facility]; Protocol Last Admin: 08/13/18 09:22 Dose: 1 applic Docusate Sodium (Colace -) 100 mg PO Q12H PRN PRN Reason: CONSTIPATION Last Admin: 08/05/18 17:41 Dose: 100 mg Piperacillin Sod/Tazobactam (Sod 3.375 gm/ Dextrose) 50 mls @ 100 mls/hr IVPB Q8H-IV [facility]; Protocol Last Admin: 08/13/18 09:22 Dose: 100 mls/hr Losartan Potassium (Cozaar -) 100 mg PO DAILY [facility] Last Admin: 08/13/18 09:21 Dose: 100 mg Metoprolol Tartrate (Lopressor -) 75 mg PO BID [facility] Last Admin: 08/13/18 09:21 Dose: 75 mg Nifedipine (Procardia Xl -) 90 mg PO DAILY [facility] Last Admin: 08/13/18 09:21 Dose: 90 mg Pantoprazole Sodium (Protonix -) 20 mg PO DAILY [facility] Last Admin: 08/13/18 09:21 Dose: 20 mg Potassium Chloride (K-Dur -) 40 meq PO BID [facility] Last Admin: 08/13/18 09:22 Dose: 40 meq Senna (Senna -) 2 tab PO HS PRN PRN Reason: CONSTIPATION - Objective Vital Signs: Vital Signs Temperature 98.1 F 08/13/18 10:00 Pulse Rate 69 08/13/18 10:00 Respiratory Rate 20 08/13/18 10:00 Blood Pressure 126/66 08/13/18 10:00 O2 Sat by Pulse Oximetry (%) 98 08/13/18 10:00 Labs: CBC, BMP 08/13/18 06:00 08/13/18 06:00 INR, PTT INR 1.05 (0.83-1.09) 08/01/18 07:00
[2018-08-13] MEDS: ATORVASTATIN CA 80 MG TABLET (FP) PO SCH (22:36)
[2018-08-14] MEDS ORDERED: PIPERACILLIN/TAZOBACTAM 3.375 GM VIAL IVPB ONE ×2 (01:13→08:44)
[2018-08-14] MEDS ORDERED: DEXTROSE 5%-WATER - 50 ML IVPB ONE ×2 (01:14→08:44)
[2018-08-14] MEDS: PIPERACILLIN/TAZOB 3.375 GM 3.375 GM in DEXTROSE 5%-WATER - 50 ML IVPB SCH ×2 (01:25→09:01)
[2018-08-14] MEDS: ASPIRIN 325 MG TABLET PO SCH (09:00)
[2018-08-14] MEDS: METOPROLOL TARTRATE 25 MG TABLET (FP) PO SCH (09:00)
[2018-08-14] MEDS: NIFEdipine E.R. 90 MG TABLET (FP) PO SCH (09:00)
[2018-08-14] MEDS: POTASSIUM CHLORIDE TABS 20 MEQ TABLET.ER (FP) PO SCH (09:00)
[2018-08-14] MEDS: COLLAGENASE CLOSTRIDIUM HIST. 30 GRAMS TUBE TP SCH (09:01)
[2018-08-14] MEDS: PANTOPRAZOLE 20 MG TABLET (FP) PO SCH (09:01)
[2018-08-14] MEDS: LOSARTAN POTASSIUM 50 MG TABLET (FP) PO SCH (09:01)
--- NOTE | 2018-08-14 09:46 | PN ---
Physical Exam: SUBJECTIVE: Patient seen and examined OBJECTIVE: Vital Signs Period Temp Pulse Resp BP Sys/Hayes Pulse Ox Last 24 Hr 97.9 F-98.1 F 63-69 16-20 126-146/66-95 98-98 GENERAL: The patient is awake, alert, and fully oriented, in no acute distress. HEAD: Normal with no signs of trauma. EYES: PERRL, extraocular movements intact, sclera anicteric, conjunctiva clear. No ptosis. ENT: Ears normal, nares patent, oropharynx clear without exudates, moist mucous membranes. NECK: Trachea midline, full range of motion, supple. LUNGS: Breath sounds equal, clear to auscultation bilaterally, no wheezes, no crackles, no accessory muscle use. HEART: Regular rate and rhythm, S1, S2 without murmur, rub or gallop. ABDOMEN: Soft, nontender, nondistended, normoactive bowel sounds, no guarding, no rebound, no hepatosplenomegaly, no masses. EXTREMITIES: 2+ pulses, warm, well-perfused, no edema. NEUROLOGICAL: Cranial nerves II through XII grossly intact. Normal speech, gait not observed. PSYCH: Normal mood, normal affect. SKIN: Warm, dry, normal turgor, no rashes or lesions noted Active Medications Generic Name Dose Route Start Last Admin Trade Name Freq PRN Reason Stop Dose Admin Aspirin 325 mg 08/02/18 10:00 08/14/18 09:00 Asa - PO 325 mg DAILY YOLANDE Administration Atorvastatin Calcium 80 mg 08/01/18 22:00 08/13/18 22:36 Lipitor - PO 80 mg HS YOLANDE Administration Collagenase 1 applic 08/02/18 10:00 08/14/18 09:01 Santyl - TP 1 applic DAILY YOLANDE Administration Protocol Docusate Sodium 100 mg 08/01/18 16:37 08/05/18 17:41 Colace - PO 100 mg Q12H PRN Administration CONSTIPATION Piperacillin Sod/Tazobactam 50 mls @ 100 mls/hr 08/10/18 18:00 08/14/18 09:01 Sod 3.375 gm/ Dextrose IVPB 100 mls/hr Q8H-IV YOLANDE Administration Protocol Losartan Potassium 100 mg 08/02/18 10:00 08/14/18 09:01 Cozaar - PO 100 mg DAILY YOLANDE Administration Metoprolol Tartrate 75 mg 08/06/18 10:00 08/14/18 09:00 Lopressor - PO 75 mg BID YOLANDE Administration Nifedipine 90 mg 08/02/18 10:00 08/14/18 09:00 Procardia Xl - PO 90 mg DAILY YOLANDE Administration Pantoprazole Sodium 20 mg 08/02/18 10:00 08/14/18 09:01 Protonix - PO 20 mg DAILY YOLANDE Administration Potassium Chloride 40 meq 08/01/18 22:00 08/14/18 09:00 K-Dur - PO 40 meq BID YOLANDE Administration Senna 2 tab 08/01/18 16:37 Senna - PO HS PRN CONSTIPATION ASSESSMENT/PLAN:
--- NOTE | 2018-08-14 10:24 | PN ---
Progress Note, Physician Chief Complaint: Events noted No significant changes LUE hemiparesis History of Present Illness: Patient was seen and examined. Awake and alert. Chart was reviewed. Denies chest pain, SOB or palpitations S/P insertion of tunnel catheter - Current Medication List Current Medications: Active Medications Aspirin (Asa -) 325 mg PO DAILY [facility] Last Admin: 08/14/18 09:00 Dose: 325 mg Atorvastatin Calcium (Lipitor -) 80 mg PO HS [facility] Last Admin: 08/13/18 22:36 Dose: 80 mg Collagenase (Santyl -) 1 applic TP DAILY [facility]; Protocol Last Admin: 08/14/18 09:01 Dose: 1 applic Docusate Sodium (Colace -) 100 mg PO Q12H PRN PRN Reason: CONSTIPATION Last Admin: 08/05/18 17:41 Dose: 100 mg Piperacillin Sod/Tazobactam (Sod 3.375 gm/ Dextrose) 50 mls @ 100 mls/hr IVPB Q8H-IV [facility]; Protocol Last Admin: 08/14/18 09:01 Dose: 100 mls/hr Losartan Potassium (Cozaar -) 100 mg PO DAILY [facility] Last Admin: 08/14/18 09:01 Dose: 100 mg Metoprolol Tartrate (Lopressor -) 75 mg PO BID [facility] Last Admin: 08/14/18 09:00 Dose: 75 mg Nifedipine (Procardia Xl -) 90 mg PO DAILY [facility] Last Admin: 08/14/18 09:00 Dose: 90 mg Pantoprazole Sodium (Protonix -) 20 mg PO DAILY [facility] Last Admin: 08/14/18 09:01 Dose: 20 mg Potassium Chloride (K-Dur -) 40 meq PO BID [facility] Last Admin: 08/14/18 09:00 Dose: 40 meq Senna (Senna -) 2 tab PO HS PRN PRN Reason: CONSTIPATION - Objective Vital Signs: Vital Signs Temperature 97.9 F 08/14/18 06:00 Pulse Rate 64 08/14/18 06:00 Respiratory Rate 20 08/14/18 06:00 Blood Pressure 143/89 08/14/18 06:00 O2 Sat by Pulse Oximetry (%) 98 08/13/18 21:00 Eyes: Yes: PERRL HENT: Yes: Atraumatic Neck: Yes: Supple Cardiovascular: Yes: Regular Rate and Rhythm, S1, S2 Respiratory: Yes: CTA Bilaterally Gastrointestinal: Yes: Normal Bowel Sounds, Soft. No: Tenderness Edema: No Additional Findings/Remarks: - Review of Systems Constitutional: denies: Chills, Fever Cardiovascular: denies: Chest Pain, Palpitations, Shortness of Breath Respiratory: denies: Cough, Hemoptysis, Orthopnea, PND, SOB, SOB on Exertion Gastrointestinal: denies: Abdominal Pain, Constipation, Diarrhea, Melena, Nausea , Rectal Bleeding, Vomiting Musculoskeletal: denies: Back Pain, Joint Pain Neurological: reports: Weakness. denies: Dizziness, Headache, Seizure, Syncope Labs: CBC, BMP 08/13/18 06:00 08/13/18 06:00 Problem List - Problems (1) Demand ischemia Code(s): I24.8 - OTHER FORMS OF ACUTE ISCHEMIC HEART DISEASE (2) FERNANDO (acute kidney injury) Code(s): N17.9 - ACUTE KIDNEY FAILURE, UNSPECIFIED (3) Cerebrovascular accident (CVA) Code(s): I63.9 - CEREBRAL INFARCTION, UNSPECIFIED Qualifiers: CVA mechanism: unspecified Qualified Code(s): I63.9 - Cerebral infarction, unspecified (4) Elevated hemoglobin A1c Code(s): R73.09 - OTHER ABNORMAL GLUCOSE (5) HTN (hypertension) Code(s): I10 - ESSENTIAL (PRIMARY) HYPERTENSION Qualifiers: Hypertension type: essential hypertension Qualified Code(s): I10 - Essential (primary) hypertension (6) Hyperlipidemia Code(s): E78.5 - HYPERLIPIDEMIA, UNSPECIFIED Qualifiers: Hyperlipidemia type: pure hypercholesterolemia Qualified Code(s): E78.00 - Pure hypercholesterolemia, unspecified; E78.0 - Pure hypercholesterolemia (7) Hypertensive encephalopathy Code(s): I67.4 - HYPERTENSIVE ENCEPHALOPATHY (8) Troponin I above reference range Code(s): R74.8 - ABNORMAL LEVELS OF OTHER SERUM ENZYMES Assessment/Plan 1. CVA with left sided residual deficit, R-MCA branch infarction 2. CAD with evidence of demand ischemic injury 3. HTN, labile blood pressure 4. Hypercholesterolemia 5. CKD w/o proteinuria likely due to hypertensive nephrosclerosis 6. Right lower extremity infected ulcer wound and osteomyelitis post debridement 7. Paroxysmal atrial tachycardia PLAN: 1. Continue Procardia XL 90 mg QD and Losartan 100 mg QD 2. Continue Lopressor 75 mg BID as tolerated 3. Continue Lipitor 80 mg QHS and ASA 325 mg QD 4. As outlined in prior note consider extended arrhythmia monitoring as outpatient to exclude atrial fibrillation 5. Empiric antibiotics for RLE ulcer and tunnel catheter has been inserted 6. PT and eventual rehab ?[place] Further plans are to follow Shawn Kelly MD
--- NOTE | 2018-08-14 12:45 | DS ---
Physical Exam: SUBJECTIVE: Patient seen and examined, feels well, offers no complaints. comfortable. wants to go to rehab. OBJECTIVE: Vital Signs Period Temp Pulse Resp BP Sys/Hayes Pulse Ox Last 24 Hr 97.8 F-98.1 F 63-78 16-20 138-147/89-101 98-98 PHYSICAL EXAM GENERAL: The patient is awake, alert, and fully oriented, in no acute distress. HEAD: Normal with no signs of trauma. EYES: PERRL, extraocular movements intact, sclera anicteric, conjunctiva clear. No ptosis. ENT: Ears normal, nares patent, oropharynx clear without exudates, moist mucous membranes. NECK: Trachea midline, full range of motion, supple. HEART: Regular rate and rhythm ABDOMEN: Soft, nontender, nondistended, normoactive bowel sounds, no guarding, no rebound, no hepatosplenomegaly, no masses. EXTREMITIES:mild edema left hand. flaccid left arm RLE ulcer s/p debridement - dressing c/d/i NEUROLOGICAL: Normal speech, gait not observed. PSYCH: Normal mood, normal affect. LABS HOSPITAL COURSE: Date of Admission:07/26/18 Date of Discharge: 08/14/18 ASSESSMENT/PLAN: Patient is a 63 year old male with no reported past medical history. Patient presents to the ED s/p fall while getting out of bed. Pt was brought to the ER and found to have L-sided flaccidity and L sided facial droop. Hospitalization complicated when patient right lower extremity wound was noted to be infected and started on Zosyn antibiotics. He was also noted to have uncontrolled hypertension. Neuro: CVA. left sided weakness, predominantly his left arm which remains flaccid. left facial droop resolved. Brain MRI shows slight interval increase in acute/subacute infarct, no new infarct seen. On Lipitor 80mg for elevated lipid panel. asa 325mg daily Physical therapy and OT therapy. will need rehab Hypertension. better controlled On Procardia xl 90mg, losartan 100mg, metoprol 75mg bid cardiology following, notes reviewed patient will need outpatient pvc monitor to rule out PAF. Please follow up outpatient. Renal FERNANDO. Creatinine 1.6, unknown baseline renal dose medications. Recheck bmp/kidney function as an outpatient. Endocrine Hmga1c 6.1. borderline follow up outpatient. no further bgms. Vascular Right lower ext wound, debrided on 08/01/2018. Wound cx: + citrobacter/Strep c and Pseudomonas On Zosyn per id. Will need a total of 5 weeks of antibiotics. Last dose scheduled for August 27 Minutes to complete discharge: 60 Discharge Summary Reason For Visit: ACUTE KIDNEY INJURY,HYPERTENSIVE,CVA,HYPOKALEMIA Current Active Problems FERNANDO (acute kidney injury) (Acute) CKD (chronic kidney disease) (Acute) Cerebrovascular accident (CVA) (Acute) Demand ischemia (Acute) Elevated hemoglobin A1c (Acute) HTN (hypertension) (Acute) Hyperlipidemia (Acute) Hypertensive encephalopathy (Acute) Hypokalemia (Acute) Streptococcus infection, group C (Acute) Troponin I above reference range (Acute) Wound of right lower extremity (Acute) Condition: Guarded - Instructions Diet, Activity, Other Instructions: Mr. Hunter: You were admitted on 07/26/2018 for acute kidney injuary, hypertension, stroke and right lower leg wound. Here are our recommendations. #Acute Kidney Injury: Your kidney function is stable and you were seen and evaluated by a kidney specialist. We recommend that you continue to monitor your kidney function closely and follow up with Dr. Ovidio Chand within 2 weeks of discharge (his information is enclosed). #Hypertension: Your BP is more stable. Please continue the medications as outlined on your discharge instructions. You were evaluated by Dr. Kelly (cardiology). Please make a follow up appointment for an outpatient follow up. Atrial fibrillation, not yet ruled out. Patient will need extended arrhythmia monitoring as outpatient to exclude atrial fibrillation. He will need to folllw uo #Acute Stroke with Left sided deficit. You will be discharged to rehab. #Right Lower leg Wound: Continue Zosyn IV until August 27Monday which will be last day. Wound Care instructions: -Cleanse wound daily with sterile saline -Pat dry -Apply Santyl generously to the wound -Secure with sterile 4 x 4 and wrap with april. -Report any drainage or foul odor Thank you for allowing us to care for you. Mindy Peralta [place] [employer] [phone] [facility] Referrals: Tracie Newman MD [Staff Physician] - Shawn Kelly MD [Staff Physician] - Mannie Nolan MD [Staff Physician] - Disposition: [facility] FACILITY - Home Medications Comprehensive Discharge Medication List: Ambulatory Orders Aspirin [ASA -] 325 mg PO DAILY tablet 08/14/18 Atorvastatin Ca [Lipitor] 80 mg PO HS tablet 08/14/18 Collagenase Clostridium Hist. [Santyl -] 1 applic TP DAILY tube 08/14/18 Docusate Sodium [Colace -] 100 mg PO Q12H PRN capsule 08/14/18 Losartan Potassium [Cozaar -] 100 mg PO DAILY tablet 08/14/18 Metoprolol Tartrate [Lopressor -] 75 mg PO BID tablet 08/14/18 Nifedipine ER [Procardia XL -] 90 mg PO DAILY tab.er.24 08/14/18 Pantoprazole Sodium [Protonix -] 20 mg PO DAILY tablet.ec 08/14/18 Piperacillin/Tazob 3.375 gm [Zosyn -] 3.375 gm IVPB Q8H-IV vial 08/14/18 Potassium Chloride [K-Dur -] 40 meq PO BID tablet.er 08/14/18 Sennosides [Senna -] 2 tab PO HS PRN tablet 08/14/18 This patient is new to me today: No Emergency Visit: Yes ED Registration Date: 07/26/18 Care time: The patient presented to the Emergency Department on the above date and was hospitalized for further evaluation of their emergent condition. Critical Care patient: No - Discharge Referral Referred to [facility] Med P.C.: No
--- NOTE | 2018-08-14 13:22 | PN ---
Progress Note, Physician - Current Medication List Current Medications: Active Medications Aspirin (Asa -) 325 mg PO DAILY [facility] Last Admin: 08/14/18 09:00 Dose: 325 mg Atorvastatin Calcium (Lipitor -) 80 mg PO HS [facility] Last Admin: 08/13/18 22:36 Dose: 80 mg Collagenase (Santyl -) 1 applic TP DAILY [facility]; Protocol Last Admin: 08/14/18 09:01 Dose: 1 applic Docusate Sodium (Colace -) 100 mg PO Q12H PRN PRN Reason: CONSTIPATION Last Admin: 08/05/18 17:41 Dose: 100 mg Piperacillin Sod/Tazobactam (Sod 3.375 gm/ Dextrose) 50 mls @ 100 mls/hr IVPB Q8H-IV [facility]; Protocol Last Admin: 08/14/18 09:01 Dose: 100 mls/hr Losartan Potassium (Cozaar -) 100 mg PO DAILY [facility] Last Admin: 08/14/18 09:01 Dose: 100 mg Metoprolol Tartrate (Lopressor -) 75 mg PO BID [facility] Last Admin: 08/14/18 09:00 Dose: 75 mg Nifedipine (Procardia Xl -) 90 mg PO DAILY [facility] Last Admin: 08/14/18 09:00 Dose: 90 mg Pantoprazole Sodium (Protonix -) 20 mg PO DAILY [facility] Last Admin: 08/14/18 09:01 Dose: 20 mg Potassium Chloride (K-Dur -) 40 meq PO BID [facility] Last Admin: 08/14/18 09:00 Dose: 40 meq Senna (Senna -) 2 tab PO HS PRN PRN Reason: CONSTIPATION - Objective Vital Signs: Vital Signs Temperature 97.8 F 08/14/18 10:00 Pulse Rate 78 08/14/18 10:00 Respiratory Rate 20 08/14/18 10:00 Blood Pressure 147/101 H 08/14/18 10:00 O2 Sat by Pulse Oximetry (%) 98 08/14/18 10:00 Labs: CBC, BMP 08/13/18 06:00 08/13/18 06:00 INR, PTT INR 1.05 (0.83-1.09) 08/01/18 07:00
[2018-08-14 13:49] VITALS: BP 143/95; PULSE 65; TEMP 97.3
--- NOTE | 2018-08-14 17:10 | DS ---
Physical Exam: SUBJECTIVE: Patient seen and examined OBJECTIVE: Vital Signs Period Temp Pulse Resp BP Sys/Hayes Pulse Ox Last 24 Hr 97.3 F-98.0 F 64-78 16-20 138-147/89-101 98-98 PHYSICAL EXAM GENERAL: The patient is awake, alert, and fully oriented, in no acute distress. HEAD: Normal with no signs of trauma. EYES: PERRL, extraocular movements intact, sclera anicteric, conjunctiva clear. No ptosis. ENT: Ears normal, nares patent, oropharynx clear without exudates, moist mucous membranes. NECK: Trachea midline, full range of motion, supple. HEART: Regular rate and rhythm ABDOMEN: Soft, nontender, nondistended, normoactive bowel sounds, no guarding, no rebound, no hepatosplenomegaly, no masses. EXTREMITIES:mild edema left hand. flaccid left arm RLE ulcer s/p debridement - dressing c/d/i NEUROLOGICAL: Normal speech, gait not observed. PSYCH: Normal mood, normal affect. LABS HOSPITAL COURSE: Date of Admission:07/26/18 Date of Discharge: 08/14/18 ASSESSMENT/PLAN: Patient is a 63 year old male with no reported past medical history. Patient presents to the ED on 07/26/2018 s/p fall while getting out of bed. Pt was brought to the ER and found to have L-sided flaccidity and L sided facial droop. In the ED his NIHSS was 12 and he was outside the thrombolytic window. He was initially started on a Nitro dip in the ICU which was then discontinued for permissive hypertension. Hospitalization complicated when patient right lower extremity wound was noted to be infected and with osteomylitis and started on Zosyn antibiotics. Imaging: - CT of head showed mild volume loss and chronic microvascular ischemic disease changes. Right basal ganglia lacunar infarct, of indeterminate age, possibly chronic. - EKG shows NSR with voltage criteria for LVH and T wave abnormalities in lateral leads. - CT angiogram of the head and neck shows no evidence of hemodynamically significant stenosis at the common carotid bifurcation,bilaterally.Slightly dominant left vertebral artery relative to the right without gross evidence of focal stenosis.Small calcified plaque in the left cavernous carotid artery. - Brain MRI 07/31/18 shows interval slight increase in the size of previously described right periventricular acute/sub. infarct. extending to and involving posterior space of the right basal ganglia. 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 left facial droop resolved. Brain MRI shows slight interval increase in acute/subacute infarct, no new infarct seen. On Lipitor 80mg for elevated lipid panel. Asprin 325mg daily Physical therapy and OT therapy. Patient accepted to [facility]. Hypertension. 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 Please follow up outpatient with Dr. Leticia Escobar. Renal FERNANDO. Creatinine 1.6, unknown baseline renal dose medications. Recheck bmp/kidney function as an outpatient. Followed by renal during hospitalization Endocrine Hmga1c 6.1. borderline follow up outpatient. no further bgms. Vascular Right lower ext wound, infected ulcer Infected RLE ulcer with osteomyelitis debrided on 08/01/2018. Wound cx: + citrobacter/Strep c and Pseudomonas On Zosyn per id. Will need a total of 3 more weeks of antibiotics. Last dose scheduled for August 27 Wound culture polymicrobial - Continue Zosyn, wound care with Santyl Minutes to complete discharge: 60 Discharge Summary Reason For Visit: ACUTE KIDNEY INJURY,HYPERTENSIVE,CVA,HYPOKALEMIA Condition: Guarded - Instructions Diet, Activity, Other Instructions: Mr. Hunter: You were admitted on 07/26/2018 for acute kidney injuary, hypertension, stroke and right lower leg wound. Here are our recommendations. #Acute Kidney Injury: Your kidney function is stable and you were seen and evaluated by a kidney specialist. We recommend that you continue to monitor your kidney function closely and follow up with Dr. Ovidio Chand within 2 weeks of discharge (his information is enclosed). #Hypertension: Your BP is more stable. Please continue the medications as outlined on your discharge instructions. You were evaluated by Dr. Kelly (cardiology). Please make a follow up appointment for an outpatient follow up. Atrial fibrillation, not yet ruled out. Patient will need extended arrhythmia monitoring as outpatient to exclude atrial fibrillation. He will need to folllw uo #Acute Stroke with Left sided deficit. You will be discharged to rehab. #Right Lower leg Wound: Continue Zosyn IV until August 27Monday which will be last day. Wound Care instructions: -Cleanse wound daily with sterile saline -Pat dry -Apply Santyl generously to the wound -Secure with sterile 4 x 4 and wrap with april. -Report any drainage or foul odor Thank you for allowing us to care for you. Mindy Jones [employer]EARCH AGRICULTURAL ENGINEER [phone] [facility] Referrals: Delmi Robles MD [Staff Physician] - Tracie Newman MD [Staff Physician] - Shawn Kelly MD [Staff Physician] - Mannie Nolan MD [Staff Physician] - Disposition: NURSING HOME FACILITY - Home Medications Comprehensive Discharge Medication List: Ambulatory Orders Aspirin [ASA -] 325 mg PO DAILY tablet 08/14/18 Atorvastatin Ca [Lipitor] 80 mg PO HS tablet 08/14/18 Collagenase Clostridium Hist. [Santyl -] 1 applic TP DAILY tube 08/14/18 Docusate Sodium [Colace -] 100 mg PO Q12H PRN capsule 08/14/18 Losartan Potassium [Cozaar -] 100 mg PO DAILY tablet 08/14/18 Metoprolol Tartrate [Lopressor -] 75 mg PO BID tablet 08/14/18 Nifedipine ER [Procardia XL -] 90 mg PO DAILY tab.er.24 08/14/18 Pantoprazole Sodium [Protonix -] 20 mg PO DAILY tablet.ec 08/14/18 Piperacillin/Tazob 3.375 gm [Zosyn -] 3.375 gm IVPB Q8H-IV vial 08/14/18 Potassium Chloride [K-Dur -] 40 meq PO BID tablet.er 08/14/18 Sennosides [Senna -] 2 tab PO HS PRN tablet 08/14/18 This patient is new to me today: No Emergency Visit: Yes ED Registration Date: 07/26/18 Care time: The patient presented to the Emergency Department on the above date and was hospitalized for further evaluation of their emergent condition. Critical Care patient: No - Discharge Referral Referred to [facility] Med P.C.: No
--- NOTE | 2018-08-14 17:59 | PATH ---
Surgical Pathology Report Patient Name: ANALILIA MONAE [facility]. Rec. #: [id number] /Age/Gender: 1955 (Age: 63) / M Account: [id number] Location: 4 SO PEDS/ADOL Taken: 08/01/2018 Received: 08/02/2018 Reported: 08/14/2018 Physicians: Derek Andrew MD Specimen(s) Received A: DEBRIDED TISSUE RIGHT LOWER EXTREMITY B: BONE FROM RIGHT LOWER EXTREMITY Clinical History Right lower extremity wound Final Diagnosis A. LOWER EXTREMITY, RIGHT, DEBRIDED TISSUE, EXCISION: ATYPICAL DIGITATED AND ENDOPHYTIC KERATINOCYTIC PROLIFERATION. SEE COMMENT. B. BONE, LOWER EXTREMITY, RIGHT, BIOPSY: DENSE FIBROCONNECTIVE TISSUE. NO BONE IDENTIFIED. Comment: Part A, Histologic sections show multiple large aggregates of skin with a digitated and endophytic/focally crateriform keratinocytic proliferation associated with hyperkeratosis including focal parakeratosis and extending to the base of the tissue fragments. The endophytic component of the epithelium has a focal bulbous architecture and is crowded in the dermal component. There is underlying dense fibrosis. There is no granulomatous inflammation or significant inflammation in the reticular dermis. The epithelial cells have slightly enlarged, relatively uniform nuclei and abundant eosinophilic cytoplasms. 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 The clinical history has been noted. The clinical duration and the depth of the lesion is not typical of a keratoacanthoma. In addition, there is no dermal inflammation or other dermal process in this specimen that would suggest a cause of pseudoepitheliomatous hyperplasia. Case sent for consultation to Dr. Roberto Caputo from [facility], [place], [place] the diagnosis above reflects his opinion ([id number]). Case discussed with Dr. Varela. Electronically Signed Meg Tillman M.D. Gross Description A. Received in formalin labeled "debrided tissue right leg," is a 6.0 x 3.5 x 0.7 cm aggregate of [place] skin and soft tissue fragments. Tire Installer sections are submitted in one cassette. B. Received in formalin labeled "bone right lower extremity," is a 0.5 x 0.4 x 0.a 3 cm [place] portion of soft tissue, possibly containing bone. No definitive bone is identified grossly. The specimen is submitted in toto in one cassette, following decalcification. 08/02/2018 [facility]08/02/2018
== END 2018-08-14 15:23 | DRG 344 ==
LOC: JER 10:58 → JERBED 13:19 → JICU 21:00 → J4S 07-27 19:15
PROVIDERS: ADMIT Internal Medicine; ATTEND Nurse Practitioner Family
PROC: 0QBG0ZX Excision of Right Tibia, Open Approach, Diagnostic (ICD-10-PCS; 2018-08-01)
PROC: 0JBN0ZX Excision of Right Lower Leg Subcutaneous Tissue and Fascia, Open Approach, Diagnostic (ICD-10-PCS; principal; 2018-08-01 14:30)
PROC: 05HM33Z Insertion of Infusion Device into Right Internal Jugular Vein, Percutaneous Approach (ICD-10-PCS; 2018-08-13)
PROC: 0JHD3XZ Insertion of Tunneled Vascular Access Device into Right Upper Arm Subcutaneous Tissue and Fascia, Percutaneous Approach (ICD-10-PCS; 2018-08-13)
PROC: B513ZZA Fluoroscopy of Right Jugular Veins, Guidance (ICD-10-PCS; 2018-08-13)
PROC: 3E03329 Introduction of Other Anti-infective into Peripheral Vein, Percutaneous Approach (ICD-10-PCS; 2018-08-13)
DX: M86.9 Osteomyelitis, unspecified (principal); I63.81 Other cerebral infarction due to occlusion or stenosis of small artery; E87.6 Hypokalemia; I25.10 Atherosclerotic heart disease of native coronary artery without angina pectoris; E78.5 Hyperlipidemia, unspecified; I47.1 Supraventricular tachycardia; L97.916 Non-pressure chronic ulcer of unspecified part of right lower leg with bone involvement without evidence of necrosis; I12.9 Hypertensive chronic kidney disease with stage 1 through stage 4 chronic kidney disease, or unspecified chronic kidney disease; G81.94 Hemiplegia, unspecified affecting left nondominant side; I24.8 Other forms of acute ischemic heart disease; I96 Gangrene, not elsewhere classified; I67.4 Hypertensive encephalopathy; N17.9 Acute kidney failure, unspecified; N18.3 Chronic kidney disease, stage 3 (moderate)
CPT/HCPCS: 36415; 36558; 70450-TC; 70496-TC; 70498-TC; 70544-TC; 70551-TC; 71045-TC-FY; 73562-TC-RT-FY; 76775-TC; 77001-TC-FY; 80048; 80053; 81003; 82465; 82550; 82552; 82553; 82570; 82962; 83036; 83718; 83721; 83735; 84100; 84156; 84300; 84478; 84484; 85025; 85027; 85610; 85730; 86850; 86900; 86901; 87070; 87075; 87186; 87205; 88305-TC; 88311-TC; 93005; 93010; 93306-TC; 94760; 97116-GP; 97162-GP; 99285-25; C1751; J0131; J7030

== ENCOUNTER 2024-10-09 14:21 | Inpatient (IN) | payer OTHER ==
[2024-10-09 14:44] VITALS: BMI 31.9
[2024-10-09] MEDS ORDERED: PIPERACILLIN/TAZOB 3.375 GM 3.375 GM/50 ML BAG IVPB ONE (15:24)
[2024-10-09 15:29] LABS: ABSOLUTE IMMATURE GRANULOCYTES 0.02 x10^3/uL (0.0-0.031); BASOPHILS # 0.02 x10^3/uL (0.01-0.08); EOSINOPHIL % 2.9 % (0.8-7.0); EOSINOPHILS # 0.15 x10^3/uL (0.04-0.54); HEMATOCRIT 40.9 % (40.1-51.0); HEMOGLOBIN 12.9 g/dL (13.7-17.5); MCHC 31.5 g/dl (32.3-36.5); MEAN PLT VOLUME 9.3 fl (9.4-12.4); MONOCYTE # 0.51 x10^3/uL (0.30-0.82); MONOCYTE % 9.7 % (5.3-12.2); PLATELET COUNT 215 x10^3/uL (163-337)
[2024-10-09] MEDS: PIPERACILLIN/TAZOB 3.375 GM 3.375 GM in DEXTROSE 5%-WATER - 50 ML IVPB ONE (15:40)
[2024-10-09] MEDS ORDERED: VANCOMYCIN 1 GM PREMIX (F) 1 GM/200 ML BAG ONE (15:47)
[2024-10-09 15:52] LABS: POTASSIUM 3.4 mmol/L (3.5-5.1)
[2024-10-09 15:54] LABS: CALCIUM 8.1 mg/dL (8.5-10.1)
[2024-10-09 15:55] LABS: ALBUMIN 3.2 g/dl (3.4-5.0)
[2024-10-09 15:58] LABS: CREATININE 1.3 mg/dL (0.55-1.3)
[2024-10-09 15:59] LABS: BILIRUBIN,TOTAL 0.3 mg/dL (0.2-1); TOT PROT 6.3 g/dl (6.4-8.2)
[2024-10-09] MEDS: VANCOMYCIN 1,000 MG in DEXTROSE 5%-WATER - 250 ML IVPB ONE (16:05)
[2024-10-09] MEDS ORDERED: ACETAMINOPHEN 325 MG TABLET (FP) PO PRN (19:10)
[2024-10-09] MEDS: HEPARIN NA (PORCINE) 5,000 UNITS/ML 1ML VIAL SQ SCH (21:49)
[2024-10-09] MEDS: METOPROLOL TARTRATE 25 MG TABLET (FP) PO SCH (21:49)
[2024-10-09] MEDS: ATORVASTATIN CA 80 MG TABLET (FP) PO SCH (21:49)
[2024-10-09] MEDS: INSULIN ASPART SLIDING SCALE (NOVOLOG) 1 VIAL SQ SCH (23:07)
[2024-10-10] MEDS: LOSARTAN POTASSIUM 50 MG TABLET PO SCH (10:03)
[2024-10-10 18:48] VITALS: RESP 18
[2024-10-11] MEDS: MINERAL OIL/PETROLAT/WATER TOPICAL CREAM 113 GM JAR TP SCH (09:32)
[2024-10-11] MEDS: CALCIUM ACETATE/AL SULFATE TOP 1.9 GM/PACKET PACKET TP SCH (09:39)
[2024-10-11 22:11] VITALS: TEMP 97.9
[2024-10-12 09:12] VITALS: BP 130/90; PULSE 64
== END 2024-10-12 14:56 | DRG 603 ==
LOC: JER 14:21 → JERBED 16:22 → J7W 18:26
PROVIDERS: ADMIT Internal Medicine; ATTEND Internal Medicine
DX: L03.116 Cellulitis of left lower limb (principal); I69.354 Hemiplegia and hemiparesis following cerebral infarction affecting left non-dominant side; I12.9 Hypertensive chronic kidney disease with stage 1 through stage 4 chronic kidney disease, or unspecified chronic kidney disease; E78.5 Hyperlipidemia, unspecified; I87.2 Venous insufficiency (chronic) (peripheral); N18.2 Chronic kidney disease, stage 2 (mild); I73.9 Peripheral vascular disease, unspecified
CPT/HCPCS: 36415; 70450-TC; 71045-TC-FY; 73590-TC-LT-FY; 73610-TC-LT-FY; 73630-TC-LT; 80053; 82962; 85025; 85651; 86140; 93005; 93010; 99285-25; J1644